=== PATIENT | male | born 1960 | race Caucasian/White ===

== ENCOUNTER 2017-04-02 09:57 | Inpatient (IN) | payer OTHER ==
[2017-04-02 10:47] VITALS: BMI 21.2
[2017-04-02] MEDS ORDERED: MAGNESIUM HYDROX 2400MG/30ML ORAL SUSPENSION 30 ML CUP PO PRN (11:17)
[2017-04-02] MEDS ORDERED: MENTHOL/PHENOL 1 EACH UD MM PRN (11:17)
[2017-04-02] MEDS ORDERED: MAGNESIUM CITRATE 300 ML BOTTLE PO PRN (11:17)
[2017-04-02] MEDS ORDERED: ACETAMINOPHEN 325 MG TABLET (FP) PO PRN (11:17)
[2017-04-02] MEDS ORDERED: METHADONE HCL 10 MG TABLET (FOR DETOX USE ONLY) PO ONE ×2 (11:17→23:00)
[2017-04-02] MEDS ORDERED: guaiFENesin/D-METHORPHAN HB 10 ML UNIT-DOSE CUPS PO PRN (11:17)
[2017-04-02] MEDS ORDERED: P-EPHED 60MG/TRIPROLIDI 2.5MG TABLET PO PRN (11:17)
[2017-04-02] MEDS ORDERED: NICOTINE POLACRILEX 4 MG GUM BUC PRN (11:19)
--- NOTE | 2017-04-02 11:25 | HP ---
COWS - Scale Resting Pulse: 1= [place] 81-100 Sweatin= Chills/Flushing Restless Observation: 1= Difficult to Sit Still Pupil Size: 1= Pupils >than Normal Bone or Joint Aches: 1= Mild Discomfort Runny Nose/ Eye Tearin= Nasal Congestion GI Upset > 30mins: 2= Nausea/Diarrhea Tremor Observation: 2= Slight Tremor Visible Yawning Observation: 1= 1-2x During Session Anxiety or Irritability: 2=Irritable/Anxious Goose Flesh Skin: 3=Piloerection COWS Score: 16 Admission [facility] Chief Complaint: heroin withdrawal sx Allergies/Adverse Reactions: Allergies Allergy/AdvReac Type Severity Reaction Status Date / Time No Known Allergies Allergy Verified 04/02/17 11:09 History of Present Illness: 56 yo m w h/o OUD requesting inpatient detoxification for sparkle haines sx when he does not use. PMHX anxieyt, depressio aned insomnia treated and cleared hepatitis c, thirsty . no suicidal ideation, no seizures, no delirium tremens. last treatment detox 2 years ago smokes 1PPD Exam Limitations: No Limitations - Ebola screening Have you traveled outside of the country in the last 21 days: No Have you had contact with anyone from an Ebola affected area: No Have you been sick,other than usual withdrawal symptoms: No Do you have a fever: No - Review of Systems Constitutional: Chills, Diaphoresis, Night Sweats, Changes in sleep, Weakness, Unintentional Wgt. Loss EENT: reports: Tearing, Nose Congestion Respiratory: reports: No Symptoms reported Cardiac: reports: No Symptoms Reported GI: reports: Diarrhea, Difficulty Swallowing, Nausea, Poor Appetite, Poor Fluid Intake, Vomiting, Indigestion, Abdominal cramping : reports: No Symptoms Reported Musculoskeletal: reports: Back Pain, Joint Pain, Muscle Pain Integumentary: reports: Flushing, Sweating Neuro: reports: Headache, Paresthesia, Tremors, Weakness Endocrine: reports: Flushing, Increased Thirst Hematology: reports: No Symptoms Reported Psychiatric: reports: Judgement Intact, Orientated x3, Anxious, Depressed Other Systems: Reviewed and Negative Patient History - Patient Medical History Hx Anemia: Yes Hx Asthma: No Hx Chronic Obstructive Pulmonary Disease (COPD): No Hx Cancer: No Hx Cardiac Disorders: No Hx Congestive Heart Failure: No Hx Hypertension: No Hx Hypercholesterolemia: No Hx Pacemaker: No HX Cerebrovascular Accident: No Hx Seizures: No Hx Dementia: No Hx Diabetes: No Hx Gastrointestinal Disorders: No Hx Liver Disease: No Hx Genitourinary Disorders: No Hx Sexually Transmitted Disorders: No Hx Renal Disease (ESRD): No Hx Thyroid Disease: No Hx Human Immunodeficiency Virus (HIV): No Hx Hepatitis C: Yes (trated and olceared virus) Hx Depression: Yes Hx Suicide Attempt: No Hx Bipolar Disorder: Yes (SI) Hx Schizophrenia: No - Patient Surgical History Past Surgical History: No Hx Neurologic Surgery: No Hx Cataract Extraction: No Hx Cardiac Surgery: No Hx Lung Surgery: No Hx Breast Surgery: No Hx Breast Biopsy: No Hx Abdominal Surgery: No Hx Appendectomy: No Hx Cholecystectomy: No Hx Genitourinary Surgery: No Hx Section: No Hx Orthopedic Surgery: No Anesthesia Reaction: No - PPD History Previous Implant?: Yes Documented Results: Negative w/o proof Implanted On Prior R Admission?: No PPD to be Administered?: Yes - Reproductive History Patient is a Female of Child Bearing Age (11 -55 yrs old): No Patient : No - Smoking Cessation Smoking history: Current every day smoker Have you smoked in the past 12 months: Yes Aproximately how many cigarettes per day: 20 Hx Chewing Tobacco Use: No Initiated information on smoking cessation: Yes 'Breaking Loose' booklet given: 04/02/17 - Substance & Tx. History Hx Substance Use: Yes Substance Use Type: Heroin, Opiates Hx Substance Use Treatment: Yes (detox 2 years ago can not remember where) - Substances Abused Heroin Route: Injection Frequency: Daily Amount used: 20 bags Age of first use: 28 Date of Last Use: 04/02/17 Family Disease History - Family Disease History Family Disease History: Other: Mother (alcoholism) Admission Physical Exam BHS - Vital Signs Vital Signs: Vital Signs - 24 hr 04/02/17 10:43 Temperature 97.9 F Pulse Rate 84 Respiratory 20 Rate Blood Pressure 111/72 - Physical General Appearance: Yes: Nourished, Appropriately Dressed, Disheveled, Mild Distress, Thin, Tremorous, Irritable, Sweating, Anxious HEENTM: Yes: EOMI, Hearing grossly Normal, Normocephalic, Normal Voice, ALYSSA, Pharynx Normal, Nasal Congestion, Rhinorrhea Respiratory: Yes: Within Normal Limits, Chest Non-Tender, Lungs Clear, Normal Breath Sounds, No Respiratory Distress, No Accessory Muscle Use Neck: Yes: Within Normal Limits, No masses,lesions,Nodules, Supple, Trachea in good position Breast: Yes: Breast Exam Deferred Cardiology: Yes: Within Normal Limits, Regular Rhythm, Regular Rate, S1, S2 Abdominal: Yes: Within Normal Limits, Normal Bowel Sounds, Non Tender, Flat, Soft Genitourinary: Yes: Within Normal Limits Back: Yes: Within Normal Limits, Normal Inspection Musculoskeletal: Yes: full range of Motion, Gait Steady, Pelvis Stable, Back pain, Muscle Pain Extremities: Yes: Normal Capillary Refill, Normal Range of Motion, Non-Tender, Tremors Neurological: Yes: chief quality officer II-XII NML intact, Fully Oriented, Alert, Motor Strength 5/5, Normal Response, Depressed Affect Integumentary: Yes: Normal Color, Warm, Track Zuniga (erythema/cellulitis left forearm from idu/ no abscess noted) Lymphatic: Yes: Within Normal Limits - Addiitonal Findings: withdrawal sx - Diagnostic (1) Opioid dependence with withdrawal Current Visit: Yes Status: Acute (2) Depression Current Visit: Yes Status: Acute (3) Dehydration Current Visit: Yes Status: Acute (4) Hepatitis C Current Visit: Yes Status: Acute (5) Nicotine dependence Current Visit: Yes Status: Acute (6) Cellulitis Current Visit: Yes Status: Acute Cleared for Admission [facility] - Detox or Rehab [facility] Level of Care: Medically Managed Detox Regimen/Protocol: Methadone [facility] Breath Alcohol Content Breath Alcohol Content: 0 Urine Drug Screen - Results Drug Screen Negative: No Urine Drug Screen Results: OPI-Opiates, MTD-Methadone, OXY-Oxycodone
[2017-04-02] MEDS: diazePAM 5 MG TABLET PO PRN ×2 (12:35→17:26)
[2017-04-02] MEDS: cloNIDine HCL 0.1 MG TABLET PO SCH ×2 (12:35→22:44)
[2017-04-02] MEDS: CEPHALEXIN MONOHYDRATE 500 MG CAPSULE (UD) PO SCH ×2 (12:36→22:43)
[2017-04-02] MEDS: PANTOPRAZOLE 40 MG TABLET (FP) PO SCH (12:36)
[2017-04-02] MEDS: NAPROXEN 500 MG TABLET (FP) PO SCH ×2 (12:36→22:43)
[2017-04-02] MEDS: NICOTINE 21 MG/24 HOURS TOPICAL PATCH TD SCH (12:38)
[2017-04-02] MEDS: CYCLOBENZAPRINE HCL 10 MG TABLET (FP) PO SCH ×2 (14:55→22:44)
--- NOTE | 2017-04-02 18:46 | EKG ---
Test Reason : Blood Pressure : / mmHG Vent. Rate : 092 BPM Atrial Rate : 092 BPM P-R Int : 170 ms QRS Dur : 084 ms QT Int : 350 ms P-R-T Axes : 073 040 057 degrees QTc Int : 432 ms NORMAL SINUS RHYTHM NORMAL ECG NO PREVIOUS ECGS AVAILABLE Confirmed by MD ISADORA, JEWELS ([id number]) on 04/02/2017 6:45:43 PM Referred By: Silver Whittaker Confirmed By:JEWELS MUIR MD
[2017-04-02] MEDS: THIAMINE HCL 100 MG TABLET (FP) PO SCH (22:42)
[2017-04-02] MEDS: ZOLPIDEM TARTRATE 5 MG TABLET PO PRN (22:43)
[2017-04-02 23:06] LABS: URINE APPEARANCE CLEAR; URINE BILIRUBIN NEGATIVE (NEGATIVE); URINE BLOOD 2+ (NEGATIVE); URINE COLOR STRAW; URINE GLUCOSE (UA) NEGATIVE (NEGATIVE); URINE KETONE NEGATIVE (NEGATIVE); URINE LEUK ESTERASE NEGATIVE (NEGATIVE); URINE NITRITE NEGATIVE (NEGATIVE); URINE PROTEIN NEGATIVE (NEGATIVE); URINE UROBILINOGEN NEGATIVE mg/dL (0.2-1.0)
[2017-04-03] MEDS: CYCLOBENZAPRINE HCL 10 MG TABLET (FP) PO SCH ×3 (05:55→22:23)
[2017-04-03] MEDS: diazePAM 5 MG TABLET PO PRN ×4 (05:55→20:13)
[2017-04-03] MEDS ORDERED: METHADONE HCL 10 MG TABLET (FOR DETOX USE ONLY) PO ONE (10:00)
[2017-04-03 10:01] LABS: HEMOGLOBIN 11.7 GM/dL (11.7-16.9); MCH 30.1 pg (25.7-33.7); MCHC 32.4 g/dl (32.0-35.9); MEAN CELL VOLUME 92.9 fl (80-96); MEAN PLT VOLUME 7.5 fl (7.5-11.1); PLATELET COUNT 174 K/MM3 (134-434); RBC 3.88 M/mm3 (4.00-5.60); RDW 13.1 % (11.9-15.9); WHITE BLOOD COUNT 4.2 K/mm3 (4.0-10.0)
[2017-04-03 10:15] LABS: ALBUMIN 3.2 g/dl (3.4-5.0); ANION GAP 5 (8-16); BILIRUBIN,TOTAL 0.4 mg/dL (0.2-1.0); BLOOD UREA NITROGEN 16 mg/dL (7-18); CALCIUM 7.8 mg/dL (8.5-10.1); CHLORIDE 107 mmol/L (98-107); CO2 29 mmol/L (21-32); CREATININE 0.8 mg/dL (0.7-1.3); GLUCOSE,RANDOM 88 mg/dL (74-106); POTASSIUM 4.7 mmol/L (3.5-5.1); SGOT/AST 11 U/L (15-37); SGPT/ALT 19 U/L (12-78); SODIUM 141 mmol/L (136-145); TOT PROT 5.7 g/dl (6.4-8.2)
[2017-04-03 10:16] LABS: ALK PHOS 83 U/L (45-117)
[2017-04-03] MEDS: PRENATAL VITAMINS W/ FOLIC ACID TABLET (FP) PO SCH (10:41)
[2017-04-03] MEDS: CEPHALEXIN MONOHYDRATE 500 MG CAPSULE (UD) PO SCH ×2 (10:41→22:23)
[2017-04-03] MEDS: PANTOPRAZOLE 40 MG TABLET (FP) PO SCH (10:41)
[2017-04-03] MEDS: cloNIDine HCL 0.1 MG TABLET PO SCH ×2 (10:41→22:24)
[2017-04-03] MEDS: NAPROXEN 500 MG TABLET (FP) PO SCH ×2 (10:41→22:23)
[2017-04-03] MEDS: NICOTINE 21 MG/24 HOURS TOPICAL PATCH TD SCH (10:42)
--- NOTE | 2017-04-03 11:14 | CONSULT ---
[facility] Psychiatric Consult - Data Date of interview: 04/03/17 Admission source: [facility] Identifying data: First admission to [facility] for this 56 y/o male seeking detox treatment on for heroin dependence.Patient is single,a father of one,domiciled and reportedly employed. Substance Abuse History: Confirmed by patient in this interview. Smoking history : Current every day smoker. Have you smoked in the past 12 months: Yes. Aproximately how many cigarettes per day: 20. Hx Chewing Tobacco Use: No. Initiated information on smoking cessation: Yes. 'Breaking Loose' booklet given : 04/02/17. - Substance & Tx. History. Hx Substance Use: Yes. Substance Use Type: Heroin, Opiates. Hx Substance Use Treatment: Yes (detox 2 years ago can not remember where). - Substances Abused. Heroin. Route: Injection. Frequency: Daily. Amount used: 20 bags. Age of first use: 28. Date of Last Use: 04/02/17 Medical History: Anemia,hepatitis C (treated) and a distant history of injury to right leg + wrist (as per records). Psychiatric History: Patient denies. Physical/Sexual Abuse/Trauma History: Patient denies. Additional Comment: Urine Drug Screen Results: OPI-Opiates, MTD-Methadone, OXY- Oxycodone.Noted. Mental Status Exam - Mental Status Exam Alert and Oriented to: Time, Place, Person Cognitive Function: Good Patient Appearance: Well Groomed Mood: Withdrawn, Irritable Affect: Mood Congruent Patient Behavior: Passive, Fatigued, Cooperative (superficially cooperative historian) Speech Pattern: Clear Voice Loudness: Normal Thought Process: Intact, Goal Oriented Thought Disorder: Not Present Hallucinations: Denies Suicidal Ideation: Denies Homicidal Ideation: Denies Insight/Judgement: Poor Sleep: Poorly, Difficulty falling asleep Appetite: Good (as evidenced by empty foodtray at bedside) Muscle strength/Tone: Normal Gait/Station: Normal Additional Comments: observed walking prior to interview Psychiatric Findings - Problem List ([place] 1, 2,3) (1) Opioid dependence with withdrawal Current Visit: Yes Status: Acute (2) Nicotine dependence Current Visit: Yes Status: Acute (3) Insomnia Current Visit: Yes Status: Acute - Initial Treatment Plan Initial Treatment Plan: Psychoeducation.Sleep hygiene.Patient is encouraged to attend daily therapy sessions,groups,community meetings and recreational activities on schedule.He agrees.Ambien 10 mg po hs prn.Mr José is informed of risk of parasomnias (sleep-walking).Consented (verbally) to this plan of care.Observation.
--- NOTE | 2017-04-03 12:20 | PN ---
BHS COWS - Scale Resting Pulse: 1= [place] 81-100 Sweatin= Chills/Flushing Restless Observation: 3= Extraneous Movement Pupil Size: 0= Normal to Room Light Bone or Joint Aches: 4=Acute Joint/Muscle Pain Runny Nose/ Eye Tearin= None GI Upset > 30mins: 1= Stomach Cramp Tremor Observation of Outstretched Hands: 1= Tremor [place], Not Seen Yawning Observation: 2= >3x During Session Anxiety or Irritability: 2=Irritable/Anxious Goose Flesh Skin: 0=Smooth Skin COWS Score: 15 S Progress Note (SOAP) Subjective: ANXIETY ,SWEATS/CHILLS,MUSCLE ACHES,FATIGUE. Objective: 04/03/17 12:19 Vital Signs Temperature 98.6 F 04/03/17 10:00 Pulse Rate 82 04/03/17 10:00 Respiratory Rate 18 04/03/17 10:00 Blood Pressure 110/69 04/03/17 10:00 O2 Sat by Pulse Oximetry (%) Laboratory Last Values WBC 4.2 K/mm3 (4.0-10.0) 04/03/17 06:30 RBC 3.88 M/mm3 (4.00-5.60) L 04/03/17 06:30 Hgb 11.7 GM/dL (11.7-16.9) 04/03/17 06:30 Hct 36.0 % (35.4-49) 04/03/17 06:30 MCV 92.9 fl (80-96) 04/03/17 06:30 MCH 30.1 pg (25.7-33.7) 04/03/17 06:30 MCHC 32.4 g/dl (32.0-35.9) 04/03/17 06:30 RDW 13.1 % (11.9-15.9) 04/03/17 06:30 Plt Count 174 K/MM3 (134-434) 04/03/17 06:30 MPV 7.5 fl (7.5-11.1) 04/03/17 06:30 Sodium 141 mmol/L (136-145) 04/03/17 06:30 Potassium 4.7 mmol/L (3.5-5.1) 04/03/17 06:30 Chloride 107 mmol/L (98-107) 04/03/17 06:30 Carbon Dioxide 29 mmol/L (21-32) 04/03/17 06:30 Anion Gap 5 (8-16) L 04/03/17 06:30 BUN 16 mg/dL (7-18) 04/03/17 06:30 Creatinine 0.8 mg/dL (0.7-1.3) 04/03/17 06:30 Creat Clearance w eGFR > 60 (>60) 04/03/17 06:30 Random Glucose 88 mg/dL (74-106) 04/03/17 06:30 Calcium 7.8 mg/dL (8.5-10.1) L 04/03/17 06:30 Total Bilirubin 0.4 mg/dL (0.2-1.0) 04/03/17 06:30 AST 11 U/L (15-37) L 04/03/17 06:30 ALT 19 U/L (12-78) 04/03/17 06:30 Alkaline Phosphatase 83 U/L (45-117) 04/03/17 06:30 Total Protein 5.7 g/dl (6.4-8.2) L 04/03/17 06:30 Albumin 3.2 g/dl (3.4-5.0) L 04/03/17 06:30 Urine Color Straw 04/02/17 15:46 Urine Appearance Clear 04/02/17 15:46 Urine pH 6.0 (5.0-8.0) 04/02/17 15:46 Ur Specific [place] 1.008 (1.001-1.035) 04/02/17 15:46 Urine Protein Negative (NEGATIVE) 04/02/17 15:46 Urine Glucose (UA) Negative (NEGATIVE) 04/02/17 15:46 Urine Ketones Negative (NEGATIVE) 04/02/17 15:46 Urine Blood 2+ (NEGATIVE) H 04/02/17 15:46 Urine Nitrite Negative (NEGATIVE) 04/02/17 15:46 Urine Bilirubin Negative (NEGATIVE) 04/02/17 15:46 Urine Urobilinogen Negative mg/dL (0.2-1.0) 04/02/17 15:46 Ur Leukocyte Esterase Negative (NEGATIVE) 04/02/17 15:46 Urine WBC (Auto) <1 /hpf (3-5) 04/02/17 15:46 Urine RBC (Auto) 2 /hpf (0-3) 04/02/17 15:46 Assessment: 04/03/17 12:19 WITHDRAWAL SX Plan: CONTINUE DETOX
[2017-04-03] MEDS: THIAMINE HCL 100 MG TABLET (FP) PO SCH (22:23)
[2017-04-03] MEDS: ZOLPIDEM TARTRATE 5 MG TABLET PO PRN (22:25)
[2017-04-04] MEDS: diazePAM 5 MG TABLET PO PRN ×3 (05:46→18:29)
[2017-04-04] MEDS: CYCLOBENZAPRINE HCL 10 MG TABLET (FP) PO SCH ×3 (05:46→22:23)
[2017-04-04] MEDS ORDERED: METHADONE HCL 5 MG TABLET (FOR DETOX USE ONLY) PO ONE (10:00)
[2017-04-04] MEDS: PRENATAL VITAMINS W/ FOLIC ACID TABLET (FP) PO SCH (10:41)
[2017-04-04] MEDS: PANTOPRAZOLE 40 MG TABLET (FP) PO SCH (10:41)
[2017-04-04] MEDS: NAPROXEN 500 MG TABLET (FP) PO SCH ×2 (10:41→22:39)
[2017-04-04] MEDS: cloNIDine HCL 0.1 MG TABLET PO SCH ×2 (10:41→22:23)
[2017-04-04] MEDS: NICOTINE 21 MG/24 HOURS TOPICAL PATCH TD SCH (10:41)
[2017-04-04] MEDS: CEPHALEXIN MONOHYDRATE 500 MG CAPSULE (UD) PO SCH ×2 (10:41→22:23)
--- NOTE | 2017-04-04 11:56 | PN ---
BHS COWS - Scale Resting Pulse: 0= [place] 80 or Below Sweatin= Chills/Flushing Restless Observation: 3= Extraneous Movement Pupil Size: 2= Moderately Dilated Bone or Joint Aches: 4=Acute Joint/Muscle Pain Runny Nose/ Eye Tearin= Nasal Congestion GI Upset > 30mins: 1= Stomach Cramp Tremor Observation of Outstretched Hands: 2= Slight Tremor Visible Yawning Observation: 2= >3x During Session Anxiety or Irritability: 2=Irritable/Anxious Goose Flesh Skin: 0=Smooth Skin COWS Score: 18 BHS Progress Note (SOAP) Subjective: ANXIETY,SWEATS,FATIGUE. Objective: 04/04/17 11:55 Vital Signs Temperature 96.8 F L 04/04/17 10:07 Pulse Rate 77 04/04/17 10:07 Respiratory Rate 20 04/04/17 10:07 Blood Pressure 124/96 04/04/17 10:07 O2 Sat by Pulse Oximetry (%) Laboratory Last Values WBC 4.2 K/mm3 (4.0-10.0) 04/03/17 06:30 RBC 3.88 M/mm3 (4.00-5.60) L 04/03/17 06:30 Hgb 11.7 GM/dL (11.7-16.9) 04/03/17 06:30 Hct 36.0 % (35.4-49) 04/03/17 06:30 MCV 92.9 fl (80-96) 04/03/17 06:30 MCH 30.1 pg (25.7-33.7) 04/03/17 06:30 MCHC 32.4 g/dl (32.0-35.9) 04/03/17 06:30 RDW 13.1 % (11.9-15.9) 04/03/17 06:30 Plt Count 174 K/MM3 (134-434) 04/03/17 06:30 MPV 7.5 fl (7.5-11.1) 04/03/17 06:30 Sodium 141 mmol/L (136-145) 04/03/17 06:30 Potassium 4.7 mmol/L (3.5-5.1) 04/03/17 06:30 Chloride 107 mmol/L (98-107) 02/26/18 06:30 Carbon Dioxide 29 mmol/L (21-32) 04/03/17 06:30 Anion Gap 5 (8-16) L 04/03/17 06:30 BUN 16 mg/dL (7-18) 04/03/17 06:30 Creatinine 0.8 mg/dL (0.7-1.3) 04/03/17 06:30 Creat Clearance w eGFR > 60 (>60) 04/03/17 06:30 Random Glucose 88 mg/dL (74-106) 04/03/17 06:30 Calcium 7.8 mg/dL (8.5-10.1) L 04/03/17 06:30 Total Bilirubin 0.4 mg/dL (0.2-1.0) 04/03/17 06:30 AST 11 U/L (15-37) L 04/03/17 06:30 ALT 19 U/L (12-78) 04/03/17 06:30 Alkaline Phosphatase 83 U/L (45-117) 04/03/17 06:30 Total Protein 5.7 g/dl (6.4-8.2) L 04/03/17 06:30 Albumin 3.2 g/dl (3.4-5.0) L 04/03/17 06:30 Urine Color Straw 04/02/17 15:46 Urine Appearance Clear 04/02/17 15:46 Urine pH 6.0 (5.0-8.0) 04/02/17 15:46 Ur Specific [place] 1.008 (1.001-1.035) 04/02/17 15:46 Urine Protein Negative (NEGATIVE) 04/02/17 15:46 Urine Glucose (UA) Negative (NEGATIVE) 04/02/17 15:46 Urine Ketones Negative (NEGATIVE) 04/02/17 15:46 Urine Blood 2+ (NEGATIVE) H 04/02/17 15:46 Urine Nitrite Negative (NEGATIVE) 04/02/17 15:46 Urine Bilirubin Negative (NEGATIVE) 04/02/17 15:46 Urine Urobilinogen Negative mg/dL (0.2-1.0) 04/02/17 15:46 Ur Leukocyte Esterase Negative (NEGATIVE) 04/02/17 15:46 Urine WBC (Auto) <1 /hpf (3-5) 04/02/17 15:46 Urine RBC (Auto) 2 /hpf (0-3) 04/02/17 15:46 RPR Titer Nonreactive (NONREACTIVE) 04/03/17 06:30 Assessment: 04/04/17 11:56 WITHDRAWAL SX Plan: CONTINUE DETOX INCREASE PO FLUIDS
[2017-04-04] MEDS: ZOLPIDEM TARTRATE 5 MG TABLET PO PRN (22:23)
[2017-04-04] MEDS: THIAMINE HCL 100 MG TABLET (FP) PO SCH (22:23)
[2017-04-05] MEDS: diazePAM 5 MG TABLET PO PRN ×2 (06:00→10:42)
[2017-04-05] MEDS: CYCLOBENZAPRINE HCL 10 MG TABLET (FP) PO SCH ×3 (06:01→23:01)
[2017-04-05] MEDS ORDERED: METHADONE HCL 5 MG TABLET (FOR DETOX USE ONLY) PO ONE (10:00)
[2017-04-05] MEDS: cloNIDine HCL 0.1 MG TABLET PO SCH ×2 (10:41→23:02)
[2017-04-05] MEDS: PRENATAL VITAMINS W/ FOLIC ACID TABLET (FP) PO SCH (10:41)
[2017-04-05] MEDS: PANTOPRAZOLE 40 MG TABLET (FP) PO SCH (10:41)
[2017-04-05] MEDS: NAPROXEN 500 MG TABLET (FP) PO SCH ×2 (10:41→23:01)
[2017-04-05] MEDS: CEPHALEXIN MONOHYDRATE 500 MG CAPSULE (UD) PO SCH ×2 (10:41→23:01)
[2017-04-05] MEDS: NICOTINE 21 MG/24 HOURS TOPICAL PATCH TD SCH (10:42)
--- NOTE | 2017-04-05 12:37 | PN ---
BHS Progress Note (SOAP) Subjective: ANXIETY,SWEATS,INTERMITTENT SLEEP. Objective: 04/05/17 12:36 Vital Signs Temperature 96.0 F L 04/05/17 09:22 Pulse Rate 96 H 04/05/17 09:22 Respiratory Rate 20 04/05/17 09:22 Blood Pressure 103/72 04/05/17 09:22 O2 Sat by Pulse Oximetry (%) Laboratory Last Values WBC 4.2 K/mm3 (4.0-10.0) 04/03/17 06:30 RBC 3.88 M/mm3 (4.00-5.60) L 04/03/17 06:30 Hgb 11.7 GM/dL (11.7-16.9) 04/03/17 06:30 Hct 36.0 % (35.4-49) 04/03/17 06:30 MCV 92.9 fl (80-96) 04/03/17 06:30 MCH 30.1 pg (25.7-33.7) 04/03/17 06:30 MCHC 32.4 g/dl (32.0-35.9) 04/03/17 06:30 RDW 13.1 % (11.9-15.9) 04/03/17 06:30 Plt Count 174 K/MM3 (134-434) 04/03/17 06:30 MPV 7.5 fl (7.5-11.1) 04/03/17 06:30 Sodium 141 mmol/L (136-145) 04/03/17 06:30 Potassium 4.7 mmol/L (3.5-5.1) 04/03/17 06:30 Chloride 107 mmol/L (98-107) 04/03/17 06:30 Carbon Dioxide 29 mmol/L (21-32) 04/03/17 06:30 Anion Gap 5 (8-16) L 04/03/17 06:30 BUN 16 mg/dL (7-18) 04/03/17 06:30 Creatinine 0.8 mg/dL (0.7-1.3) 04/03/17 06:30 Creat Clearance w eGFR > 60 (>60) 04/03/17 06:30 Random Glucose 88 mg/dL (74-106) 04/03/17 06:30 Calcium 7.8 mg/dL (8.5-10.1) L 04/03/17 06:30 Total Bilirubin 0.4 mg/dL (0.2-1.0) 04/03/17 06:30 AST 11 U/L (15-37) L 04/03/17 06:30 ALT 19 U/L (12-78) 04/03/17 06:30 Alkaline Phosphatase 83 U/L (45-117) 04/03/17 06:30 Total Protein 5.7 g/dl (6.4-8.2) L 04/03/17 06:30 Albumin 3.2 g/dl (3.4-5.0) L 04/03/17 06:30 Urine Color Straw 04/02/17 15:46 Urine Appearance Clear 04/02/17 15:46 Urine pH 6.0 (5.0-8.0) 04/02/17 15:46 Ur Specific [place] 1.008 (1.001-1.035) 04/02/17 15:46 Urine Protein Negative (NEGATIVE) 04/02/17 15:46 Urine Glucose (UA) Negative (NEGATIVE) 04/02/17 15:46 Urine Ketones Negative (NEGATIVE) 04/02/17 15:46 Urine Blood 2+ (NEGATIVE) H 04/02/17 15:46 Urine Nitrite Negative (NEGATIVE) 04/02/17 15:46 Urine Bilirubin Negative (NEGATIVE) 04/02/17 15:46 Urine Urobilinogen Negative mg/dL (0.2-1.0) 04/02/17 15:46 Ur Leukocyte Esterase Negative (NEGATIVE) 04/02/17 15:46 Urine WBC (Auto) <1 /hpf (3-5) 04/02/17 15:46 Urine RBC (Auto) 2 /hpf (0-3) 04/02/17 15:46 RPR Titer Nonreactive (NONREACTIVE) 04/03/17 06:30 Assessment: 04/05/17 12:36 WITHDRAWAL SX Plan: CONTINUE DETOX
[2017-04-05] MEDS: THIAMINE HCL 100 MG TABLET (FP) PO SCH (23:01)
[2017-04-06] MEDS: MAG HYDROX/AL HYDROX/SIMETH 30 ML UNIT-DOSE CUP PO PRN (00:21)
[2017-04-06] MEDS: LOPERAMIDE HCL 2 MG CAPSULE PO PRN ×2 (03:49→10:50)
[2017-04-06] MEDS: CYCLOBENZAPRINE HCL 10 MG TABLET (FP) PO SCH ×3 (06:55→22:24)
[2017-04-06] MEDS ORDERED: METHADONE HCL 10 MG TABLET (FOR DETOX USE ONLY) PO ONE (10:00)
[2017-04-06] MEDS: cloNIDine HCL 0.1 MG TABLET PO SCH ×2 (10:48→22:25)
[2017-04-06] MEDS: NAPROXEN 500 MG TABLET (FP) PO SCH ×2 (10:48→22:24)
[2017-04-06] MEDS: PRENATAL VITAMINS W/ FOLIC ACID TABLET (FP) PO SCH (10:48)
[2017-04-06] MEDS: CEPHALEXIN MONOHYDRATE 500 MG CAPSULE (UD) PO SCH ×2 (10:48→22:24)
[2017-04-06] MEDS: PANTOPRAZOLE 40 MG TABLET (FP) PO SCH (10:48)
[2017-04-06] MEDS: NICOTINE 21 MG/24 HOURS TOPICAL PATCH TD SCH (10:52)
--- NOTE | 2017-04-06 12:04 | PN ---
S Progress Note (SOAP) Subjective: C/O DIARRHEA,FATIGUE. Objective: 04/06/17 12:03 Vital Signs Temperature 97.0 F L 04/06/17 11:07 Pulse Rate 99 H 04/06/17 11:07 Respiratory Rate 19 04/06/17 11:07 Blood Pressure 101/69 04/06/17 11:07 O2 Sat by Pulse Oximetry (%) Laboratory Last Values WBC 4.2 K/mm3 (4.0-10.0) 04/03/17 06:30 RBC 3.88 M/mm3 (4.00-5.60) L 04/03/17 06:30 Hgb 11.7 GM/dL (11.7-16.9) 04/03/17 06:30 Hct 36.0 % (35.4-49) 04/03/17 06:30 MCV 92.9 fl (80-96) 04/03/17 06:30 MCH 30.1 pg (25.7-33.7) 04/03/17 06:30 MCHC 32.4 g/dl (32.0-35.9) 04/03/17 06:30 RDW 13.1 % (11.9-15.9) 04/03/17 06:30 Plt Count 174 K/MM3 (134-434) 04/03/17 06:30 MPV 7.5 fl (7.5-11.1) 04/03/17 06:30 Sodium 141 mmol/L (136-145) 04/03/17 06:30 Potassium 4.7 mmol/L (3.5-5.1) 04/03/17 06:30 Chloride 107 mmol/L (98-107) 04/03/17 06:30 Carbon Dioxide 29 mmol/L (21-32) 04/03/17 06:30 Anion Gap 5 (8-16) L 04/03/17 06:30 BUN 16 mg/dL (7-18) 04/03/17 06:30 Creatinine 0.8 mg/dL (0.7-1.3) 04/03/17 06:30 Creat Clearance w eGFR > 60 (>60) 04/03/17 06:30 Random Glucose 88 mg/dL (74-106) 04/03/17 06:30 Calcium 7.8 mg/dL (8.5-10.1) L 04/03/17 06:30 Total Bilirubin 0.4 mg/dL (0.2-1.0) 04/03/17 06:30 AST 11 U/L (15-37) L 04/03/17 06:30 ALT 19 U/L (12-78) 04/03/17 06:30 Alkaline Phosphatase 83 U/L (45-117) 04/03/17 06:30 Total Protein 5.7 g/dl (6.4-8.2) L 04/03/17 06:30 Albumin 3.2 g/dl (3.4-5.0) L 04/03/17 06:30 Urine Color Straw 04/02/17 15:46 Urine Appearance Clear 04/02/17 15:46 Urine pH 6.0 (5.0-8.0) 04/02/17 15:46 Ur Specific [place] 1.008 (1.001-1.035) 04/02/17 15:46 Urine Protein Negative (NEGATIVE) 04/02/17 15:46 Urine Glucose (UA) Negative (NEGATIVE) 04/02/17 15:46 Urine Ketones Negative (NEGATIVE) 04/02/17 15:46 Urine Blood 2+ (NEGATIVE) H 04/02/17 15:46 Urine Nitrite Negative (NEGATIVE) 04/02/17 15:46 Urine Bilirubin Negative (NEGATIVE) 04/02/17 15:46 Urine Urobilinogen Negative mg/dL (0.2-1.0) 04/02/17 15:46 Ur Leukocyte Esterase Negative (NEGATIVE) 04/02/17 15:46 Urine WBC (Auto) <1 /hpf (3-5) 04/02/17 15:46 Urine RBC (Auto) 2 /hpf (0-3) 04/02/17 15:46 RPR Titer Nonreactive (NONREACTIVE) 04/03/17 06:30 Assessment: 04/06/17 12:03 WITHDRAWAL SX Plan: CONTINUE DETOX
[2017-04-06] MEDS: THIAMINE HCL 100 MG TABLET (FP) PO SCH (22:24)
[2017-04-06] MEDS: ZOLPIDEM TARTRATE 5 MG TABLET PO PRN (22:27)
[2017-04-07] MEDS: MAG HYDROX/AL HYDROX/SIMETH 30 ML UNIT-DOSE CUP PO PRN (01:51)
[2017-04-07] MEDS ORDERED: TRIMETHOBENZAMIDE HCL 200MG/2ML INJ IM PRN (04:11)
[2017-04-07] MEDS ORDERED: METHADONE HCL 5 MG TABLET (FOR DETOX USE ONLY) PO ONE (06:00)
[2017-04-07] MEDS: CYCLOBENZAPRINE HCL 10 MG TABLET (FP) PO SCH ×3 (07:43→22:15)
--- NOTE | 2017-04-07 09:59 | PN ---
BHS Progress Note (SOAP) Subjective: PT C/O NAUSEA,VOMITING, UNCONTROLLABLE DIARRHEA LAST NIGH(WITH ACCIDENTAL EPISODE IN CLOTHING). TIREDNESS. Objective: 04/07/17 09:57 Vital Signs 04/07/17 04/07/17 06:16 09:42 Temperature 97.2 F L Pulse Rate 105 H 104 H Respiratory 18 20 Rate Blood Pressure 106/74 103/68 Laboratory Last Values WBC 4.2 K/mm3 (4.0-10.0) 04/03/17 06:30 RBC 3.88 M/mm3 (4.00-5.60) L 04/03/17 06:30 Hgb 11.7 GM/dL (11.7-16.9) 04/03/17 06:30 Hct 36.0 % (35.4-49) 04/03/17 06:30 MCV 92.9 fl (80-96) 04/03/17 06:30 MCH 30.1 pg (25.7-33.7) 04/03/17 06:30 MCHC 32.4 g/dl (32.0-35.9) 04/03/17 06:30 RDW 13.1 % (11.9-15.9) 04/03/17 06:30 Plt Count 174 K/MM3 (134-434) 04/03/17 06:30 MPV 7.5 fl (7.5-11.1) 04/03/17 06:30 Sodium 141 mmol/L (136-145) 04/03/17 06:30 Potassium 4.7 mmol/L (3.5-5.1) 04/03/17 06:30 Chloride 107 mmol/L (98-107) 04/03/17 06:30 Carbon Dioxide 29 mmol/L (21-32) 04/03/17 06:30 Anion Gap 5 (8-16) L 04/03/17 06:30 BUN 16 mg/dL (7-18) 04/03/17 06:30 Creatinine 0.8 mg/dL (0.7-1.3) 04/03/17 06:30 Creat Clearance w eGFR > 60 (>60) 04/03/17 06:30 Random Glucose 88 mg/dL (74-106) 04/03/17 06:30 Calcium 7.8 mg/dL (8.5-10.1) L 04/03/17 06:30 Total Bilirubin 0.4 mg/dL (0.2-1.0) 04/03/17 06:30 AST 11 U/L (15-37) L 04/03/17 06:30 ALT 19 U/L (12-78) 04/03/17 06:30 Alkaline Phosphatase 83 U/L (45-117) 04/03/17 06:30 Total Protein 5.7 g/dl (6.4-8.2) L 04/03/17 06:30 Albumin 3.2 g/dl (3.4-5.0) L 04/03/17 06:30 Urine Color Straw 04/02/17 15:46 Urine Appearance Clear 04/02/17 15:46 Urine pH 6.0 (5.0-8.0) 04/02/17 15:46 Ur Specific [place] 1.008 (1.001-1.035) 04/02/17 15:46 Urine Protein Negative (NEGATIVE) 04/02/17 15:46 Urine Glucose (UA) Negative (NEGATIVE) 04/02/17 15:46 Urine Ketones Negative (NEGATIVE) 04/02/17 15:46 Urine Blood 2+ (NEGATIVE) H 04/02/17 15:46 Urine Nitrite Negative (NEGATIVE) 04/02/17 15:46 Urine Bilirubin Negative (NEGATIVE) 04/02/17 15:46 Urine Urobilinogen Negative mg/dL (0.2-1.0) 04/02/17 15:46 Ur Leukocyte Esterase Negative (NEGATIVE) 04/02/17 15:46 Urine WBC (Auto) <1 /hpf (3-5) 04/02/17 15:46 Urine RBC (Auto) 2 /hpf (0-3) 04/02/17 15:46 RPR Titer Nonreactive (NONREACTIVE) 04/03/17 06:30 Assessment: 04/07/17 09:58 WITHDRAWAL SX Plan: CONTINUE DETOX TIGAN DIRECTED D/C IMODIUM LOMOTIL DIRECTED. MONITO PT X 24 HRS JUNE D/C IN AM.
[2017-04-07] MEDS ORDERED: DIPHENOXYLATE 2.5/ATROPINE.025 1 COMBO TABLET PO PRN (10:01)
[2017-04-07] MEDS: PRENATAL VITAMINS W/ FOLIC ACID TABLET (FP) PO SCH (10:30)
[2017-04-07] MEDS: CEPHALEXIN MONOHYDRATE 500 MG CAPSULE (UD) PO SCH ×2 (10:30→22:15)
[2017-04-07] MEDS: PANTOPRAZOLE 40 MG TABLET (FP) PO SCH (10:30)
[2017-04-07] MEDS: NAPROXEN 500 MG TABLET (FP) PO SCH ×2 (10:30→22:15)
[2017-04-07] MEDS: NICOTINE 21 MG/24 HOURS TOPICAL PATCH TD SCH (10:30)
[2017-04-07] MEDS: cloNIDine HCL 0.1 MG TABLET PO SCH ×2 (10:30→22:17)
[2017-04-07] MEDS: ZOLPIDEM TARTRATE 5 MG TABLET PO PRN (22:15)
[2017-04-07] MEDS: THIAMINE HCL 100 MG TABLET (FP) PO SCH (22:15)
[2017-04-08] MEDS: CYCLOBENZAPRINE HCL 10 MG TABLET (FP) PO SCH (05:51)
[2017-04-08 06:28] VITALS: BP 90/56; PULSE 77; TEMP 97.1
--- NOTE | 2017-04-08 16:41 | DS ---
[facility] Detox Discharge Summary Admission Date: 04/02/17 Discharge Date: 04/08/17 - History Present History: Opioid Dependence Additional Comments: NO BEDS ARE AVAILABLE AT [facility] ([facility]), PATIENT WILL GO HOME OFR THE TIME BEING AND WILL CONTACT [facility] ON 04/10/2017 TO INQUIRE ABOUT POSSIBLE REHAB ADMISSION AT [facility] AT THAT TIME. PATIENT ADVISED TO FOLLOW-UP WITH [facility] DR. VASQUEZ [place] [place] AFTER DISCHARGE FROM DETOX / REHAB FOR FURTHER MEDICAL EVALUATION. PATIENT WAS DISCHARGED FROM DETOX UNIT IN STABLE MEDICAL CONDITION. Pertinent Past History: Depression, Bipolar Disorder, Dehydration, Nicotine Dependence, Cellulitis, History of Hep C (Treated). - Physical Exam Results Vital Signs: Vital Signs Temperature 97.1 F L 04/08/17 06:28 Pulse Rate 77 04/08/17 06:28 Respiratory Rate 16 04/08/17 06:28 Blood Pressure 90/56 04/08/17 06:28 O2 Sat by Pulse Oximetry (%) Pertinent Admission Physical Exam Findings: WITHDRAWAL SYMPTOMS. Laboratory Tests 04/02/17 04/03/17 04/03/17 15:46 06:30 06:30 WBC 4.2 RBC 3.88 L Hgb 11.7 Hct 36.0 MCV 92.9 MCH 30.1 MCHC 32.4 RDW 13.1 Plt Count 174 MPV 7.5 Sodium 141 Potassium 4.7 Chloride 107 Carbon Dioxide 29 Anion Gap 5 L BUN 16 Creatinine 0.8 Creat Clearance w eGFR > 60 Random Glucose 88 Calcium 7.8 L Total Bilirubin 0.4 AST 11 L ALT 19 Alkaline Phosphatase 83 Total Protein 5.7 L Albumin 3.2 L Urine Color Straw Urine Appearance Clear Urine pH 6.0 Ur Specific [place] 1.008 Urine Protein Negative Urine Glucose (UA) Negative Urine Ketones Negative Urine Blood 2+ H Urine Nitrite Negative Urine Bilirubin Negative Urine Urobilinogen Negative Ur Leukocyte Esterase Negative Urine WBC (Auto) <1 Urine RBC (Auto) 2 RPR Titer 04/03/17 06:30 WBC RBC Hgb Hct MCV MCH MCHC RDW Plt Count MPV Sodium Potassium Chloride Carbon Dioxide Anion Gap BUN Creatinine Creat Clearance w eGFR Random Glucose Calcium Total Bilirubin AST ALT Alkaline Phosphatase Total Protein Albumin Urine Color Urine Appearance Urine pH Ur Specific [place] Urine Protein Urine Glucose (UA) Urine Ketones Urine Blood Urine Nitrite Urine Bilirubin Urine Urobilinogen Ur Leukocyte Esterase Urine WBC (Auto) Urine RBC (Auto) RPR Titer Nonreactive LABS NOTED. - Treatment Hospital Course: Detox Protocol Followed, Detoxed Safely, Responded well, Discharged Condition Good, Rehab Referral Accepted Patient has Accepted a Rehab Referral to: [facility] ([place] . - Medication Discharge Medications: Ambulatory Orders NK [No Known Home Medication] 04/02/17 - Diagnosis (1) Cellulitis Status: Acute Qualifiers: Site of cellulitis: unspecified site Qualified Code(s): L03.90 - Cellulitis , unspecified (2) Dehydration Status: Acute (3) Depression Status: Acute Qualifiers: Depression Type: unspecified Qualified Code(s): F32.9 - Major depressive disorder, single episode, unspecified (4) Insomnia Status: Acute Qualifiers: Insomnia type: unspecified Qualified Code(s): G47.00 - Insomnia, unspecified (5) Nicotine dependence Status: Acute Qualifiers: Nicotine product type: cigarettes Substance use status: in withdrawal Qualified Code(s): F17.213 - Nicotine dependence, cigarettes, with withdrawal (6) Opioid dependence with withdrawal Status: Acute - AMA Did Patient Leave Against Medical Advice: No
== END 2017-04-08 10:06 | disposition home or self-care (01) | DRG 773 ==
LOC: YASAS 09:57 → Y3N 11:46
PROVIDERS: ADMIT Internal Medicine; ATTEND Internal Medicine
PROC: HZ2ZZZZ Detoxification Services for Substance Abuse Treatment (ICD-10-PCS; principal; 2017-04-02)
DX: F11.23 Opioid dependence with withdrawal (principal); F17.213 Nicotine dependence, cigarettes, with withdrawal; F32.9 Major depressive disorder, single episode, unspecified; E86.0 Dehydration; G47.00 Insomnia, unspecified; L03.114 Cellulitis of left upper limb; R19.7 Diarrhea, unspecified; R11.2 Nausea with vomiting, unspecified; D64.9 Anemia, unspecified; B18.2 Chronic viral hepatitis C
CPT/HCPCS: 36415; 80053; 81003; 81015; 85027; 86593; 93005; 93010; J0735

== ENCOUNTER 2017-05-12 10:25 | Inpatient (IN) | payer OTHER ==
[2017-05-12 11:40] VITALS: BMI 20.8
--- NOTE | 2017-05-12 11:53 | HP ---
COWS - Scale Resting Pulse: 2= [place] 101-120 Sweatin=Flushed/Facial Moisture Restless Observation: 1= Difficult to Sit Still Pupil Size: 0= Normal to Room Light Bone or Joint Aches: 2= Severe Diffuse Aches Runny Nose/ Eye Tearin= Runny Nose/Eyes GI Upset > 30mins: 2= Nausea/Diarrhea Tremor Observation: 2= Slight Tremor Visible Yawning Observation: 1= 1-2x During Session Anxiety or Irritability: 2=Irritable/Anxious Goose Flesh Skin: 0=Smooth Skin COWS Score: 16 CIWA Score - CIWA Score Nausea/Vomitin Muscle Tremors: 2 Anxiety: 3 Agitation: 2 Paroxysmal Sweats: 3 Orientation: 0-Oriented Tacttile Disturbances: 0-None Auditory Disturbances: 0-None Visual Disturbances: 0-None Headache: 2-Mild CIWA-Ar Total Score: 15 Admission ROS S - HPI Chief Complaint: ETOH/Heroin withdrawal symptoms Allergies/Adverse Reactions: Allergies Allergy/AdvReac Type Severity Reaction Status Date / Time No Known Allergies Allergy Verified 05/12/17 11:22 History of Present Illness: Patient presents with ETOH/Heroin withdrawal symptoms. Started using heroin at age 28 and ETOH at age 15. Drinks 1/2 pint of [place] daily, uses up to 20 bags of heroin. Last dose of ETOH and heroin yesterday. Pt used non- prescription Xanax and Methadone 2 days ago. Denies any history of seizures or overdose. Has history of cleared Hepatitis C, anemia and anxiety with depressed mood. Denies suicidal ideation/attempts. Exam Limitations: No Limitations - Ebola screening Have you traveled outside of the country in the last 21 days: No Have you had contact with anyone from an Ebola affected area: No Have you been sick,other than usual withdrawal symptoms: No Do you have a fever: No - Review of Systems Constitutional: Malaise, Night Sweats, Changes in sleep, Unintentional Wgt. Loss EENT: reports: Tearing, Nose Congestion Respiratory: reports: No Symptoms reported Cardiac: reports: Irregular Heart Rate (+tachycardia) GI: reports: Diarrhea, Nausea, Poor Fluid Intake, Abdominal cramping : reports: No Symptoms Reported Musculoskeletal: reports: Back Pain, Muscle Pain Integumentary: reports: Other (+track dickens on arms) Neuro: reports: Headache, Tremors Endocrine: reports: Unexplained Weight Loss Hematology: reports: No Symptoms Reported Psychiatric: reports: Orientated x3, Anxious, Depressed Patient History - Patient Medical History Hx Anemia: Yes Hx Asthma: No Hx Chronic Obstructive Pulmonary Disease (COPD): No Hx Cancer: No Hx Cardiac Disorders: No Hx Congestive Heart Failure: No Hx Hypertension: No Hx Hypercholesterolemia: No Hx Pacemaker: No HX Cerebrovascular Accident: No Hx Seizures: No Hx Dementia: No Hx Diabetes: No Hx Gastrointestinal Disorders: Yes (stomach ulcer) Hx Liver Disease: No Hx Genitourinary Disorders: No Hx Sexually Transmitted Disorders: No Hx Renal Disease (ESRD): No Hx Thyroid Disease: No Hx Human Immunodeficiency Virus (HIV): No Hx Hepatitis C: Yes (trated and olceared virus) Hx Depression: No Hx Suicide Attempt: No (denies SI and attempts) Hx Bipolar Disorder: Yes Hx Schizophrenia: No - Patient Surgical History Past Surgical History: No Hx Neurologic Surgery: No Hx Cataract Extraction: No Hx Cardiac Surgery: No Hx Lung Surgery: No Hx Breast Surgery: No Hx Breast Biopsy: No Hx Abdominal Surgery: No Hx Appendectomy: No Hx Cholecystectomy: No Hx Genitourinary Surgery: No Hx Section: No Hx Orthopedic Surgery: No Other Surgical History: right ankle surgery 1995 Anesthesia Reaction: No - PPD History Previous Implant?: Yes Documented Results: Negative w/proof Implanted On Prior R Admission?: Yes Date: 04/04/17 Results: 0 mm - Smoking Cessation Smoking history: Current every day smoker Have you smoked in the past 12 months: Yes Aproximately how many cigarettes per day: 20 Hx Chewing Tobacco Use: No Initiated information on smoking cessation: Yes 'Breaking Loose' booklet given: 05/12/17 - Substance & Tx. History Hx Alcohol Use: Yes Hx Substance Use: Yes Substance Use Type: Alcohol, Cocaine, Heroin Hx Substance Use Treatment: Yes - Substances Abused Heroin Route: Injection Frequency: Daily Amount used: 20 bags Age of first use: 28 Date of Last Use: 05/11/17 Alcohol-cognac/beer Route: Oral Frequency: 3-6 times per week Amount used: 1/2 pt./1-6 pk. Age of first use: 15 Date of Last Use: 05/11/17 Xanax Route: Oral Frequency: Daily Amount used: 4 mg. Age of first use: 40 Date of Last Use: 05/11/17 street methadone Route: Oral Frequency: 1-3 times last 30 days Amount used: 40 mg. Age of first use: 52 Date of Last Use: 05/10/17 Family Disease History - Family Disease History Family Disease History: Other: Mother (alcoholism, ) Admission Physical Exam [facility] - Vital Signs Vital Signs: Vital Signs - 24 hr 05/12/17 11:25 Temperature 97.6 F Pulse Rate 108 H Respiratory 20 Rate Blood Pressure 101/76 - Physical General Appearance: Yes: Thin HEENTM: Yes: EOMI, Hearing grossly Normal, ALYSSA, Pharynx Normal, Nasal Congestion Respiratory: Yes: Within Normal Limits, Chest Non-Tender, Lungs Clear, Normal Breath Sounds Neck: Yes: Within Normal Limits, No masses,lesions,Nodules, Supple Breast: Yes: Breast Exam Deferred Cardiology: Yes: Regular Rhythm, S1, S2, Tachycardia Abdominal: Yes: Normal Bowel Sounds, Non Tender, Flat, Soft Genitourinary: Yes: Within Normal Limits Back: Yes: Muscle Spasm Musculoskeletal: Yes: Gait Steady, Back pain, Muscle Pain Extremities: Yes: Tremors Neurological: Yes: paste mixer II-XII NML intact, Fully Oriented, Depressed Affect Integumentary: Yes: Normal Color, Warm, Moist Lymphatic: Yes: Within Normal Limits - Diagnostic (1) Opioid dependence with withdrawal Current Visit: Yes Status: Acute (2) Alcohol dependence with uncomplicated withdrawal Current Visit: Yes Status: Acute (3) Weight loss Current Visit: Yes Status: Acute (4) Nicotine dependence Current Visit: No Status: Acute Qualifiers: Nicotine product type: cigarettes Substance use status: unspecified nicotine-induced disorder Qualified Code(s): F17.219 - Nicotine dependence, cigarettes, with unspecified nicotine-induced disorders (5) Hepatitis C Current Visit: No Status: Chronic Qualifiers: Viral hepatitis chronicity: chronic Hepatic coma status: without hepatic coma Qualified Code(s): B18.2 - Chronic viral hepatitis C Cleared for Admission [facility] - Detox or Rehab [facility] Level of Care: Medically Managed Detox Regimen/Protocol: Methadone/Valium [facility] Breath Alcohol Content Breath Alcohol Content: 0 Urine Drug Screen - Results Drug Screen Negative: No Urine Drug Screen Results: JEFFERY-Cocaine, OPI-Opiates, BZO-Benzodiazepines, MTD- Methadone Inpatient Rehab Admission - Initial Determination Are CD services needed?: Yes Free of communicable disease: Yes Not in need of hospitalization: Yes - Rehab Admission Criteria Previous failed treatment: Yes Poor recovery environment: Yes Comorbidities: Yes Lacks judgement: Yes
[2017-05-12] MEDS ORDERED: MAGNESIUM CITRATE 300 ML BOTTLE PO PRN (12:14)
[2017-05-12] MEDS ORDERED: LOPERAMIDE HCL 2 MG CAPSULE PO PRN (12:14)
[2017-05-12] MEDS ORDERED: NICOTINE POLACRILEX 2 MG GUM BC PRN (12:14)
[2017-05-12] MEDS ORDERED: MENTHOL/PHENOL 1 EACH UD MM PRN (12:14)
[2017-05-12] MEDS ORDERED: P-EPHED 60MG/TRIPROLIDI 2.5MG TABLET PO PRN (12:14)
[2017-05-12] MEDS ORDERED: MAGNESIUM HYDROX 2400MG/30ML ORAL SUSPENSION 30 ML CUP PO PRN (12:14)
[2017-05-12] MEDS ORDERED: guaiFENesin/D-METHORPHAN HB 10 ML UNIT-DOSE CUPS PO PRN (12:14)
[2017-05-12] MEDS ORDERED: MAG HYDROX/AL HYDROX/SIMETH 30 ML UNIT-DOSE CUP PO PRN (12:14)
[2017-05-12] MEDS ORDERED: hydrOXYzine PAMOATE 50 MG CAPSULE (FP) PO PRN (12:14)
[2017-05-12] MEDS ORDERED: diazePAM 5 MG TABLET PO ONE (13:05)
[2017-05-12] MEDS ORDERED: METHADONE HCL 10 MG TABLET (FOR DETOX USE ONLY) PO ONE ×2 (13:05→23:00)
[2017-05-12] MEDS: diazePAM 5 MG TABLET PO SCH ×2 (15:08→22:34)
--- NOTE | 2017-05-12 16:23 | CONSULT ---
[facility] Psychiatric Consult - Data Date of interview: 05/12/17 Admission source: [facility] Identifying data: Pt. 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 This is one of multiple admissions for patient. Pt. admitted to for alcohol, benzodiazepine, and opiate dependence. Substance Abuse History: Following information confirmed with Mr. José: - Smoking Cessation. Smoking history: Current every day smoker. Have you smoked in the past 12 months: Yes. Aproximately how many cigarettes per day: 20. Hx Chewing Tobacco Use: No. Initiated information on smoking cessation: Yes. ' Breaking Loose' booklet given: 05/12/17. - Substance & Tx. History. Hx Alcohol Use: Yes. Hx Substance Use: Yes. Substance Use Type: Alcohol, Cocaine , Heroin. Hx Substance Use Treatment: Yes. - Substances Abused. Heroin. Route: Injection. Frequency: Daily. Amount used: 20 bags. Age of first use: 28. Date of Last Use: 05/11/17. Alcohol-cognac/beer. Route: Oral. Frequency: 3-6 times per week. Amount used: 1/2 pt./1-6 pk. Age of first use: 15. Date of Last Use: 05/11/17. Xanax. Route: Oral. Frequency: Daily. Amount used: 4 mg. Age of first use: 40. Date of Last Use: 05/11/17. street methadone. Route: Oral. Frequency: 1-3 times last 30 days. Amount used : 40 mg. Age of first use: 52. Date of Last Use: 05/10/17 Medical History: Anemia, Stomach Ulcer, Hep C, right ankle surgery in 1995. Psychiatric History: Pt. denies h/o psychiatric hospitalizations, suicide attempt, and outpatient care. Physical/Sexual Abuse/Trauma History: Denies. Mental Status Exam - Mental Status Exam Alert and Oriented to: Time, Place, Person Cognitive Function: Good Patient Appearance: Well Groomed Mood: Hopeful Affect: Appropriate, Mood Congruent Patient Behavior: Appropriate, Cooperative Speech Pattern: Clear, Appropriate Voice Loudness: Normal Thought Process: Intact, Goal Oriented Thought Disorder: Not Present Hallucinations: Denies Suicidal Ideation: Denies Homicidal Ideation: Denies Insight/Judgement: Poor Sleep: Fair Appetite: Weight loss Muscle strength/Tone: Normal Gait/Station: Normal Psychiatric Findings - Problem List ([place] 1, 2,3) (1) Benzodiazepine dependence Current Visit: Yes Status: Acute (2) Cocaine dependence Current Visit: Yes Status: Acute (3) Opioid dependence with withdrawal Current Visit: Yes Status: Acute (4) Insomnia Current Visit: No Status: Acute Qualifiers: Insomnia type: unspecified Qualified Code(s): G47.00 - Insomnia, unspecified (5) Opioid dependence with withdrawal Current Visit: No Status: Acute (6) Alcohol dependence with uncomplicated withdrawal Current Visit: Yes Status: Acute - Initial Treatment Plan Initial Treatment Plan: Psychoeducation provided. Detoxification provided. Ambien 5mg qhs prn ordered. Benefits and side effects discussed. Pt made aware of the risk of parasomnia (sleep-walking). Verbal consent given. Will continue to monitor patient.
[2017-05-12] MEDS: diazePAM 5 MG TABLET PO PRN (19:11)
[2017-05-12] MEDS ORDERED: MELATONIN 5 MG TABLETS PO PRN (22:00)
[2017-05-12] MEDS: ZOLPIDEM TARTRATE 5 MG TABLET PO PRN (22:34)
[2017-05-12] MEDS: THIAMINE HCL 100 MG TABLET (FP) PO SCH (22:34)
[2017-05-13] MEDS: diazePAM 5 MG TABLET PO SCH ×3 (05:25→22:34)
[2017-05-13] MEDS ORDERED: METHADONE HCL 10 MG TABLET (FOR DETOX USE ONLY) PO SCH (10:00)
[2017-05-13] MEDS: PRENATAL VITAMINS W/ FOLIC ACID TABLET (FP) PO SCH (10:38)
--- NOTE | 2017-05-13 10:39 | EKG ---
Test Reason : Blood Pressure : / mmHG Vent. Rate : 100 BPM Atrial Rate : 100 BPM P-R Int : 154 ms QRS Dur : 084 ms QT Int : 344 ms P-R-T Axes : 078 059 061 degrees QTc Int : 443 ms NORMAL SINUS RHYTHM NORMAL ECG WHEN COMPARED WITH ECG OF 02-APR-2017 12:45, NO SIGNIFICANT CHANGE WAS FOUND Confirmed by ALLY ROSENTHAL MD ([id number]) on 05/13/2017 10:38:57 AM Referred By: Confirmed By:ALLY ROSENTHAL MD
[2017-05-13] MEDS: NICOTINE 21 MG/24 HOURS TOPICAL PATCH TD SCH (10:40)
[2017-05-13] MEDS: diazePAM 5 MG TABLET PO PRN ×2 (10:42→19:34)
[2017-05-13 11:23] LABS: HEMATOCRIT 40.1 % (35.4-49); HEMOGLOBIN 13.8 GM/dL (11.7-16.9); MCHC 34.4 g/dl (32.0-35.9); MEAN PLT VOLUME 7.4 fl (7.5-11.1); PLATELET COUNT 358 K/MM3 (134-434); RBC 4.31 M/mm3 (4.00-5.60); RDW 13.7 % (11.9-15.9); WHITE BLOOD COUNT 6.2 K/mm3 (4.0-10.0)
--- NOTE | 2017-05-13 11:29 | PN ---
S CIWA - CIWA Score Nausea/Vomitin Muscle Tremors: 2 Anxiety: 2 Agitation: 2 Paroxysmal Sweats: 3 Orientation: 0-Oriented Tacttile Disturbances: 1-Very Mild Itch/Numbness Auditory Disturbances: 1-Very Mild Visual Disturbances: 1-Very Mild Sensitivity Headache: 3-Moderate CIWA-Ar Total Score: 17 BHS COWS - Scale Resting Pulse: 0= [place] 80 or Below Sweatin= Chills/Flushing Restless Observation: 1= Difficult to Sit Still Pupil Size: 0= Normal to Room Light Bone or Joint Aches: 2= Severe Diffuse Aches Runny Nose/ Eye Tearin= Nasal Congestion GI Upset > 30mins: 2= Nausea/Diarrhea Tremor Observation of Outstretched Hands: 2= Slight Tremor Visible Yawning Observation: 1= 1-2x During Session Anxiety or Irritability: 2=Irritable/Anxious Goose Flesh Skin: 3=Piloerection COWS Score: 15 BHS Progress Note (SOAP) Subjective: Sweats, shakes, sleep interruption, low back pain and anxiety Objective: 05/13/17 11:26 Vital Signs 05/13/17 05/13/17 05/13/17 03:30 06:00 10:00 Temperature 97.5 F L 97.3 F L Pulse Rate 76 87 Respiratory 18 18 20 Rate Blood Pressure 121/75 110/71 Labs pend Assessment: 05/13/17 11:28 Withdrawal sx Plan: Continue detox
[2017-05-13 11:32] LABS: CHLORIDE 99 mmol/L (98-107); POTASSIUM 4.4 mmol/L (3.5-5.1); SODIUM 136 mmol/L (136-145)
[2017-05-13 11:54] LABS: ALBUMIN 4.2 g/dl (3.4-5.0); ANION GAP 8 (8-16); BILIRUBIN,TOTAL 0.6 mg/dL (0.2-1.0); BLOOD UREA NITROGEN 23 mg/dL (7-18); CALCIUM 9.1 mg/dL (8.5-10.1); CO2 29 mmol/L (21-32); GLUCOSE,RANDOM 108 mg/dL (74-106); SGOT/AST 15 U/L (15-37); SGPT/ALT 24 U/L (12-78); TOT PROT 7.9 g/dl (6.4-8.2)
[2017-05-13 12:12] LABS: ALK PHOS 88 U/L (45-117)
[2017-05-13 13:45] LABS: URINE APPEARANCE CLEAR; URINE BILIRUBIN NEGATIVE (<2.0 mg/dL); URINE BLOOD NEGATIVE (NEGATIVE); URINE COLOR LTYELLOW; URINE GLUCOSE (UA) NEGATIVE (NEGATIVE); URINE KETONE NEGATIVE (NEGATIVE); URINE LEUK ESTERASE NEGATIVE (NEGATIVE); URINE NITRITE NEGATIVE (NEGATIVE); URINE PROTEIN NEGATIVE (NEGATIVE); URINE UROBILINOGEN NEGATIVE mg/dL (0.2-1.0)
[2017-05-13] MEDS: THIAMINE HCL 100 MG TABLET (FP) PO SCH (22:33)
[2017-05-13] MEDS: ZOLPIDEM TARTRATE 5 MG TABLET PO PRN (22:33)
[2017-05-14] MEDS: diazePAM 5 MG TABLET PO PRN ×3 (05:55→18:54)
[2017-05-14] MEDS: NICOTINE 21 MG/24 HOURS TOPICAL PATCH TD SCH (10:34)
[2017-05-14] MEDS: PRENATAL VITAMINS W/ FOLIC ACID TABLET (FP) PO SCH (10:34)
[2017-05-14] MEDS: diazePAM 5 MG TABLET PO SCH ×2 (10:34→22:53)
[2017-05-14] MEDS: METHADONE HCL 5 MG TABLET (FOR DETOX USE ONLY) PO SCH (10:34)
--- NOTE | 2017-05-14 13:25 | PN ---
S CIWA - CIWA Score Nausea/Vomitin-Mild Nausea/No Vomiting Muscle Tremors: 3 Anxiety: 3 Agitation: 3 Paroxysmal Sweats: 1-Minimal Palms Moist Orientation: 0-Oriented Tacttile Disturbances: 1-Very Mild Itch/Numbness Auditory Disturbances: 0-None Visual Disturbances: 1-Very Mild Sensitivity Headache: 0-None Present CIWA-Ar Total Score: 13 BHS COWS - Scale Resting Pulse: 0= [place] 80 or Below Sweatin= Chills/Flushing Restless Observation: 1= Difficult to Sit Still Pupil Size: 0= Normal to Room Light Bone or Joint Aches: 2= Severe Diffuse Aches Runny Nose/ Eye Tearin= Nasal Congestion GI Upset > 30mins: 2= Nausea/Diarrhea Tremor Observation of Outstretched Hands: 2= Slight Tremor Visible Yawning Observation: 2= >3x During Session Anxiety or Irritability: 2=Irritable/Anxious Goose Flesh Skin: 0=Smooth Skin COWS Score: 13 S Progress Note (SOAP) Subjective: sweat joint ache tremor restlessness anxiety irritable Objective: 05/14/17 13:25 Vital Signs Temperature 97.5 F L 05/14/17 10:00 Pulse Rate 87 05/14/17 10:00 Respiratory Rate 18 05/14/17 10:00 Blood Pressure 100/74 05/14/17 10:00 O2 Sat by Pulse Oximetry (%) Laboratory Last Values WBC 6.2 K/mm3 (4.0-10.0) D 05/13/17 06:00 RBC 4.31 M/mm3 (4.00-5.60) 05/13/17 06:00 Hgb 13.8 GM/dL (11.7-16.9) D 05/13/17 06:00 Hct 40.1 % (35.4-49) 05/13/17 06:00 MCV 93.0 fl (80-96) 05/13/17 06:00 MCH 32.0 pg (25.7-33.7) 05/13/17 06:00 MCHC 34.4 g/dl (32.0-35.9) 05/13/17 06:00 RDW 13.7 % (11.9-15.9) 05/13/17 06:00 Plt Count 358 K/MM3 (134-434) D 05/13/17 06:00 MPV 7.4 fl (7.5-11.1) L 05/13/17 06:00 Sodium 136 mmol/L (136-145) 05/13/17 06:00 Potassium 4.4 mmol/L (3.5-5.1) 05/13/17 06:00 Chloride 99 mmol/L (98-107) 05/13/17 06:00 Carbon Dioxide 29 mmol/L (21-32) 05/13/17 06:00 Anion Gap 8 (8-16) 05/13/17 06:00 BUN 23 mg/dL (7-18) H D 05/13/17 06:00 Creatinine 1.0 mg/dL (0.7-1.3) D 05/13/17 06:00 Creat Clearance w eGFR > 60 (>60) 05/13/17 06:00 Random Glucose 108 mg/dL (74-106) H D 05/13/17 06:00 Calcium 9.1 mg/dL (8.5-10.1) 05/13/17 06:00 Total Bilirubin 0.6 mg/dL (0.2-1.0) D 05/13/17 06:00 AST 15 U/L (15-37) D 05/13/17 06:00 ALT 24 U/L (12-78) D 05/13/17 06:00 Alkaline Phosphatase 88 U/L (45-117) 05/13/17 06:00 Total Protein 7.9 g/dl (6.4-8.2) D 05/13/17 06:00 Albumin 4.2 g/dl (3.4-5.0) D 05/13/17 06:00 Urine Color Ltyellow 05/13/17 13:27 Urine Appearance Clear 05/13/17 13:27 Urine pH 7.0 (5.0-8.0) 05/13/17 13:27 Ur Specific [place] 1.013 (1.001-1.035) 05/13/17 13:27 Urine Protein Negative (NEGATIVE) 05/13/17 13:27 Urine Glucose (UA) Negative (NEGATIVE) 05/13/17 13:27 Urine Ketones Negative (NEGATIVE) 05/13/17 13:27 Urine Blood Negative (NEGATIVE) 05/13/17 13:27 Urine Nitrite Negative (NEGATIVE) 05/13/17 13:27 Urine Bilirubin Negative (<2.0 mg/dL) 05/13/17 13:27 Urine Urobilinogen Negative mg/dL (0.2-1.0) 05/13/17 13:27 Ur Leukocyte Esterase Negative (NEGATIVE) 05/13/17 13:27 RPR Titer Nonreactive (NONREACTIVE) 05/13/17 06:00 lab noted Assessment: 05/14/17 13:25 withdrawal sx Plan: continue detox
--- NOTE | 2017-05-14 15:43 | PN ---
Psychiatric Progress Note Vital Signs: Vital Signs Period Temp Pulse Resp BP Sys/Segura Pulse Ox Last 24 Hr 97.0 F-97.9 F 70-87 16-20 100-127/61-75 Date of Session: 05/14/17 Chief Complaint:: Insomnia HPI: Patient with history of alcohol, opioid, cocaine and benzodiazepine use admitted on 05/12/17 for inpatient detoxification ROS: Anemia, PUD, Hep C Current Medications: Active Medications Generic Name Dose Route Start Last Admin Trade Name Freq PRN Reason Stop Dose Admin Acetaminophen 650 mg 05/12/17 12:14 Tylenol - PO Q4H PRN FEVER Al Hydroxide/Mg Hydroxide 30 ml 05/12/17 12:14 Mylanta Oral Suspension - PO Q6H PRN DYSPEPSIA Diazepam 5 mg 05/14/17 10:00 05/14/17 10:34 Valium - PO 05/15/17 22:01 5 mg BID JYOTHI Administration Diazepam 5 mg 05/16/17 10:00 Valium - PO 05/16/17 10:01 DAILY JYOTHI Diazepam 10 mg 05/12/17 12:17 05/14/17 14:15 Valium - PO 05/15/17 12:17 10 mg Q4H PRN Administration WITHDRAWAL(CONT SUBST) Eucalyptus/Menthol/Phenol/Sorbitol 1 each 05/12/17 12:14 Cepastat Lozenge - MM Q4H PRN SORE THROAT Guaifenesin 10 ml 05/12/17 12:14 Robitussin Dm - PO Q6H PRN COUGH Hydroxyzine Pamoate 50 mg 05/12/17 12:14 Vistaril - PO Q4H PRN AGITATION Ibuprofen 400 mg 05/12/17 12:14 Motrin - PO Q6H PRN PAIN LEVEL 4-6 Loperamide HCl 4 mg 05/12/17 12:14 Imodium - PO Q6H PRN DIARRHEA Magnesium Citrate 300 ml 05/12/17 12:14 Citroma - PO Q48H PRN CONSTIPATION Magnesium Hydroxide 30 ml 05/12/17 12:14 Milk Of Magnesia - PO DAILY PRN CONSTIPATION Melatonin 5 mg 05/12/17 22:00 Melatonin PO HS PRN INSOMNIA Methadone HCl 10 mg 05/16/17 10:00 Dolophine - PO 05/16/17 10:01 DAILY JYOTHI Methadone HCl 15 mg 05/14/17 10:00 05/14/17 10:34 Dolophine - PO 05/15/17 10:01 15 mg DAILY JYOTHI Administration Methadone HCl 5 mg 05/17/17 06:00 Dolophine - PO 05/17/17 06:01 DAILY@0600 JYOTHI Nicotine 21 mg 05/13/17 10:00 05/14/17 10:34 Nicoderm Patch - TD 21 mg DAILY JYOTHI Administration Nicotine Polacrilex 2 mg 05/12/17 12:14 Nicorette Gum - BC Q2H PRN NICOTINE REPLACEMENT RX Multivit/Folic Acid/Iron 1 tab 05/13/17 10:00 05/14/17 10:34 Vitamins (Sjr) - PO 1 tab DAILY JYOTHI Administration Pseudoephedrine/Triprolidine 1 combo 05/12/17 12:14 Actifed - PO TID PRN NASAL CONGESTION Thiamine HCl 100 mg 05/12/17 22:00 05/13/17 22:33 Vitamin B1 - PO 100 mg HS JYOTHI Administration Zolpidem Tartrate 10 mg 05/14/17 15:38 Ambien - PO HS PRN INSOMNIA Medication(s) Change(s): Increase Zolpidem dosage to 10 mg po HS prn for insomnia Current Side Effect: No Lab tests ordered: Yes Lab tests reviewed: Yes Provider note:: Patient reports experiencing difficulty to sleep.Told staff writer that he has been sleeping poorly despite taking Ambien 5 mg at bedtime. Requests that dosage of medication be increased Total face to face time:: 15 Mental Status Exam - Mental Status Exam Alert and Oriented to: Time, Place, Person Cognitive Function: Fair Patient Appearance: Well Groomed Mood: Hopeful, Euthymic Affect: Appropriate Patient Behavior: Cooperative Speech Pattern: Clear Voice Loudness: Normal Thought Process: Intact, Goal Oriented Thought Disorder: Not Present Hallucinations: Denies Suicidal Ideation: Denies Homicidal Ideation: Denies Insight/Judgement: Poor Sleep: Poorly Appetite: Good Muscle strength/Tone: Normal Gait/Station: Normal Psychiatric Treatment Plan - Problem List (1) Substance-induced sleep disorder Current Visit: Yes (2) Alcohol dependence with uncomplicated withdrawal Current Visit: Yes (3) Opioid dependence with withdrawal Current Visit: Yes (4) Sedative hypnotic or anxiolytic dependence Current Visit: Yes (5) Nicotine dependence Current Visit: Yes Qualifiers: Nicotine product type: cigarettes Substance use status: unspecified nicotine-induced disorder Qualified Code(s): F17.219 - Nicotine dependence, cigarettes, with unspecified nicotine-induced disorders (6) Hepatitis C Current Visit: No Qualifiers: Viral hepatitis chronicity: chronic Hepatic coma status: without hepatic coma Qualified Code(s): B18.2 - Chronic viral hepatitis C Initial treatment plan: 1) Discontinue Zolpidem 5 mg po HS prn. 2) Start Zolpidem 10 mg po HS prn for insomnia. 3) Continue inpatient detoxification
[2017-05-14] MEDS: ZOLPIDEM TARTRATE 5 MG TABLET PO PRN (22:53)
[2017-05-14] MEDS: THIAMINE HCL 100 MG TABLET (FP) PO SCH (22:53)
[2017-05-15] MEDS: diazePAM 5 MG TABLET PO PRN (01:54)
--- NOTE | 2017-05-15 08:23 | PN ---
Psychiatric Progress Note Vital Signs: Vital Signs Period Temp Pulse Resp BP Sys/Segura Pulse Ox Last 24 Hr 97.2 F-97.7 F 85-90 16-18 100-118/62-75 Date of Session: 05/15/17 Chief Complaint:: Insomnia HPI: Patient asking medicatyions aid for his insomnia, reports good response to Seroquel 100mg qhs in the past Current Medications: Active Medications Generic Name Dose Route Start Last Admin Trade Name Freq PRN Reason Stop Dose Admin Acetaminophen 650 mg 05/12/17 12:14 Tylenol - PO Q4H PRN FEVER Al Hydroxide/Mg Hydroxide 30 ml 05/12/17 12:14 Mylanta Oral Suspension - PO Q6H PRN DYSPEPSIA Diazepam 5 mg 05/14/17 10:00 05/14/17 22:53 Valium - PO 05/15/17 22:01 5 mg BID JYOTHI Administration Diazepam 5 mg 05/16/17 10:00 Valium - PO 05/16/17 10:01 DAILY JYOTHI Diazepam 10 mg 05/12/17 12:17 05/15/17 01:54 Valium - PO 05/15/17 12:17 10 mg Q4H PRN Administration WITHDRAWAL(CONT SUBST) Eucalyptus/Menthol/Phenol/Sorbitol 1 each 05/12/17 12:14 Cepastat Lozenge - MM Q4H PRN SORE THROAT Guaifenesin 10 ml 05/12/17 12:14 Robitussin Dm - PO Q6H PRN COUGH Hydroxyzine Pamoate 50 mg 05/12/17 12:14 Vistaril - PO Q4H PRN AGITATION Ibuprofen 400 mg 05/12/17 12:14 Motrin - PO Q6H PRN PAIN LEVEL 4-6 Loperamide HCl 4 mg 05/12/17 12:14 Imodium - PO Q6H PRN DIARRHEA Magnesium Citrate 300 ml 05/12/17 12:14 Citroma - PO Q48H PRN CONSTIPATION Magnesium Hydroxide 30 ml 05/12/17 12:14 Milk Of Magnesia - PO DAILY PRN CONSTIPATION Melatonin 5 mg 05/12/17 22:00 Melatonin PO HS PRN INSOMNIA Methadone HCl 10 mg 05/16/17 10:00 Dolophine - PO 05/16/17 10:01 DAILY JYOTHI Methadone HCl 15 mg 05/14/17 10:00 05/14/17 10:34 Dolophine - PO 05/15/17 10:01 15 mg DAILY JYOTHI Administration Methadone HCl 5 mg 05/17/17 06:00 Dolophine - PO 05/17/17 06:01 DAILY@0600 JYOTHI Nicotine 21 mg 05/13/17 10:00 05/14/17 10:34 Nicoderm Patch - TD 21 mg DAILY JYOTHI Administration Nicotine Polacrilex 2 mg 05/12/17 12:14 Nicorette Gum - BC Q2H PRN NICOTINE REPLACEMENT RX Multivit/Folic Acid/Iron 1 tab 05/13/17 10:00 05/14/17 10:34 Vitamins (Sjr) - PO 1 tab DAILY JYOTHI Administration Pseudoephedrine/Triprolidine 1 combo 05/12/17 12:14 Actifed - PO TID PRN NASAL CONGESTION Quetiapine Fumarate 100 mg 05/15/17 22:00 Seroquel - PO HS JYOTHI Thiamine HCl 100 mg 05/12/17 22:00 05/14/17 22:53 Vitamin B1 - PO 100 mg HS JYOTHI Administration Zolpidem Tartrate 10 mg 05/14/17 22:00 05/14/17 22:53 Ambien - PO 10 mg HS PRN Administration INSOMNIA Medication(s) Change(s): Seroquel 100mg qhs Provider note:: Patient reports taking Ambien 10mg po qhs , vaughn reports insomnia and asking for Seroquel order_Seroquel 100mg qhs Mental Status Exam - Mental Status Exam Alert and Oriented to: Person Cognitive Function: Fair Patient Appearance: Unkempt Mood: Sad Affect: Mood Congruent Patient Behavior: Cooperative Speech Pattern: Appropriate Voice Loudness: Mildly Soft/Quiet Thought Process: Circumstantial Thought Disorder: Being Controlled Hallucinations: Denies Suicidal Ideation: Denies Homicidal Ideation: Denies Insight/Judgement: Fair Sleep: Difficulty falling asleep Appetite: Weight loss Muscle strength/Tone: Mild Hypotonicity Gait/Station: Shuffling Additional Comments: Seroquel 100mg qhs Psychiatric Treatment Plan - Problem List (1) Alcohol dependence with uncomplicated withdrawal Current Visit: Yes (2) Benzodiazepine dependence Current Visit: Yes (3) Cocaine dependence Current Visit: Yes (4) Nicotine dependence Current Visit: Yes Qualifiers: Nicotine product type: cigarettes Substance use status: unspecified nicotine-induced disorder Qualified Code(s): F17.219 - Nicotine dependence, cigarettes, with unspecified nicotine-induced disorders (5) Opioid dependence with withdrawal Current Visit: Yes (6) Opioid dependence with withdrawal Current Visit: Yes (7) Sedative hypnotic or anxiolytic dependence Current Visit: Yes (8) Substance-induced sleep disorder Current Visit: Yes Initial treatment plan: Seroquel 100mg qhs
[2017-05-15] MEDS: PRENATAL VITAMINS W/ FOLIC ACID TABLET (FP) PO SCH (10:22)
[2017-05-15] MEDS: METHADONE HCL 5 MG TABLET (FOR DETOX USE ONLY) PO SCH (10:22)
[2017-05-15] MEDS: diazePAM 5 MG TABLET PO SCH ×2 (10:22→22:13)
[2017-05-15] MEDS: NICOTINE 21 MG/24 HOURS TOPICAL PATCH TD SCH (10:23)
--- NOTE | 2017-05-15 10:59 | PN ---
S Progress Note (SOAP) Subjective: ALERT,IRRITABLE,ANXIOUS,INTERRUPTED SLEEP,TREMOR,PAIN IN THE BODY AND BACK Objective: 05/15/17 10:57 Vital Signs Temperature 97.7 F 05/15/17 09:57 Pulse Rate 63 05/15/17 09:57 Respiratory Rate 20 05/15/17 09:57 Blood Pressure 112/64 05/15/17 09:57 O2 Sat by Pulse Oximetry (%) 05/15/17 10:58 Laboratory Last Values WBC 6.2 K/mm3 (4.0-10.0) D 05/13/17 06:00 RBC 4.31 M/mm3 (4.00-5.60) 05/13/17 06:00 Hgb 13.8 GM/dL (11.7-16.9) D 05/13/17 06:00 Hct 40.1 % (35.4-49) 05/13/17 06:00 MCV 93.0 fl (80-96) 05/13/17 06:00 MCH 32.0 pg (25.7-33.7) 05/13/17 06:00 MCHC 34.4 g/dl (32.0-35.9) 05/13/17 06:00 RDW 13.7 % (11.9-15.9) 05/13/17 06:00 Plt Count 358 K/MM3 (134-434) D 05/13/17 06:00 MPV 7.4 fl (7.5-11.1) L 05/13/17 06:00 Sodium 136 mmol/L (136-145) 05/13/17 06:00 Potassium 4.4 mmol/L (3.5-5.1) 05/13/17 06:00 Chloride 99 mmol/L (98-107) 05/13/17 06:00 Carbon Dioxide 29 mmol/L (21-32) 05/13/17 06:00 Anion Gap 8 (8-16) 05/13/17 06:00 BUN 23 mg/dL (7-18) H D 05/13/17 06:00 Creatinine 1.0 mg/dL (0.7-1.3) D 05/13/17 06:00 Creat Clearance w eGFR > 60 (>60) 05/13/17 06:00 Random Glucose 108 mg/dL (74-106) H D 05/13/17 06:00 Calcium 9.1 mg/dL (8.5-10.1) 05/13/17 06:00 Total Bilirubin 0.6 mg/dL (0.2-1.0) D 05/13/17 06:00 AST 15 U/L (15-37) D 05/13/17 06:00 ALT 24 U/L (12-78) D 05/13/17 06:00 Alkaline Phosphatase 88 U/L (45-117) 05/13/17 06:00 Total Protein 7.9 g/dl (6.4-8.2) D 05/13/17 06:00 Albumin 4.2 g/dl (3.4-5.0) D 05/13/17 06:00 Urine Color Ltyellow 05/13/17 13:27 Urine Appearance Clear 05/13/17 13:27 Urine pH 7.0 (5.0-8.0) 05/13/17 13:27 Ur Specific [place] 1.013 (1.001-1.035) 05/13/17 13:27 Urine Protein Negative (NEGATIVE) 05/13/17 13:27 Urine Glucose (UA) Negative (NEGATIVE) 05/13/17 13:27 Urine Ketones Negative (NEGATIVE) 05/13/17 13:27 Urine Blood Negative (NEGATIVE) 05/13/17 13:27 Urine Nitrite Negative (NEGATIVE) 05/13/17 13:27 Urine Bilirubin Negative (<2.0 mg/dL) 05/13/17 13:27 Urine Urobilinogen Negative mg/dL (0.2-1.0) 05/13/17 13:27 Ur Leukocyte Esterase Negative (NEGATIVE) 05/13/17 13:27 RPR Titer Nonreactive (NONREACTIVE) 05/13/17 06:00 Assessment: 05/15/17 10:58 WITHDRAWAL SYMPTOM Plan: CONTINUE DETOX,ENCOURAGE ORAL FLUID,CMP IN AM
[2017-05-15] MEDS ORDERED: QUEtiapine FUMARATE 100 MG TABLET (FP) PO SCH (22:00)
[2017-05-15] MEDS: QUEtiapine FUMARATE 100 MG TABLET (FP) PO SCH (22:13)
[2017-05-15] MEDS: THIAMINE HCL 100 MG TABLET (FP) PO SCH (22:13)
[2017-05-16] MEDS ORDERED: TRIMETHOBENZAMIDE HCL 200MG/2ML INJ IM ONE (06:47)
--- NOTE | 2017-05-16 06:50 | PN ---
S Progress Note Note: Patient vomitted x 2. Reports that he is unable to hold any food down. Tigan 200mg intramuscular ordered.
[2017-05-16] MEDS ORDERED: METHADONE HCL 10 MG TABLET (FOR DETOX USE ONLY) PO SCH (10:00)
[2017-05-16] MEDS ORDERED: diazePAM 5 MG TABLET PO SCH (10:00)
[2017-05-16] MEDS: PRENATAL VITAMINS W/ FOLIC ACID TABLET (FP) PO SCH (10:34)
[2017-05-16] MEDS: NICOTINE 21 MG/24 HOURS TOPICAL PATCH TD SCH (10:35)
[2017-05-16] MEDS: IBUPROFEN 400 MG TABLET (FP) PO PRN (10:36)
[2017-05-16 10:55] LABS: CHLORIDE 105 mmol/L (98-107); POTASSIUM 4.4 mmol/L (3.5-5.1); SODIUM 143 mmol/L (136-145)
[2017-05-16 11:07] LABS: ALBUMIN 3.8 g/dl (3.4-5.0); ALK PHOS 85 U/L (45-117); ANION GAP 9 (8-16); BILIRUBIN,TOTAL 0.2 mg/dL (0.2-1.0); BLOOD UREA NITROGEN 21 mg/dL (7-18); CALCIUM 9.6 mg/dL (8.5-10.1); CO2 29 mmol/L (21-32); CREATININE 1.1 mg/dL (0.7-1.3); GLUCOSE,RANDOM 87 mg/dL (74-106); SGOT/AST 10 U/L (15-37); SGPT/ALT 17 U/L (12-78); TOT PROT 7.2 g/dl (6.4-8.2)
--- NOTE | 2017-05-16 11:25 | PN ---
S Progress Note (SOAP) Subjective: ALERT,IRRITABLE,INTERRUPTED SLEEP,NAUSEA,VOMITING EARLIER Objective: 05/16/17 11:25 Vital Signs Temperature 97.0 F L 05/16/17 10:39 Pulse Rate 100 H 05/16/17 10:39 Respiratory Rate 20 05/16/17 10:39 Blood Pressure 103/66 05/16/17 10:39 O2 Sat by Pulse Oximetry (%) Assessment: 05/16/17 11:25 WITHDRAWAL SYMPTOM Plan: CONTINUE DETOX
[2017-05-16] MEDS: ACETAMINOPHEN 325 MG TABLET (FP) PO PRN (12:28)
[2017-05-16] MEDS: THIAMINE HCL 100 MG TABLET (FP) PO SCH (22:07)
[2017-05-16] MEDS: QUEtiapine FUMARATE 100 MG TABLET (FP) PO SCH (22:07)
[2017-05-16] MEDS: ZOLPIDEM TARTRATE 5 MG TABLET PO PRN (22:07)
[2017-05-17] MEDS ORDERED: METHADONE HCL 5 MG TABLET (FOR DETOX USE ONLY) PO SCH (06:00)
--- NOTE | 2017-05-17 08:43 | PN ---
[facility] Progress Note (SOAP) Subjective: ALERT,NO COMPLAINT Objective: 05/17/17 08:41 Vital Signs Temperature 98.1 F 05/17/17 07:55 Pulse Rate 88 05/17/17 07:55 Respiratory Rate 18 05/17/17 07:55 Blood Pressure 119/80 05/17/17 07:55 O2 Sat by Pulse Oximetry (%) DETOX COMPLETED,NO WITHDRAWAL SYMPTOM Assessment: 05/17/17 08:42 DETOX COMPLETED Plan: DISCHARGE TODAY,FOLLOW UP WITH AFTER CARE PROGRAM ARR[facility]EMENT [facility]
--- NOTE | 2017-05-17 08:48 | DS ---
[facility] Detox Discharge Summary Admission Date: 05/12/17 Discharge Date: 05/17/17 - History Present History: Alcohol Dependence, Opioid Dependence, Sedative Dependence Additional Comments: FOLLOW UP WITH AFTER [facility] PROGRAM ARR[facility]EMENT,[facility] Pertinent Past History: INSOMNIA - Physical Exam Results Vital Signs: Vital Signs Temperature 98.1 F 05/17/17 07:55 Pulse Rate 88 05/17/17 07:55 Respiratory Rate 18 05/17/17 07:55 Blood Pressure 119/80 05/17/17 07:55 O2 Sat by Pulse Oximetry (%) Pertinent Admission Physical Exam Findings: WITHDRAWAL SIGNS AND SYMPTOM Vital Signs Temperature 98.1 F 05/17/17 07:55 Pulse Rate 88 05/17/17 07:55 Respiratory Rate 18 05/17/17 07:55 Blood Pressure 119/80 05/17/17 07:55 O2 Sat by Pulse Oximetry (%) Laboratory Last Values WBC 6.2 K/mm3 (4.0-10.0) D 05/13/17 06:00 RBC 4.31 M/mm3 (4.00-5.60) 05/13/17 06:00 Hgb 13.8 GM/dL (11.7-16.9) D 05/13/17 06:00 Hct 40.1 % (35.4-49) 05/13/17 06:00 MCV 93.0 fl (80-96) 05/13/17 06:00 MCH 32.0 pg (25.7-33.7) 05/13/17 06:00 MCHC 34.4 g/dl (32.0-35.9) 05/13/17 06:00 RDW 13.7 % (11.9-15.9) 05/13/17 06:00 Plt Count 358 K/MM3 (134-434) D 05/13/17 06:00 MPV 7.4 fl (7.5-11.1) L 05/13/17 06:00 Sodium 143 mmol/L (136-145) 05/16/17 07:00 Potassium 4.4 mmol/L (3.5-5.1) 05/16/17 07:00 Chloride 105 mmol/L (98-107) 05/16/17 07:00 Carbon Dioxide 29 mmol/L (21-32) 05/16/17 07:00 Anion Gap 9 (8-16) 05/16/17 07:00 BUN 21 mg/dL (7-18) H 05/16/17 07:00 Creatinine 1.1 mg/dL (0.7-1.3) 05/16/17 07:00 Creat Clearance w eGFR > 60 (>60) 05/16/17 07:00 Random Glucose 87 mg/dL (74-106) 05/16/17 07:00 Calcium 9.6 mg/dL (8.5-10.1) 05/16/17 07:00 Total Bilirubin 0.2 mg/dL (0.2-1.0) D 05/16/17 07:00 AST 10 U/L (15-37) L D 05/16/17 07:00 ALT 17 U/L (12-78) D 05/16/17 07:00 Alkaline Phosphatase 85 U/L (45-117) 05/16/17 07:00 Total Protein 7.2 g/dl (6.4-8.2) 05/16/17 07:00 Albumin 3.8 g/dl (3.4-5.0) 05/16/17 07:00 Urine Color Ltyellow 05/13/17 13:27 Urine Appearance Clear 05/13/17 13:27 Urine pH 7.0 (5.0-8.0) 05/13/17 13:27 Ur Specific [place] 1.013 (1.001-1.035) 05/13/17 13:27 Urine Protein Negative (NEGATIVE) 05/13/17 13:27 Urine Glucose (UA) Negative (NEGATIVE) 05/13/17 13:27 Urine Ketones Negative (NEGATIVE) 05/13/17 13:27 Urine Blood Negative (NEGATIVE) 05/13/17 13:27 Urine Nitrite Negative (NEGATIVE) 05/13/17 13:27 Urine Bilirubin Negative (<2.0 mg/dL) 05/13/17 13:27 Urine Urobilinogen Negative mg/dL (0.2-1.0) 05/13/17 13:27 Ur Leukocyte Esterase Negative (NEGATIVE) 05/13/17 13:27 RPR Titer Nonreactive (NONREACTIVE) 05/13/17 06:00 - Treatment Hospital Course: Detox Protocol Followed, Detoxed Safely, Responded well, Discharged Condition Good, Rehab Referral Accepted Patient has Accepted a Rehab Referral to: [facility] - Medication Discharge Medications: Ambulatory Orders Quetiapine Fumarate [Seroquel] 100 mg PO HS #30 tablet 05/15/17 - Diagnosis (1) Opioid dependence with withdrawal Current Visit: Yes Status: Acute (2) Alcohol dependence with uncomplicated withdrawal Current Visit: Yes Status: Acute (3) Sedative hypnotic or anxiolytic dependence Current Visit: Yes Status: Acute (4) Substance-induced sleep disorder Current Visit: Yes Status: Acute - AMA Did Patient Leave Against Medical Advice: No
[2017-05-17] MEDS ORDERED: ONDANSETRON *ODT* 4 MG TABLET SL PRN (10:30)
--- NOTE | 2017-05-17 10:47 | PN ---
[facility] Progress Note Note: PATIENT HAS NAUSEA AND VOMITING,WILL GIVE ZOFRAN 4MGS SL,PATIENT WILL GO TO [facility] FOR CONTINUING OF CARE
[2017-05-17] MEDS: PRENATAL VITAMINS W/ FOLIC ACID TABLET (FP) PO SCH (11:27)
[2017-05-17] MEDS: NICOTINE 21 MG/24 HOURS TOPICAL PATCH TD SCH (11:28)
[2017-05-17] MEDS ORDERED: TRIMETHOBENZAMIDE HCL 200MG/2ML INJ IM ONE (12:39)
[2017-05-17 14:34] VITALS: BP 118/65; PULSE 76; TEMP 97.5
[2017-05-17] MEDS: IBUPROFEN 400 MG TABLET (FP) PO PRN (16:51)
[2017-05-17] MEDS: ACETAMINOPHEN 325 MG TABLET (FP) PO PRN (18:00)
== END 2017-05-17 18:24 | disposition other institution (70) | DRG 772 ==
LOC: YASAS 10:25 → Y6N 12:33
PROVIDERS: ADMIT Internal Medicine; ATTEND Internal Medicine
PROC: HZ42ZZZ Group Counseling for Substance Abuse Treatment, Cognitive-Behavioral (ICD-10-PCS; principal; 2017-05-12)
DX: F11.23 Opioid dependence with withdrawal (principal); F10.230 Alcohol dependence with withdrawal, uncomplicated; F13.230 Sedative, hypnotic or anxiolytic dependence with withdrawal, uncomplicated; F14.20 Cocaine dependence, uncomplicated; F17.219 Nicotine dependence, cigarettes, with unspecified nicotine-induced disorders; F19.282 Other psychoactive substance dependence with psychoactive substance-induced sleep disorder; F32.9 Major depressive disorder, single episode, unspecified; B18.2 Chronic viral hepatitis C; G47.00 Insomnia, unspecified; R00.0 Tachycardia, unspecified; Z87.11 Personal history of peptic ulcer disease; Z87.898 Personal history of other specified conditions
CPT/HCPCS: 36415; 80053; 81003; 85027; 86593; 93005; 93010; Q0162

== ENCOUNTER 2017-05-17 18:44 | Inpatient (IN) | payer OTHER ==
[2017-05-17] MEDS ORDERED: MENTHOL/PHENOL 1 EACH UD MM PRN (20:15)
[2017-05-17] MEDS ORDERED: guaiFENesin/D-METHORPHAN HB 10 ML UNIT-DOSE CUPS PO PRN (20:15)
[2017-05-17] MEDS ORDERED: LOPERAMIDE HCL 2 MG CAPSULE PO PRN (20:15)
[2017-05-17] MEDS ORDERED: MAGNESIUM HYDROX 2400MG/30ML ORAL SUSPENSION 30 ML CUP PO PRN (20:15)
[2017-05-17] MEDS ORDERED: MAGNESIUM CITRATE 300 ML BOTTLE PO PRN (20:15)
[2017-05-17] MEDS ORDERED: P-EPHED 60MG/TRIPROLIDI 2.5MG TABLET PO PRN (20:15)
[2017-05-17] MEDS ORDERED: MAG HYDROX/AL HYDROX/SIMETH 30 ML UNIT-DOSE CUP PO PRN (20:15)
[2017-05-17] MEDS ORDERED: NICOTINE POLACRILEX 2 MG GUM BUC PRN (20:17)
--- NOTE | 2017-05-17 20:18 | HP ---
[facility] Rehab Assess/Revision - Admission History Admitted to Rehab from: [facility] [place] Date of Admission to Rehab: 05/17/17 - Vital signs Vital Signs: Vital Signs Period Temp Pulse Resp BP Sys/Segura Pulse Ox Last 24 Hr 99.0 F 103 16 121/73 - Findings Detox History & Physical reviewed: Yes Concur with findings: Yes Inpatient Rehab Admission - Initial Determination Are CD services needed?: Yes Free of communicable disease: Yes Not in need of hospitalization: Yes - Rehab Admission Criteria Previous failed treatment: Yes Poor recovery environment: Yes Comorbidities: Yes Lacks judgement: Yes Patient is meeting Inpatient Rehab admission criteria:: Yes
[2017-05-17] MEDS: hydrOXYzine PAMOATE 50 MG CAPSULE (FP) PO PRN (21:17)
[2017-05-17] MEDS: MELATONIN 5 MG TABLETS PO PRN (21:17)
[2017-05-17] MEDS: THIAMINE HCL 100 MG TABLET (FP) PO SCH (21:18)
[2017-05-18] MEDS: PRENATAL VITAMINS W/ FOLIC ACID TABLET (FP) PO SCH (09:45)
[2017-05-18] MEDS: NICOTINE 21 MG/24 HOURS TOPICAL PATCH TD SCH (09:45)
--- NOTE | 2017-05-18 10:39 | HP ---
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 Psychiatric History: Patient denies history of psychiatric treatment, while at was seen by a psychiatrist and was put on Seroquel for insomnia, he rodriguez not want to continue while at . Physical/Sexual Abuse/Trauma History: Patient denies history of abuse. Additional Comment: Patient reported that he is unsure if he will sty in this treatment. Vital Signs: Vital Signs - 24 hr 05/17/17 05/17/17 05/18/17 19:14 22:00 00:45 Temperature 99.0 F 99.0 F Pulse Rate 103 H 103 H Respiratory 16 16 18 Rate Blood Pressure 121/73 121/73 05/18/17 05/18/17 03:30 07:00 Temperature 97.8 F Pulse Rate 82 Respiratory 18 18 Rate Blood Pressure 99/74 Allergies/Adverse Reactions: Allergies Allergy/AdvReac Type Severity Reaction Status Date / Time No Known Allergies Allergy Verified 05/12/17 11:22 Date of last physical exam: 05/12/17 Concur with the findings of this exam: Yes - Substance Abuse/Tx History Hx Alcohol Use: Yes Hx Substance Use: Yes Substance Use Type: Alcohol (daily cognac/beer ), Heroin, Tranquilizers (xanax 1 -3 times a month) Hx Substance Use Treatment: Yes (several detox, first rehab. at ) Mental Status Exam - Mental Status Exam Alert and Oriented to: Time, Place, Person Cognitive Function: Good Patient Appearance: Well Groomed Mood: Hopeful Affect: Appropriate, Mood Congruent Patient Behavior: Appropriate, Cooperative Speech Pattern: Clear, Appropriate Voice Loudness: Normal Thought Process: Intact, Goal Oriented Thought Disorder: Not Present Hallucinations: Denies Suicidal Ideation: Denies Homicidal Ideation: Denies Insight/Judgement: Fair Sleep: Fair Appetite: Fair Muscle strength/Tone: Normal Gait/Station: Normal Psychiatric Findings - Problem List ([place] 1, 2,3) (1) Opioid dependence Current Visit: Yes Status: Acute (2) Alcohol dependence Current Visit: Yes Status: Acute (3) Benzodiazepine dependence Current Visit: No Status: Acute (4) Insomnia Current Visit: No Status: Acute Qualifiers: Insomnia type: unspecified Qualified Code(s): G47.00 - Insomnia, unspecified - Initial Treatment Plan Initial Treatment Plan: Patient reported he does not need to restart Seroquel and will continue Melatonin as PRN for insomnia, monitor progress.
[2017-05-18] MEDS: IBUPROFEN 400 MG TABLET (FP) PO PRN (13:39)
[2017-05-18] MEDS ORDERED: ONDANSETRON *ODT* 4 MG TABLET SL ONE (14:47)
[2017-05-18] MEDS ORDERED: ONDANSETRON *ODT* 4 MG TABLET SL PRN (14:47)
--- NOTE | 2017-05-18 14:52 | PN ---
[facility] Progress Note (SOAP) Subjective: c/o opioid withdrwawl s, body aches, nausea and vomiting Objective: 05/18/17 14:52 Vital Signs - 24 hr 05/17/17 05/17/17 05/18/17 19:14 22:00 00:45 Temperature 99.0 F 99.0 F Pulse Rate 103 H 103 H Respiratory 16 16 18 Rate Blood Pressure 121/73 121/73 05/18/17 05/18/17 03:30 07:00 Temperature 97.8 F Pulse Rate 82 Respiratory 18 18 Rate Blood Pressure 99/74 labs reviewd Assessment: 05/18/17 14:53 protracted withdrawal sx - zofran odt and suboxone 2mg daily, flexril for pain will reviewe in kevin consdier mat for oud, severe. using 200 bagsdailoy
[2017-05-18] MEDS: CYCLOBENZAPRINE HCL 5 MG TABLET PO SCH ×2 (16:02→21:27)
[2017-05-18] MEDS: BUPRENORPHINE/NALOXONE 2 MG/0.5 MG FILM PACKET SL SCH (16:02)
[2017-05-18] MEDS: THIAMINE HCL 100 MG TABLET (FP) PO SCH (21:27)
[2017-05-18] MEDS: MELATONIN 5 MG TABLETS PO PRN (22:30)
[2017-05-19] MEDS: CYCLOBENZAPRINE HCL 5 MG TABLET PO SCH ×3 (06:33→21:11)
[2017-05-19] MEDS: NICOTINE 21 MG/24 HOURS TOPICAL PATCH TD SCH (09:56)
[2017-05-19] MEDS: PRENATAL VITAMINS W/ FOLIC ACID TABLET (FP) PO SCH (09:56)
[2017-05-19] MEDS: BUPRENORPHINE/NALOXONE 2 MG/0.5 MG FILM PACKET SL SCH (09:56)
[2017-05-19] MEDS: IBUPROFEN 400 MG TABLET (FP) PO PRN (16:41)
[2017-05-19] MEDS: MELATONIN 5 MG TABLETS PO PRN (21:11)
[2017-05-19] MEDS: THIAMINE HCL 100 MG TABLET (FP) PO SCH (21:11)
[2017-05-19] MEDS: hydrOXYzine PAMOATE 50 MG CAPSULE (FP) PO PRN (21:12)
[2017-05-20] MEDS: CYCLOBENZAPRINE HCL 5 MG TABLET PO SCH ×3 (06:44→21:07)
[2017-05-20] MEDS: PRENATAL VITAMINS W/ FOLIC ACID TABLET (FP) PO SCH (09:29)
[2017-05-20] MEDS: PANTOPRAZOLE 40 MG TABLET (FP) PO SCH (09:30)
[2017-05-20] MEDS: NICOTINE 21 MG/24 HOURS TOPICAL PATCH TD SCH (09:30)
[2017-05-20] MEDS: BUPRENORPHINE/NALOXONE 2 MG/0.5 MG FILM PACKET SL SCH (10:31)
[2017-05-20] MEDS: IBUPROFEN 400 MG TABLET (FP) PO PRN (20:22)
[2017-05-20] MEDS: hydrOXYzine PAMOATE 50 MG CAPSULE (FP) PO PRN (21:07)
[2017-05-20] MEDS: MELATONIN 5 MG TABLETS PO PRN (21:07)
[2017-05-20] MEDS: THIAMINE HCL 100 MG TABLET (FP) PO SCH (21:07)
[2017-05-21] MEDS: CYCLOBENZAPRINE HCL 5 MG TABLET PO SCH ×3 (06:55→21:10)
[2017-05-21] MEDS: NICOTINE 21 MG/24 HOURS TOPICAL PATCH TD SCH (09:38)
[2017-05-21] MEDS: PRENATAL VITAMINS W/ FOLIC ACID TABLET (FP) PO SCH (09:38)
[2017-05-21] MEDS: BUPRENORPHINE/NALOXONE 2 MG/0.5 MG FILM PACKET SL SCH (09:38)
[2017-05-21] MEDS: PANTOPRAZOLE 40 MG TABLET (FP) PO SCH (09:39)
[2017-05-21] MEDS: hydrOXYzine PAMOATE 50 MG CAPSULE (FP) PO PRN ×2 (09:39→21:10)
[2017-05-21] MEDS: IBUPROFEN 400 MG TABLET (FP) PO PRN (15:40)
[2017-05-21] MEDS: MELATONIN 5 MG TABLETS PO PRN (21:09)
[2017-05-21] MEDS: THIAMINE HCL 100 MG TABLET (FP) PO SCH (21:10)
[2017-05-22] MEDS: CYCLOBENZAPRINE HCL 5 MG TABLET PO SCH ×3 (06:47→21:15)
[2017-05-22] MEDS: NICOTINE 21 MG/24 HOURS TOPICAL PATCH TD SCH (10:16)
[2017-05-22] MEDS: PRENATAL VITAMINS W/ FOLIC ACID TABLET (FP) PO SCH (10:16)
[2017-05-22] MEDS: BUPRENORPHINE/NALOXONE 2 MG/0.5 MG FILM PACKET SL SCH (10:16)
[2017-05-22] MEDS: PANTOPRAZOLE 40 MG TABLET (FP) PO SCH (10:16)
[2017-05-22] MEDS: IBUPROFEN 400 MG TABLET (FP) PO PRN (11:04)
[2017-05-22] MEDS: hydrOXYzine PAMOATE 50 MG CAPSULE (FP) PO PRN (21:16)
[2017-05-22] MEDS: MELATONIN 5 MG TABLETS PO PRN (21:16)
[2017-05-22] MEDS: THIAMINE HCL 100 MG TABLET (FP) PO SCH (21:17)
[2017-05-23] MEDS: CYCLOBENZAPRINE HCL 5 MG TABLET PO SCH ×3 (06:31→21:13)
[2017-05-23] MEDS: IBUPROFEN 400 MG TABLET (FP) PO PRN (08:07)
[2017-05-23] MEDS: PRENATAL VITAMINS W/ FOLIC ACID TABLET (FP) PO SCH (09:38)
[2017-05-23] MEDS: PANTOPRAZOLE 40 MG TABLET (FP) PO SCH (09:38)
[2017-05-23] MEDS: BUPRENORPHINE/NALOXONE 2 MG/0.5 MG FILM PACKET SL SCH (09:38)
[2017-05-23] MEDS: NICOTINE 21 MG/24 HOURS TOPICAL PATCH TD SCH (10:02)
[2017-05-23] MEDS: MELATONIN 5 MG TABLETS PO PRN (21:13)
[2017-05-23] MEDS: THIAMINE HCL 100 MG TABLET (FP) PO SCH (21:13)
[2017-05-23] MEDS: hydrOXYzine PAMOATE 50 MG CAPSULE (FP) PO PRN (21:13)
[2017-05-23] MEDS: ACETAMINOPHEN 325 MG TABLET (FP) PO PRN (21:14)
[2017-05-24] MEDS: CYCLOBENZAPRINE HCL 5 MG TABLET PO SCH ×3 (06:24→21:09)
[2017-05-24] MEDS: BUPRENORPHINE/NALOXONE 2 MG/0.5 MG FILM PACKET SL SCH (09:43)
[2017-05-24] MEDS: PANTOPRAZOLE 40 MG TABLET (FP) PO SCH (09:43)
[2017-05-24] MEDS: PRENATAL VITAMINS W/ FOLIC ACID TABLET (FP) PO SCH (09:43)
[2017-05-24] MEDS: NICOTINE 21 MG/24 HOURS TOPICAL PATCH TD SCH (09:44)
[2017-05-24] MEDS: ACETAMINOPHEN 325 MG TABLET (FP) PO PRN (09:45)
[2017-05-24] MEDS: IBUPROFEN 400 MG TABLET (FP) PO PRN (17:10)
[2017-05-24] MEDS: THIAMINE HCL 100 MG TABLET (FP) PO SCH (21:09)
[2017-05-24] MEDS: hydrOXYzine PAMOATE 50 MG CAPSULE (FP) PO PRN (21:09)
[2017-05-24] MEDS: MELATONIN 5 MG TABLETS PO PRN (21:10)
[2017-05-25] MEDS: CYCLOBENZAPRINE HCL 5 MG TABLET PO SCH ×3 (06:39→21:40)
[2017-05-25] MEDS: PRENATAL VITAMINS W/ FOLIC ACID TABLET (FP) PO SCH (09:58)
[2017-05-25] MEDS: IBUPROFEN 400 MG TABLET (FP) PO PRN (09:59)
[2017-05-25] MEDS: PANTOPRAZOLE 40 MG TABLET (FP) PO SCH (09:59)
[2017-05-25] MEDS: hydrOXYzine PAMOATE 50 MG CAPSULE (FP) PO PRN ×2 (10:00→21:40)
[2017-05-25] MEDS: BUPRENORPHINE/NALOXONE 2 MG/0.5 MG FILM PACKET SL SCH (10:01)
[2017-05-25] MEDS: NICOTINE 21 MG/24 HOURS TOPICAL PATCH TD SCH (10:01)
[2017-05-25] MEDS: ACETAMINOPHEN 325 MG TABLET (FP) PO PRN (14:00)
[2017-05-25] MEDS: MELATONIN 5 MG TABLETS PO PRN (21:40)
[2017-05-25] MEDS: THIAMINE HCL 100 MG TABLET (FP) PO SCH (21:40)
[2017-05-26] MEDS: CYCLOBENZAPRINE HCL 5 MG TABLET PO SCH ×3 (06:09→21:18)
[2017-05-26] MEDS: PANTOPRAZOLE 40 MG TABLET (FP) PO SCH (09:34)
[2017-05-26] MEDS: PRENATAL VITAMINS W/ FOLIC ACID TABLET (FP) PO SCH (09:34)
[2017-05-26] MEDS: NICOTINE 21 MG/24 HOURS TOPICAL PATCH TD SCH (09:35)
[2017-05-26] MEDS: hydrOXYzine PAMOATE 50 MG CAPSULE (FP) PO PRN ×2 (13:09→21:18)
[2017-05-26] MEDS: MELATONIN 5 MG TABLETS PO PRN (21:18)
[2017-05-26] MEDS: THIAMINE HCL 100 MG TABLET (FP) PO SCH (21:18)
[2017-05-26] MEDS: IBUPROFEN 400 MG TABLET (FP) PO PRN (21:19)
[2017-05-27] MEDS: CYCLOBENZAPRINE HCL 5 MG TABLET PO SCH ×3 (06:18→21:04)
[2017-05-27] MEDS: PRENATAL VITAMINS W/ FOLIC ACID TABLET (FP) PO SCH (09:44)
[2017-05-27] MEDS: PANTOPRAZOLE 40 MG TABLET (FP) PO SCH (09:44)
[2017-05-27] MEDS: NICOTINE 21 MG/24 HOURS TOPICAL PATCH TD SCH (09:44)
[2017-05-27] MEDS: hydrOXYzine PAMOATE 50 MG CAPSULE (FP) PO PRN ×2 (09:45→21:04)
[2017-05-27] MEDS: IBUPROFEN 400 MG TABLET (FP) PO PRN (09:45)
[2017-05-27] MEDS: THIAMINE HCL 100 MG TABLET (FP) PO SCH (21:04)
[2017-05-27] MEDS: MELATONIN 5 MG TABLETS PO PRN (21:04)
[2017-05-28] MEDS: CYCLOBENZAPRINE HCL 5 MG TABLET PO SCH (05:55)
[2017-05-28 07:00] VITALS: BP 115/77; PULSE 89; TEMP 97.8
[2017-05-28] MEDS: PANTOPRAZOLE 40 MG TABLET (FP) PO SCH (09:34)
[2017-05-28] MEDS: PRENATAL VITAMINS W/ FOLIC ACID TABLET (FP) PO SCH (09:34)
[2017-05-28] MEDS: NICOTINE 21 MG/24 HOURS TOPICAL PATCH TD SCH (09:35)
--- NOTE | 2017-05-28 11:45 | PN ---
[facility] Progress Note Note: prescription Omeprazole electronically sent to pt's [facility] pharmacy on file
--- NOTE | 2017-05-29 10:26 | PN ---
[facility] Progress Note Note: patient was discharged in stable condition on 05/28/17, please see medical staff notes.
== END 2017-05-28 11:45 | disposition home or self-care (01) | DRG 772 ==
LOC: YASAS 18:44 → Y5N 18:45
PROVIDERS: ADMIT Psychiatry & Neurology Psychiatry; ATTEND Psychiatry & Neurology Psychiatry
PROC: HZ42ZZZ Group Counseling for Substance Abuse Treatment, Cognitive-Behavioral (ICD-10-PCS; principal; 2017-05-17)
DX: F11.20 Opioid dependence, uncomplicated (principal); F13.20 Sedative, hypnotic or anxiolytic dependence, uncomplicated; F10.20 Alcohol dependence, uncomplicated; F17.210 Nicotine dependence, cigarettes, uncomplicated; G47.00 Insomnia, unspecified; B18.2 Chronic viral hepatitis C; R11.2 Nausea with vomiting, unspecified; R63.4 Abnormal weight loss; Z68.21 Body mass index [BMI] 21.0-21.9, adult
CPT/HCPCS: Q0162

== ENCOUNTER 2017-07-13 10:49 | Inpatient (IN) | payer OTHER ==
[2017-07-13 12:07] VITALS: BMI 23.8
--- NOTE | 2017-07-13 12:55 | HP ---
COWS - Scale Resting Pulse: 1= CT 81-100 Sweatin= Chills/Flushing Restless Observation: 3= Extraneous Movement Pupil Size: 0= Normal to Room Light Bone or Joint Aches: 2= Severe Diffuse Aches Runny Nose/ Eye Tearin= Runny Nose/Eyes GI Upset > 30mins: 2= Nausea/Diarrhea Tremor Observation: 2= Slight Tremor Visible Yawning Observation: 2= >3x During Session Anxiety or Irritability: 2=Irritable/Anxious Goose Flesh Skin: 0=Smooth Skin COWS Score: 17 CIWA Score - CIWA Score Nausea/Vomitin-Mild Nausea/No Vomiting Muscle Tremors: 4-Moderate,w/Arms Extend Anxiety: 4-Mod. Anxious/Guarded Agitation: 4-Moderately Restless Paroxysmal Sweats: 1-Minimal Palms Moist Orientation: 0-Oriented Tacttile Disturbances: 1-Very Mild Itch/Numbness Auditory Disturbances: 0-None Visual Disturbances: 0-None Headache: 2-Mild CIWA-Ar Total Score: 17 Admission ROS S - HPI Chief Complaint: alcohol and opiate withdrawal sx Allergies/Adverse Reactions: Allergies Allergy/AdvReac Type Severity Reaction Status Date / Time No Known Allergies Allergy Verified 07/13/17 12:51 History of Present Illness: 57 years old male with long history of alcohol opiate nicotine dependence has hepatitis c depression gerd is admitted to detox Exam Limitations: No Limitations - Ebola screening Have you traveled outside of the country in the last 21 days: No (N) Have you had contact with anyone from an Ebola affected area: No Have you been sick,other than usual withdrawal symptoms: No Do you have a fever: No - Review of Systems Constitutional: Loss of Appetite, Changes in sleep, Unintentional Wgt. Loss, Unexplained wgt Loss EENT: reports: Blurred Vision (reading eye glasses), Nose Congestion Respiratory: reports: No Symptoms reported Cardiac: reports: No Symptoms Reported GI: reports: Nausea, Poor Appetite, Poor Fluid Intake, Indigestion, Abdominal cramping : reports: No Symptoms Reported Musculoskeletal: reports: Joint Pain, Muscle Pain, Neck Pain Integumentary: reports: Change in Color (right and left inner elbows) Neuro: reports: Tremors Endocrine: reports: No Symptoms Reported Hematology: reports: No Symptoms Reported Psychiatric: reports: Judgement Intact, Orientated x3, Anxious, Depressed Other Systems: Reviewed and Negative Patient History - Patient Medical History Hx Anemia: Yes Hx Asthma: No Hx Chronic Obstructive Pulmonary Disease (COPD): No Hx Cancer: No Hx Cardiac Disorders: No Hx Congestive Heart Failure: No Hx Hypertension: No Hx Hypercholesterolemia: No Hx Pacemaker: No HX Cerebrovascular Accident: No Hx Seizures: No Hx Dementia: No Hx Diabetes: No Hx Gastrointestinal Disorders: Yes Hx Liver Disease: No Hx Genitourinary Disorders: No Hx Sexually Transmitted Disorders: No Hx Renal Disease (ESRD): No Hx Thyroid Disease: No Hx Human Immunodeficiency Virus (HIV): No Hx Hepatitis C: Yes (trated and olceared virus) Hx Depression: Yes Hx Suicide Attempt: No Hx Bipolar Disorder: No Hx Schizophrenia: No - Patient Surgical History Past Surgical History: Yes Hx Neurologic Surgery: No Hx Cataract Extraction: No Hx Cardiac Surgery: No Hx Lung Surgery: No Hx Breast Surgery: No Hx Breast Biopsy: No Hx Abdominal Surgery: No Hx Appendectomy: No Hx Cholecystectomy: No Hx Genitourinary Surgery: No Hx Orthopedic Surgery: No Other Surgical History: right ankle surgery 1995 Anesthesia Reaction: No - PPD History Previous Implant?: Yes Documented Results: Negative w/proof Implanted On Prior R Admission?: Yes Date: 04/04/17 Results: 0 mm PPD to be Administered?: No - Smoking Cessation Smoking history: Current every day smoker Have you smoked in the past 12 months: Yes Aproximately how many cigarettes per day: 10 Cigars Per Day: 0 Hx Chewing Tobacco Use: No Initiated information on smoking cessation: Yes 'Breaking Loose' booklet given: 07/13/17 - Substance & Tx. History Hx Alcohol Use: Yes Hx Substance Use: Yes Substance Use Type: Alcohol, Opiates Hx Substance Use Treatment: Yes (05/2017 [facility] - Substances Abused Alcohol-cognac/beer Route: Oral Frequency: Daily Amount used: 1/2-1 pt./1-2 6 pks. Age of first use: 15 Date of Last Use: 07/12/17 Family Disease History - Family Disease History Family Disease History: Other: Father (/hemophilia), Mother (alcoholism , ) Admission Physical Exam [facility] - Vital Signs Vital Signs: Vital Signs - 24 hr 07/13/17 12:04 Temperature 96.9 F L Pulse Rate 88 Respiratory 18 Rate Blood Pressure 142/95 - Physical General Appearance: Yes: Appropriately Dressed, Mild Distress, Thin, Tremorous, Irritable, Sweating, Anxious HEENTM: Yes: Hearing grossly Normal, Normocephalic, Normal Voice, Other ( reading eye glasses) Respiratory: Yes: Chest Non-Tender, Lungs Clear, Normal Breath Sounds, No Respiratory Distress, No Accessory Muscle Use Neck: Yes: Supple, Trachea in good position Breast: Yes: Breasts Symetrical, No Discharge Cardiology: Yes: S1, S2, Tachycardia Abdominal: Yes: Normal Bowel Sounds, Non Tender, Flat Genitourinary: Yes: Within Normal Limits Back: Yes: Normal Inspection Musculoskeletal: Yes: full range of Motion, Gait Steady, Back pain, Muscle Pain Extremities: Yes: Normal Inspection (iv heroin chitra both inner elbows), Normal Range of Motion, Non-Tender, Tremors Neurological: Yes: Fully Oriented, Alert, Motor Strength 5/5, Normal Response, Depressed Affect Integumentary: Yes: Warm, Track Zuniga (old healed) Lymphatic: Yes: Within Normal Limits - Diagnostic (1) Alcohol dependence with uncomplicated withdrawal Current Visit: Yes Status: Acute (2) Depression Current Visit: Yes Status: Suspected Qualifiers: Depression Type: dysthymia Qualified Code(s): F34.1 - Dysthymic disorder (3) Nicotine dependence Current Visit: Yes Status: Acute Qualifiers: Nicotine product type: cigarettes Substance use status: in withdrawal Qualified Code(s): F17.213 - Nicotine dependence, cigarettes, with withdrawal (4) Opioid dependence with withdrawal Current Visit: Yes Status: Acute (5) Weight loss Current Visit: Yes Status: Acute (6) Hepatitis C Current Visit: No Status: Resolved Qualifiers: Viral hepatitis chronicity: chronic Hepatic coma status: without hepatic coma Qualified Code(s): B18.2 - Chronic viral hepatitis C Cleared for Admission [facility] - Detox or Rehab [facility] Level of Care: Medically Managed Detox Regimen/Protocol: Methadone/Librium S Breath Alcohol Content Breath Alcohol Content: 0 Urine Drug Screen - Control Is Test Valid: Yes - Results Drug Screen Negative: No Urine Drug Screen Results: OPI-Opiates
[2017-07-13] MEDS ORDERED: guaiFENesin/D-METHORPHAN HB 10 ML UNIT-DOSE CUPS PO PRN (13:00)
[2017-07-13] MEDS ORDERED: MENTHOL/PHENOL 1 EACH UD MM PRN (13:00)
[2017-07-13] MEDS ORDERED: ACETAMINOPHEN 325 MG TABLET (FP) PO PRN (13:00)
[2017-07-13] MEDS ORDERED: LOPERAMIDE HCL 2 MG CAPSULE PO PRN (13:00)
[2017-07-13] MEDS ORDERED: P-EPHED 60MG/TRIPROLIDI 2.5MG TABLET PO PRN (13:00)
[2017-07-13] MEDS ORDERED: MAGNESIUM HYDROX 2400MG/30ML ORAL SUSPENSION 30 ML CUP PO PRN (13:00)
[2017-07-13] MEDS ORDERED: MAGNESIUM CITRATE 300 ML BOTTLE PO PRN (13:00)
[2017-07-13] MEDS ORDERED: NICOTINE POLACRILEX 2 MG GUM BC PRN (13:00)
[2017-07-13] MEDS ORDERED: MAG HYDROX/AL HYDROX/SIMETH 30 ML UNIT-DOSE CUP PO PRN (13:00)
[2017-07-13] MEDS ORDERED: METHADONE HCL 10 MG TABLET (FOR DETOX USE ONLY) PO ONE ×2 (13:45→23:00)
[2017-07-13] MEDS: RANITIDINE HCL 150 MG TABLET (FP) PO SCH ×2 (14:53→22:04)
[2017-07-13] MEDS: chlordiazePOXIDE HCL 25 MG CAPSULE PO PRN (14:53)
[2017-07-13] MEDS: NICOTINE 14 MG/24 HOURS TOPICAL PATCH TD SCH (14:57)
--- NOTE | 2017-07-13 15:08 | CONSULT ---
[facility] Psychiatric Consult - Data Date of interview: 07/13/17 Admission source: [facility] Identifying data: Patient is a 57 year old single male, father of one, unemployed, and currently living with [facility]. This is one of multiple admissions for patient. Pt. admitted to for alcohol dependence. Substance Abuse History: Smoking Cessation. Smoking history: Current every day smoker. Have you smoked in the past 12 months: Yes. Aproximately how many cigarettes per day: 10. Cigars Per Day: 0. Hx Chewing Tobacco Use: No. Initiated information on smoking cessation: Yes. 'Breaking Loose' booklet given : 07/13/17. - Substance & Tx. History. Hx Alcohol Use: Yes. Hx Substance Use : Yes. Substance Use Type: Alcohol, Opiates. Hx Substance Use Treatment: Yes ( 05/2017 [facility]). - Substances Abused. Alcohol-cognac/beer. Route: Oral. Frequency: Daily. Amount used: 1/2-1 pt./1-2 6 pks. Age of first use: 15. Date of Last Use: 07/12/17 Medical History: right ankle surgery 1995, Anemia Psychiatric History: Patient denies h/o psychiatric hospitalizations, outpatient care, and suicide attempt. Pt. reports poor sleep. Physical/Sexual Abuse/Trauma History: Denies. Mental Status Exam - Mental Status Exam Alert and Oriented to: Time, Place, Person Cognitive Function: Good Patient Appearance: Well Groomed Mood: Hopeful Affect: Mood Congruent Patient Behavior: Appropriate, Cooperative Speech Pattern: Clear, Appropriate Voice Loudness: Normal Thought Process: Intact, Goal Oriented Thought Disorder: Not Present Hallucinations: Denies Suicidal Ideation: Denies Homicidal Ideation: Denies Insight/Judgement: Poor Sleep: Poorly Appetite: Fair Muscle strength/Tone: Normal Gait/Station: Normal Psychiatric Findings - Problem List ([place] 1, 2,3) (1) Alcohol dependence with uncomplicated withdrawal Status: Acute (2) Nicotine dependence Status: Acute Qualifiers: Nicotine product type: cigarettes Substance use status: in withdrawal Qualified Code(s): F17.213 - Nicotine dependence, cigarettes, with withdrawal (3) Opioid dependence with withdrawal Status: Acute (4) Substance-induced sleep disorder Status: Acute - Initial Treatment Plan Initial Treatment Plan: Psychoeducation provided. Detoxification in progress. Ambien 5mg qhs ordered. Benefits and side effects discussed. Verbal consent given. Patient made aware of the risk of parasomnia. Will continue to monitor.
[2017-07-13] MEDS: chlordiazePOXIDE HCL 25 MG CAPSULE PO SCH ×2 (16:37→22:04)
[2017-07-13 17:59] LABS: URINE APPEARANCE TURBID; URINE BLOOD 1+ (NEGATIVE); URINE COLOR YELLOW; URINE GLUCOSE (UA) NEGATIVE (NEGATIVE); URINE KETONE TRACE (NEGATIVE); URINE LEUK ESTERASE NEGATIVE (NEGATIVE); URINE NITRITE NEGATIVE (NEGATIVE); URINE UROBILINOGEN 4.0 E.U/dl mg/dL (0.2-1.0)
[2017-07-13 18:01] LABS: URINE PROTEIN 2+ (NEGATIVE)
[2017-07-13 18:05] LABS: URINE MUCUS MANY
[2017-07-13] MEDS ORDERED: MELATONIN 5 MG TABLETS PO PRN (22:00)
[2017-07-13] MEDS: THIAMINE HCL 100 MG TABLET (FP) PO SCH (22:04)
[2017-07-14] MEDS: chlordiazePOXIDE HCL 25 MG CAPSULE PO PRN ×2 (00:20→13:36)
[2017-07-14] MEDS: chlordiazePOXIDE HCL 25 MG CAPSULE PO SCH ×2 (05:48→10:17)
[2017-07-14] MEDS ORDERED: METHADONE HCL 10 MG TABLET (FOR DETOX USE ONLY) PO SCH (10:00)
[2017-07-14] MEDS: RANITIDINE HCL 150 MG TABLET (FP) PO SCH ×2 (10:17→22:17)
[2017-07-14] MEDS: NICOTINE 14 MG/24 HOURS TOPICAL PATCH TD SCH (10:17)
[2017-07-14] MEDS: PRENATAL VITAMINS W/ FOLIC ACID TABLET (FP) PO SCH (10:17)
[2017-07-14 10:23] LABS: HEMATOCRIT 33.9 % (35.4-49); HEMOGLOBIN 11.7 GM/dL (11.7-16.9); MCH 32.2 pg (25.7-33.7); MCHC 34.6 g/dl (32.0-35.9); MEAN CELL VOLUME 93.1 fl (80-96); MEAN PLT VOLUME 7.5 fl (7.5-11.1); PLATELET COUNT 224 K/MM3 (134-434); RBC 3.64 M/mm3 (4.00-5.60); RDW 13.1 % (11.9-15.9); WHITE BLOOD COUNT 6.3 K/mm3 (4.0-10.0)
[2017-07-14 10:47] LABS: CHLORIDE 101 mmol/L (98-107); POTASSIUM 3.3 mmol/L (3.5-5.1); SODIUM 136 mmol/L (136-145)
--- NOTE | 2017-07-14 10:50 | EKG ---
Test Reason : Blood Pressure : / mmHG Vent. Rate : 084 BPM Atrial Rate : 084 BPM P-R Int : 172 ms QRS Dur : 100 ms QT Int : 356 ms P-R-T Axes : 064 022 052 degrees QTc Int : 420 ms NORMAL SINUS RHYTHM NON-SPECIFIC INTRA-VENTRICULAR CONDUCTION DELAY WHEN COMPARED WITH ECG OF 12-MAY-2017 16:00, NO SIGNIFICANT CHANGE WAS FOUND Confirmed by ANDREW DUKES MD ([id number]) on 07/14/2017 10:49:38 AM Referred By: Confirmed By:ANDREW DUKES MD
[2017-07-14 11:13] LABS: ALBUMIN 3.7 g/dl (3.4-5.0); ALK PHOS 67 U/L (45-117); ANION GAP 8 (8-16); BILIRUBIN,TOTAL 0.5 mg/dL (0.2-1.0); BLOOD UREA NITROGEN 14 mg/dL (7-18); CALCIUM 8.5 mg/dL (8.5-10.1); CO2 27 mmol/L (21-32); GLUCOSE,RANDOM 136 mg/dL (74-106); SGOT/AST 21 U/L (15-37); SGPT/ALT 29 U/L (12-78); TOT PROT 6.6 g/dl (6.4-8.2)
--- NOTE | 2017-07-14 13:51 | PN ---
[facility] CIWA - CIWA Score Nausea/Vomitin-No Nausea/No Vomiting Muscle Tremors: 4-Moderate,w/Arms Extend Anxiety: 4-Mod. Anxious/Guarded Agitation: 2 Paroxysmal Sweats: 3 Orientation: 2-Disoriented Date<2 days Tacttile Disturbances: 0-None Auditory Disturbances: 2-Mild Harshness/Frighten Visual Disturbances: 2-Mild Sensitivity Headache: 0-None Present CIWA-Ar Total Score: 19 S COWS - Scale Resting Pulse: 0= [place] 80 or Below Sweatin= Chills/Flushing Restless Observation: 1= Difficult to Sit Still Pupil Size: 0= Normal to Room Light Bone or Joint Aches: 0= None Runny Nose/ Eye Tearin= Runny Nose/Eyes GI Upset > 30mins: 0= None Tremor Observation of Outstretched Hands: 2= Slight Tremor Visible Yawning Observation: 1= 1-2x During Session Anxiety or Irritability: 2=Irritable/Anxious Goose Flesh Skin: 3=Piloerection COWS Score: 12 S Progress Note (SOAP) Subjective: Interrupted Sleep, Sweating, H/A, Tremors. Objective: PATIENT A & O X 2 (UNCERTAIN ABOUT CURRENT DAY / DATE). PATIENT OBSERVED AMBULATING ON UNIT. NO ACUTE DISTRESS. 07/14/17 13:48 Vital Signs Temperature 99.1 F 07/14/17 09:11 Pulse Rate 71 07/14/17 09:11 Respiratory Rate 16 07/14/17 09:11 Blood Pressure 95/59 07/14/17 09:11 O2 Sat by Pulse Oximetry (%) Laboratory Tests 07/13/17 07/14/17 07/14/17 17:26 06:00 06:00 WBC 6.3 RBC 3.64 L Hgb 11.7 D Hct 33.9 L D MCV 93.1 MCH 32.2 MCHC 34.6 RDW 13.1 Plt Count 224 D MPV 7.5 Sodium 136 Potassium 3.3 L D Chloride 101 Carbon Dioxide 27 Anion Gap 8 BUN 14 D Creatinine 1.0 Creat Clearance w eGFR > 60 Random Glucose 136 H D Calcium 8.5 Total Bilirubin 0.5 D AST 21 D ALT 29 D Alkaline Phosphatase 67 D Total Protein 6.6 Albumin 3.7 Urine Color Yellow Urine Appearance Turbid Urine pH 5.0 D Ur Specific [place] 1.033 Urine Protein 2+ H Urine Glucose (UA) Negative Urine Ketones Trace H Urine Blood 1+ H Urine Nitrite Negative Urine Bilirubin 2.0 Urine Urobilinogen 4.0 e.u/dl Ur Leukocyte Esterase Negative Urine WBC (Auto) 77 Urine RBC (Auto) 21 Urine Mucus Many RPR Titer 07/14/17 06:00 WBC RBC Hgb Hct MCV MCH MCHC RDW Plt Count MPV Sodium Potassium Chloride Carbon Dioxide Anion Gap BUN Creatinine Creat Clearance w eGFR Random Glucose Calcium Total Bilirubin AST ALT Alkaline Phosphatase Total Protein Albumin Urine Color Urine Appearance Urine pH Ur Specific [place] Urine Protein Urine Glucose (UA) Urine Ketones Urine Blood Urine Nitrite Urine Bilirubin Urine Urobilinogen Ur Leukocyte Esterase Urine WBC (Auto) Urine RBC (Auto) Urine Mucus RPR Titer Nonreactive LABS NOTED. Assessment: 07/14/17 13:48 WITHDRAWAL SYMPTOMS. HYPOKALEMIA. 07/14/17 13:51 Plan: CONTINUE DETOX. BGM ACBK FOR ELEVATED ADMISSION RANDOM GLUCOSE LEVEL. K-DUR, 20 MEQ PO BID. REPEAT UA FOR ADMISSION ABNORMALITIES. INCREASE DAILY PO FLUID INTAKE.
[2017-07-14] MEDS ORDERED: POTASSIUM CHLORIDE TABS 20 MEQ TABLET.ER (FP) PO ONE (14:00)
--- NOTE | 2017-07-14 16:25 | PN ---
[facility] Progress Note Note: Patient reports that he has had Valium detox regimen on previous admission for Alcohol withdrawal and that he feels that current Librium Detox regimen for Alcohol withdrawal is not as effective as was the Valium detox regimen. At patient's request, Librium detox regimen changed to Valium detox regimen. Methadone detox regimen maintained. Mariya Harris NP
[2017-07-14] MEDS ORDERED: chlordiazePOXIDE HCL 25 MG CAPSULE PO SCH (17:00)
[2017-07-14] MEDS ORDERED: diazePAM 5 MG TABLET PO ONE (17:00)
[2017-07-14] MEDS: POTASSIUM CHLORIDE TABS 20 MEQ TABLET.ER (FP) PO SCH (17:32)
[2017-07-14] MEDS: THIAMINE HCL 100 MG TABLET (FP) PO SCH (22:16)
[2017-07-14] MEDS: diazePAM 5 MG TABLET PO SCH (22:17)
[2017-07-14] MEDS: ZOLPIDEM TARTRATE 5 MG TABLET PO PRN (22:17)
[2017-07-15] MEDS: diazePAM 5 MG TABLET PO SCH ×3 (06:12→22:04)
[2017-07-15] MEDS: METHADONE HCL 5 MG TABLET (FOR DETOX USE ONLY) PO SCH (10:25)
[2017-07-15] MEDS: POTASSIUM CHLORIDE TABS 20 MEQ TABLET.ER (FP) PO SCH ×2 (10:25→17:31)
[2017-07-15] MEDS: RANITIDINE HCL 150 MG TABLET (FP) PO SCH ×2 (10:25→22:04)
[2017-07-15] MEDS: PRENATAL VITAMINS W/ FOLIC ACID TABLET (FP) PO SCH (10:25)
[2017-07-15] MEDS: NICOTINE 14 MG/24 HOURS TOPICAL PATCH TD SCH (10:25)
[2017-07-15] MEDS: diazePAM 5 MG TABLET PO PRN ×2 (16:45→21:19)
--- NOTE | 2017-07-15 16:47 | PN ---
S CIWA - CIWA Score Nausea/Vomitin-No Nausea/No Vomiting Muscle Tremors: 2 Anxiety: 4-Mod. Anxious/Guarded Agitation: 4-Moderately Restless Paroxysmal Sweats: 2 Orientation: 0-Oriented Tacttile Disturbances: 2-Mild Itch/Numbness/Burn Auditory Disturbances: 1-Very Mild Visual Disturbances: 1-Very Mild Sensitivity Headache: 0-None Present CIWA-Ar Total Score: 16 BHS COWS - Scale Resting Pulse: 2= [place] 101-120 Sweatin= Chills/Flushing Restless Observation: 1= Difficult to Sit Still Pupil Size: 0= Normal to Room Light Bone or Joint Aches: 2= Severe Diffuse Aches Runny Nose/ Eye Tearin= None GI Upset > 30mins: 0= None Tremor Observation of Outstretched Hands: 2= Slight Tremor Visible Yawning Observation: 2= >3x During Session Anxiety or Irritability: 2=Irritable/Anxious Goose Flesh Skin: 0=Smooth Skin COWS Score: 12 S Progress Note (SOAP) Subjective: Tremors, Sweating, Anxious, Body Aches. Objective: PATIENT A & O X 3, OBSERVED AMBULATING ON UNIT. NO ACUTE DISTRESS. 07/15/17 16:44 Vital Signs Temperature 98.4 F 07/15/17 13:54 Pulse Rate 96 H 07/15/17 13:54 Respiratory Rate 20 07/15/17 13:54 Blood Pressure 130/76 07/15/17 13:54 O2 Sat by Pulse Oximetry (%) Laboratory Tests 07/13/17 07/14/17 07/14/17 17:26 06:00 06:00 WBC 6.3 RBC 3.64 L Hgb 11.7 D Hct 33.9 L D MCV 93.1 MCH 32.2 MCHC 34.6 RDW 13.1 Plt Count 224 D MPV 7.5 Sodium 136 Potassium 3.3 L D Chloride 101 Carbon Dioxide 27 Anion Gap 8 BUN 14 D Creatinine 1.0 Creat Clearance w eGFR > 60 Random Glucose 136 H D Calcium 8.5 Total Bilirubin 0.5 D AST 21 D ALT 29 D Alkaline Phosphatase 67 D Total Protein 6.6 Albumin 3.7 Urine Color Yellow Urine Appearance Turbid Urine pH 5.0 D Ur Specific [place] 1.033 Urine Protein 2+ H Urine Glucose (UA) Negative Urine Ketones Trace H Urine Blood 1+ H Urine Nitrite Negative Urine Bilirubin 2.0 Urine Urobilinogen 4.0 e.u/dl Ur Leukocyte Esterase Negative Urine WBC (Auto) 77 Urine RBC (Auto) 21 Urine Mucus Many RPR Titer 07/14/17 06:00 WBC RBC Hgb Hct MCV MCH MCHC RDW Plt Count MPV Sodium Potassium Chloride Carbon Dioxide Anion Gap BUN Creatinine Creat Clearance w eGFR Random Glucose Calcium Total Bilirubin AST ALT Alkaline Phosphatase Total Protein Albumin Urine Color Urine Appearance Urine pH Ur Specific [place] Urine Protein Urine Glucose (UA) Urine Ketones Urine Blood Urine Nitrite Urine Bilirubin Urine Urobilinogen Ur Leukocyte Esterase Urine WBC (Auto) Urine RBC (Auto) Urine Mucus RPR Titer Nonreactive LABS NOTED. RESULTS OF REPEAT UA PENDING. 07/15/17 16:45 Assessment: 07/15/17 16:44 WITHDRAWAL SYMPTOMS. HYPOKALEMIA. 07/15/17 16:46 Plan: CONTINUE DETOX. CONTINUE K-DUR. INCREASE DAILY PO FLUID INTAKE.
[2017-07-15] MEDS ORDERED: chlordiazePOXIDE 5 MG CAPSULE PO SCH (17:00)
[2017-07-15] MEDS: ZOLPIDEM TARTRATE 5 MG TABLET PO PRN (22:04)
[2017-07-15] MEDS: THIAMINE HCL 100 MG TABLET (FP) PO SCH (22:04)
[2017-07-16] MEDS: diazePAM 5 MG TABLET PO PRN ×3 (06:56→16:40)
[2017-07-16] MEDS: diazePAM 5 MG TABLET PO SCH ×2 (10:18→22:49)
[2017-07-16] MEDS: POTASSIUM CHLORIDE TABS 20 MEQ TABLET.ER (FP) PO SCH ×2 (10:18→17:34)
[2017-07-16] MEDS: METHADONE HCL 5 MG TABLET (FOR DETOX USE ONLY) PO SCH (10:18)
[2017-07-16] MEDS: PRENATAL VITAMINS W/ FOLIC ACID TABLET (FP) PO SCH (10:18)
[2017-07-16] MEDS: RANITIDINE HCL 150 MG TABLET (FP) PO SCH ×2 (10:18→22:50)
[2017-07-16] MEDS: NICOTINE 14 MG/24 HOURS TOPICAL PATCH TD SCH (10:18)
--- NOTE | 2017-07-16 13:02 | PN ---
[facility] Progress Note (SOAP) Subjective: ANXIETY,SWEATS,HEADACHE,SWEATS. ALERT O X 3. OOB AMBULATING WITH STEADY GAIT. Objective: 07/16/17 13:01 Vital Signs 07/16/17 07/16/17 06:15 09:52 Temperature 97.2 F L 96.7 F L Pulse Rate 78 69 Respiratory 18 20 Rate Blood Pressure 100/63 116/77 Laboratory Tests 07/13/17 07/14/17 07/14/17 17:26 06:00 06:00 WBC 6.3 RBC 3.64 L Hgb 11.7 D Hct 33.9 L D MCV 93.1 MCH 32.2 MCHC 34.6 RDW 13.1 Plt Count 224 D MPV 7.5 Sodium 136 Potassium 3.3 L D Chloride 101 Carbon Dioxide 27 Anion Gap 8 BUN 14 D Creatinine 1.0 Creat Clearance w eGFR > 60 POC Glucometer Random Glucose 136 H D Calcium 8.5 Total Bilirubin 0.5 D AST 21 D ALT 29 D Alkaline Phosphatase 67 D Total Protein 6.6 Albumin 3.7 Urine Color Yellow Urine Appearance Turbid Urine pH 5.0 D Ur Specific [place] 1.033 Urine Protein 2+ H Urine Glucose (UA) Negative Urine Ketones Trace H Urine Blood 1+ H Urine Nitrite Negative Urine Bilirubin 2.0 Urine Urobilinogen 4.0 e.u/dl Ur Leukocyte Esterase Negative Urine WBC (Auto) 77 Urine RBC (Auto) 21 Urine Mucus Many RPR Titer 07/14/17 07/16/17 06:00 05:46 WBC RBC Hgb Hct MCV MCH MCHC RDW Plt Count MPV Sodium Potassium Chloride Carbon Dioxide Anion Gap BUN Creatinine Creat Clearance w eGFR POC Glucometer 110 Random Glucose Calcium Total Bilirubin AST ALT Alkaline Phosphatase Total Protein Albumin Urine Color Urine Appearance Urine pH Ur Specific [place] Urine Protein Urine Glucose (UA) Urine Ketones Urine Blood Urine Nitrite Urine Bilirubin Urine Urobilinogen Ur Leukocyte Esterase Urine WBC (Auto) Urine RBC (Auto) Urine Mucus RPR Titer Nonreactive Assessment: 07/16/17 13:02 WITHDRAWAL SX Plan: CONTINUE DETOX MOTRIN OR TYLENOL PRN
[2017-07-16] MEDS ORDERED: chlordiazePOXIDE HCL 10 MG CAPSULE PO SCH (17:00)
[2017-07-16] MEDS: ZOLPIDEM TARTRATE 5 MG TABLET PO PRN (21:50)
[2017-07-16] MEDS: THIAMINE HCL 100 MG TABLET (FP) PO SCH (22:49)
[2017-07-17] MEDS: diazePAM 5 MG TABLET PO PRN (03:11)
[2017-07-17] MEDS ORDERED: METHADONE HCL 10 MG TABLET (FOR DETOX USE ONLY) PO SCH (10:00)
[2017-07-17] MEDS: RANITIDINE HCL 150 MG TABLET (FP) PO SCH ×2 (10:13→22:15)
[2017-07-17] MEDS: NICOTINE 14 MG/24 HOURS TOPICAL PATCH TD SCH (10:13)
[2017-07-17] MEDS: diazePAM 5 MG TABLET PO SCH ×2 (10:13→22:14)
[2017-07-17] MEDS: PRENATAL VITAMINS W/ FOLIC ACID TABLET (FP) PO SCH (10:13)
[2017-07-17] MEDS: POTASSIUM CHLORIDE TABS 20 MEQ TABLET.ER (FP) PO SCH ×2 (10:13→17:38)
--- NOTE | 2017-07-17 11:45 | PN ---
[facility] Progress Note (SOAP) Subjective: ANXIETY,SWEATS. DETOX PROCEEDING PER PROTOCOL. Objective: 07/17/17 11:45 Vital Signs 07/17/17 07/17/17 07/17/17 06:30 09:13 10:11 Temperature 98.7 F Pulse Rate 76 85 Respiratory 18 18 18 Rate Blood Pressure 82/53 106/66 Laboratory Tests 07/13/17 07/14/17 07/14/17 17:26 06:00 06:00 WBC 6.3 RBC 3.64 L Hgb 11.7 D Hct 33.9 L D MCV 93.1 MCH 32.2 MCHC 34.6 RDW 13.1 Plt Count 224 D MPV 7.5 Sodium 136 Potassium 3.3 L D Chloride 101 Carbon Dioxide 27 Anion Gap 8 BUN 14 D Creatinine 1.0 Creat Clearance w eGFR > 60 POC Glucometer Random Glucose 136 H D Calcium 8.5 Total Bilirubin 0.5 D AST 21 D ALT 29 D Alkaline Phosphatase 67 D Total Protein 6.6 Albumin 3.7 Urine Color Yellow Urine Appearance Turbid Urine pH 5.0 D Ur Specific [place] 1.033 Urine Protein 2+ H Urine Glucose (UA) Negative Urine Ketones Trace H Urine Blood 1+ H Urine Nitrite Negative Urine Bilirubin 2.0 Urine Urobilinogen 4.0 e.u/dl Ur Leukocyte Esterase Negative Urine WBC (Auto) 77 Urine RBC (Auto) 21 Urine Mucus Many RPR Titer 07/14/17 07/16/17 06:00 05:46 WBC RBC Hgb Hct MCV MCH MCHC RDW Plt Count MPV Sodium Potassium Chloride Carbon Dioxide Anion Gap BUN Creatinine Creat Clearance w eGFR POC Glucometer 110 Random Glucose Calcium Total Bilirubin AST ALT Alkaline Phosphatase Total Protein Albumin Urine Color Urine Appearance Urine pH Ur Specific [place] Urine Protein Urine Glucose (UA) Urine Ketones Urine Blood Urine Nitrite Urine Bilirubin Urine Urobilinogen Ur Leukocyte Esterase Urine WBC (Auto) Urine RBC (Auto) Urine Mucus RPR Titer Nonreactive Assessment: 07/17/17 11:45 WITHDRAWAL SX Plan: CONTINUE DETOX
[2017-07-17] MEDS ORDERED: ZOLPIDEM TARTRATE 5 MG TABLET PO PRN ×2 (18:16→22:00)
--- NOTE | 2017-07-17 18:20 | PN ---
[facility] Progress Note Note: Psychiatry Attending's note : Complaint : insomnia. Order entered for ambien 5 mg po hs prn. As scheduled in the treatment plan. Requested by Mr José.
[2017-07-17] MEDS: THIAMINE HCL 100 MG TABLET (FP) PO SCH (22:14)
[2017-07-18] MEDS ORDERED: METHADONE HCL 5 MG TABLET (FOR DETOX USE ONLY) PO SCH (06:00)
[2017-07-18] MEDS ORDERED: diazePAM 5 MG TABLET PO SCH (10:00)
[2017-07-18] MEDS: PRENATAL VITAMINS W/ FOLIC ACID TABLET (FP) PO SCH (10:32)
[2017-07-18] MEDS: POTASSIUM CHLORIDE TABS 20 MEQ TABLET.ER (FP) PO SCH (10:32)
[2017-07-18] MEDS: RANITIDINE HCL 150 MG TABLET (FP) PO SCH (10:32)
[2017-07-18] MEDS: NICOTINE 14 MG/24 HOURS TOPICAL PATCH TD SCH (10:32)
--- NOTE | 2017-07-18 11:05 | PN ---
[facility] Progress Note (SOAP) Subjective: DETOX COMPLETED. ALERT O X3. NAD. REFERRED TO [facility] FOR AFTERCARE TODAY. Objective: 07/18/17 11:04 Vital Signs 07/18/17 07/18/17 06:17 09:17 Temperature 96.9 F L 98.0 F Pulse Rate 64 71 Respiratory 18 18 Rate Blood Pressure 99/61 96/61 Laboratory Tests 07/13/17 07/14/17 07/14/17 17:26 06:00 06:00 WBC 6.3 RBC 3.64 L Hgb 11.7 D Hct 33.9 L D MCV 93.1 MCH 32.2 MCHC 34.6 RDW 13.1 Plt Count 224 D MPV 7.5 Sodium 136 Potassium 3.3 L D Chloride 101 Carbon Dioxide 27 Anion Gap 8 BUN 14 D Creatinine 1.0 Creat Clearance w eGFR > 60 POC Glucometer Random Glucose 136 H D Calcium 8.5 Total Bilirubin 0.5 D AST 21 D ALT 29 D Alkaline Phosphatase 67 D Total Protein 6.6 Albumin 3.7 Urine Color Yellow Urine Appearance Turbid Urine pH 5.0 D Ur Specific [place] 1.033 Urine Protein 2+ H Urine Glucose (UA) Negative Urine Ketones Trace H Urine Blood 1+ H Urine Nitrite Negative Urine Bilirubin 2.0 Urine Urobilinogen 4.0 e.u/dl Ur Leukocyte Esterase Negative Urine WBC (Auto) 77 Urine RBC (Auto) 21 Urine Mucus Many RPR Titer 07/14/17 07/16/17 06:00 05:46 WBC RBC Hgb Hct MCV MCH MCHC RDW Plt Count MPV Sodium Potassium Chloride Carbon Dioxide Anion Gap BUN Creatinine Creat Clearance w eGFR POC Glucometer 110 Random Glucose Calcium Total Bilirubin AST ALT Alkaline Phosphatase Total Protein Albumin Urine Color Urine Appearance Urine pH Ur Specific [place] Urine Protein Urine Glucose (UA) Urine Ketones Urine Blood Urine Nitrite Urine Bilirubin Urine Urobilinogen Ur Leukocyte Esterase Urine WBC (Auto) Urine RBC (Auto) Urine Mucus RPR Titer Nonreactive Assessment: 07/18/17 11:04 MEDICALLY STABLE Plan: D/C PT TODAY TO REHAB
[2017-07-18 13:44] VITALS: BP 101/62; PULSE 88; TEMP 98.3
== END 2017-07-18 14:37 | disposition other institution (70) | DRG 773 ==
LOC: YASAS 10:49 → Y3N 13:16
PROVIDERS: ADMIT Surgery; ATTEND Surgery
PROC: HZ2ZZZZ Detoxification Services for Substance Abuse Treatment (ICD-10-PCS; principal; 2017-07-13)
DX: F11.23 Opioid dependence with withdrawal (principal); F10.230 Alcohol dependence with withdrawal, uncomplicated; F17.213 Nicotine dependence, cigarettes, with withdrawal; F32.9 Major depressive disorder, single episode, unspecified; F19.282 Other psychoactive substance dependence with psychoactive substance-induced sleep disorder; E87.6 Hypokalemia; B18.2 Chronic viral hepatitis C; K21.9 Gastro-esophageal reflux disease without esophagitis; G47.00 Insomnia, unspecified; D64.9 Anemia, unspecified; R00.0 Tachycardia, unspecified; Z87.898 Personal history of other specified conditions
CPT/HCPCS: 36415; 80053; 81003; 81015; 82962; 85027; 86593; 93005; 93010

== ENCOUNTER 2017-07-18 14:26 | Inpatient (IN) | payer OTHER ==
[2017-07-18] MEDS ORDERED: ACETAMINOPHEN 325 MG TABLET (FP) PO PRN (15:04)
[2017-07-18] MEDS ORDERED: MAGNESIUM CITRATE 300 ML BOTTLE PO PRN (15:04)
[2017-07-18] MEDS ORDERED: IBUPROFEN 400 MG TABLET (FP) PO PRN (15:04)
[2017-07-18] MEDS ORDERED: guaiFENesin/D-METHORPHAN HB 10 ML UNIT-DOSE CUPS PO PRN (15:04)
[2017-07-18] MEDS ORDERED: LOPERAMIDE HCL 2 MG CAPSULE PO PRN (15:04)
[2017-07-18] MEDS ORDERED: P-EPHED 60MG/TRIPROLIDI 2.5MG TABLET PO PRN (15:04)
[2017-07-18] MEDS ORDERED: MAG HYDROX/AL HYDROX/SIMETH 30 ML UNIT-DOSE CUP PO PRN (15:04)
[2017-07-18] MEDS ORDERED: MENTHOL/PHENOL 1 EACH UD MM PRN (15:04)
[2017-07-18] MEDS ORDERED: MAGNESIUM HYDROX 2400MG/30ML ORAL SUSPENSION 30 ML CUP PO PRN (15:04)
[2017-07-18] MEDS ORDERED: NICOTINE POLACRILEX 2 MG GUM BUC PRN (15:04)
--- NOTE | 2017-07-18 15:08 | HP ---
[facility] Re[facility] Assess/Revision - Admission History Admitted to Rehab [facility] (DETOX COMPLETED ON 3 TODAY) Date of Admission to Rehab: 07/18/17 - Vital signs Vital Signs: Vital Signs Period Temp Pulse Resp BP Sys/Segura Pulse Ox Last 24 Hr 98.8 F 96 18 109/72 - Findings Detox History & Physical reviewed: Yes Concur with findings: Yes Comments/Additional Findings: ADMIT TO REHAB FOR AFTERCARE. Inpatient Rehab Admission - Initial Determination Are CD services needed?: Yes Free of communicable disease: Yes Not in need of hospitalization: Yes - Rehab Admission Criteria Patient is meeting Inpatient Rehab admission criteria:: Yes
[2017-07-18] MEDS: NICOTINE 14 MG/24 HOURS TOPICAL PATCH TD SCH (15:33)
[2017-07-18] MEDS: THIAMINE HCL 100 MG TABLET (FP) PO SCH (22:35)
[2017-07-18] MEDS: RANITIDINE HCL 150 MG TABLET (FP) PO SCH (22:35)
[2017-07-18] MEDS: MELATONIN 5 MG TABLETS PO PRN (22:50)
[2017-07-19] MEDS: NICOTINE 14 MG/24 HOURS TOPICAL PATCH TD SCH (10:41)
[2017-07-19] MEDS: PRENATAL VITAMINS W/ FOLIC ACID TABLET (FP) PO SCH (10:41)
[2017-07-19] MEDS: RANITIDINE HCL 150 MG TABLET (FP) PO SCH ×2 (10:41→21:23)
--- NOTE | 2017-07-19 12:28 | HP ---
Psychiatrist Admission - Data Date of interview: 07/19/17 Admission source: [facility] Identifying data: Patient is a 57 year old single male, father of one, unemployed, and currently living with his partner. Medical History: right ankle surgery 1995, Anemia Psychiatric History: Patient denies h/o psychiatric hospitalization, outpatient care and suicide attempt. Patient reports poor sleep. Physical/Sexual Abuse/Trauma History: Denies. Vital Signs: Vital Signs - 24 hr 07/18/17 07/19/17 07/19/17 14:33 01:03 03:30 Temperature 98.8 F Pulse Rate 96 H Respiratory 18 Rate Blood Pressure 109/72 07/19/17 06:40 Temperature Pulse Rate Respiratory 18 Rate Blood Pressure Allergies/Adverse Reactions: Allergies Allergy/AdvReac Type Severity Reaction Status Date / Time No Known Allergies Allergy Verified 07/18/17 14:35 Date of last physical exam: 07/13/17 Concur with the findings of this exam: Yes - Substance Abuse/Tx History Hx Alcohol Use: Yes (1/2- 1 pint daily) Hx Substance Use: Yes Substance Use Type: Heroin Mental Status Exam - Mental Status Exam Alert and Oriented to: Time, Place, Person Cognitive Function: Good Patient Appearance: Unkempt Mood: Hopeful, Euthymic Affect: Mood Congruent Patient Behavior: Fatigued (Patient appears tired. Reports poor sleep. ), Cooperative Speech Pattern: Clear, Appropriate Voice Loudness: Normal Thought Process: Intact, Goal Oriented Thought Disorder: Not Present Hallucinations: Denies Suicidal Ideation: Denies Homicidal Ideation: Denies Insight/Judgement: Poor Sleep: Poorly Appetite: Fair Muscle strength/Tone: Normal Gait/Station: Normal Psychiatric Findings - Problem List ([place] 1, 2,3) (1) Opioid dependence Current Visit: Yes Status: Acute (2) Nicotine dependence Current Visit: Yes Status: Acute (3) Alcohol dependence Current Visit: Yes Status: Acute (4) Substance-induced sleep disorder Current Visit: Yes Status: Acute - Initial Treatment Plan Initial Treatment Plan: Psychoeducation provided. Belsomra 5mg qhs ordered for insomnia. Benefits and side effects discussed. Verbal consent given.
[2017-07-19] MEDS: THIAMINE HCL 100 MG TABLET (FP) PO SCH (21:23)
[2017-07-19] MEDS ORDERED: SUVOREXANT 5 MG TABLET PO PRN (22:00)
--- NOTE | 2017-07-20 09:53 | PN ---
S Progress Note Note: Psychiatric nurse practitioner note: Pt. continues to report poor sleep despite accepting belsomra 5mg qhs. Pt. agreeable to accepting Belsomra 10mg qhs. Verbal consent given. Will order Belsomra 10mg qhs for insomnia.
[2017-07-20] MEDS: RANITIDINE HCL 150 MG TABLET (FP) PO SCH ×2 (10:19→21:19)
[2017-07-20] MEDS: NICOTINE 14 MG/24 HOURS TOPICAL PATCH TD SCH (10:19)
[2017-07-20] MEDS: PRENATAL VITAMINS W/ FOLIC ACID TABLET (FP) PO SCH (10:19)
--- NOTE | 2017-07-20 13:10 | PN ---
[facility] Progress Note Note: Patient c/o of painless small erythematous vesicular lesion gland of the penis. Patient denies any new sexual encouters on hxx of STI. Denies penile discharge. Vital Signs Temperature 98.8 F 07/18/17 14:33 Pulse Rate 96 H 07/18/17 14:33 Respiratory Rate 18 07/20/17 00:30 Blood Pressure 109/72 07/18/17 14:33 O2 Sat by Pulse Oximetry (%) Laboratory Last Values Potassium 4.5 mmol/L (3.5-5.1) D 07/19/17 08:30 A/P AOX3 in no apparent distress no adventitious breath sounds + erythematous vesicular lesion on penile gland no discharge, skin intact full ROM Plan: HSV I & II test Continue to monitor
[2017-07-20] MEDS: THIAMINE HCL 100 MG TABLET (FP) PO SCH (21:19)
[2017-07-20] MEDS: SUVOREXANT 10 MG TABLET PO PRN (21:20)
[2017-07-21] MEDS: NICOTINE 14 MG/24 HOURS TOPICAL PATCH TD SCH (11:10)
[2017-07-21] MEDS: PRENATAL VITAMINS W/ FOLIC ACID TABLET (FP) PO SCH (11:11)
[2017-07-21] MEDS: RANITIDINE HCL 150 MG TABLET (FP) PO SCH ×2 (11:11→21:30)
--- NOTE | 2017-07-21 12:11 | PN ---
[facility] Progress Note Note: Patient decided to sign out AMA today without giving any reasonable explanations for his discontinuation of inpatient rehabilitation treatment.He didnt meet his treatment goals and will continue to address his issues on outpatient basis.Still high risk for relapse.supportive therapy provided focusing on relapse prevention.
[2017-07-21] MEDS: THIAMINE HCL 100 MG TABLET (FP) PO SCH (21:30)
[2017-07-21] MEDS: SUVOREXANT 10 MG TABLET PO PRN (21:30)
[2017-07-22] MEDS: PRENATAL VITAMINS W/ FOLIC ACID TABLET (FP) PO SCH (10:37)
[2017-07-22] MEDS: RANITIDINE HCL 150 MG TABLET (FP) PO SCH ×2 (10:37→21:38)
[2017-07-22] MEDS: NICOTINE 14 MG/24 HOURS TOPICAL PATCH TD SCH (10:37)
[2017-07-22] MEDS: THIAMINE HCL 100 MG TABLET (FP) PO SCH (21:38)
[2017-07-22] MEDS: SUVOREXANT 10 MG TABLET PO PRN (21:39)
[2017-07-23] MEDS: PRENATAL VITAMINS W/ FOLIC ACID TABLET (FP) PO SCH (10:19)
[2017-07-23] MEDS: RANITIDINE HCL 150 MG TABLET (FP) PO SCH ×2 (10:19→21:34)
[2017-07-23] MEDS: NICOTINE 14 MG/24 HOURS TOPICAL PATCH TD SCH (10:19)
[2017-07-23] MEDS: THIAMINE HCL 100 MG TABLET (FP) PO SCH (21:34)
[2017-07-23] MEDS: SUVOREXANT 10 MG TABLET PO PRN (21:35)
[2017-07-24] MEDS: NICOTINE 14 MG/24 HOURS TOPICAL PATCH TD SCH (10:40)
[2017-07-24] MEDS: PRENATAL VITAMINS W/ FOLIC ACID TABLET (FP) PO SCH (10:40)
[2017-07-24] MEDS: RANITIDINE HCL 150 MG TABLET (FP) PO SCH ×2 (10:40→21:35)
[2017-07-24 14:27] LABS: URINE APPEARANCE CLEAR; URINE BILIRUBIN NEGATIVE (<2.0 mg/dL); URINE COLOR YELLOW; URINE GLUCOSE (UA) NEGATIVE (NEGATIVE); URINE KETONE NEGATIVE (NEGATIVE); URINE LEUK ESTERASE NEGATIVE (NEGATIVE); URINE NITRITE NEGATIVE (NEGATIVE); URINE PROTEIN NEGATIVE (NEGATIVE); URINE UROBILINOGEN NEGATIVE mg/dL (0.2-1.0)
[2017-07-24] MEDS: ACETAMINOPHEN 325 MG TABLET (FP) PO PRN (16:54)
[2017-07-24] MEDS: THIAMINE HCL 100 MG TABLET (FP) PO SCH (21:35)
[2017-07-24] MEDS: MELATONIN 5 MG TABLETS PO PRN (21:36)
[2017-07-25] MEDS: hydrOXYzine PAMOATE 50 MG CAPSULE (FP) PO PRN (03:08)
[2017-07-25] MEDS: NICOTINE 14 MG/24 HOURS TOPICAL PATCH TD SCH (10:26)
[2017-07-25] MEDS: PRENATAL VITAMINS W/ FOLIC ACID TABLET (FP) PO SCH (10:26)
[2017-07-25] MEDS: RANITIDINE HCL 150 MG TABLET (FP) PO SCH ×2 (10:26→21:36)
[2017-07-25] MEDS: THIAMINE HCL 100 MG TABLET (FP) PO SCH (21:36)
[2017-07-25] MEDS: SUVOREXANT 10 MG TABLET PO PRN (21:36)
[2017-07-26] MEDS: ACETAMINOPHEN 325 MG TABLET (FP) PO PRN (08:53)
[2017-07-26] MEDS: PRENATAL VITAMINS W/ FOLIC ACID TABLET (FP) PO SCH (10:55)
[2017-07-26] MEDS: RANITIDINE HCL 150 MG TABLET (FP) PO SCH ×2 (10:55→21:31)
[2017-07-26] MEDS: NICOTINE 14 MG/24 HOURS TOPICAL PATCH TD SCH (10:55)
[2017-07-26] MEDS: THIAMINE HCL 100 MG TABLET (FP) PO SCH (21:31)
[2017-07-26] MEDS: SUVOREXANT 10 MG TABLET PO PRN (21:31)
[2017-07-27] MEDS: ACETAMINOPHEN 325 MG TABLET (FP) PO PRN ×3 (05:11→18:13)
[2017-07-27] MEDS: RANITIDINE HCL 150 MG TABLET (FP) PO SCH ×2 (10:34→21:38)
[2017-07-27] MEDS: PRENATAL VITAMINS W/ FOLIC ACID TABLET (FP) PO SCH (10:34)
[2017-07-27] MEDS: NICOTINE 14 MG/24 HOURS TOPICAL PATCH TD SCH (10:35)
[2017-07-27] MEDS: THIAMINE HCL 100 MG TABLET (FP) PO SCH (21:38)
[2017-07-27] MEDS: SUVOREXANT 10 MG TABLET PO PRN (21:39)
[2017-07-27] MEDS: MELATONIN 5 MG TABLETS PO PRN (21:40)
[2017-07-28] MEDS: ACETAMINOPHEN 325 MG TABLET (FP) PO PRN (05:28)
[2017-07-28] MEDS: PRENATAL VITAMINS W/ FOLIC ACID TABLET (FP) PO SCH (10:16)
[2017-07-28] MEDS: NICOTINE 14 MG/24 HOURS TOPICAL PATCH TD SCH (10:17)
[2017-07-28] MEDS: RANITIDINE HCL 150 MG TABLET (FP) PO SCH ×2 (10:17→21:44)
[2017-07-28] MEDS: hydrOXYzine PAMOATE 50 MG CAPSULE (FP) PO PRN (21:44)
[2017-07-28] MEDS: THIAMINE HCL 100 MG TABLET (FP) PO SCH (21:44)
[2017-07-28] MEDS: MELATONIN 5 MG TABLETS PO PRN (21:44)
[2017-07-28] MEDS: SUVOREXANT 10 MG TABLET PO PRN (21:44)
[2017-07-29] MEDS: ACETAMINOPHEN 325 MG TABLET (FP) PO PRN (05:52)
[2017-07-29 06:59] VITALS: PULSE 87
[2017-07-29] MEDS: PRENATAL VITAMINS W/ FOLIC ACID TABLET (FP) PO SCH (10:29)
[2017-07-29] MEDS: RANITIDINE HCL 150 MG TABLET (FP) PO SCH ×2 (10:30→21:19)
[2017-07-29] MEDS: NICOTINE 14 MG/24 HOURS TOPICAL PATCH TD SCH (10:30)
[2017-07-29] MEDS: SUVOREXANT 10 MG TABLET PO PRN (21:19)
[2017-07-29] MEDS: THIAMINE HCL 100 MG TABLET (FP) PO SCH (21:19)
[2017-07-30] MEDS: hydrOXYzine PAMOATE 50 MG CAPSULE (FP) PO PRN (03:04)
[2017-07-30 07:42] VITALS: BP 105/71; TEMP 97.8
[2017-07-30] MEDS: RANITIDINE HCL 150 MG TABLET (FP) PO SCH (09:17)
[2017-07-30] MEDS: ACETAMINOPHEN 325 MG TABLET (FP) PO PRN (09:17)
[2017-07-30] MEDS: PRENATAL VITAMINS W/ FOLIC ACID TABLET (FP) PO SCH (09:17)
[2017-07-30] MEDS: NICOTINE 14 MG/24 HOURS TOPICAL PATCH TD SCH (10:33)
--- NOTE | 2017-07-30 15:32 | PN ---
[facility] Progress Note Note: As per nursing report patient was insisted to be dicchrge home today Cart reviewed, patient started rehabilitaton since 04/17/17, has not taking psychiatric medications Order dischrge home done.
== END 2017-07-30 09:22 | disposition home or self-care (01) | DRG 772 ==
LOC: YASAS 14:26 → Y5N 14:27
PROVIDERS: ADMIT Psychiatry & Neurology Psychiatry; ATTEND Psychiatry & Neurology Psychiatry
PROC: HZ42ZZZ Group Counseling for Substance Abuse Treatment, Cognitive-Behavioral (ICD-10-PCS; principal; 2017-07-18)
DX: F11.20 Opioid dependence, uncomplicated (principal); F10.20 Alcohol dependence, uncomplicated; F17.210 Nicotine dependence, cigarettes, uncomplicated; F19.282 Other psychoactive substance dependence with psychoactive substance-induced sleep disorder; N48.89 Other specified disorders of penis
CPT/HCPCS: 36415; 81003; 84132; 86694

== ENCOUNTER 2018-02-10 10:40 | Inpatient (IN) | payer OTHER ==
[2018-02-10 11:03] VITALS: BMI 21.9
--- NOTE | 2018-02-10 13:34 | HP ---
COWS - Scale Resting Pulse: 2= [place] 101-120 Sweatin= Chills/Flushing Restless Observation: 1= Difficult to Sit Still Pupil Size: 0= Normal to Room Light Bone or Joint Aches: 1= Mild Discomfort Runny Nose/ Eye Tearin= Nasal Congestion GI Upset > 30mins: 1= Stomach Cramp Tremor Observation: 2= Slight Tremor Visible Yawning Observation: 1= 1-2x During Session Anxiety or Irritability: 2=Irritable/Anxious Goose Flesh Skin: 0=Smooth Skin COWS Score: 12 CIWA Score Nausea/Vomitin Muscle Tremors: 4-Moderate,w/Arms Extend Anxiety: 4-Mod. Anxious/Guarded Agitation: 0-Normal Activity Paroxysmal Sweats: 1-Minimal Palms Moist Orientation: 0-Oriented Tacttile Disturbances: 1-Very Mild Itch/Numbness Auditory Disturbances: 1-Very Mild Visual Disturbances: 1-Very Mild Sensitivity Headache: 2-Mild CIWA-Ar Total Score: 16 - Admission Criteria OASAS Guidelines: Admission for Medically Managed Detox: Requires at least one of the followin. CIWA greater than 12 2. Seizures within the past 24 hours 3. Delirium tremens within the past 24 hours 4. Hallucinations within the past 24 hours 5. Acute intervention needed for co occurring medical disorder 6. Acute intervention needed for co occurring psychiatric disorder 7. Severe withdrawal that cannot be handled at a lower level of care (continued vomiting, continued diarrhea, abnormal vital signs) requiring intravenous medication and/or fluids 8. Patient presents the following: CIWA greater than 12 Admission Criteria Met: Admission criteria met Admission ROS S - [facility] Chief Complaint: I'm going to if I don't get help. I don't want to , I'm too smart for this, I'm tired of running after this drug. Allergies/Adverse Reactions: Allergies Allergy/AdvReac Type Severity Reaction Status Date / Time No Known Drug Allergies Allergy Verified 08/24/17 15:41 Fish Containing Products AdvReac Verified 08/24/17 15:40 History of Present Illness: 57 yo gentleman here for detox from opiates and alcohol. Last time in detox here in August 2017. Urine tox + methadone - used street methadone once a few days ago when he couldn't get heroin, urine tox + bzo - he states he did take four 2mg sticks of xanax but does not do this regularly, was trying to take edge off his withdrawal symptoms. History of several overdoses, history of black outs but no seizures. Exam Limitations: Clinical Condition - Ebola screening Have you traveled outside of the country in the last 21 days: No (N) Have you had contact with anyone from an Ebola affected area: No Have you been sick,other than usual withdrawal symptoms: No Do you have a fever: No - Review of Systems Constitutional: Loss of Appetite, Night Sweats, Changes in sleep, Weakness, Unintentional Wgt. Loss EENT: reports: Tearing, Nose Congestion Respiratory: reports: No Symptoms reported Cardiac: reports: No Symptoms Reported GI: reports: Poor Appetite, Indigestion, Abdominal cramping : reports: No Symptoms Reported Musculoskeletal: reports: Back Pain, Joint Pain, Muscle Pain Integumentary: reports: No Symptoms Reported Neuro: reports: Headache, Tremors Endocrine: reports: No Symptoms Reported Hematology: reports: No Symptoms Reported Psychiatric: reports: Judgement Intact, Mood/Affect Appropiate, Anxious Other Systems: Reviewed and Negative Patient History - Patient Medical History Hx Anemia: Yes (no meds ) Hx Asthma: No Hx Chronic Obstructive Pulmonary Disease (COPD): No Hx Cancer: No Hx Cardiac Disorders: No Hx Congestive Heart Failure: No Hx Hypertension: No Hx Hypercholesterolemia: No Hx Pacemaker: No HX Cerebrovascular Accident: No Hx Seizures: No Hx Dementia: No Hx Diabetes: No Hx Gastrointestinal Disorders: Yes (GERD) Hx Liver Disease: No Hx Genitourinary Disorders: No Hx Sexually Transmitted Disorders: No Hx Renal Disease (ESRD): No Hx Thyroid Disease: No Hx Human Immunodeficiency Virus (HIV): No Hx Hepatitis C: Yes (treated (interferon, ribaviron)) Hx Depression: Yes (never treated ) Hx Suicide Attempt: No Hx Bipolar Disorder: No Hx Schizophrenia: No - Patient Surgical History Past Surgical History: Yes Hx Neurologic Surgery: No Hx Cataract Extraction: No Hx Cardiac Surgery: No Hx Lung Surgery: No Hx Breast Surgery: No Hx Breast Biopsy: No Hx Abdominal Surgery: No Hx Appendectomy: No Hx Cholecystectomy: No Hx Genitourinary Surgery: No Hx Section: No Hx Orthopedic Surgery: Yes (right ankle surgery in 1995) Anesthesia Reaction: No - PPD History Previous Implant?: Yes Documented Results: Negative w/proof Implanted On Prior [facility] Admission?: Yes Date: 04/04/17 Results: 0 mm. PPD to be Administered?: No - Reproductive History Patient is a Female of Child Bearing Age (11 -55 yrs old): No (male) - Smoking Cessation Smoking history: Current every day smoker Have you smoked in the past 12 months: Yes Aproximately how many cigarettes per day: 20 Cigars Per Day: 0 Hx Chewing Tobacco Use: No Initiated information on smoking cessation: Yes 'Breaking Loose' booklet given: 02/10/18 (give on floor) - Substance & Tx. History Hx Alcohol Use: Yes Hx Substance Use: No Substance Use Type: Alcohol, Heroin, Opiates Hx Substance Use Treatment: Yes (detox, rehab) - Substances Abused alcohol Route: Oral Frequency: Daily Amount used: 1/5 daily Age of first use: 15 Date of Last Use: 02/09/18 heroin Route: Injection Frequency: Daily Amount used: 2 bundles Age of first use: 30 Date of Last Use: 02/09/18 Non-Rx Methadone Route: Oral Frequency: 1-3 times last 30 days Amount used: 30mg Age of first use: 57 Date of Last Use: 02/07/18 xanax Route: Oral Frequency: 1-3 times last 30 days Amount used: four 2mg sticks Age of first use: 50 Date of Last Use: 02/06/18 Family Disease History - Family Disease History Family Disease History: Respiratory: Mother (alcoholism, ), Other: Father (/hemophilia), Mother, Brother (one bro AIDS; two murdered) , Sister (one - living ), Daughter (one - adult - healthy) Admission Physical Exam S - Vital Signs Vital Signs: Vital Signs - 24 hr 02/10/18 11:01 Temperature 98.5 F Pulse Rate 102 H Respiratory 18 Rate Blood Pressure 122/75 - Physical General Appearance: Yes: Nourished, Appropriately Dressed, Mild Distress, Tremorous, Anxious HEENTM: Yes: EOMI, Hearing grossly Normal, Normocephalic, Normal Voice, Pharynx Normal, Nasal Congestion Respiratory: Yes: Normal Breath Sounds, No Respiratory Distress Neck: Yes: No masses,lesions,Nodules, Supple Breast: Yes: Breast Exam Deferred Cardiology: Yes: Regular Rhythm, Tachycardia Abdominal: Yes: Flat, Soft Genitourinary: Yes: Within Normal Limits Back: Yes: Normal Inspection Musculoskeletal: Yes: full range of Motion, Gait Steady, Back pain, Joint Stiffness, Muscle Pain Extremities: Yes: Normal Inspection, Normal Range of Motion, Non-Tender, Tremors Neurological: Yes: Fully Oriented, Alert, Normal Mood/Affect, Normal Response Integumentary: Yes: Normal Color, Warm, Track Zuniga (both arms (no erythema, no abscess)) Lymphatic: Yes: Within Normal Limits - Diagnostic (1) Alcohol dependence with uncomplicated withdrawal Current Visit: Yes Status: Acute (2) Hepatitis C virus infection cured after antiviral drug therapy Current Visit: Yes Status: Acute (3) Opioid dependence with withdrawal Current Visit: Yes Status: Acute (4) Weight loss Current Visit: Yes Status: Acute (5) Nicotine dependence Current Visit: Yes Status: Chronic Qualifiers: Nicotine product type: cigarettes Substance use status: in withdrawal Qualified Code(s): F17.213 - Nicotine dependence, cigarettes, with withdrawal Cleared for Admission [facility] - Detox or Rehab [facility] Level of Care: Medically Managed Detox Regimen/Protocol: Methadone/Librium [facility] Breath Alcohol Content Breath Alcohol Content: 0 Urine Drug Screen - Results Drug Screen Negative: No Urine Drug Screen Results: OPI-Opiates, BZO-Benzodiazepines, MTD-Methadone
[2018-02-10] MEDS ORDERED: MAGNESIUM CITRATE 300 ML BOTTLE PO PRN (13:44)
[2018-02-10] MEDS ORDERED: MENTHOL/PHENOL 1 EACH UD MM PRN (13:44)
[2018-02-10] MEDS ORDERED: ACETAMINOPHEN 325 MG TABLET (FP) PO PRN (13:44)
[2018-02-10] MEDS ORDERED: MAG HYDROX/AL HYDROX/SIMETH 30 ML UNIT-DOSE CUP PO PRN (13:44)
[2018-02-10] MEDS ORDERED: LOPERAMIDE HCL 2 MG CAPSULE PO PRN (13:44)
[2018-02-10] MEDS ORDERED: MAGNESIUM HYDROX 2400MG/30ML ORAL SUSPENSION 30 ML CUP PO PRN (13:44)
[2018-02-10] MEDS ORDERED: guaiFENesin/D-METHORPHAN HB 10 ML UNIT-DOSE CUPS PO PRN (13:44)
[2018-02-10] MEDS ORDERED: P-EPHED 60MG/TRIPROLIDI 2.5MG TABLET PO PRN (13:44)
[2018-02-10] MEDS ORDERED: METHADONE HCL 10 MG TABLET (FOR DETOX USE ONLY) PO ONE ×2 (16:00→23:00)
[2018-02-10] MEDS: chlordiazePOXIDE HCL 25 MG CAPSULE PO SCH ×2 (17:51→22:19)
[2018-02-10] MEDS: NICOTINE 21 MG/24 HOURS TOPICAL PATCH TD SCH (17:52)
[2018-02-10] MEDS: MELATONIN 5 MG TABLETS PO PRN (22:20)
[2018-02-10] MEDS: THIAMINE HCL 100 MG TABLET (FP) PO SCH (22:22)
[2018-02-11] MEDS: chlordiazePOXIDE HCL 25 MG CAPSULE PO SCH ×4 (04:59→22:00)
[2018-02-11] MEDS ORDERED: ONDANSETRON *ODT* 4 MG TABLET SL ONE (09:49)
--- NOTE | 2018-02-11 09:51 | PN ---
[facility] CIWA - CIWA Score Nausea/Vomitin-Mild Nausea/No Vomiting Muscle Tremors: 3 Anxiety: 3 Agitation: 3 Paroxysmal Sweats: 1-Minimal Palms Moist Orientation: 1-Uncertain about Date Tacttile Disturbances: 0-None Auditory Disturbances: 0-None Visual Disturbances: 0-None Headache: 0-None Present CIWA-Ar Total Score: 12 [facility] COWS - Scale Resting Pulse: 0= [place] 80 or Below Sweatin= Chills/Flushing Restless Observation: 0= Sits Still Pupil Size: 0= Normal to Room Light Bone or Joint Aches: 2= Severe Diffuse Aches Runny Nose/ Eye Tearin= Runny Nose/Eyes GI Upset > 30mins: 2= Nausea/Diarrhea Tremor Observation of Outstretched Hands: 2= Slight Tremor Visible Yawning Observation: 1= 1-2x During Session Anxiety or Irritability: 2=Irritable/Anxious Goose Flesh Skin: 0=Smooth Skin COWS Score: 12 [facility] Progress Note (SOAP) Subjective: body aches stomach cramping joints lucero tremor sweat nausea Objective: 02/11/18 15:29 Vital Signs Temperature 97.3 F L 02/11/18 13:30 Pulse Rate 92 H 02/11/18 13:30 Respiratory Rate 18 02/11/18 13:30 Blood Pressure 120/61 02/11/18 13:30 O2 Sat by Pulse Oximetry (%) Laboratory Last Values WBC 6.0 K/mm3 (4.0-10.0) 02/11/18 07:40 RBC 3.96 M/mm3 (4.00-5.60) L 02/11/18 07:40 Hgb 13.0 GM/dL (11.7-16.9) 02/11/18 07:40 Hct 36.3 % (35.4-49) 02/11/18 07:40 MCV 91.5 fl (80-96) 02/11/18 07:40 MCH 32.7 pg (25.7-33.7) 02/11/18 07:40 MCHC 35.7 g/dl (32.0-35.9) 02/11/18 07:40 RDW 13.1 % (11.9-15.9) 02/11/18 07:40 Plt Count 250 K/MM3 (134-434) 02/11/18 07:40 MPV 7.4 fl (7.5-11.1) L 02/11/18 07:40 Sodium 139 mmol/L (136-145) 02/11/18 07:40 Potassium 3.8 mmol/L (3.5-5.1) 02/11/18 07:40 Chloride 106 mmol/L (98-107) 02/11/18 07:40 Carbon Dioxide 28 mmol/L (21-32) 02/11/18 07:40 Anion Gap 5 MMOL/L (8-16) L 02/11/18 07:40 BUN 12 mg/dL (7-18) 02/11/18 07:40 Creatinine 0.9 mg/dL (0.55-1.3) 02/11/18 07:40 Creat Clearance w eGFR > 60 (>60) 02/11/18 07:40 Random Glucose 110 mg/dL (74-106) H 02/11/18 07:40 Calcium 8.5 mg/dL (8.5-10.1) 02/11/18 07:40 Total Bilirubin 0.5 mg/dL (0.2-1) 02/11/18 07:40 AST 14 U/L (15-37) L 02/11/18 07:40 ALT 21 U/L (13-61) 02/11/18 07:40 Alkaline Phosphatase 95 U/L (45-117) 02/11/18 07:40 Total Protein 6.5 g/dl (6.4-8.2) 02/11/18 07:40 Albumin 3.5 g/dl (3.4-5.0) 02/11/18 07:40 RPR Titer Nonreactive (NONREACTIVE) 02/11/18 07:40 lab noted Assessment: 02/11/18 15:30 withdrawal sx Plan: continue detox
[2018-02-11] MEDS ORDERED: METHADONE HCL 10 MG TABLET (FOR DETOX USE ONLY) PO SCH (10:00)
[2018-02-11] MEDS: PRENATAL VITAMINS W/ FOLIC ACID TABLET (FP) PO SCH (10:04)
[2018-02-11] MEDS: NICOTINE 21 MG/24 HOURS TOPICAL PATCH TD SCH (10:09)
[2018-02-11 13:03] LABS: ALBUMIN 3.5 g/dl (3.4-5.0); ALK PHOS 95 U/L (45-117); ANION GAP 5 MMOL/L (8-16); BILIRUBIN,TOTAL 0.5 mg/dL (0.2-1); BLOOD UREA NITROGEN 12 mg/dL (7-18); CALCIUM 8.5 mg/dL (8.5-10.1); CHLORIDE 106 mmol/L (98-107); CO2 28 mmol/L (21-32); CREATININE 0.9 mg/dL (0.55-1.3); GLUCOSE,RANDOM 110 mg/dL (74-106); POTASSIUM 3.8 mmol/L (3.5-5.1); SGOT/AST 14 U/L (15-37); SGPT/ALT 21 U/L (13-61); SODIUM 139 mmol/L (136-145); TOT PROT 6.5 g/dl (6.4-8.2)
[2018-02-11 13:09] LABS: HEMATOCRIT 36.3 % (35.4-49); MCH 32.7 pg (25.7-33.7); MCHC 35.7 g/dl (32.0-35.9); MEAN CELL VOLUME 91.5 fl (80-96); MEAN PLT VOLUME 7.4 fl (7.5-11.1); PLATELET COUNT 250 K/MM3 (134-434); RBC 3.96 M/mm3 (4.00-5.60); RDW 13.1 % (11.9-15.9)
[2018-02-11] MEDS: chlordiazePOXIDE HCL 25 MG CAPSULE PO PRN (14:01)
[2018-02-11] MEDS: MELATONIN 5 MG TABLETS PO PRN (22:00)
[2018-02-11] MEDS: THIAMINE HCL 100 MG TABLET (FP) PO SCH (22:00)
[2018-02-12] MEDS: chlordiazePOXIDE HCL 25 MG CAPSULE PO PRN ×2 (01:01→14:12)
[2018-02-12] MEDS: chlordiazePOXIDE HCL 25 MG CAPSULE PO SCH ×2 (05:37→10:03)
[2018-02-12] MEDS: IBUPROFEN 400 MG TABLET (FP) PO PRN (09:35)
[2018-02-12] MEDS: PRENATAL VITAMINS W/ FOLIC ACID TABLET (FP) PO SCH (10:03)
[2018-02-12] MEDS: METHADONE HCL 5 MG TABLET (FOR DETOX USE ONLY) PO SCH (10:03)
[2018-02-12] MEDS: NICOTINE 21 MG/24 HOURS TOPICAL PATCH TD SCH (10:05)
[2018-02-12] MEDS ORDERED: diphenhydrAMINE HCL 50 MG CAPSULE PO PRN (12:46)
[2018-02-12] MEDS: LIDOCAINE 5% TOPICAL PATCH TP SCH (14:12)
--- NOTE | 2018-02-12 15:22 | PN ---
S CIWA - CIWA Score Nausea/Vomitin Muscle Tremors: None Anxiety: 4-Mod. Anxious/Guarded Agitation: 2 Paroxysmal Sweats: 3 Orientation: 0-Oriented Tacttile Disturbances: 2-Mild Itch/Numbness/Burn Auditory Disturbances: 0-None Visual Disturbances: 0-None Headache: 3-Moderate CIWA-Ar Total Score: 17 [facility] COWS - Scale Resting Pulse: 1= [place] 81-100 Sweatin= Chills/Flushing Restless Observation: 1= Difficult to Sit Still Pupil Size: 0= Normal to Room Light Bone or Joint Aches: 4=Acute Joint/Muscle Pain Runny Nose/ Eye Tearin= None GI Upset > 30mins: 2= Nausea/Diarrhea Tremor Observation of Outstretched Hands: 0= None Yawning Observation: 1= 1-2x During Session Anxiety or Irritability: 2=Irritable/Anxious Goose Flesh Skin: 0=Smooth Skin COWS Score: 12 [facility] Progress Note (SOAP) Subjective: Body Aches, H/A, Interrupted Sleep, Sweating, Nausea. Objective: PATIENT A & O X 3, OBSERVED AMBULATING ON UNIT. IN NO ACUTE DISTRESS. 02/12/18 15:20 Vital Signs Temperature 97.3 F L 02/12/18 14:36 Pulse Rate 94 H 02/12/18 14:36 Respiratory Rate 18 02/12/18 14:36 Blood Pressure 107/68 02/12/18 14:36 O2 Sat by Pulse Oximetry (%) Laboratory Tests 02/11/18 02/11/18 02/11/18 07:00 07:40 07:40 WBC 6.0 RBC 3.96 L Hgb 13.0 Hct 36.3 MCV 91.5 MCH 32.7 MCHC 35.7 RDW 13.1 Plt Count 250 MPV 7.4 L Sodium 139 Potassium 3.8 Chloride 106 Carbon Dioxide 28 Anion Gap 5 L BUN 12 Creatinine 0.9 Creat Clearance w eGFR > 60 Random Glucose 110 H Calcium 8.5 Total Bilirubin 0.5 AST 14 L ALT 21 Alkaline Phosphatase 95 Total Protein 6.5 Albumin 3.5 RPR Titer HIV 1&2 Antibody Screen Negative HIV P24 Antigen Negative 02/11/18 07:40 WBC RBC Hgb Hct MCV MCH MCHC RDW Plt Count MPV Sodium Potassium Chloride Carbon Dioxide Anion Gap BUN Creatinine Creat Clearance w eGFR Random Glucose Calcium Total Bilirubin AST ALT Alkaline Phosphatase Total Protein Albumin RPR Titer Nonreactive HIV 1&2 Antibody Screen HIV P24 Antigen LABS NOTED. Assessment: 02/12/18 15:20 WITHDRAWAL SYMPTOMS. Plan: CONTINUE DETOX. INCREASE DAILY PO FLUID INTAKE. TOPICAL LIDODERM PATCH FOR LOWER BACK PAIN.
[2018-02-12] MEDS: chlordiazePOXIDE 5 MG CAPSULE PO SCH ×2 (17:33→22:10)
[2018-02-12] MEDS: THIAMINE HCL 100 MG TABLET (FP) PO SCH (22:09)
[2018-02-12] MEDS: LIDOCAINE PATCH REMOVAL MC SCH (22:10)
[2018-02-12] MEDS: MELATONIN 5 MG TABLETS PO PRN (22:11)
[2018-02-13] MEDS: chlordiazePOXIDE 5 MG CAPSULE PO SCH ×2 (05:18→10:55)
[2018-02-13] MEDS: PRENATAL VITAMINS W/ FOLIC ACID TABLET (FP) PO SCH (10:55)
[2018-02-13] MEDS: NICOTINE 21 MG/24 HOURS TOPICAL PATCH TD SCH (10:55)
[2018-02-13] MEDS: LIDOCAINE 5% TOPICAL PATCH TP SCH (10:55)
[2018-02-13] MEDS: METHADONE HCL 5 MG TABLET (FOR DETOX USE ONLY) PO SCH (10:55)
[2018-02-13] MEDS: CYCLOBENZAPRINE HCL 10 MG TABLET (FP) PO PRN ×2 (12:25→22:03)
--- NOTE | 2018-02-13 16:53 | PN ---
[facility] Progress Note (SOAP) Subjective: Body Aches, Sweating, Constipation, Vomiting, Tremors. Objective: PATIENT A & O X 3, OBSERVED AMBULATING ON UNIT. IN NO ACUTE DISTRESS. 02/13/18 16:51 Vital Signs Temperature 98.2 F 02/13/18 15:42 Pulse Rate 90 02/13/18 15:42 Respiratory Rate 18 02/13/18 15:42 Blood Pressure 106/69 02/13/18 15:42 O2 Sat by Pulse Oximetry (%) Laboratory Tests 02/11/18 02/11/18 02/11/18 07:00 07:40 07:40 WBC 6.0 RBC 3.96 L Hgb 13.0 Hct 36.3 MCV 91.5 MCH 32.7 MCHC 35.7 RDW 13.1 Plt Count 250 MPV 7.4 L Sodium 139 Potassium 3.8 Chloride 106 Carbon Dioxide 28 Anion Gap 5 L BUN 12 Creatinine 0.9 Creat Clearance w eGFR > 60 Random Glucose 110 H Calcium 8.5 Total Bilirubin 0.5 AST 14 L ALT 21 Alkaline Phosphatase 95 Total Protein 6.5 Albumin 3.5 RPR Titer HIV 1&2 Antibody Screen Negative HIV P24 Antigen Negative 02/11/18 07:40 WBC RBC Hgb Hct MCV MCH MCHC RDW Plt Count MPV Sodium Potassium Chloride Carbon Dioxide Anion Gap BUN Creatinine Creat Clearance w eGFR Random Glucose Calcium Total Bilirubin AST ALT Alkaline Phosphatase Total Protein Albumin RPR Titer Nonreactive HIV 1&2 Antibody Screen HIV P24 Antigen LABS NOTED. Assessment: 02/13/18 16:52 WITHDRAWAL SYMPTOMS. Plan: CONTINUE DETOX. INCREASE DAILY PO FLUID INTAKE. PRN FLEXERIL FOR BODY ACHES / MUSCLE SPASMS.
[2018-02-13] MEDS: chlordiazePOXIDE HCL 10 MG CAPSULE PO SCH ×2 (17:11→22:03)
[2018-02-13] MEDS: MELATONIN 5 MG TABLETS PO PRN (22:04)
[2018-02-13] MEDS: LIDOCAINE PATCH REMOVAL MC SCH (22:04)
[2018-02-13] MEDS: THIAMINE HCL 100 MG TABLET (FP) PO SCH (22:04)
[2018-02-14] MEDS: chlordiazePOXIDE HCL 10 MG CAPSULE PO SCH ×2 (05:50→10:23)
[2018-02-14] MEDS: CYCLOBENZAPRINE HCL 10 MG TABLET (FP) PO PRN (05:50)
[2018-02-14] MEDS ORDERED: METHADONE HCL 10 MG TABLET (FOR DETOX USE ONLY) PO SCH (10:00)
[2018-02-14] MEDS: NICOTINE 21 MG/24 HOURS TOPICAL PATCH TD SCH (10:23)
[2018-02-14] MEDS: PRENATAL VITAMINS W/ FOLIC ACID TABLET (FP) PO SCH (10:23)
[2018-02-14] MEDS: LIDOCAINE 5% TOPICAL PATCH TP SCH (11:04)
[2018-02-14] MEDS: IBUPROFEN 400 MG TABLET (FP) PO PRN (11:06)
--- NOTE | 2018-02-14 12:50 | DS ---
[facility] Detox Discharge Summary Admission Date: 02/10/18 Discharge Date: 02/14/18 - History Present History: Alcohol Dependence, Opioid Dependence, Sedative Dependence Additional Comments: PATIENT COMPLETED DETOX TODAY AND ACCEPTED REFERRAL TO [facility]. PATIENT STATES HE FEELS BETTER SINCE ADMISSION EXCEPT FOR OCCASIONAL NIGHT SWEATS AND DENIES SI/HI. PATIENT ENCOURAGED TO COMPLETE REHAB TO PREVENT RELAPSE. D/C INSTRUCTIONS GIVEN TO PATIENT BY STAFF. - Physical Exam Results Vital Signs: Vital Signs Temperature 98.0 F 02/14/18 09:37 Pulse Rate 67 02/14/18 09:37 Respiratory Rate 18 02/14/18 09:37 Blood Pressure 101/64 02/14/18 09:37 O2 Sat by Pulse Oximetry (%) - Treatment Hospital Course: Detox Protocol Followed, Detoxed Safely, Responded well, Discharged Condition Good, Rehab Referral Accepted Patient has Accepted a Rehab Referral to: [facility] - Medication Discharge Medications: Ambulatory Orders Ibuprofen [Motrin -] 400 mg PO TID PRN 02/10/18 - AMA Did Patient Leave Against Medical Advice: No
[2018-02-14 14:27] VITALS: BP 117/66; PULSE 95; TEMP 97.5
[2018-02-15] MEDS ORDERED: METHADONE HCL 5 MG TABLET (FOR DETOX USE ONLY) PO SCH (06:00)
--- NOTE | 2018-04-03 11:42 | EKG ---
Test Reason : Blood Pressure : / mmHG Vent. Rate : 090 BPM Atrial Rate : 090 BPM P-R Int : 156 ms QRS Dur : 084 ms QT Int : 368 ms P-R-T Axes : 076 034 055 degrees QTc Int : 450 ms NORMAL SINUS RHYTHM NORMAL ECG WHEN COMPARED WITH ECG OF 24-AUG-2017 18:23, VENT. RATE HAS INCREASED BY 33 BPM QT HAS LENGTHENED Confirmed by Mayank Ray MD ([id number]) on 04/03/2018 11:42:21 AM Referred By: Confirmed By:Mayank Ray MD
== END 2018-02-14 14:57 | disposition other institution (70) | DRG 773 ==
LOC: YASAS 10:40 → Y6N 15:50
PROC: HZ2ZZZZ Detoxification Services for Substance Abuse Treatment (ICD-10-PCS; principal; 2018-02-10)
DX: F11.23 Opioid dependence with withdrawal (principal); F10.230 Alcohol dependence with withdrawal, uncomplicated; F13.20 Sedative, hypnotic or anxiolytic dependence, uncomplicated; F17.213 Nicotine dependence, cigarettes, with withdrawal; K21.9 Gastro-esophageal reflux disease without esophagitis; R00.0 Tachycardia, unspecified; Z86.19 Personal history of other infectious and parasitic diseases; Z91.013 Allergy to seafood
CPT/HCPCS: 36415; 80053; 85027; 86593; 87389; 93005; 93010; Q0162

== ENCOUNTER 2018-02-14 15:01 | Inpatient (IN) | payer OTHER ==
[2018-02-14] MEDS ORDERED: guaiFENesin/D-METHORPHAN HB 10 ML UNIT-DOSE CUPS PO PRN (16:33)
[2018-02-14] MEDS ORDERED: P-EPHED 60MG/TRIPROLIDI 2.5MG TABLET PO PRN (16:33)
[2018-02-14] MEDS ORDERED: MAG HYDROX/AL HYDROX/SIMETH 30 ML UNIT-DOSE CUP PO PRN (16:33)
[2018-02-14] MEDS ORDERED: MAGNESIUM HYDROX 2400MG/30ML ORAL SUSPENSION 30 ML CUP PO PRN (16:33)
[2018-02-14] MEDS ORDERED: MAGNESIUM CITRATE 300 ML BOTTLE PO PRN (16:33)
[2018-02-14] MEDS ORDERED: LOPERAMIDE HCL 2 MG CAPSULE PO PRN (16:33)
[2018-02-14] MEDS ORDERED: MENTHOL/PHENOL 1 EACH UD MM PRN (16:33)
[2018-02-14] MEDS ORDERED: NICOTINE POLACRILEX 2 MG GUM BUC PRN (16:33)
--- NOTE | 2018-02-14 16:33 | HP ---
[facility] Rehab Assess/Revision - Admission History Admitted to Rehab from: [address] - Vital signs Vital Signs: Vital Signs Period Temp Pulse Resp BP Sys/Segura Pulse Ox Last 24 Hr 98.6 F 94 18 105/69 - Findings Detox History & Physical reviewed: Yes Concur with findings: Yes Inpatient Rehab Admission - Initial Determination Are CD services needed?: Yes Free of communicable disease: Yes Not in need of hospitalization: Yes - Rehab Admission Criteria Previous failed treatment: Yes Poor recovery environment: Yes Comorbidities: Yes Lacks judgement: No Patient is meeting Inpatient Rehab admission criteria:: Yes
[2018-02-14] MEDS ORDERED: CYCLOBENZAPRINE HCL 10 MG TABLET (FP) PO PRN (16:34)
[2018-02-14] MEDS: THIAMINE HCL 100 MG TABLET (FP) PO SCH (21:55)
[2018-02-14] MEDS: MELATONIN 5 MG TABLETS PO PRN (21:55)
[2018-02-14] MEDS: diphenhydrAMINE HCL 50 MG CAPSULE PO PRN (21:57)
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
[2018-02-15] MEDS: LIDOCAINE 5% TOPICAL PATCH TP SCH (11:00)
[2018-02-15] MEDS: NICOTINE 21 MG/24 HOURS TOPICAL PATCH TD SCH (11:00)
[2018-02-15] MEDS: PRENATAL VITAMINS W/ FOLIC ACID TABLET (FP) PO SCH (11:00)
[2018-02-15] MEDS: hydrOXYzine PAMOATE 50 MG CAPSULE (FP) PO PRN (11:05)
[2018-02-15] MEDS: CYCLOBENZAPRINE HCL 10 MG TABLET (FP) PO SCH ×2 (14:09→22:15)
[2018-02-15] MEDS: LIDOCAINE PATCH REMOVAL MC SCH (22:15)
[2018-02-15] MEDS: cloNIDine HCL 0.1 MG TABLET PO SCH (22:15)
[2018-02-15] MEDS: THIAMINE HCL 100 MG TABLET (FP) PO SCH (22:15)
[2018-02-15] MEDS: SUVOREXANT 10 MG TABLET PO PRN (22:17)
[2018-02-16] MEDS: CYCLOBENZAPRINE HCL 10 MG TABLET (FP) PO SCH ×3 (07:37→22:04)
[2018-02-16] MEDS: PRENATAL VITAMINS W/ FOLIC ACID TABLET (FP) PO SCH (11:30)
[2018-02-16] MEDS: NICOTINE 21 MG/24 HOURS TOPICAL PATCH TD SCH (11:30)
[2018-02-16] MEDS: LIDOCAINE 5% TOPICAL PATCH TP SCH (11:30)
[2018-02-16] MEDS: hydrOXYzine PAMOATE 50 MG CAPSULE (FP) PO PRN (11:31)
[2018-02-16] MEDS: IBUPROFEN 400 MG TABLET (FP) PO PRN (11:33)
[2018-02-16] MEDS: cloNIDine HCL 0.1 MG TABLET PO SCH ×2 (11:36→22:04)
[2018-02-16] MEDS: THIAMINE HCL 100 MG TABLET (FP) PO SCH (22:04)
[2018-02-16] MEDS: SUVOREXANT 10 MG TABLET PO PRN (22:06)
[2018-02-16] MEDS: LIDOCAINE PATCH REMOVAL MC SCH (22:11)
[2018-02-17] MEDS: CYCLOBENZAPRINE HCL 10 MG TABLET (FP) PO SCH ×3 (07:00→22:12)
[2018-02-17] MEDS: LIDOCAINE 5% TOPICAL PATCH TP SCH (10:47)
[2018-02-17] MEDS: cloNIDine HCL 0.1 MG TABLET PO SCH ×2 (10:47→22:12)
[2018-02-17] MEDS: PRENATAL VITAMINS W/ FOLIC ACID TABLET (FP) PO SCH (10:47)
[2018-02-17] MEDS: NICOTINE 21 MG/24 HOURS TOPICAL PATCH TD SCH (10:48)
[2018-02-17] MEDS: IBUPROFEN 400 MG TABLET (FP) PO PRN (10:49)
[2018-02-17] MEDS: hydrOXYzine PAMOATE 50 MG CAPSULE (FP) PO PRN ×2 (14:23→19:12)
[2018-02-17] MEDS: THIAMINE HCL 100 MG TABLET (FP) PO SCH (22:11)
[2018-02-17] MEDS: LIDOCAINE PATCH REMOVAL MC SCH (22:13)
[2018-02-17] MEDS: SUVOREXANT 10 MG TABLET PO PRN (22:13)
[2018-02-17] MEDS: MELATONIN 5 MG TABLETS PO PRN (22:13)
[2018-02-18] MEDS: CYCLOBENZAPRINE HCL 10 MG TABLET (FP) PO SCH ×3 (06:50→22:21)
[2018-02-18] MEDS: NICOTINE 21 MG/24 HOURS TOPICAL PATCH TD SCH (10:40)
[2018-02-18] MEDS: cloNIDine HCL 0.1 MG TABLET PO SCH ×2 (10:40→22:21)
[2018-02-18] MEDS: PRENATAL VITAMINS W/ FOLIC ACID TABLET (FP) PO SCH (10:40)
[2018-02-18] MEDS: LIDOCAINE 5% TOPICAL PATCH TP SCH (10:40)
[2018-02-18] MEDS: IBUPROFEN 400 MG TABLET (FP) PO PRN (10:41)
[2018-02-18] MEDS: hydrOXYzine PAMOATE 50 MG CAPSULE (FP) PO PRN (14:47)
[2018-02-18] MEDS: THIAMINE HCL 100 MG TABLET (FP) PO SCH (22:21)
[2018-02-18] MEDS: MELATONIN 5 MG TABLETS PO PRN (22:23)
[2018-02-18] MEDS: diphenhydrAMINE HCL 50 MG CAPSULE PO PRN (22:23)
[2018-02-18] MEDS: LIDOCAINE PATCH REMOVAL MC SCH (22:24)
[2018-02-19] MEDS: CYCLOBENZAPRINE HCL 10 MG TABLET (FP) PO SCH ×3 (07:59→21:56)
[2018-02-19] MEDS: cloNIDine HCL 0.1 MG TABLET PO SCH ×2 (11:44→21:56)
[2018-02-19] MEDS: PRENATAL VITAMINS W/ FOLIC ACID TABLET (FP) PO SCH (11:44)
[2018-02-19] MEDS: LIDOCAINE 5% TOPICAL PATCH TP SCH (11:48)
[2018-02-19] MEDS: NICOTINE 21 MG/24 HOURS TOPICAL PATCH TD SCH (11:48)
[2018-02-19] MEDS: IBUPROFEN 400 MG TABLET (FP) PO PRN ×2 (11:49→17:21)
[2018-02-19] MEDS: THIAMINE HCL 100 MG TABLET (FP) PO SCH (21:56)
[2018-02-19] MEDS: SUVOREXANT 10 MG TABLET PO PRN (21:57)
[2018-02-19] MEDS: LIDOCAINE PATCH REMOVAL MC SCH (21:59)
[2018-02-20] MEDS: CYCLOBENZAPRINE HCL 10 MG TABLET (FP) PO SCH ×3 (06:29→22:08)
[2018-02-20] MEDS: hydrOXYzine PAMOATE 50 MG CAPSULE (FP) PO PRN ×2 (06:29→23:15)
[2018-02-20] MEDS: PRENATAL VITAMINS W/ FOLIC ACID TABLET (FP) PO SCH (10:36)
[2018-02-20] MEDS: LIDOCAINE 5% TOPICAL PATCH TP SCH (10:36)
[2018-02-20] MEDS: NICOTINE 21 MG/24 HOURS TOPICAL PATCH TD SCH (10:36)
[2018-02-20] MEDS: IBUPROFEN 400 MG TABLET (FP) PO PRN ×2 (10:37→17:57)
[2018-02-20] MEDS: cloNIDine HCL 0.1 MG TABLET PO SCH ×2 (10:37→22:08)
[2018-02-20] MEDS ORDERED: COLLOIDAL OATMEAL 1 BAR EACH TP PRN (10:52)
--- NOTE | 2018-02-20 10:57 | PN ---
[facility] Progress Note Note: C/O BODY ITCH WITH SOAP IN BATHROOM. REQUESTING SOAP CHANGE. Vital Signs 02/20/18 02/20/18 03:30 07:26 Temperature 97.7 F Pulse Rate 81 Respiratory 18 18 Rate Blood Pressure 102/66 NAD NO RASH NOTED PLAN:AVEENO SOAP DIRECTED HYDROCORTISONE CREAM 1% APPLY TO AFFECTED AREAS DAILY X 5 DAYS
[2018-02-20] MEDS: THIAMINE HCL 100 MG TABLET (FP) PO SCH (22:08)
[2018-02-20] MEDS: SUVOREXANT 10 MG TABLET PO PRN (22:09)
[2018-02-20] MEDS: LIDOCAINE PATCH REMOVAL MC SCH (22:11)
[2018-02-21] MEDS: hydrOXYzine PAMOATE 50 MG CAPSULE (FP) PO PRN ×3 (07:05→20:36)
[2018-02-21] MEDS: CYCLOBENZAPRINE HCL 10 MG TABLET (FP) PO SCH ×3 (07:05→21:46)
[2018-02-21] MEDS: IBUPROFEN 400 MG TABLET (FP) PO PRN (10:36)
[2018-02-21] MEDS: NICOTINE 21 MG/24 HOURS TOPICAL PATCH TD SCH (10:37)
[2018-02-21] MEDS: PRENATAL VITAMINS W/ FOLIC ACID TABLET (FP) PO SCH (10:37)
[2018-02-21] MEDS: LIDOCAINE 5% TOPICAL PATCH TP SCH (10:37)
[2018-02-21] MEDS: cloNIDine HCL 0.1 MG TABLET PO SCH ×2 (10:38→21:46)
[2018-02-21] MEDS: ACETAMINOPHEN 325 MG TABLET (FP) PO PRN (20:36)
[2018-02-21] MEDS: THIAMINE HCL 100 MG TABLET (FP) PO SCH (21:46)
[2018-02-21] MEDS: SUVOREXANT 10 MG TABLET PO PRN (21:47)
[2018-02-21] MEDS: LIDOCAINE PATCH REMOVAL MC SCH (23:25)
[2018-02-22] MEDS: CYCLOBENZAPRINE HCL 10 MG TABLET (FP) PO SCH ×3 (07:09→22:02)
[2018-02-22] MEDS: hydrOXYzine PAMOATE 50 MG CAPSULE (FP) PO PRN ×2 (07:10→14:06)
[2018-02-22] MEDS: cloNIDine HCL 0.1 MG TABLET PO SCH ×2 (10:51→22:02)
[2018-02-22] MEDS: HYDROCORTISONE 1% TOPICAL CREAM 30 GM TUBE TP SCH ×2 (10:51→22:04)
[2018-02-22] MEDS: PRENATAL VITAMINS W/ FOLIC ACID TABLET (FP) PO SCH (10:52)
[2018-02-22] MEDS: NICOTINE 21 MG/24 HOURS TOPICAL PATCH TD SCH (10:52)
[2018-02-22] MEDS: LIDOCAINE 5% TOPICAL PATCH TP SCH (10:52)
[2018-02-22] MEDS: IBUPROFEN 400 MG TABLET (FP) PO PRN (10:53)
--- NOTE | 2018-02-22 16:57 | PN ---
Psychiatric Progress Note Vital Signs: Vital Signs Period Temp Pulse Resp BP Sys/Segura Pulse Ox Last 24 Hr 97.9 F 94-99 18-18 107-127/72-75 Date of Session: 02/22/18 Chief Complaint:: Asked by nursing staff to see patient due to comment about hurting self. HPI: Patient admitted to for opioid dependence. ROS: Significant for acid reflux, anemie history of treatment for hepatitis C and orthosurgery of right ankle surgery in 1995. Current Medications: Active Medications Generic Name Dose Route Start Last Admin Trade Name Freq PRN Reason Stop Dose Admin Acetaminophen 650 mg 02/14/18 16:33 02/21/18 20:36 Tylenol - PO 650 mg Q4H PRN Administration FEVER Al Hydroxide/Mg Hydroxide 30 ml 02/14/18 16:33 Mylanta Oral Suspension - PO Q6H PRN DYSPEPSIA Clonidine 0.1 mg 02/15/18 22:00 02/22/18 10:51 Catapres - PO Not Given BID JYOTHI Cyclobenzaprine HCl 10 mg 02/15/18 14:05 02/22/18 14:05 Flexeril - PO 10 mg TID JYOTHI Administration Diphenhydramine HCl 50 mg 02/14/18 16:35 02/18/18 22:23 Benadryl - PO 50 mg HS PRN Administration INSOMNIA Eucalyptus/Menthol/Phenol/Sorbitol 1 each 02/14/18 16:33 Cepastat Lozenge - MM Q4H PRN SORE THROAT Guaifenesin 10 ml 02/14/18 16:33 Robitussin Dm - PO Q6H PRN COUGH Hydrocortisone 1 applic 02/22/18 10:00 02/22/18 10:51 Hytone 1% Cream - TP 1 applic BID JYOTHI Administration Hydroxyzine Pamoate 50 mg 02/14/18 16:33 02/22/18 14:06 Vistaril - PO 50 mg Q4H PRN Administration AGITATION Ibuprofen 400 mg 02/14/18 16:33 02/22/18 10:53 Motrin - PO 400 mg Q6H PRN Administration Pain Level 4-6 Lidocaine 1 patch 02/15/18 10:00 02/22/18 10:52 Lidoderm Patch - TP 1 patch DAILY JYOTHI Administration Loperamide HCl 4 mg 02/14/18 16:33 Imodium - PO Q6H PRN DIARRHEA Magnesium Citrate 300 ml 02/14/18 16:33 Citroma - PO Q48H PRN CONSTIPATION Magnesium Hydroxide 30 ml 02/14/18 16:33 02/14/18 21:57 Milk Of Magnesia - PO 30 ml DAILY PRN Administration CONSTIPATION Melatonin 5 mg 02/14/18 22:00 02/18/18 22:23 Melatonin PO 5 mg HS PRN Administration INSOMNIA Miscellaneous 1 each 02/15/18 22:00 02/21/18 23:25 Lidoderm Patch Removal MC 1 each DAILY@2200 JYOTHI Administration Nicotine 21 mg 02/15/18 10:00 02/22/18 10:52 Nicoderm Patch - TD 21 mg DAILY JYOTHI Administration Nicotine Polacrilex 2 mg 02/14/18 16:33 Nicorette Gum - BUC Q2H PRN NICOTINE REPLACEMENT RX Multivit/Folic Acid/Iron 1 tab 02/15/18 10:00 02/22/18 10:52 Vitamins (Sjr) - PO 1 tab DAILY JYOTHI Administration Pseudoephedrine/Triprolidine 1 combo 02/14/18 16:33 Actifed - PO TID PRN NASAL CONGESTION Suvorexant 10 mg 02/22/18 22:00 Belsomra PO HS PRN INSOMNIA Thiamine HCl 100 mg 02/14/18 22:00 02/21/18 21:46 Vitamin B1 - PO 100 mg HS JYOTHI Administration Medication(s) Change(s): No. Current Side Effect: No Lab tests ordered: No Lab tests reviewed: Yes Provider note:: As per nursing staff patient mentioned that he had thoughts to kill himself with a gun before admission to rehab. Patient asked about his comments of wanting to hurt himself, and patient stated, " In art group we were asked where are you and where do i want to be. So i opened up and said that before i came here if i would have had a pistol i could have ended my life. I'm here now because i need help. i do not want to hurt myself. " Patient denies h/ o suicide attempt and also denies having access to a gun. Patient states that during his upbringing he was told to "suck it up and move on" and today he opened up about his feelings and wanted to discuss of what he was thinking about before he decided to admit himself to rehab. Patient states he has no intention to hurt himself. He's motivated to continue with the program and is optimistic that everything will improve. Patient given positive reassurance by commercial lines underwriter. Psychoedcuation provided. Patient satisifed and receptive to feedback. Total face to face time:: 35 Mental Status Exam - Mental Status Exam Alert and Oriented to: Time, Place, Person Cognitive Function: Good Patient Appearance: Well Groomed Mood: Euthymic Affect: Mood Congruent Patient Behavior: Appropriate, Cooperative Speech Pattern: Appropriate Voice Loudness: Normal Thought Process: Intact, Goal Oriented Thought Disorder: Not Present Hallucinations: Denies Suicidal Ideation: Denies Homicidal Ideation: Denies Insight/Judgement: Poor Sleep: Fair Appetite: Fair Muscle strength/Tone: Normal Gait/Station: Normal Psychiatric Treatment Plan - Problem List (1) Sedative hypnotic or anxiolytic dependence Current Visit: Yes (2) Alcohol dependence Current Visit: Yes (3) Opioid dependence Current Visit: Yes (4) Substance-induced sleep disorder Current Visit: Yes (5) Nicotine dependence Current Visit: No Qualifiers: Nicotine product type: cigarettes Substance use status: in withdrawal Qualified Code(s): F17.213 - Nicotine dependence, cigarettes, with withdrawal
--- NOTE | 2018-02-22 17:46 | PN ---
S Progress Note Note: Psychiatric nurse practitioner note: Belsomra 10mg renewed for three days. Verbal consent given.
[2018-02-22] MEDS: THIAMINE HCL 100 MG TABLET (FP) PO SCH (22:02)
[2018-02-22] MEDS: SUVOREXANT 10 MG TABLET PO PRN (22:03)
[2018-02-22] MEDS: LIDOCAINE PATCH REMOVAL MC SCH (22:04)
[2018-02-23] MEDS: CYCLOBENZAPRINE HCL 10 MG TABLET (FP) PO SCH ×3 (06:33→22:08)
[2018-02-23] MEDS: IBUPROFEN 400 MG TABLET (FP) PO PRN (08:35)
[2018-02-23] MEDS: HYDROCORTISONE 1% TOPICAL CREAM 30 GM TUBE TP SCH ×2 (10:38→22:08)
[2018-02-23] MEDS: LIDOCAINE 5% TOPICAL PATCH TP SCH (10:38)
[2018-02-23] MEDS: cloNIDine HCL 0.1 MG TABLET PO SCH ×2 (10:38→22:08)
[2018-02-23] MEDS: PRENATAL VITAMINS W/ FOLIC ACID TABLET (FP) PO SCH (10:38)
[2018-02-23] MEDS: NICOTINE 21 MG/24 HOURS TOPICAL PATCH TD SCH (10:38)
[2018-02-23] MEDS: LIDOCAINE PATCH REMOVAL MC SCH (22:07)
[2018-02-23] MEDS: SUVOREXANT 10 MG TABLET PO PRN (22:07)
[2018-02-23] MEDS: THIAMINE HCL 100 MG TABLET (FP) PO SCH (22:07)
[2018-02-23] MEDS: hydrOXYzine PAMOATE 50 MG CAPSULE (FP) PO PRN (23:47)
[2018-02-23] MEDS: MELATONIN 5 MG TABLETS PO PRN (23:50)
[2018-02-24] MEDS: CYCLOBENZAPRINE HCL 10 MG TABLET (FP) PO SCH ×3 (07:39→22:25)
[2018-02-24] MEDS: cloNIDine HCL 0.1 MG TABLET PO SCH ×2 (10:28→22:13)
[2018-02-24] MEDS: LIDOCAINE 5% TOPICAL PATCH TP SCH (10:28)
[2018-02-24] MEDS: PRENATAL VITAMINS W/ FOLIC ACID TABLET (FP) PO SCH (10:29)
[2018-02-24] MEDS: NICOTINE 21 MG/24 HOURS TOPICAL PATCH TD SCH (10:29)
[2018-02-24] MEDS: HYDROCORTISONE 1% TOPICAL CREAM 30 GM TUBE TP SCH ×2 (10:30→22:13)
[2018-02-24] MEDS: IBUPROFEN 400 MG TABLET (FP) PO PRN (10:31)
[2018-02-24] MEDS: hydrOXYzine PAMOATE 50 MG CAPSULE (FP) PO PRN ×2 (12:43→22:12)
[2018-02-24] MEDS: SUVOREXANT 10 MG TABLET PO PRN (22:11)
[2018-02-24] MEDS: ACETAMINOPHEN 325 MG TABLET (FP) PO PRN (22:12)
[2018-02-24] MEDS: THIAMINE HCL 100 MG TABLET (FP) PO SCH (22:13)
[2018-02-24] MEDS: LIDOCAINE PATCH REMOVAL MC SCH (22:13)
[2018-02-25] MEDS: CYCLOBENZAPRINE HCL 10 MG TABLET (FP) PO SCH ×3 (07:50→22:03)
[2018-02-25] MEDS: HYDROCORTISONE 1% TOPICAL CREAM 30 GM TUBE TP SCH ×2 (10:52→22:04)
[2018-02-25] MEDS: cloNIDine HCL 0.1 MG TABLET PO SCH ×2 (10:53→22:03)
[2018-02-25] MEDS: NICOTINE 21 MG/24 HOURS TOPICAL PATCH TD SCH (10:54)
[2018-02-25] MEDS: LIDOCAINE 5% TOPICAL PATCH TP SCH (10:54)
[2018-02-25] MEDS: PRENATAL VITAMINS W/ FOLIC ACID TABLET (FP) PO SCH (10:55)
[2018-02-25] MEDS: IBUPROFEN 400 MG TABLET (FP) PO PRN (11:01)
[2018-02-25] MEDS: ACETAMINOPHEN 325 MG TABLET (FP) PO PRN ×2 (18:10→22:24)
[2018-02-25] MEDS: THIAMINE HCL 100 MG TABLET (FP) PO SCH (22:01)
[2018-02-25] MEDS: hydrOXYzine PAMOATE 50 MG CAPSULE (FP) PO PRN (22:02)
[2018-02-25] MEDS: SUVOREXANT 10 MG TABLET PO PRN (22:03)
[2018-02-25] MEDS: LIDOCAINE PATCH REMOVAL MC SCH ×2 (22:04→22:06)
[2018-02-26 06:58] VITALS: BP 118/71; PULSE 88; TEMP 97.7
[2018-02-26] MEDS: CYCLOBENZAPRINE HCL 10 MG TABLET (FP) PO SCH ×2 (07:05→14:20)
[2018-02-26] MEDS: IBUPROFEN 400 MG TABLET (FP) PO PRN (10:28)
[2018-02-26] MEDS: PRENATAL VITAMINS W/ FOLIC ACID TABLET (FP) PO SCH (10:28)
[2018-02-26] MEDS: NICOTINE 21 MG/24 HOURS TOPICAL PATCH TD SCH (10:29)
[2018-02-26] MEDS: cloNIDine HCL 0.1 MG TABLET PO SCH (10:29)
[2018-02-26] MEDS: LIDOCAINE 5% TOPICAL PATCH TP SCH (10:30)
[2018-02-26] MEDS: HYDROCORTISONE 1% TOPICAL CREAM 30 GM TUBE TP SCH (10:30)
--- NOTE | 2018-02-26 19:46 | PN ---
Psychiatric Progress Note Vital Signs: Vital Signs Period Temp Pulse Resp BP Sys/Segura Pulse Ox Last 24 Hr 97.7 F 88 18-18 118/71 Date of Session: 02/26/18 Chief Complaint:: Discharge visit HPI: Day 12 of rehabilitation treatment for this 57 y/o male addressing alcohol, opioid and benzodiazepine dependence co-morbid with nicotine dependence. Still Operator Whiskey is called to evaluate this patient who decided to leave the program at this time. ROS: No somatic complaints. Patient is alert and fully oriented. Cognitively intact. Ambulatory. Current Medications: Active Medications Generic Name Dose Route Start Last Admin Trade Name Freq PRN Reason Stop Dose Admin Acetaminophen 650 mg 02/14/18 16:33 02/25/18 22:24 Tylenol - PO 650 mg Q4H PRN Administration FEVER Al Hydroxide/Mg Hydroxide 30 ml 02/14/18 16:33 02/22/18 18:54 Mylanta Oral Suspension - PO 30 ml Q6H PRN Administration DYSPEPSIA Clonidine 0.1 mg 02/15/18 22:00 02/26/18 10:29 Catapres - PO Not Given BID JYOTHI Cyclobenzaprine HCl 10 mg 02/15/18 14:05 02/26/18 14:20 Flexeril - PO Not Given TID JYOTHI Diphenhydramine HCl 50 mg 02/14/18 16:35 02/18/18 22:23 Benadryl - PO 50 mg HS PRN Administration INSOMNIA Eucalyptus/Menthol/Phenol/Sorbitol 1 each 02/14/18 16:33 Cepastat Lozenge - MM Q4H PRN SORE THROAT Guaifenesin 10 ml 02/14/18 16:33 Robitussin Dm - PO Q6H PRN COUGH Hydrocortisone 1 applic 02/22/18 10:00 02/26/18 10:30 Hytone 1% Cream - TP 1 applic BID JYOTHI Administration Hydroxyzine Pamoate 50 mg 02/14/18 16:33 02/25/18 22:02 Vistaril - PO 50 mg Q4H PRN Administration AGITATION Ibuprofen 400 mg 02/14/18 16:33 02/26/18 10:28 Motrin - PO 400 mg Q6H PRN Administration Pain Level 4-6 Lidocaine 1 patch 02/15/18 10:00 02/26/18 10:30 Lidoderm Patch - TP Not Given DAILY JYOTHI Loperamide HCl 4 mg 02/14/18 16:33 02/23/18 17:54 Imodium - PO 4 mg Q6H PRN Administration DIARRHEA Magnesium Citrate 300 ml 02/14/18 16:33 Citroma - PO Q48H PRN CONSTIPATION Magnesium Hydroxide 30 ml 02/14/18 16:33 02/14/18 21:57 Milk Of Magnesia - PO 30 ml DAILY PRN Administration CONSTIPATION Melatonin 5 mg 02/14/18 22:00 02/23/18 23:50 Melatonin PO 5 mg HS PRN Administration INSOMNIA Miscellaneous 1 each 02/15/18 22:00 02/25/18 22:06 Lidoderm Patch Removal MC Not Given DAILY@2200 JYOTHI Nicotine 21 mg 02/15/18 10:00 02/26/18 10:29 Nicoderm Patch - TD 21 mg DAILY JYOTHI Administration Nicotine Polacrilex 2 mg 02/14/18 16:33 Nicorette Gum - BUC Q2H PRN NICOTINE REPLACEMENT RX Multivit/Folic Acid/Iron 1 tab 02/15/18 10:00 02/26/18 10:28 Vitamins (Sjr) - PO 1 tab DAILY JYOTHI Administration Pseudoephedrine/Triprolidine 1 combo 02/14/18 16:33 Actifed - PO TID PRN NASAL CONGESTION Suvorexant 10 mg 02/22/18 22:00 02/25/18 22:03 Belsomra PO 10 mg HS PRN Administration INSOMNIA Thiamine HCl 100 mg 02/14/18 22:00 02/25/18 22:01 Vitamin B1 - PO 100 mg HS JYOTHI Administration Medication(s) Change(s): Not on psychotropic medications. Current Side Effect: No Lab tests ordered: No Lab tests reviewed: Yes Provider note:: Records from [facility] are revisited. Patient is already known to this technical writer from previous admissions to [facility]. Chart reviewed. Met with the patient for assessment of mental status and exploration of his reasons for terminating treatment. Mr José is noted as pleasant, conversant, friendly and appropriate. He praised the program but indicates that he has personal issues to address at home. States that he misses his family and " cannot stay idle having nothing to do ". 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 Mr José is adamant about his decision to leave. Insists that he feels fine, that he has no suicidal or homicidal ideation, intent or plan. " I love life, I have been with my for 28 years, I have a beautiful daughter trained as a registered nurse and a niece that is the jewel of my life ". Describes his family as caring and supportive. Mental status is stable. Patient has partially completed his treatment goals. He will continue to address his issues in outpatient setting at the [facility] located at [address] [place] [address] ([phone]). No psychotropic medications. No acute medical issues. Case discussed with the medical ACCOUNTS PAYABLE ACCOUNTANT Tania France. Medically cleared. Mr José is not a danger to self or others. He has rejected our advice / encouragement to remain in treatment at [facility]. Patient is fully capable of making decisions pertinent to his medical/psychiatric welfare. Discharged at his own request. Total face to face time:: 45 Mental Status Exam - Mental Status Exam Alert and Oriented to: Time, Place, Person Cognitive Function: Good Patient Appearance: Well Groomed Mood: Hopeful, Euthymic Affect: Appropriate, Normal Range Patient Behavior: Appropriate, Cooperative Speech Pattern: Clear, Appropriate Voice Loudness: Normal Thought Process: Intact, Goal Oriented Thought Disorder: Not Present Hallucinations: Denies Suicidal Ideation: Denies Homicidal Ideation: Denies Insight/Judgement: Good Sleep: Well Appetite: Good Muscle strength/Tone: Normal (no complaint offered) Gait/Station: Normal Psychiatric Treatment Plan - Problem List (1) Alcohol dependence Current Visit: Yes (2) Opioid dependence Current Visit: Yes (3) Sedative hypnotic or anxiolytic dependence Current Visit: Yes (4) Nicotine dependence Current Visit: Yes Qualifiers: Nicotine product type: cigarettes Substance use status: in withdrawal Qualified Code(s): F17.213 - Nicotine dependence, cigarettes, with withdrawal
--- NOTE | 2018-02-26 19:52 | PN ---
S Progress Note Note: Patient is being discharged. Denies significant PMH except for back pain, rx'd w/ ibuprofen. Patient encouraged to f/u w/ PCP and orthopedics upon discharge for routine evaluation and medication management.
== END 2018-02-26 20:05 | disposition home or self-care (01) | DRG 772 ==
LOC: YASAS 15:01 → Y5N 15:03
PROVIDERS: ADMIT Psychiatry & Neurology Psychiatry; ATTEND Psychiatry & Neurology Psychiatry
PROC: HZ42ZZZ Group Counseling for Substance Abuse Treatment, Cognitive-Behavioral (ICD-10-PCS; principal; 2018-02-14)
DX: F11.20 Opioid dependence, uncomplicated (principal); F10.20 Alcohol dependence, uncomplicated; F13.20 Sedative, hypnotic or anxiolytic dependence, uncomplicated; F17.213 Nicotine dependence, cigarettes, with withdrawal; F19.282 Other psychoactive substance dependence with psychoactive substance-induced sleep disorder; B18.2 Chronic viral hepatitis C; K21.9 Gastro-esophageal reflux disease without esophagitis; D64.9 Anemia, unspecified; Z91.013 Allergy to seafood
CPT/HCPCS: 82962; J0735

== ENCOUNTER 2018-04-04 10:22 | Inpatient (IN) | payer OTHER ==
[2018-04-04 11:10] VITALS: BMI 22.7
--- NOTE | 2018-04-04 13:46 | HP ---
COWS - Scale Resting Pulse: 1= [place] 81-100 Sweatin= Chills/Flushing Restless Observation: 0= Sits Still Pupil Size: 1= Pupils >than Normal Bone or Joint Aches: 2= Severe Diffuse Aches Runny Nose/ Eye Tearin= Runny Nose/Eyes GI Upset > 30mins: 3= Vomiting/Diarrhea Tremor Observation: 1= Tremor [place], Not Seen Yawning Observation: 1= 1-2x During Session Anxiety or Irritability: 2=Irritable/Anxious Goose Flesh Skin: 0=Smooth Skin COWS Score: 14 CIWA Score Nausea/Vomitin-Int. Nausea w/Dry Heave Muscle Tremors: 2 Anxiety: 3 Agitation: 2 Paroxysmal Sweats: 3 Orientation: 0-Oriented Tacttile Disturbances: 0-None Auditory Disturbances: 1-Very Mild Visual Disturbances: 1-Very Mild Sensitivity Headache: 2-Mild CIWA-Ar Total Score: 18 - Admission Criteria OAS Guidelines: Admission for Medically Managed Detox: Requires at least one of the followin. CIWA greater than 12 2. Seizures within the past 24 hours 3. Delirium tremens within the past 24 hours 4. Hallucinations within the past 24 hours 5. Acute intervention needed for co occurring medical disorder 6. Acute intervention needed for co occurring psychiatric disorder 7. Severe withdrawal that cannot be handled at a lower level of care (continued vomiting, continued diarrhea, abnormal vital signs) requiring intravenous medication and/or fluids 8. Patient presents the following: CIWA greater than 12 Admission Criteria Met: Admission criteria met Admission ROS [facility] Chief Complaint: " I relapse in the past 13 days, I need help" Allergies/Adverse Reactions: Allergies Allergy/AdvReac Type Severity Reaction Status Date / Time No Known Drug Allergies Allergy Verified 04/04/18 11:39 Fish Containing Products AdvReac Difficulty Verified 04/04/18 11:39 Breathing History of Present Illness: 57 yo male with hx of alcohol and heroin (nasal) dependence is here seeking detox for heroin and alcohol d/t withdrawal symptoms. Patient c/o of nausea, abdominal cramps and diarrhea, this is one of multiple admissions, reports completed detox at another facility three weeks ago, but relapsed thirteen days ago, did not follow up with his after care. Reports hx of overdose x 6, with last episode two years ago. Reports cease IV drug use. PMHX: Hep (treated ) and Insomnia. Others' Prescriptions Patient Name: Steven José Date: 1960 Address: [place] [address] Sex: Male Rx Written Rx Dispensed Drug Quantity Days Supply Prescriber Name 03/15/2018 03/15/2018 suboxone 8 mg-2 mg sl film 14 14 Lulú Nguyen NP Exam Limitations: No Limitations - Ebola screening Have you traveled outside of the country in the last 21 days: No Have you had contact with anyone from an Ebola affected area: No Have you been sick,other than usual withdrawal symptoms: No - Review of Systems Constitutional: Chills, Loss of Appetite, Changes in sleep, Unintentional Wgt. Loss (12 lbs in the past 30 days), Other (i feel irrritable) EENT: reports: Nose Congestion, Other (runny nose) Respiratory: reports: No Symptoms reported Cardiac: reports: No Symptoms Reported GI: reports: Diarrhea, Nausea, Poor Appetite, Poor Fluid Intake, Vomiting : reports: No Symptoms Reported Musculoskeletal: reports: Back Pain, Joint Pain Integumentary: reports: No Symptoms Reported Neuro: reports: Headache Endocrine: reports: Increased Thirst, Unexplained Weight Loss Hematology: reports: Anemia Psychiatric: reports: Orientated x3, Agitated, Anxious Other Systems: Reviewed and Negative Patient History - Patient Medical History Hx Anemia: Yes (no meds ) Hx Asthma: No Hx Chronic Obstructive Pulmonary Disease (COPD): No Hx Cancer: No Hx Cardiac Disorders: No Hx Congestive Heart Failure: No Hx Hypertension: No Hx Hypercholesterolemia: No Hx Pacemaker: No HX Cerebrovascular Accident: No Hx Seizures: No Hx Dementia: No Hx Diabetes: No Hx Gastrointestinal Disorders: No Hx Liver Disease: No Hx Genitourinary Disorders: No Hx Sexually Transmitted Disorders: No Hx Renal Disease (ESRD): No Hx Thyroid Disease: No Hx Human Immunodeficiency Virus (HIV): No Hx Hepatitis C: Yes (treated (interferon, ribaviron)) Hx Depression: No Hx Suicide Attempt: No Hx Bipolar Disorder: No Hx Schizophrenia: No - Patient Surgical History Past Surgical History: Yes Hx Neurologic Surgery: No Hx Cataract Extraction: No Hx Cardiac Surgery: No Hx Lung Surgery: No Hx Breast Surgery: No Hx Breast Biopsy: No Hx Abdominal Surgery: No Hx Appendectomy: No Hx Cholecystectomy: No Hx Genitourinary Surgery: No Hx Section: No Hx Orthopedic Surgery: Yes (right ankle surgery in 1995) Other Surgical History: right ankle surgery 1995 Anesthesia Reaction: No - PPD History Previous Implant?: Yes Documented Results: Negative w/proof Implanted On Prior R Admission?: Yes Date: 04/04/17 Results: 0 mm PPD to be Administered?: Yes - Smoking Cessation Smoking history: Current every day smoker Have you smoked in the past 12 months: Yes Aproximately how many cigarettes per day: 10 Cigars Per Day: 0 Hx Chewing Tobacco Use: No Initiated information on smoking cessation: Yes 'Breaking Loose' booklet given: 04/04/18 - Substance & Tx. History Hx Alcohol Use: Yes Hx Substance Use: Yes Substance Use Type: Cocaine, Heroin Hx Substance Use Treatment: Yes - Substances Abused Heroin Route: Inhalation Frequency: Daily Amount used: 4 bags Age of first use: 28 Date of Last Use: 04/03/18 Alcohol-beer/cognac Route: Oral Frequency: Daily Amount used: 1-6 pk./1/2-1 pt. Age of first use: 14 Date of Last Use: 04/03/18 Family Disease History - Family Disease History Family Disease History: Respiratory: Mother (alcoholism, ), Other: Father (/hemophilia), Mother, Brother (one bro AIDS; two murdered) , Sister (one - living ), Daughter (one - adult - healthy) Admission Physical Exam S - Vital Signs Vital Signs: Vital Signs - 24 hr 04/04/18 11:07 Temperature 98.3 F Pulse Rate 93 H Respiratory 20 Rate Blood Pressure 124/75 - Physical General Appearance: Yes: Disheveled, Moderate Distress, Thin, Sweating, Anxious HEENTM: Yes: EOMI, Hearing grossly Normal, Normal ENT Inspection, Normocephalic , Normal Voice, ALYSSA, Pharynx Normal, Tm's normal Respiratory: Yes: Chest Non-Tender, Lungs Clear, Normal Breath Sounds, No Respiratory Distress, No Accessory Muscle Use Neck: Yes: Within Normal Limits Breast: Yes: Breast Exam Deferred Cardiology: Yes: Regular Rhythm, Regular Rate Abdominal: Yes: Normal Bowel Sounds, Non Tender, Flat, Soft Genitourinary: Yes: Within Normal Limits Back: Yes: Normal Inspection Musculoskeletal: Yes: full range of Motion, Gait Steady, Pelvis Stable, Back pain Extremities: Yes: Normal Capillary Refill, Normal Inspection, Normal Range of Motion, Non-Tender Neurological: Yes: backup administrator II-XII NML intact, Fully Oriented, Alert, Motor Strength 5/5, Depressed Affect Integumentary: Yes: Normal Color, Warm, Moist Lymphatic: Yes: Within Normal Limits - Diagnostic (1) Hepatitis C virus infection cured after antiviral drug therapy Current Visit: Yes Status: Acute (2) Nausea & vomiting Current Visit: Yes Status: Acute Qualifiers: Vomiting type: unspecified Vomiting Intractability: unspecified Qualified Code(s): R11.2 - Nausea with vomiting, unspecified (3) Opioid dependence with withdrawal Current Visit: Yes Status: Acute (4) Weight loss Current Visit: Yes Status: Acute (5) Anemia Current Visit: Yes Status: Chronic Qualifiers: Anemia type: unspecified type Qualified Code(s): D64.9 - Anemia, unspecified (6) GERD (gastroesophageal reflux disease) Current Visit: Yes Status: Chronic Qualifiers: Esophagitis presence: without esophagitis Qualified Code(s): K21.9 - Gastro -esophageal reflux disease without esophagitis (7) Nicotine dependence Current Visit: Yes Status: Chronic Qualifiers: Nicotine product type: cigarettes Substance use status: in withdrawal Qualified Code(s): F17.213 - Nicotine dependence, cigarettes, with withdrawal Comment: . (8) Alcohol dependence with uncomplicated withdrawal Current Visit: Yes Status: Resolved Cleared for Admission S - Detox or Rehab [facility] Level of Care: Medically Managed Detox Regimen/Protocol: Methadone/Librium S Breath Alcohol Content Breath Alcohol Content: 0 Urine Drug Screen - Results Drug Screen Negative: No Urine Drug Screen Results: OPI-Opiates, BZO-Benzodiazepines Inpatient Rehab Admission - Rehab Decision to Admit Inpatient rehab admission?: No
[2018-04-04] MEDS ORDERED: ONDANSETRON *ODT* 4 MG TABLET SL ONE (13:52)
[2018-04-04] MEDS ORDERED: IBUPROFEN 400 MG TABLET (FP) PO PRN (13:56)
[2018-04-04] MEDS ORDERED: ACETAMINOPHEN 325 MG TABLET (FP) PO PRN (13:56)
[2018-04-04] MEDS ORDERED: NICOTINE POLACRILEX 2 MG GUM BUC PRN (13:56)
[2018-04-04] MEDS ORDERED: MAG HYDROX/AL HYDROX/SIMETH 30 ML UNIT-DOSE CUP PO PRN (13:56)
[2018-04-04] MEDS ORDERED: MAGNESIUM HYDROX 2400MG/30ML ORAL SUSPENSION 30 ML CUP PO PRN (13:56)
[2018-04-04] MEDS ORDERED: LOPERAMIDE HCL 2 MG CAPSULE PO PRN (13:56)
[2018-04-04] MEDS ORDERED: METHADONE HCL 10 MG TABLET (FOR DETOX USE ONLY) PO ONE ×2 (13:56→23:00)
[2018-04-04] MEDS ORDERED: MENTHOL/PHENOL 1 EACH UD MM PRN (13:56)
[2018-04-04] MEDS ORDERED: MAGNESIUM CITRATE 300 ML BOTTLE PO PRN (13:56)
[2018-04-04] MEDS ORDERED: guaiFENesin/D-METHORPHAN HB 10 ML UNIT-DOSE CUPS PO PRN (13:56)
[2018-04-04] MEDS ORDERED: P-EPHED 60MG/TRIPROLIDI 2.5MG TABLET PO PRN (13:56)
[2018-04-04] MEDS: chlordiazePOXIDE HCL 25 MG CAPSULE PO PRN (17:25)
[2018-04-04] MEDS: THIAMINE HCL 100 MG TABLET (FP) PO SCH (22:31)
[2018-04-04] MEDS: chlordiazePOXIDE HCL 25 MG CAPSULE PO SCH (22:32)
[2018-04-04] MEDS: MELATONIN 5 MG TABLETS PO PRN (22:32)
[2018-04-05] MEDS: chlordiazePOXIDE HCL 25 MG CAPSULE PO SCH ×4 (06:18→22:20)
--- NOTE | 2018-04-05 08:10 | CONSULT ---
[facility] Psychiatric Consult - Data Date of interview: 04/05/18 Admission source: [facility] Identifying data: 57 yo male with hx of alcohol and heroin (nasal) dependence is here seeking detox for heroin and alcohol d/t withdrawal symptoms. Patient c/ o of nausea, abdominal cramps and diarrhea, this is one of multiple admissions , reports completed detox at another facility three weeks ago, but relapsed thirteen days ago, did not follow up with his after care. Reports hx of overdose x 6, with last episode two years ago. Reports cease IV drug use. PMHX : Hep (treated) and Insomnia. Substance Abuse History: Smoking history: Current every day smoker. Have you smoked in the past 12 months: Yes. Aproximately how many cigarettes per day: 10. Cigars Per Day: 0. Hx Chewing Tobacco Use: No. Initiated information on smoking cessation: Yes. 'Breaking Loose' booklet given: 04/04/18. - Substance & Tx. History. Hx Alcohol Use: Yes. Hx Substance Use: Yes. Substance Use Type : Cocaine, Heroin. Hx Substance Use Treatment: Yes. - Substances Abused. Heroin. Route: Inhalation. Frequency: Daily. Amount used: 4 bags. Age of first use: 28. Date of Last Use: 04/03/18. Alcohol-beer/cognac. Route: Oral. Frequency: Daily. Amount used: 1-6 pk./1/2-1 pt. Age of first use: 14. Date of Last Use: 04/03/18
[2018-04-05] MEDS ORDERED: METHADONE HCL 10 MG TABLET (FOR DETOX USE ONLY) PO SCH (10:00)
[2018-04-05] MEDS: NICOTINE 14 MG/24 HOURS TOPICAL PATCH TD SCH (10:21)
[2018-04-05] MEDS: PRENATAL VITAMINS W/ FOLIC ACID TABLET (FP) PO SCH (10:21)
[2018-04-05 10:51] LABS: HEMATOCRIT 40.4 % (35.4-49); HEMOGLOBIN 13.7 GM/dL (11.7-16.9); MCH 31.9 pg (25.7-33.7); MCHC 33.9 g/dl (32.0-35.9); MEAN CELL VOLUME 94.4 fl (80-96); MEAN PLT VOLUME 7.7 fl (7.5-11.1); PLATELET COUNT 207 K/MM3 (134-434); RBC 4.28 M/mm3 (4.00-5.60); RDW 14.4 % (11.9-15.9); WHITE BLOOD COUNT 2.7 K/mm3 (4.0-10.0)
[2018-04-05 11:05] LABS: ALBUMIN 4.3 g/dl (3.4-5.0); ALK PHOS 106 U/L (45-117); ANION GAP 7 MMOL/L (8-16); BILIRUBIN,TOTAL 0.3 mg/dL (0.2-1); BLOOD UREA NITROGEN 7 mg/dL (7-18); CALCIUM 8.3 mg/dL (8.5-10.1); CHLORIDE 101 mmol/L (98-107); CO2 27 mmol/L (21-32); CREATININE 0.9 mg/dL (0.55-1.3); GLUCOSE,RANDOM 113 mg/dL (74-106); POTASSIUM 4.4 mmol/L (3.5-5.1); SGOT/AST 30 U/L (15-37); SGPT/ALT 35 U/L (13-61); SODIUM 135 mmol/L (136-145); TOT PROT 8.1 g/dl (6.4-8.2)
--- NOTE | 2018-04-05 15:02 | PN ---
[facility] CIWA - CIWA Score Nausea/Vomitin-Mild Nausea/No Vomiting Muscle Tremors: 4-Moderate,w/Arms Extend Anxiety: 4-Mod. Anxious/Guarded Agitation: 4-Moderately Restless Paroxysmal Sweats: 1-Minimal Palms Moist Orientation: 0-Oriented Tacttile Disturbances: 0-None Auditory Disturbances: 0-None Visual Disturbances: 0-None Headache: 0-None Present CIWA-Ar Total Score: 14 S COWS - Scale Resting Pulse: 0= [place] 80 or Below Sweatin= Chills/Flushing Restless Observation: 0= Sits Still Pupil Size: 0= Normal to Room Light Bone or Joint Aches: 1= Mild Discomfort Runny Nose/ Eye Tearin= Nasal Congestion GI Upset > 30mins: 1= Stomach Cramp Tremor Observation of Outstretched Hands: 2= Slight Tremor Visible Yawning Observation: 2= >3x During Session Anxiety or Irritability: 2=Irritable/Anxious Goose Flesh Skin: 0=Smooth Skin COWS Score: 10 S Progress Note (SOAP) Subjective: body aches tremor sweating muscle cramping Objective: 04/05/18 15:03 Vital Signs Temperature 96.2 F L 04/05/18 13:08 Pulse Rate 114 H 04/05/18 13:08 Respiratory Rate 20 04/05/18 13:08 Blood Pressure 101/66 04/05/18 13:08 O2 Sat by Pulse Oximetry (%) Laboratory Last Values WBC 2.7 K/mm3 (4.0-10.0) L 04/05/18 06:00 RBC 4.28 M/mm3 (4.00-5.60) 04/05/18 06:00 Hgb 13.7 GM/dL (11.7-16.9) 04/05/18 06:00 Hct 40.4 % (35.4-49) 04/05/18 06:00 MCV 94.4 fl (80-96) 04/05/18 06:00 MCH 31.9 pg (25.7-33.7) 04/05/18 06:00 MCHC 33.9 g/dl (32.0-35.9) 04/05/18 06:00 RDW 14.4 % (11.9-15.9) 04/05/18 06:00 Plt Count 207 K/MM3 (134-434) 04/05/18 06:00 MPV 7.7 fl (7.5-11.1) 04/05/18 06:00 Sodium 135 mmol/L (136-145) L 04/05/18 06:00 Potassium 4.4 mmol/L (3.5-5.1) 04/05/18 06:00 Chloride 101 mmol/L (98-107) 04/05/18 06:00 Carbon Dioxide 27 mmol/L (21-32) 04/05/18 06:00 Anion Gap 7 MMOL/L (8-16) L 04/05/18 06:00 BUN 7 mg/dL (7-18) 04/05/18 06:00 Creatinine 0.9 mg/dL (0.55-1.3) 04/05/18 06:00 Creat Clearance w eGFR > 60 (>60) 04/05/18 06:00 Random Glucose 113 mg/dL (74-106) H 04/05/18 06:00 Calcium 8.3 mg/dL (8.5-10.1) L 04/05/18 06:00 Total Bilirubin 0.3 mg/dL (0.2-1) 04/05/18 06:00 AST 30 U/L (15-37) 04/05/18 06:00 ALT 35 U/L (13-61) 04/05/18 06:00 Alkaline Phosphatase 106 U/L (45-117) 04/05/18 06:00 Total Protein 8.1 g/dl (6.4-8.2) 04/05/18 06:00 Albumin 4.3 g/dl (3.4-5.0) 04/05/18 06:00 RPR Titer Nonreactive (NONREACTIVE) 04/05/18 07:00 lab noted low wbc Assessment: 04/05/18 15:04 withdrawal sx Plan: continue detox
[2018-04-05] MEDS: THIAMINE HCL 100 MG TABLET (FP) PO SCH (22:20)
[2018-04-05] MEDS: SUVOREXANT 10 MG TABLET PO PRN (22:21)
[2018-04-06] MEDS: chlordiazePOXIDE HCL 25 MG CAPSULE PO SCH ×3 (05:06→17:17)
[2018-04-06] MEDS: PRENATAL VITAMINS W/ FOLIC ACID TABLET (FP) PO SCH (10:28)
[2018-04-06] MEDS: METHADONE HCL 5 MG TABLET (FOR DETOX USE ONLY) PO SCH (10:28)
[2018-04-06] MEDS: NICOTINE 14 MG/24 HOURS TOPICAL PATCH TD SCH (10:28)
[2018-04-06 10:52] LABS: BASO % 0.5 % (0-2.0); EOS % 6.8 % (0-4.5); HEMATOCRIT 35.7 % (35.4-49); HEMOGLOBIN 12.1 GM/dL (11.7-16.9); LYMPH % 51.3 % (8-40); MCH 31.8 pg (25.7-33.7); MEAN CELL VOLUME 93.8 fl (80-96); MEAN PLT VOLUME 7.4 fl (7.5-11.1); MONO % 10.7 % (3.8-10.2); NEUT % 30.7 % (42.8-82.8); PLATELET COUNT 178 K/MM3 (134-434); RBC 3.81 M/mm3 (4.00-5.60); RDW 13.9 % (11.9-15.9)
[2018-04-06] MEDS: chlordiazePOXIDE HCL 25 MG CAPSULE PO PRN (13:58)
--- NOTE | 2018-04-06 17:49 | PN ---
S CIWA - CIWA Score Nausea/Vomitin-No Nausea/No Vomiting Muscle Tremors: 3 Anxiety: 4-Mod. Anxious/Guarded Agitation: 2 Paroxysmal Sweats: No Perspiration Orientation: 2-Disoriented Date<2 days Tacttile Disturbances: 2-Mild Itch/Numbness/Burn Auditory Disturbances: 2-Mild Harshness/Frighten Visual Disturbances: 0-None Headache: 0-None Present CIWA-Ar Total Score: 15 BHS COWS - Scale Resting Pulse: 0= [place] 80 or Below Sweatin= Chills/Flushing Restless Observation: 1= Difficult to Sit Still Pupil Size: 0= Normal to Room Light Bone or Joint Aches: 2= Severe Diffuse Aches Runny Nose/ Eye Tearin= None GI Upset > 30mins: 0= None Tremor Observation of Outstretched Hands: 2= Slight Tremor Visible Yawning Observation: 1= 1-2x During Session Anxiety or Irritability: 2=Irritable/Anxious Goose Flesh Skin: 0=Smooth Skin COWS Score: 9 BHS Progress Note (SOAP) Subjective: Body Aches, Muscle Cramping, Tremors, Anxious. Objective: PATIENT A & O X 2 (UNCERTAIN ABOUT CURRENT DAY / DATE). PATIENT OBSERVED AMBULATING ON UNIT. IN NO ACUTE DISTRESS. 04/06/18 17:45 Vital Signs Temperature 97.1 F L 04/06/18 13:17 Pulse Rate 77 04/06/18 13:17 Respiratory Rate 18 04/06/18 13:17 Blood Pressure 116/67 04/06/18 13:17 O2 Sat by Pulse Oximetry (%) Laboratory Tests 04/05/18 04/05/18 04/05/18 06:00 06:00 07:00 WBC 2.7 L RBC 4.28 Hgb 13.7 Hct 40.4 MCV 94.4 MCH 31.9 MCHC 33.9 RDW 14.4 Plt Count 207 MPV 7.7 Absolute Neuts (auto) Neutrophils % Lymphocytes % Monocytes % Eosinophils % Basophils % Nucleated RBC % Sodium 135 L Potassium 4.4 Chloride 101 Carbon Dioxide 27 Anion Gap 7 L BUN 7 Creatinine 0.9 Creat Clearance w eGFR > 60 Random Glucose 113 H Calcium 8.3 L Total Bilirubin 0.3 AST 30 ALT 35 Alkaline Phosphatase 106 Total Protein 8.1 Albumin 4.3 Vitamin B12 Serum Folate RPR Titer Nonreactive 04/06/18 04/06/18 07:00 07:00 WBC 3.0 L RBC 3.81 L Hgb 12.1 Hct 35.7 MCV 93.8 MCH 31.8 MCHC 34.0 RDW 13.9 Plt Count 178 MPV 7.4 L Absolute Neuts (auto) 0.9 L Neutrophils % 30.7 L Lymphocytes % 51.3 H Monocytes % 10.7 H Eosinophils % 6.8 H Basophils % 0.5 Nucleated RBC % 0 Sodium Potassium Chloride Carbon Dioxide Anion Gap BUN Creatinine Creat Clearance w eGFR Random Glucose Calcium Total Bilirubin AST ALT Alkaline Phosphatase Total Protein Albumin Vitamin B12 865 Serum Folate 18 H RPR Titer LABS NOTED. RESULTS OF REPEAT CBC NOTED. PATIENT DENIES ANY KNOWN HISTORY OF IMMUNOLOGIC / HEMATOLOGIC DISORDER. 04/06/18 17:48 Assessment: 04/06/18 17:45 WITHDRAWAL SYMPTOMS. LEUKOPENIA. 04/06/18 17:51 Plan: CONTINUE DETOX. RE-CHECK CBC AGAIN ON 04/08/2018 TO SEE IF ANY FURTHER IMPROVEMENT IN WBC LEVEL.
[2018-04-06] MEDS: SUVOREXANT 10 MG TABLET PO PRN (21:55)
[2018-04-06] MEDS: MELATONIN 5 MG TABLETS PO PRN (21:55)
[2018-04-06] MEDS: THIAMINE HCL 100 MG TABLET (FP) PO SCH (21:56)
[2018-04-06] MEDS: chlordiazePOXIDE 5 MG CAPSULE PO SCH (22:11)
[2018-04-07] MEDS: chlordiazePOXIDE 5 MG CAPSULE PO SCH ×3 (06:04→17:23)
[2018-04-07] MEDS: PRENATAL VITAMINS W/ FOLIC ACID TABLET (FP) PO SCH (10:08)
[2018-04-07] MEDS: NICOTINE 14 MG/24 HOURS TOPICAL PATCH TD SCH (10:09)
[2018-04-07] MEDS: METHADONE HCL 5 MG TABLET (FOR DETOX USE ONLY) PO SCH (10:09)
--- NOTE | 2018-04-07 15:08 | PN ---
BHS Progress Note (SOAP) Subjective: Body Aches, Anxious. Objective: PATIENT A & O X 3, OBSERVED AMBULATING ON UNIT. IN NO ACUTE DISTRESS. 04/07/18 15:06 Vital Signs Temperature 97 F L 04/06/18 21:10 Pulse Rate 87 04/07/18 14:05 Respiratory Rate 18 04/07/18 14:05 Blood Pressure 104/66 04/07/18 14:05 O2 Sat by Pulse Oximetry (%) Laboratory Tests 04/05/18 04/05/18 04/05/18 06:00 06:00 07:00 WBC 2.7 L RBC 4.28 Hgb 13.7 Hct 40.4 MCV 94.4 MCH 31.9 MCHC 33.9 RDW 14.4 Plt Count 207 MPV 7.7 Absolute Neuts (auto) Neutrophils % Lymphocytes % Monocytes % Eosinophils % Basophils % Nucleated RBC % Sodium 135 L Potassium 4.4 Chloride 101 Carbon Dioxide 27 Anion Gap 7 L BUN 7 Creatinine 0.9 Creat Clearance w eGFR > 60 Random Glucose 113 H Calcium 8.3 L Total Bilirubin 0.3 AST 30 ALT 35 Alkaline Phosphatase 106 Total Protein 8.1 Albumin 4.3 Vitamin B12 Serum Folate RPR Titer Nonreactive 04/06/18 04/06/18 07:00 07:00 WBC 3.0 L RBC 3.81 L Hgb 12.1 Hct 35.7 MCV 93.8 MCH 31.8 MCHC 34.0 RDW 13.9 Plt Count 178 MPV 7.4 L Absolute Neuts (auto) 0.9 L Neutrophils % 30.7 L Lymphocytes % 51.3 H Monocytes % 10.7 H Eosinophils % 6.8 H Basophils % 0.5 Nucleated RBC % 0 Sodium Potassium Chloride Carbon Dioxide Anion Gap BUN Creatinine Creat Clearance w eGFR Random Glucose Calcium Total Bilirubin AST ALT Alkaline Phosphatase Total Protein Albumin Vitamin B12 865 Serum Folate 18 H RPR Titer LABS NOTED. PATIENT DENIES KNOWN HISTORY OF HEMATOLOGIC / IMMUNOLOGIC DISORDER. 04/07/18 15:07 Assessment: 04/07/18 15:06 WITHDRAWAL SYMPTOMS. LEUKOPENIA. Plan: CONTINUE DETOX. REPEAT CBC TOMORROW AM FOR LOW ADMISSION AND REPEAT WBC LEVELS.
[2018-04-07] MEDS: chlordiazePOXIDE HCL 10 MG CAPSULE PO SCH (22:25)
[2018-04-07] MEDS: THIAMINE HCL 100 MG TABLET (FP) PO SCH (22:25)
[2018-04-07] MEDS: MELATONIN 5 MG TABLETS PO PRN (22:25)
[2018-04-07] MEDS: SUVOREXANT 10 MG TABLET PO PRN (22:27)
[2018-04-08] MEDS: chlordiazePOXIDE HCL 10 MG CAPSULE PO SCH ×3 (06:24→17:38)
--- NOTE | 2018-04-08 09:57 | PN ---
S CIWA - CIWA Score Nausea/Vomitin-Mild Nausea/No Vomiting Muscle Tremors: 2 Anxiety: 1-Mildly Anxious Agitation: 2 Paroxysmal Sweats: 1-Minimal Palms Moist Orientation: 1-Uncertain about Date Tacttile Disturbances: 0-None Auditory Disturbances: 0-None Visual Disturbances: 0-None Headache: 2-Mild CIWA-Ar Total Score: 10 BHS COWS - Scale Resting Pulse: 0= [place] 80 or Below Sweatin= Chills/Flushing Restless Observation: 1= Difficult to Sit Still Pupil Size: 0= Normal to Room Light Bone or Joint Aches: 1= Mild Discomfort Runny Nose/ Eye Tearin= None GI Upset > 30mins: 1= Stomach Cramp Tremor Observation of Outstretched Hands: 1= Tremor [place], Not Seen Yawning Observation: 0= None Anxiety or Irritability: 1=Feels Anxious/Irritable Goose Flesh Skin: 0=Smooth Skin COWS Score: 6 BHS Progress Note (SOAP) Subjective: feeling better less tremor mild sweating little body aches Objective: 04/08/18 10:15 Vital Signs Temperature 97.5 F L 04/08/18 09:31 Pulse Rate 75 04/08/18 09:31 Respiratory Rate 16 04/08/18 09:31 Blood Pressure 96/60 04/08/18 09:31 O2 Sat by Pulse Oximetry (%) Laboratory Last Values WBC 3.0 K/mm3 (4.0-10.0) L 04/06/18 07:00 RBC 3.81 M/mm3 (4.00-5.60) L 04/06/18 07:00 Hgb 12.1 GM/dL (11.7-16.9) 04/06/18 07:00 Hct 35.7 % (35.4-49) 04/06/18 07:00 MCV 93.8 fl (80-96) 04/06/18 07:00 MCH 31.8 pg (25.7-33.7) 04/06/18 07:00 MCHC 34.0 g/dl (32.0-35.9) 04/06/18 07:00 RDW 13.9 % (11.9-15.9) 04/06/18 07:00 Plt Count 178 K/MM3 (134-434) 04/06/18 07:00 MPV 7.4 fl (7.5-11.1) L 04/06/18 07:00 Absolute Neuts (auto) 0.9 K/mm3 (1.5-8.0) L 04/06/18 07:00 Neutrophils % 30.7 % (42.8-82.8) L 04/06/18 07:00 Lymphocytes % 51.3 % (8-40) H 04/06/18 07:00 Monocytes % 10.7 % (3.8-10.2) H 04/06/18 07:00 Eosinophils % 6.8 % (0-4.5) H 04/06/18 07:00 Basophils % 0.5 % (0-2.0) 04/06/18 07:00 Nucleated RBC % 0 % (0-0) 04/06/18 07:00 Sodium 135 mmol/L (136-145) L 04/05/18 06:00 Potassium 4.4 mmol/L (3.5-5.1) 04/05/18 06:00 Chloride 101 mmol/L (98-107) 04/05/18 06:00 Carbon Dioxide 27 mmol/L (21-32) 04/05/18 06:00 Anion Gap 7 MMOL/L (8-16) L 04/05/18 06:00 BUN 7 mg/dL (7-18) 04/05/18 06:00 Creatinine 0.9 mg/dL (0.55-1.3) 04/05/18 06:00 Creat Clearance w eGFR > 60 (>60) 04/05/18 06:00 Random Glucose 113 mg/dL (74-106) H 04/05/18 06:00 Calcium 8.3 mg/dL (8.5-10.1) L 04/05/18 06:00 Total Bilirubin 0.3 mg/dL (0.2-1) 04/05/18 06:00 AST 30 U/L (15-37) 04/05/18 06:00 ALT 35 U/L (13-61) 04/05/18 06:00 Alkaline Phosphatase 106 U/L (45-117) 04/05/18 06:00 Total Protein 8.1 g/dl (6.4-8.2) 04/05/18 06:00 Albumin 4.3 g/dl (3.4-5.0) 04/05/18 06:00 Vitamin B12 865 pg/ml (193-986) 04/06/18 07:00 Serum Folate 18 ng/mL (3.1-17.5) H 04/06/18 07:00 RPR Titer Nonreactive (NONREACTIVE) 04/05/18 07:00 low wbc lab noted 04/08/18 10:16 Assessment: 04/08/18 10:16 mild alcohol and opiate withdrawal sx Plan: continue detox
[2018-04-08] MEDS ORDERED: METHADONE HCL 10 MG TABLET (FOR DETOX USE ONLY) PO SCH (10:00)
[2018-04-08 10:51] LABS: BASO % 0.5 % (0-2.0); EOS % 7.3 % (0-4.5); HEMATOCRIT 39.4 % (35.4-49); HEMOGLOBIN 13.7 GM/dL (11.7-16.9); LYMPH % 35.9 % (8-40); MCH 32.5 pg (25.7-33.7); MCHC 34.8 g/dl (32.0-35.9); MEAN CELL VOLUME 93.2 fl (80-96); MEAN PLT VOLUME 7.9 fl (7.5-11.1); NEUT % 47.3 % (42.8-82.8); PLATELET COUNT 255 K/MM3 (134-434); RBC 4.23 M/mm3 (4.00-5.60); RDW 13.7 % (11.9-15.9); WHITE BLOOD COUNT 4.9 K/mm3 (4.0-10.0)
[2018-04-08] MEDS: PRENATAL VITAMINS W/ FOLIC ACID TABLET (FP) PO SCH (11:11)
[2018-04-08] MEDS: NICOTINE 14 MG/24 HOURS TOPICAL PATCH TD SCH (11:12)
[2018-04-08] MEDS: MELATONIN 5 MG TABLETS PO PRN (22:22)
[2018-04-08] MEDS: THIAMINE HCL 100 MG TABLET (FP) PO SCH (22:22)
[2018-04-09] MEDS ORDERED: METHADONE HCL 5 MG TABLET (FOR DETOX USE ONLY) PO SCH (06:00)
[2018-04-09] MEDS: PRENATAL VITAMINS W/ FOLIC ACID TABLET (FP) PO SCH (10:05)
[2018-04-09] MEDS: NICOTINE 14 MG/24 HOURS TOPICAL PATCH TD SCH (10:05)
--- NOTE | 2018-04-09 12:16 | DS ---
[facility] Detox Discharge Summary Admission Date: 04/04/18 Discharge Date: 04/09/18 - History Present History: Alcohol Dependence, Opioid Dependence Additional Comments: 57 years old male admitted on 04/04/18 for alcohol and opiate withdrawal stabilization completed alcohol and opiate detox [facility] Physical Exam Results Vital Signs: Vital Signs Temperature 97.7 F 04/09/18 09:17 Pulse Rate 71 04/09/18 09:17 Respiratory Rate 16 04/09/18 09:17 Blood Pressure 93/67 04/09/18 09:17 O2 Sat by Pulse Oximetry (%) Pertinent Admission Physical Exam Findings: alcohol and opiate withdrawal sx Laboratory Last Values WBC 4.9 K/mm3 (4.0-10.0) 04/08/18 07:35 RBC 4.23 M/mm3 (4.00-5.60) 04/08/18 07:35 Hgb 13.7 GM/dL (11.7-16.9) 04/08/18 07:35 Hct 39.4 % (35.4-49) 04/08/18 07:35 MCV 93.2 fl (80-96) 04/08/18 07:35 MCH 32.5 pg (25.7-33.7) 04/08/18 07:35 MCHC 34.8 g/dl (32.0-35.9) 04/08/18 07:35 RDW 13.7 % (11.9-15.9) 04/08/18 07:35 Plt Count 255 K/MM3 (134-434) D 04/08/18 07:35 MPV 7.9 fl (7.5-11.1) 04/08/18 07:35 Absolute Neuts (auto) 2.3 K/mm3 (1.5-8.0) 04/08/18 07:35 Neutrophils % 47.3 % (42.8-82.8) D 04/08/18 07:35 Lymphocytes % 35.9 % (8-40) D 04/08/18 07:35 Monocytes % 9.0 % (3.8-10.2) 04/08/18 07:35 Eosinophils % 7.3 % (0-4.5) H 04/08/18 07:35 Basophils % 0.5 % (0-2.0) 04/08/18 07:35 Nucleated RBC % 0 % (0-0) 04/08/18 07:35 Sodium 135 mmol/L (136-145) L 04/05/18 06:00 Potassium 4.4 mmol/L (3.5-5.1) 04/05/18 06:00 Chloride 101 mmol/L (98-107) 04/05/18 06:00 Carbon Dioxide 27 mmol/L (21-32) 04/05/18 06:00 Anion Gap 7 MMOL/L (8-16) L 04/05/18 06:00 BUN 7 mg/dL (7-18) 04/05/18 06:00 Creatinine 0.9 mg/dL (0.55-1.3) 04/05/18 06:00 Creat Clearance w eGFR > 60 (>60) 04/05/18 06:00 Random Glucose 113 mg/dL (74-106) H 04/05/18 06:00 Calcium 8.3 mg/dL (8.5-10.1) L 04/05/18 06:00 Total Bilirubin 0.3 mg/dL (0.2-1) 04/05/18 06:00 AST 30 U/L (15-37) 04/05/18 06:00 ALT 35 U/L (13-61) 04/05/18 06:00 Alkaline Phosphatase 106 U/L (45-117) 04/05/18 06:00 Total Protein 8.1 g/dl (6.4-8.2) 04/05/18 06:00 Albumin 4.3 g/dl (3.4-5.0) 04/05/18 06:00 Vitamin B12 865 pg/ml (193-986) 04/06/18 07:00 Serum Folate 18 ng/mL (3.1-17.5) H 04/06/18 07:00 RPR Titer Nonreactive (NONREACTIVE) 04/05/18 07:00 lab noted - Treatment Hospital Course: Detox Protocol Followed, Detoxed Safely, Responded well, Discharged Condition Good, Rehab Referral Accepted Patient has Accepted [facility] - Medication Discharge Medications: Ambulatory Orders Naloxone HCl [Narcan] 4 mg NS ASDIR PRN 04/05/18 - Diagnosis (1) Hepatitis C virus infection cured after antiviral drug therapy Current Visit: Yes Status: Resolved (2) Opioid dependence with withdrawal Current Visit: Yes Status: Acute (3) Weight loss Current Visit: Yes Status: Acute (4) GERD (gastroesophageal reflux disease) Current Visit: Yes Status: Chronic Qualifiers: Esophagitis presence: without esophagitis Qualified Code(s): K21.9 - Gastro -esophageal reflux disease without esophagitis (5) Nicotine dependence Current Visit: Yes Status: Acute Qualifiers: Nicotine product type: cigarettes Substance use status: in withdrawal Qualified Code(s): F17.213 - Nicotine dependence, cigarettes, with withdrawal (6) Alcohol dependence with uncomplicated withdrawal Current Visit: Yes Status: Acute (7) Nicotine dependence Current Visit: Yes Status: Acute Qualifiers: Nicotine product type: cigarettes Substance use status: in withdrawal Qualified Code(s): F17.213 - Nicotine dependence, cigarettes, with withdrawal (8) Opioid dependence with withdrawal Current Visit: Yes Status: Acute - AMA Did Patient Leave Against Medical Advice: No
[2018-04-09 13:52] VITALS: BP 104/71; PULSE 100; TEMP 97
== END 2018-04-09 12:05 | disposition other institution (70) | DRG 773 ==
LOC: YASAS 10:22 → Y3N 14:09
PROVIDERS: ADMIT Surgery; ATTEND Surgery
PROC: HZ2ZZZZ Detoxification Services for Substance Abuse Treatment (ICD-10-PCS; principal; 2018-04-04)
DX: F11.23 Opioid dependence with withdrawal (principal); F10.230 Alcohol dependence with withdrawal, uncomplicated; F17.213 Nicotine dependence, cigarettes, with withdrawal; B18.2 Chronic viral hepatitis C; K21.9 Gastro-esophageal reflux disease without esophagitis; D72.819 Decreased white blood cell count, unspecified; R63.4 Abnormal weight loss; Z68.22 Body mass index [BMI] 22.0-22.9, adult; R11.2 Nausea with vomiting, unspecified; Z91.013 Allergy to seafood
CPT/HCPCS: 36415; 80053; 82607; 82746; 85025; 85027; 86593; Q0162

== ENCOUNTER 2018-04-09 14:34 | Inpatient (IN) | payer OTHER ==
[2018-04-09] MEDS: NICOTINE 14 MG/24 HOURS TOPICAL PATCH TD SCH (10:10)
[2018-04-09] MEDS ORDERED: MAG HYDROX/AL HYDROX/SIMETH 30 ML UNIT-DOSE CUP PO PRN (14:55)
[2018-04-09] MEDS ORDERED: guaiFENesin/D-METHORPHAN HB 10 ML UNIT-DOSE CUPS PO PRN (14:55)
[2018-04-09] MEDS ORDERED: MAGNESIUM HYDROX 2400MG/30ML ORAL SUSPENSION 30 ML CUP PO PRN (14:55)
[2018-04-09] MEDS ORDERED: NICOTINE POLACRILEX 2 MG GUM BC PRN (14:55)
[2018-04-09] MEDS ORDERED: LOPERAMIDE HCL 2 MG CAPSULE PO PRN (14:55)
[2018-04-09] MEDS ORDERED: MAGNESIUM CITRATE 300 ML BOTTLE PO PRN (14:55)
[2018-04-09] MEDS ORDERED: P-EPHED 60MG/TRIPROLIDI 2.5MG TABLET PO PRN (14:55)
[2018-04-09] MEDS ORDERED: MENTHOL/PHENOL 1 EACH UD MM PRN (14:55)
--- NOTE | 2018-04-09 14:55 | HP ---
[facility] Rehab Assess/Revision - Admission History Admitted to Rehab from: [facility] Date of Admission to Rehab: 04/09/18 - Findings Detox History & Physical reviewed: Yes Concur with findings: Yes Comments/Additional Findings: transferred from detox to rehab admission as per protocol Inpatient Rehab Admission - Rehab Decision to Admit Inpatient rehab admission?: Yes - Initial Determination Are CD services needed?: Yes Free of communicable disease: Yes Not in need of hospitalization: Yes - Rehab Admission Criteria Previous failed treatment: Yes Poor recovery environment: Yes Comorbidities: Yes Lacks judgement: No Patient is meeting Inpatient Rehab admission criteria:: Yes
[2018-04-09] MEDS: hydrOXYzine PAMOATE 50 MG CAPSULE (FP) PO PRN (20:27)
[2018-04-09] MEDS: THIAMINE HCL 100 MG TABLET (FP) PO SCH (21:19)
[2018-04-10] MEDS: PRENATAL VITAMINS W/ FOLIC ACID TABLET (FP) PO SCH (10:47)
[2018-04-10] MEDS: NICOTINE 14 MG/24 HOURS TOPICAL PATCH TD SCH (10:47)
[2018-04-10] MEDS ORDERED: COLLOIDAL OATMEAL 1 BAR EACH TP PRN (15:35)
[2018-04-10] MEDS: hydrOXYzine PAMOATE 50 MG CAPSULE (FP) PO PRN (21:04)
[2018-04-10] MEDS: THIAMINE HCL 100 MG TABLET (FP) PO SCH (21:04)
[2018-04-10] MEDS: MELATONIN 5 MG TABLETS PO PRN (21:05)
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
[2018-04-11] MEDS: NICOTINE 14 MG/24 HOURS TOPICAL PATCH TD SCH (10:07)
[2018-04-11] MEDS: PRENATAL VITAMINS W/ FOLIC ACID TABLET (FP) PO SCH (10:07)
[2018-04-11] MEDS ORDERED: COLLOIDAL OATMEAL 1 BAR EACH TP PRN (11:45)
[2018-04-11] MEDS: hydrOXYzine PAMOATE 50 MG CAPSULE (FP) PO PRN ×2 (12:11→21:00)
--- NOTE | 2018-04-11 12:56 | PN ---
[facility] Progress Note Note: Atm Mechanic was asked to see patient for insomnia. Patient was approaced twice and both times he was found in bed sleeping. The second time, he told auto service writer:" All I want is Belsomra. If I have to get out of my bed to talk to you for that, you might as well forget it." Patient will be started on Belsomra 10 mg po HS prn for sleep
[2018-04-11] MEDS: IBUPROFEN 400 MG TABLET (FP) PO PRN (16:44)
[2018-04-11] MEDS: THIAMINE HCL 100 MG TABLET (FP) PO SCH (21:00)
[2018-04-11] MEDS: MELATONIN 5 MG TABLETS PO PRN (21:00)
[2018-04-11] MEDS ORDERED: SUVOREXANT 10 MG TABLET PO PRN (22:00)
[2018-04-12] MEDS: PRENATAL VITAMINS W/ FOLIC ACID TABLET (FP) PO SCH (10:36)
[2018-04-12] MEDS: NICOTINE 14 MG/24 HOURS TOPICAL PATCH TD SCH (10:36)
[2018-04-12] MEDS: IBUPROFEN 400 MG TABLET (FP) PO PRN (10:50)
[2018-04-12] MEDS: hydrOXYzine PAMOATE 50 MG CAPSULE (FP) PO PRN ×2 (14:14→21:30)
[2018-04-12] MEDS: THIAMINE HCL 100 MG TABLET (FP) PO SCH (21:29)
[2018-04-12] MEDS: MELATONIN 5 MG TABLETS PO PRN (21:29)
[2018-04-13] MEDS: PRENATAL VITAMINS W/ FOLIC ACID TABLET (FP) PO SCH (10:31)
[2018-04-13] MEDS: hydrOXYzine PAMOATE 50 MG CAPSULE (FP) PO PRN (10:32)
[2018-04-13] MEDS: NICOTINE 14 MG/24 HOURS TOPICAL PATCH TD SCH (10:58)
[2018-04-13] MEDS: MELATONIN 5 MG TABLETS PO PRN (23:23)
[2018-04-13] MEDS: THIAMINE HCL 100 MG TABLET (FP) PO SCH (23:23)
[2018-04-14] MEDS: NICOTINE 14 MG/24 HOURS TOPICAL PATCH TD SCH (10:12)
[2018-04-14] MEDS: PRENATAL VITAMINS W/ FOLIC ACID TABLET (FP) PO SCH (10:12)
[2018-04-14] MEDS: hydrOXYzine PAMOATE 50 MG CAPSULE (FP) PO PRN ×2 (14:52→18:44)
[2018-04-14] MEDS: THIAMINE HCL 100 MG TABLET (FP) PO SCH (21:17)
[2018-04-14] MEDS: MELATONIN 5 MG TABLETS PO PRN (21:17)
[2018-04-15] MEDS: hydrOXYzine PAMOATE 50 MG CAPSULE (FP) PO PRN ×2 (07:43→19:52)
[2018-04-15] MEDS: NICOTINE 14 MG/24 HOURS TOPICAL PATCH TD SCH (10:45)
[2018-04-15] MEDS: PRENATAL VITAMINS W/ FOLIC ACID TABLET (FP) PO SCH (10:45)
[2018-04-15] MEDS: MELATONIN 5 MG TABLETS PO PRN (21:02)
[2018-04-15] MEDS: THIAMINE HCL 100 MG TABLET (FP) PO SCH (21:02)
[2018-04-16] MEDS: hydrOXYzine PAMOATE 50 MG CAPSULE (FP) PO PRN ×2 (05:16→21:10)
[2018-04-16] MEDS: NICOTINE 14 MG/24 HOURS TOPICAL PATCH TD SCH (10:43)
[2018-04-16] MEDS: PRENATAL VITAMINS W/ FOLIC ACID TABLET (FP) PO SCH (10:44)
[2018-04-16] MEDS: THIAMINE HCL 100 MG TABLET (FP) PO SCH (21:10)
[2018-04-16] MEDS: MELATONIN 5 MG TABLETS PO PRN (21:10)
[2018-04-17] MEDS: IBUPROFEN 400 MG TABLET (FP) PO PRN ×2 (09:57→20:11)
[2018-04-17] MEDS: hydrOXYzine PAMOATE 50 MG CAPSULE (FP) PO PRN ×2 (09:57→21:26)
[2018-04-17] MEDS: PRENATAL VITAMINS W/ FOLIC ACID TABLET (FP) PO SCH (10:23)
[2018-04-17] MEDS: NICOTINE 14 MG/24 HOURS TOPICAL PATCH TD SCH (10:23)
[2018-04-17] MEDS: ACETAMINOPHEN 325 MG TABLET (FP) PO PRN (17:53)
[2018-04-17] MEDS: THIAMINE HCL 100 MG TABLET (FP) PO SCH (21:26)
[2018-04-17] MEDS: MELATONIN 5 MG TABLETS PO PRN (21:26)
[2018-04-18] MEDS: hydrOXYzine PAMOATE 50 MG CAPSULE (FP) PO PRN ×2 (05:51→21:09)
[2018-04-18] MEDS: PRENATAL VITAMINS W/ FOLIC ACID TABLET (FP) PO SCH (10:16)
[2018-04-18] MEDS: NICOTINE 14 MG/24 HOURS TOPICAL PATCH TD SCH (10:16)
[2018-04-18] MEDS: IBUPROFEN 400 MG TABLET (FP) PO PRN (16:15)
[2018-04-18] MEDS: THIAMINE HCL 100 MG TABLET (FP) PO SCH (21:09)
[2018-04-18] MEDS: MELATONIN 5 MG TABLETS PO PRN (21:09)
[2018-04-19] MEDS: hydrOXYzine PAMOATE 50 MG CAPSULE (FP) PO PRN ×3 (03:14→21:06)
[2018-04-19] MEDS: PRENATAL VITAMINS W/ FOLIC ACID TABLET (FP) PO SCH (10:00)
[2018-04-19] MEDS: NICOTINE 14 MG/24 HOURS TOPICAL PATCH TD SCH (10:00)
[2018-04-19] MEDS: ACETAMINOPHEN 325 MG TABLET (FP) PO PRN (17:36)
[2018-04-19] MEDS: MELATONIN 5 MG TABLETS PO PRN (21:06)
[2018-04-19] MEDS: THIAMINE HCL 100 MG TABLET (FP) PO SCH (21:06)
[2018-04-20] MEDS: PRENATAL VITAMINS W/ FOLIC ACID TABLET (FP) PO SCH (09:56)
[2018-04-20] MEDS: NICOTINE 14 MG/24 HOURS TOPICAL PATCH TD SCH (09:57)
[2018-04-20] MEDS: IBUPROFEN 400 MG TABLET (FP) PO PRN (12:54)
[2018-04-20] MEDS: hydrOXYzine PAMOATE 50 MG CAPSULE (FP) PO PRN ×2 (15:24→21:00)
[2018-04-20] MEDS: THIAMINE HCL 100 MG TABLET (FP) PO SCH (21:00)
[2018-04-20] MEDS: MELATONIN 5 MG TABLETS PO PRN (21:00)
[2018-04-21] MEDS: hydrOXYzine PAMOATE 50 MG CAPSULE (FP) PO PRN ×3 (03:49→21:21)
[2018-04-21] MEDS: PRENATAL VITAMINS W/ FOLIC ACID TABLET (FP) PO SCH (10:16)
[2018-04-21] MEDS: NICOTINE 14 MG/24 HOURS TOPICAL PATCH TD SCH (10:17)
[2018-04-21] MEDS: MELATONIN 5 MG TABLETS PO PRN (21:20)
[2018-04-21] MEDS: THIAMINE HCL 100 MG TABLET (FP) PO SCH (21:21)
[2018-04-22 06:44] VITALS: BP 118/69; PULSE 71; TEMP 97.5
[2018-04-22] MEDS: IBUPROFEN 400 MG TABLET (FP) PO PRN (08:24)
--- NOTE | 2018-04-22 10:31 | PN ---
[facility] Progress Note Note: patient would like to leave today stated he is feeling well and stated he has to go to work,stable for discharge today follow up with after care program as arrangement,
--- NOTE | 2018-04-22 10:36 | DS ---
[facility] Detox Discharge Summary Admission Date: 04/09/18 Discharge Date: 04/22/18 - History Present History: Alcohol Dependence, Opioid Dependence Additional Comments: this discharge summary is for rehab discharge Pertinent Past History: gerd nicotine dependence - Physical Exam Results Vital Signs: Vital Signs Temperature 97.5 F L 04/22/18 06:43 Pulse Rate 71 04/22/18 06:43 Respiratory Rate 18 04/22/18 06:43 Blood Pressure 118/69 04/22/18 06:43 O2 Sat by Pulse Oximetry (%) Pertinent Admission Physical Exam Findings: Vital Signs Temperature 97.5 F L 04/22/18 06:43 Pulse Rate 71 04/22/18 06:43 Respiratory Rate 18 04/22/18 06:43 Blood Pressure 118/69 04/22/18 06:43 O2 Sat by Pulse Oximetry (%) - Medication Discharge Medications: Ambulatory Orders Naloxone HCl [Narcan] 4 mg NS ASDIR PRN 04/05/18 - AMA Did Patient Leave Against Medical Advice: No
[2018-04-22] MEDS ORDERED: PT OWN MED DRAWER 7, Y5N ONE (11:01)
== END 2018-04-22 10:20 | disposition home or self-care (01) | DRG 772 ==
LOC: YASAS 14:34 → Y3W 14:35
PROVIDERS: ADMIT Neuromusculoskeletal Medicine & OMM; ATTEND Neuromusculoskeletal Medicine & OMM
PROC: HZ42ZZZ Group Counseling for Substance Abuse Treatment, Cognitive-Behavioral (ICD-10-PCS; principal; 2018-04-09)
DX: F11.20 Opioid dependence, uncomplicated (principal); F10.20 Alcohol dependence, uncomplicated; F17.210 Nicotine dependence, cigarettes, uncomplicated; K21.9 Gastro-esophageal reflux disease without esophagitis

== ENCOUNTER 2018-07-21 13:08 | Inpatient (IN) | payer OTHER ==
[2018-07-21 15:08] VITALS: BMI 25.2
--- NOTE | 2018-07-21 17:09 | HP ---
COWS - Scale Resting Pulse: 1= [place] 81-100 Sweatin=Flushed/Facial Moisture Restless Observation: 3= Extraneous Movement Pupil Size: 1= Pupils >than Normal Bone or Joint Aches: 2= Severe Diffuse Aches Runny Nose/ Eye Tearin= Nasal Congestion GI Upset > 30mins: 2= Nausea/Diarrhea Tremor Observation: 2= Slight Tremor Visible Yawning Observation: 2= >3x During Session Anxiety or Irritability: 1=Feels Anxious/Irritable Goose Flesh Skin: 3=Piloerection COWS Score: 20 CIWA Score Nausea/Vomitin Muscle Tremors: 2 Anxiety: 2 Agitation: 2 Paroxysmal Sweats: 3 Orientation: 0-Oriented Tacttile Disturbances: 0-None Auditory Disturbances: 0-None Visual Disturbances: 2-Mild Sensitivity Headache: 1-Very Mild (left side of the head) CIWA-Ar Total Score: 15 - Admission Criteria OASAS Guidelines: Admission for Medically Managed Detox: Requires at least one of the followin. CIWA greater than 12 2. Seizures within the past 24 hours 3. Delirium tremens within the past 24 hours 4. Hallucinations within the past 24 hours 5. Acute intervention needed for co occurring medical disorder 6. Acute intervention needed for co occurring psychiatric disorder 7. Severe withdrawal that cannot be handled at a lower level of care (continued vomiting, continued diarrhea, abnormal vital signs) requiring intravenous medication and/or fluids 8. Patient presents the following: CIWA greater than 12 Admission Criteria Met: Admission criteria met Admission ROS [facility] Chief Complaint: "I was in [place] and I relapsed 12 days ago, I was sober for 60 days, I need help" Allergies/Adverse Reactions: Allergies Allergy/AdvReac Type Severity Reaction Status Date / Time No Known Drug Allergies Allergy Verified 04/04/18 11:39 Fish Containing Products AdvReac Difficulty Verified 04/04/18 11:39 Breathing History of Present Illness: Patient is a 58 years old man with hx of alcohol and heroin dependence who recently completed detox at this facility. Patient has had several detox treatments. He reports several episodes of overdose as well as blackouts. He expresses interest in rehabilitation after this treatment. Exam Limitations: No Limitations - Ebola screening Have you traveled outside of the country in the last 21 days: No (N) Have you had contact with anyone from an Ebola affected area: No Have you been sick,other than usual withdrawal symptoms: No Do you have a fever: No - Review of Systems Constitutional: Diaphoresis, Loss of Appetite, Night Sweats, Changes in sleep EENT: reports: No Symptoms Reported, Tearing, Nose Congestion Respiratory: reports: No Symptoms reported Cardiac: reports: No Symptoms Reported GI: reports: Diarrhea, Nausea, Poor Appetite, Abdominal cramping : reports: No Symptoms Reported Musculoskeletal: reports: Back Pain, Joint Pain, Muscle Pain, Muscle Weakness Integumentary: reports: Flushing Neuro: reports: Headache, Numbness, Tremors Endocrine: reports: No Symptoms Reported Hematology: reports: Anemia Psychiatric: reports: Orientated x3, Anxious Other Systems: Reviewed and Negative Patient History - Patient Medical History Hx Anemia: Yes (no meds ) Hx Asthma: No Hx Chronic Obstructive Pulmonary Disease (COPD): No Hx Cancer: No Hx Cardiac Disorders: No Hx Congestive Heart Failure: No Hx Hypertension: No Hx Hypercholesterolemia: No Hx Pacemaker: No HX Cerebrovascular Accident: No Hx Seizures: No Hx Dementia: No Hx Diabetes: No Hx Gastrointestinal Disorders: No Hx Liver Disease: No Hx Genitourinary Disorders: No Hx Sexually Transmitted Disorders: No Hx Renal Disease (ESRD): No Hx Thyroid Disease: No Hx Human Immunodeficiency Virus (HIV): No Hx Hepatitis C: Yes (treated (interferon, ribaviron)) Hx Depression: No Hx Suicide Attempt: No Hx Bipolar Disorder: No Hx Schizophrenia: No - Patient Surgical History Past Surgical History: Yes Hx Neurologic Surgery: No Hx Cataract Extraction: No Hx Cardiac Surgery: No Hx Lung Surgery: No Hx Breast Surgery: No Hx Breast Biopsy: No Hx Abdominal Surgery: No Hx Appendectomy: No Hx Cholecystectomy: No Hx Genitourinary Surgery: No Hx Section: No Hx Orthopedic Surgery: Yes (right ankle surgery in 1995) Anesthesia Reaction: No - PPD History Previous Implant?: Yes Documented Results: Negative w/proof Implanted On Prior R Admission?: Yes Date: 04/06/18 Results: 0MM PPD to be Administered?: No - Smoking Cessation Smoking history: Current every day smoker Have you smoked in the past 12 months: Yes Aproximately how many cigarettes per day: 10 Cigars Per Day: 0 Hx Chewing Tobacco Use: No Initiated information on smoking cessation: Yes 'Breaking Loose' booklet given: 07/21/18 - Substance & Tx. History Hx Alcohol Use: Yes Hx Substance Use: Yes Substance Use Type: Alcohol, Heroin, Tranquilizers Hx Substance Use Treatment: Yes - Substances abused Heroin Substance route: Injection Frequency: Daily Amount used: $140-150 PER DAY Age of first use: 28 Date of last use: 07/20/18 Alcohol Substance route: Oral Frequency: Daily Amount used: 2 (16OZ BEER) 1/2 PINT OF LIQUOR Age of first use: 15 Date of last use: 07/20/18 Family Disease History - Family Disease History Family Disease History: Respiratory: Mother (alcoholism, ), Other: Father (/hemophilia), Mother, Brother (one bro AIDS; two murdered) , Sister (one - living ), Daughter (one - adult - healthy) Admission Physical Exam S - Vital Signs Vital Signs: Vital Signs - 24 hr 07/21/18 07/21/18 14:57 16:37 Temperature 97.4 F L 97.4 F L Pulse Rate 87 87 Respiratory 16 16 Rate Blood Pressure 122/75 122/75 - Physical General Appearance: Yes: No Apparent Distress, Nourished, Appropriately Dressed HEENTM: Yes: EOMI, Hearing grossly Normal, Normal ENT Inspection, Normocephalic , Normal Voice, Pharynx Normal, Nasal Congestion, Other (full upper and lower dentures) Respiratory: Yes: Chest Non-Tender, Lungs Clear, Normal Breath Sounds, No Respiratory Distress, No Accessory Muscle Use Neck: Yes: No masses,lesions,Nodules, Supple Breast: Yes: Breast Exam Deferred Cardiology: Yes: Regular Rhythm, Regular Rate, S1, S2 Abdominal: Yes: Normal Bowel Sounds, Non Tender, Soft Genitourinary: Yes: Within Normal Limits Back: Yes: Normal Inspection Musculoskeletal: Yes: Back pain, Muscle Pain Extremities: Yes: Tremors Neurological: Yes: Fully Oriented, Alert, Normal Mood/Affect, Normal Response Integumentary: Yes: Clammy, Track Zuniga (left arm) Lymphatic: Yes: Within Normal Limits - Diagnostic (1) Alcohol dependence with uncomplicated withdrawal Current Visit: Yes Status: Acute (2) Nicotine dependence Current Visit: Yes Status: Acute Qualifiers: Nicotine product type: cigarettes Substance use status: uncomplicated Qualified Code(s): F17.210 - Nicotine dependence, cigarettes, uncomplicated (3) Sedative hypnotic or anxiolytic dependence Current Visit: Yes Status: Acute Comment: . (4) Substance-induced sleep disorder Current Visit: Yes Status: Acute (5) Anemia Current Visit: No Status: Chronic Qualifiers: Anemia type: iron deficiency (6) GERD (gastroesophageal reflux disease) Current Visit: No Status: Chronic Qualifiers: Esophagitis presence: without esophagitis Qualified Code(s): K21.9 - Gastro -esophageal reflux disease without esophagitis (7) Hepatitis C virus infection cured after antiviral drug therapy Current Visit: Yes Status: Resolved Cleared for Admission S - Detox or Rehab [facility] Level of Care: Medically Managed Detox Regimen/Protocol: Methadone/Librium Claeared for Rehab Admission: No Breathalyzer - Breathalyzer Breathalyzer: 0 Urine Drug Screen - Test Device Lot number: [id number] Expiration date: 04/05/20 - Control Is test valid?: Yes - Results Drug screen NEGATIVE: No Urine drug screen results: MOP-Opiates, BZO-Benzodiazepines Inpatient Rehab Admission - Rehab Decision to Admit Inpatient rehab admission?: No
[2018-07-21] MEDS ORDERED: METHOCARBAMOL 500 MG TABLET PO PRN (17:14)
[2018-07-21] MEDS ORDERED: ACETAMINOPHEN 325 MG TABLET (FP) PO PRN ×2 (17:14)
[2018-07-21] MEDS ORDERED: P-EPHED 60MG/TRIPROLIDI 2.5MG TABLET PO PRN (17:14)
[2018-07-21] MEDS ORDERED: MAG HYDROX/AL HYDROX/SIMETH 30 ML UNIT-DOSE CUP PO PRN (17:14)
[2018-07-21] MEDS ORDERED: MAGNESIUM CITRATE 300 ML BOTTLE PO PRN (17:14)
[2018-07-21] MEDS ORDERED: MENTHOL/PHENOL 1 EACH UD MM PRN (17:14)
[2018-07-21] MEDS ORDERED: hydrOXYzine PAMOATE 50 MG CAPSULE (FP) PO PRN (17:14)
[2018-07-21] MEDS ORDERED: BISMUTH SUBSALICYLATE 524 MG/30 ML UD PO PRN (17:14)
[2018-07-21] MEDS ORDERED: MAGNESIUM HYDROX 2400MG/30ML ORAL SUSPENSION 30 ML CUP PO PRN (17:14)
[2018-07-21] MEDS ORDERED: cloNIDine HCL 0.1 MG TABLET PO PRN (17:14)
[2018-07-21] MEDS ORDERED: chlordiazePOXIDE HCL 25 MG CAPSULE PO ONE (17:14)
[2018-07-21] MEDS ORDERED: ONDANSETRON *ODT* 4 MG TABLET SL PRN (17:14)
[2018-07-21] MEDS ORDERED: NICOTINE POLACRILEX 2 MG GUM BUC PRN (17:14)
[2018-07-21] MEDS ORDERED: clonazePAM 0.5 MG TABLET PO PRN (17:14)
[2018-07-21] MEDS ORDERED: NALOXONE HCL 0.4 MG/ML VIAL IVPUSH PRN (17:14)
[2018-07-21] MEDS ORDERED: METHADONE HCL 10 MG TABLET (FOR DETOX USE ONLY) PO ONE ×2 (17:14→23:00)
[2018-07-21] MEDS ORDERED: chlordiazePOXIDE HCL 10 MG CAPSULE PO PRN (17:14)
[2018-07-21] MEDS: NICOTINE 14 MG/24 HOURS TOPICAL PATCH TD SCH (18:17)
[2018-07-21] MEDS: THIAMINE HCL 100 MG TABLET (FP) PO SCH (22:30)
[2018-07-21] MEDS: GABAPENTIN 100 MG CAPSULE (FP) PO SCH (22:30)
[2018-07-21] MEDS: MELATONIN 5 MG TABLETS PO PRN (22:30)
[2018-07-21] MEDS: chlordiazePOXIDE HCL 25 MG CAPSULE PO SCH (22:30)
[2018-07-22] MEDS: chlordiazePOXIDE HCL 25 MG CAPSULE PO SCH ×2 (06:10→13:14)
[2018-07-22] MEDS ORDERED: METHADONE HCL 5 MG TABLET (FOR DETOX USE ONLY) PO ONE (10:00)
[2018-07-22] MEDS: GABAPENTIN 100 MG CAPSULE (FP) PO SCH ×2 (10:54→22:51)
[2018-07-22] MEDS: NICOTINE 14 MG/24 HOURS TOPICAL PATCH TD SCH (10:55)
[2018-07-22] MEDS: PRENATAL VITAMINS W/ FOLIC ACID TABLET (FP) PO SCH (10:56)
[2018-07-22 11:17] LABS: HEMATOCRIT 38.7 % (35.4-49); HEMOGLOBIN 12.9 GM/dL (11.7-16.9); MCH 31.4 pg (25.7-33.7); MCHC 33.4 g/dl (32.0-35.9); MEAN PLT VOLUME 7.7 fl (7.5-11.1); RBC 4.12 M/mm3 (4.00-5.60); RDW 14.3 % (11.9-15.9); WHITE BLOOD COUNT 4.3 K/mm3 (4.0-10.0)
[2018-07-22 11:18] LABS: ALBUMIN 3.6 g/dl (3.4-5.0); BILIRUBIN,TOTAL 0.5 mg/dL (0.2-1); BLOOD UREA NITROGEN 8.1 mg/dL (7-18); CALCIUM 8.6 mg/dL (8.5-10.1); CREATININE 0.8 mg/dL (0.55-1.3); TOT PROT 6.4 g/dl (6.4-8.2)
[2018-07-22 11:30] LABS: PLATELET COUNT 176 K/MM3 (134-434)
--- NOTE | 2018-07-22 12:25 | PN ---
S CIWA - CIWA Score Nausea/Vomitin-Mild Nausea/No Vomiting Muscle Tremors: 3 Anxiety: 2 Agitation: 1-Slight > Activity Paroxysmal Sweats: 1-Minimal Palms Moist Orientation: 1-Uncertain about Date Tacttile Disturbances: 1-Very Mild Itch/Numbness Auditory Disturbances: 0-None Visual Disturbances: 1-Very Mild Sensitivity Headache: 0-None Present CIWA-Ar Total Score: 11 BHS COWS - Scale Resting Pulse: 0= [place] 80 or Below Sweatin= Chills/Flushing Restless Observation: 1= Difficult to Sit Still Pupil Size: 2= Moderately Dilated Bone or Joint Aches: 2= Severe Diffuse Aches Runny Nose/ Eye Tearin= Nasal Congestion GI Upset > 30mins: 2= Nausea/Diarrhea Tremor Observation of Outstretched Hands: 2= Slight Tremor Visible Yawning Observation: 0= None Anxiety or Irritability: 2=Irritable/Anxious Goose Flesh Skin: 0=Smooth Skin COWS Score: 13 S Progress Note (SOAP) Subjective: ACHINESS, POOR SLEEP, ANXIOUS,SHAKY Objective: 07/22/18 12:24 Vital Signs - 24 hr 07/21/18 07/21/18 07/21/18 14:57 16:37 18:39 Temperature 97.4 F L 97.4 F L 98 F Pulse Rate 87 87 77 Respiratory 16 16 16 Rate Blood Pressure 122/75 122/75 127/84 07/21/18 07/22/18 07/22/18 21:44 00:43 03:38 Temperature 96.9 F L Pulse Rate 78 Respiratory 18 18 18 Rate Blood Pressure 122/77 07/22/18 07/22/18 06:42 09:28 Temperature 99.1 F 97.8 F Pulse Rate 78 72 Respiratory 18 18 Rate Blood Pressure 108/65 102/54 L Laboratory Tests 07/22/18 07/22/18 07/22/18 07:30 07:30 07:30 WBC 4.3 RBC 4.12 Hgb 12.9 Hct 38.7 MCV 94.0 MCH 31.4 MCHC 33.4 RDW 14.3 Plt Count 176 D MPV 7.7 Sodium 138 Potassium 4.0 Chloride 104 Carbon Dioxide 28 Anion Gap 6 L BUN 8.1 Creatinine 0.8 Est GFR (CKD-EPI)AfAm 114.13 Est GFR (CKD-EPI)NonAf 98.47 Random Glucose 107 H Calcium 8.6 Total Bilirubin 0.5 AST 28 ALT 37 Alkaline Phosphatase 83 Total Protein 6.4 Albumin 3.6 RPR Titer Nonreactive ALERT, AMBULATORY AND ORIENTED Assessment: 07/22/18 12:24 OPIATE DEP, ETOH DEP WITHDRAWAL Plan: CONTINUE DETOX PROTOCOL CONT ADJUNCTS FOR INCREASED SYMPTOMATIC [id number]
[2018-07-22] MEDS: chlordiazePOXIDE 5 MG CAPSULE PO SCH (22:51)
[2018-07-22] MEDS: THIAMINE HCL 100 MG TABLET (FP) PO SCH (22:51)
[2018-07-22] MEDS: MELATONIN 5 MG TABLETS PO PRN (22:52)
[2018-07-23] MEDS: chlordiazePOXIDE 5 MG CAPSULE PO SCH ×2 (06:32→12:10)
[2018-07-23] MEDS ORDERED: METHADONE HCL 10 MG TABLET (FOR DETOX USE ONLY) PO ONE (10:00)
[2018-07-23] MEDS: GABAPENTIN 100 MG CAPSULE (FP) PO SCH ×2 (10:36→22:07)
[2018-07-23] MEDS: PRENATAL VITAMINS W/ FOLIC ACID TABLET (FP) PO SCH (10:36)
[2018-07-23] MEDS: NICOTINE 14 MG/24 HOURS TOPICAL PATCH TD SCH (10:37)
[2018-07-23] MEDS: IBUPROFEN 400 MG TABLET (FP) PO PRN (11:17)
--- NOTE | 2018-07-23 16:14 | PN ---
S CIWA - CIWA Score Nausea/Vomitin-No Nausea/No Vomiting Muscle Tremors: None Anxiety: 3 Agitation: 2 Paroxysmal Sweats: No Perspiration Orientation: 0-Oriented Tacttile Disturbances: 1-Very Mild Itch/Numbness Auditory Disturbances: 1-Very Mild Visual Disturbances: 2-Mild Sensitivity Headache: 0-None Present CIWA-Ar Total Score: 9 BHS COWS - Scale Resting Pulse: 0= [place] 80 or Below Sweatin= No chills or Flushing Restless Observation: 1= Difficult to Sit Still Pupil Size: 0= Normal to Room Light Bone or Joint Aches: 2= Severe Diffuse Aches Runny Nose/ Eye Tearin= None GI Upset > 30mins: 0= None Tremor Observation of Outstretched Hands: 0= None Yawning Observation: 1= 1-2x During Session Anxiety or Irritability: 2=Irritable/Anxious Goose Flesh Skin: 0=Smooth Skin COWS Score: 6 BHS Progress Note (SOAP) Subjective: Anxious, Body Aches. Objective: PATIENT A & O X 3, OBSERVED AMBULATING ON UNIT UNASSISTED. IN NO ACUTE DISTRESS. 07/23/18 16:14 Vital Signs Temperature 97.1 F L 07/23/18 13:22 Pulse Rate 79 07/23/18 13:22 Respiratory Rate 18 07/23/18 13:22 Blood Pressure 115/76 07/23/18 13:22 O2 Sat by Pulse Oximetry (%) Laboratory Tests 07/22/18 07/22/18 07/22/18 07:30 07:30 07:30 WBC 4.3 RBC 4.12 Hgb 12.9 Hct 38.7 MCV 94.0 MCH 31.4 MCHC 33.4 RDW 14.3 Plt Count 176 D MPV 7.7 Sodium 138 Potassium 4.0 Chloride 104 Carbon Dioxide 28 Anion Gap 6 L BUN 8.1 Creatinine 0.8 Est GFR (CKD-EPI)AfAm 114.13 Est GFR (CKD-EPI)NonAf 98.47 Random Glucose 107 H Calcium 8.6 Total Bilirubin 0.5 AST 28 ALT 37 Alkaline Phosphatase 83 Total Protein 6.4 Albumin 3.6 RPR Titer Nonreactive LABS NOTED. Assessment: 07/23/18 16:14 WITHDRAWAL SYMPTOMS. Plan: CONTINUE DETOX. PATIENT SCHEDULED FOR D/C TOMORROW AM.
[2018-07-23] MEDS ORDERED: chlordiazePOXIDE HCL 10 MG CAPSULE PO PRN (21:00)
[2018-07-23] MEDS: chlordiazePOXIDE HCL 10 MG CAPSULE PO SCH (22:06)
[2018-07-23] MEDS: MELATONIN 5 MG TABLETS PO PRN (22:07)
[2018-07-23] MEDS: THIAMINE HCL 100 MG TABLET (FP) PO SCH (22:07)
[2018-07-24] MEDS: chlordiazePOXIDE HCL 10 MG CAPSULE PO SCH ×3 (05:53→22:25)
[2018-07-24] MEDS ORDERED: METHADONE HCL 5 MG TABLET (FOR DETOX USE ONLY) PO ONE (06:00)
[2018-07-24] MEDS: GABAPENTIN 100 MG CAPSULE (FP) PO SCH ×2 (09:21→22:25)
[2018-07-24] MEDS: NICOTINE 14 MG/24 HOURS TOPICAL PATCH TD SCH (09:22)
[2018-07-24] MEDS: PRENATAL VITAMINS W/ FOLIC ACID TABLET (FP) PO SCH (09:22)
[2018-07-24] MEDS ORDERED: MIDAZOLAM HCL 2 MG/2 ML SINGLE DOSE VIAL ONE (10:13)
[2018-07-24] MEDS ORDERED: ROCURONIUM BROMIDE 50 MG/5 ML VIAL ONE (10:35)
[2018-07-24] MEDS ORDERED: GLYCOPYRROLATE 0.2 MG/1 ML VIAL ONE (11:18)
[2018-07-24] MEDS ORDERED: NEOSTIGMINE METHYLSULFATE 0.5 MG/1 ML - 10 ML MDV ONE (11:18)
[2018-07-24] MEDS: IBUPROFEN 400 MG TABLET (FP) PO PRN (13:31)
--- NOTE | 2018-07-24 14:02 | PN ---
S CIWA - CIWA Score Nausea/Vomitin Muscle Tremors: None Anxiety: 3 Agitation: 1-Slight > Activity Paroxysmal Sweats: No Perspiration Orientation: 0-Oriented Tacttile Disturbances: 0-None Auditory Disturbances: 0-None Visual Disturbances: 0-None Headache: 0-None Present CIWA-Ar Total Score: 9 BHS COWS - Scale Resting Pulse: 1= [place] 81-100 Sweatin= No chills or Flushing Restless Observation: 1= Difficult to Sit Still Pupil Size: 0= Normal to Room Light Bone or Joint Aches: 2= Severe Diffuse Aches Runny Nose/ Eye Tearin= None GI Upset > 30mins: 3= Vomiting/Diarrhea Tremor Observation of Outstretched Hands: 0= None Yawning Observation: 1= 1-2x During Session Anxiety or Irritability: 2=Irritable/Anxious Goose Flesh Skin: 0=Smooth Skin COWS Score: 10 BHS Progress Note (SOAP) Subjective: Body Aches (Chronic), H/A (Chronic). Patient Reports episodes of both Diarrhea and Vomiting last night. Objective: PATIENT A & O X 3, OBSERVED AMBULATING ON UNIT UNASSISTED. IN NO ACUTE DISTRESS. 07/24/18 14:04 Vital Signs Temperature 97.2 F L 07/24/18 09:39 Pulse Rate 81 07/24/18 09:39 Respiratory Rate 18 07/24/18 09:39 Blood Pressure 98/54 L 07/24/18 09:39 O2 Sat by Pulse Oximetry (%) Laboratory Tests 07/22/18 07/22/18 07/22/18 07:30 07:30 07:30 WBC 4.3 RBC 4.12 Hgb 12.9 Hct 38.7 MCV 94.0 MCH 31.4 MCHC 33.4 RDW 14.3 Plt Count 176 D MPV 7.7 Sodium 138 Potassium 4.0 Chloride 104 Carbon Dioxide 28 Anion Gap 6 L BUN 8.1 Creatinine 0.8 Est GFR (CKD-EPI)AfAm 114.13 Est GFR (CKD-EPI)NonAf 98.47 Random Glucose 107 H Calcium 8.6 Total Bilirubin 0.5 AST 28 ALT 37 Alkaline Phosphatase 83 Total Protein 6.4 Albumin 3.6 RPR Titer Nonreactive LABS NOTED. Assessment: 07/24/18 14:04 WITHDRAWAL SYMPTOMS. Plan: CONTINUE DETOX. INCREASE DAILY PO FLUID / WATER INTAKE. PRN PEPETO-BISMOL PO FOR ANY SUBSEQUENT EPISODES OF DIARRHEA. PRN ZOFRAN SL FOR ANY SUBSEQUENT EPISODES OF NAUSEA. PATIENT SCHEDULED FOR DISCHARGE TOMORROW.
[2018-07-24] MEDS: MELATONIN 5 MG TABLETS PO PRN (22:25)
[2018-07-24] MEDS: THIAMINE HCL 100 MG TABLET (FP) PO SCH (22:26)
[2018-07-25] MEDS: GABAPENTIN 100 MG CAPSULE (FP) PO SCH (09:20)
[2018-07-25] MEDS: PRENATAL VITAMINS W/ FOLIC ACID TABLET (FP) PO SCH (09:20)
[2018-07-25] MEDS: IBUPROFEN 400 MG TABLET (FP) PO PRN (09:20)
[2018-07-25] MEDS: NICOTINE 14 MG/24 HOURS TOPICAL PATCH TD SCH (09:21)
[2018-07-25 09:22] VITALS: BP 94/56; PULSE 67; TEMP 97.2
--- NOTE | 2018-07-25 17:20 | DS ---
[facility] Detox Discharge Summary Admission Date: 07/21/18 Discharge Date: 07/25/18 - History Present History: Alcohol Dependence, Sedative Dependence Additional Comments: PATIENT RETURNING HOME, WILL ATTEND LOCAL 12-STEP / NA / AA OUTPATIENT SUPPORT GROUP MEETINGS. PATIENT WAS DISCHARGED FROM DETOX UNIT IN STABLE MEDICAL CONDITION. Pertinent Past History: History Of Anemia, Hep C (Treated), Nicotine Dependence, G.E.R.D. - Physical Exam Results Vital Signs: Vital Signs Temperature 97.2 F L 07/25/18 09:21 Pulse Rate 67 07/25/18 09:21 Respiratory Rate 18 07/25/18 09:21 Blood Pressure 94/56 L 07/25/18 09:21 O2 Sat by Pulse Oximetry (%) Pertinent Admission Physical Exam Findings: WITHDRAWAL SYMPTOMS. Laboratory Tests 07/22/18 07/22/18 07/22/18 07:30 07:30 07:30 WBC 4.3 RBC 4.12 Hgb 12.9 Hct 38.7 MCV 94.0 MCH 31.4 MCHC 33.4 RDW 14.3 Plt Count 176 D MPV 7.7 Sodium 138 Potassium 4.0 Chloride 104 Carbon Dioxide 28 Anion Gap 6 L BUN 8.1 Creatinine 0.8 Est GFR (CKD-EPI)AfAm 114.13 Est GFR (CKD-EPI)NonAf 98.47 Random Glucose 107 H Calcium 8.6 Total Bilirubin 0.5 AST 28 ALT 37 Alkaline Phosphatase 83 Total Protein 6.4 Albumin 3.6 RPR Titer Nonreactive LABS NOTED. - Treatment Hospital Course: Detox Protocol Followed, Detoxed Safely, Responded well, Discharged Condition Good Patient has Accepted a Rehab Referral to: PT. WILL ATTEND LOCAL 12-STEP/NA/AA OUTPATIENT SUPPORT GROUP MEETINGS. - Medication Discharge Medications: Ambulatory Orders Gabapentin [Neurontin] 100 mg PO BID 07/21/18 - Diagnosis (1) Alcohol dependence with uncomplicated withdrawal Status: Acute (2) Nicotine dependence Status: Acute Qualifiers: Nicotine product type: cigarettes Substance use status: uncomplicated Qualified Code(s): F17.210 - Nicotine dependence, cigarettes, uncomplicated (3) Sedative hypnotic or anxiolytic dependence Status: Acute (4) Substance-induced sleep disorder Status: Acute (5) Anemia Status: Chronic Qualifiers: Anemia type: iron deficiency Iron deficiency anemia type: unspecified iron deficiency Qualified Code(s): D50.9 - Iron deficiency anemia, unspecified (6) GERD (gastroesophageal reflux disease) Status: Chronic Qualifiers: Esophagitis presence: without esophagitis Qualified Code(s): K21.9 - Gastro -esophageal reflux disease without esophagitis (7) Hepatitis C Status: Resolved Qualifiers: Viral hepatitis chronicity: chronic Hepatic coma status: without hepatic coma Qualified Code(s): B18.2 - Chronic viral hepatitis C - AMA Did Patient Leave Against Medical Advice: No
--- NOTE | 2018-10-02 09:39 | EKG ---
Test Reason : Blood Pressure : / mmHG Vent. Rate : 072 BPM Atrial Rate : 072 BPM P-R Int : 180 ms QRS Dur : 102 ms QT Int : 400 ms P-R-T Axes : 041 -30 008 degrees QTc Int : 438 ms NORMAL SINUS RHYTHM LEFT AXIS DEVIATION INFERIOR INFARCT , AGE UNDETERMINED ABNORMAL ECG Confirmed by Mayank Ray MD ([id number]) on 10/02/2018 9:39:28 AM Referred By: Confirmed By:Mayank Ray MD
== END 2018-07-25 09:00 | disposition home or self-care (01) | DRG 773 ==
LOC: YASAS 13:08 → Y3N 17:34
PROVIDERS: ADMIT Surgery; ATTEND Surgery
PROC: HZ2ZZZZ Detoxification Services for Substance Abuse Treatment (ICD-10-PCS; principal; 2018-07-21)
DX: F11.23 Opioid dependence with withdrawal (principal); F10.230 Alcohol dependence with withdrawal, uncomplicated; F13.230 Sedative, hypnotic or anxiolytic dependence with withdrawal, uncomplicated; F17.210 Nicotine dependence, cigarettes, uncomplicated; F19.282 Other psychoactive substance dependence with psychoactive substance-induced sleep disorder; D50.9 Iron deficiency anemia, unspecified; K21.9 Gastro-esophageal reflux disease without esophagitis; B18.2 Chronic viral hepatitis C; Z91.013 Allergy to seafood
CPT/HCPCS: 36415; 80053; 85027; 86593; 93005; 93010; Q0162

== ENCOUNTER 2018-08-28 10:57 | Inpatient (IN) | payer OTHER | END 2018-09-02 13:07 | disposition home or self-care (01) | LOC: Y6N 09-01 19:35 → YASAS 10:57 → Y6N 12:53 ==

== ENCOUNTER 2018-10-11 08:31 | Inpatient (IN) | payer OTHER ==
[2018-10-11 09:21] VITALS: BMI 23.6
--- NOTE | 2018-10-11 10:22 | HP ---
COWS - Scale Resting Pulse: 1= [place] 81-100 Sweatin= Chills/Flushing Restless Observation: 1= Difficult to Sit Still Pupil Size: 1= Pupils >than Normal Bone or Joint Aches: 4=Acute Joint/Muscle Pain Runny Nose/ Eye Tearin= Nasal Congestion GI Upset > 30mins: 3= Vomiting/Diarrhea Tremor Observation: 0= None Yawning Observation: 1= 1-2x During Session Anxiety or Irritability: 2=Irritable/Anxious Goose Flesh Skin: 0=Smooth Skin COWS Score: 15 CIWA Score Nausea/Vomitin Muscle Tremors: 3 Anxiety: 4-Mod. Anxious/Guarded Agitation: 4-Moderately Restless Paroxysmal Sweats: 3 Orientation: 0-Oriented Tacttile Disturbances: 0-None Auditory Disturbances: 2-Mild Harshness/Frighten Visual Disturbances: 2-Mild Sensitivity Headache: 4-Moderately Severe CIWA-Ar Total Score: 25 - Admission Criteria OASAS Guidelines: Admission for Medically Managed Detox: Requires at least one of the followin. CIWA greater than 12 2. Seizures within the past 24 hours 3. Delirium tremens within the past 24 hours 4. Hallucinations within the past 24 hours 5. Acute intervention needed for co occurring medical disorder 6. Acute intervention needed for co occurring psychiatric disorder 7. Severe withdrawal that cannot be handled at a lower level of care (continued vomiting, continued diarrhea, abnormal vital signs) requiring intravenous medication and/or fluids 8. Admission [facility] Allergies/Adverse Reactions: Allergies Allergy/AdvReac Type Severity Reaction Status Date / Time Fish Containing Products AdvReac Difficulty Verified 10/11/18 09:13 Breathing History of Present Illness: 58 yr old male pt here requesting detox from opiate use , current daily use 8- 10 bags/daY bundle heroin via inhalation , latest use yesterday morning , current symptoms as above , STOPPED ivdu 2018 , etoh 1/2 pint -1 PINT VODKA /day , latest use yesterday , denies seizures , blackouts , + tremors if not drinking , reports drinking in the mornings to stop tremors , longest sobriety " a long time ago , 1 day short of a year " , denies prior MMTP . QTc 450 ms 02/10/2018 xanax - 1-2 mg every other day cocaine 20 years ago tobacco : 1 ppd PMHX : denies - Ebola screening Have you traveled outside of the country in the last 21 days: No (N) Have you had contact with anyone from an Ebola affected area: No Do you have a fever: No - Review of Systems Constitutional: See HPI EENT: reports: See HPI Respiratory: reports: No Symptoms reported Cardiac: reports: No Symptoms Reported GI: reports: See HPI : reports: No Symptoms Reported Musculoskeletal: reports: See HPI Integumentary: reports: No Symptoms Reported Neuro: reports: See HPI, Headache Endocrine: reports: No Symptoms Reported Psychiatric: reports: Orientated x3, Agitated, Anxious Patient History - Patient Medical History Hx Anemia: Yes (no meds ) Hx Asthma: No Hx Chronic Obstructive Pulmonary Disease (COPD): No Hx Cancer: No Hx Cardiac Disorders: No Hx Congestive Heart Failure: No Hx Hypertension: No Hx Hypercholesterolemia: No Hx Pacemaker: No HX Cerebrovascular Accident: No Hx Seizures: No Hx Dementia: No Hx Diabetes: No Hx Gastrointestinal Disorders: Yes (gerd) Hx Liver Disease: No Hx Genitourinary Disorders: No Hx Sexually Transmitted Disorders: No Hx Renal Disease (ESRD): No Hx Thyroid Disease: No Hx Human Immunodeficiency Virus (HIV): No Hx Hepatitis C: Yes (treated (interferon, ribaviron)) Hx Depression: No Hx Suicide Attempt: No Hx Bipolar Disorder: No Hx Schizophrenia: No - Patient Surgical History Past Surgical History: Yes Hx Neurologic Surgery: No Hx Cataract Extraction: No Hx Cardiac Surgery: No Hx Lung Surgery: No Hx Breast Surgery: No Hx Breast Biopsy: No Hx Abdominal Surgery: No Hx Appendectomy: No Hx Cholecystectomy: No Hx Genitourinary Surgery: No Hx Section: No Hx Orthopedic Surgery: Yes (right ankle surgery in 1995) Other Surgical History: right ankle surgery 1995 Anesthesia Reaction: No - PPD History Date: 04/06/18 Results: 0MM - Smoking Cessation Smoking history: Current every day smoker Have you smoked in the past 12 months: Yes Aproximately how many cigarettes per day: 20 Cigars Per Day: 0 Hx Chewing Tobacco Use: No Initiated information on smoking cessation: No - Substances abused Heroin Substance route: Inhalation Frequency: Daily Amount used: 8-10 bags/bundle/$60 Age of first use: 29 Date of last use: 10/11/18 Alcohol Substance route: Oral Frequency: Daily Amount used: 1/2 pint, 2-3 16 ounces/beer Age of first use: 15 Date of last use: 10/10/18 Alprazolam (Xanax) Substance route: Oral Frequency: 3-6 times per week Amount used: 1/2MG STICKS Age of first use: 40 Date of last use: 10/09/18 Family Disease History - Family Disease History Family Disease History: Respiratory: Mother (alcoholism, ), Other: Father (/hemophilia), Mother, Brother (one bro AIDS; two murdered) , Sister (one - living ), Daughter (one - adult - healthy) Admission Physical Exam S - Vital Signs Vital Signs: Vital Signs - 24 hr 10/11/18 10/11/18 09:15 09:43 Temperature 98.1 F 98.1 F Pulse Rate 86 86 Respiratory 17 17 Rate Blood Pressure 120/79 120/79 - Physical General Appearance: Yes: Disheveled, Moderate Distress, Irritable, Anxious HEENTM: Yes: Hearing grossly Normal, Normocephalic, Normal Voice, Other (upper and lower dentures) Respiratory: Yes: Chest Non-Tender, Lungs Clear, No Respiratory Distress, No Accessory Muscle Use Neck: Yes: No masses,lesions,Nodules, Trachea in good position Cardiology: Yes: Regular Rhythm, Regular Rate, S1, S2, Tachycardia Abdominal: Yes: Non Tender, Soft Musculoskeletal: Yes: Gait Steady Extremities: Yes: Normal Range of Motion, Non-Tender Neurological: Yes: Fully Oriented, Alert Integumentary: Yes: Warm, Track Zuniga - Diagnostic (1) Alcohol dependence with uncomplicated withdrawal Current Visit: Yes Status: Acute (2) Nicotine use disorder Current Visit: No Status: Acute (3) Benzodiazepine dependence Current Visit: Yes Status: Chronic (4) Opioid dependence with withdrawal Current Visit: Yes Status: Acute Breathalyzer - Breathalyzer Breathalyzer: 0 Urine Drug Screen - Test Device Lot number: [id number] Expiration date: 07/06/20 - Control Is test valid?: Yes - Results Drug screen NEGATIVE: No Urine drug screen results: FEN-Fentanyl, MOP-Opiates, OXY-Oxycodone, MTD- Methadone, BZO-Benzodiazepines Inpatient Rehab Admission - Rehab Decision to Admit Inpatient rehab admission?: No
[2018-10-11] MEDS ORDERED: MAG HYDROX/AL HYDROX/SIMETH 30 ML UNIT-DOSE CUP PO PRN (10:25)
[2018-10-11] MEDS ORDERED: BISMUTH SUBSALICYLATE 262 MG/15 ML BTL PO PRN (10:25)
[2018-10-11] MEDS ORDERED: MAGNESIUM CITRATE 300 ML BOTTLE PO PRN (10:25)
[2018-10-11] MEDS ORDERED: MENTHOL/PHENOL 1 EACH UD MM PRN (10:25)
[2018-10-11] MEDS ORDERED: NICOTINE POLACRILEX 2 MG GUM BUC PRN (10:25)
[2018-10-11] MEDS ORDERED: ACETAMINOPHEN 325 MG TABLET (FP) PO PRN ×2 (10:25)
[2018-10-11] MEDS ORDERED: MAGNESIUM HYDROX 2400MG/30ML ORAL SUSPENSION 30 ML CUP PO PRN (10:25)
[2018-10-11] MEDS ORDERED: chlordiazePOXIDE HCL 10 MG CAPSULE PO PRN (10:26)
[2018-10-11] MEDS ORDERED: METHADONE HCL 10 MG TABLET (FOR DETOX USE ONLY) PO ONE (11:20)
[2018-10-11] MEDS: chlordiazePOXIDE HCL 25 MG CAPSULE PO SCH ×2 (13:50→21:40)
[2018-10-11] MEDS: MELATONIN 5 MG TABLETS PO PRN (21:40)
[2018-10-11] MEDS: THIAMINE HCL 100 MG TABLET (FP) PO SCH (21:40)
[2018-10-11] MEDS: IBUPROFEN 400 MG TABLET (FP) PO PRN (21:43)
[2018-10-12] MEDS: chlordiazePOXIDE HCL 25 MG CAPSULE PO SCH ×3 (06:42→22:01)
[2018-10-12] MEDS ORDERED: METHADONE HCL 10 MG TABLET (FOR DETOX USE ONLY) ONE (08:59)
[2018-10-12] MEDS ORDERED: METHADONE HCL 5 MG TABLET (FOR DETOX USE ONLY) ONE (08:59)
[2018-10-12] MEDS ORDERED: METHADONE (DETOX) 20 MG, METHADONE (DETOX) 5 MG PO ONE (10:00)
[2018-10-12] MEDS: PRENATAL VITAMINS W/ FOLIC ACID TABLET (FP) PO SCH (10:34)
[2018-10-12 11:57] LABS: HEMATOCRIT 35.6 % (35.4-49); HEMOGLOBIN 11.8 GM/dL (11.7-16.9); MCH 30.5 pg (25.7-33.7); MCHC 33.1 g/dl (32.0-35.9); MEAN PLT VOLUME 7.7 fl (7.5-11.1); PLATELET COUNT 214 K/MM3 (134-434); RBC 3.87 M/mm3 (4.00-5.60); RDW 13.8 % (11.9-15.9); WHITE BLOOD COUNT 4.3 K/mm3 (4.0-10.0)
[2018-10-12 12:18] LABS: ALBUMIN 3.2 g/dl (3.4-5.0); BILIRUBIN,TOTAL 0.2 mg/dL (0.2-1); BLOOD UREA NITROGEN 12.2 mg/dL (7-18); CALCIUM 8.5 mg/dL (8.5-10.1); CREATININE 0.8 mg/dL (0.55-1.3); POTASSIUM 4.5 mmol/L (3.5-5.1); TOT PROT 5.8 g/dl (6.4-8.2)
--- NOTE | 2018-10-12 12:37 | PN ---
[facility] CIWA - CIWA Score Nausea/Vomitin-No Nausea/No Vomiting Muscle Tremors: 3 Anxiety: 3 Agitation: 4-Moderately Restless Paroxysmal Sweats: 3 Orientation: 0-Oriented Tacttile Disturbances: 0-None Auditory Disturbances: 0-None Visual Disturbances: 0-None Headache: 0-None Present CIWA-Ar Total Score: 13 BHS COWS - Scale Resting Pulse: 0= [place] 80 or Below Sweatin= Chills/Flushing Restless Observation: 1= Difficult to Sit Still Pupil Size: 0= Normal to Room Light Bone or Joint Aches: 2= Severe Diffuse Aches Runny Nose/ Eye Tearin= Nasal Congestion GI Upset > 30mins: 0= None Tremor Observation of Outstretched Hands: 1= Tremor [place], Not Seen Yawning Observation: 1= 1-2x During Session Anxiety or Irritability: 2=Irritable/Anxious Goose Flesh Skin: 0=Smooth Skin COWS Score: 9 S Progress Note (SOAP) Subjective: sweats shakes interrupted sleep body aches agitation restless Objective: 10/12/18 12:36 Vital Signs Temperature 96.4 F L 10/12/18 09:34 Pulse Rate 71 10/12/18 09:34 Respiratory Rate 18 10/12/18 09:34 Blood Pressure 116/70 10/12/18 09:34 O2 Sat by Pulse Oximetry (%) Laboratory Tests 10/12/18 10/12/18 08:30 08:30 WBC 4.3 RBC 3.87 L Hgb 11.8 Hct 35.6 MCV 92.0 MCH 30.5 MCHC 33.1 RDW 13.8 Plt Count 214 MPV 7.7 Sodium 142 Potassium 4.5 Chloride 104 Carbon Dioxide 29 Anion Gap 9 BUN 12.2 Creatinine 0.8 Est GFR (CKD-EPI)AfAm 114.13 Est GFR (CKD-EPI)NonAf 98.47 Random Glucose 78 Calcium 8.5 Total Bilirubin 0.2 AST 15 ALT 24 Alkaline Phosphatase 84 Total Protein 5.8 L Albumin 3.2 L labs noted aaox3 ambulating no acute distress Assessment: 10/12/18 12:36 withdrawal sx Plan: continue detox increase fluids
[2018-10-12] MEDS: THIAMINE HCL 100 MG TABLET (FP) PO SCH (22:01)
[2018-10-12] MEDS: hydrOXYzine PAMOATE 25 MG CAPSULE (FP) PO PRN (22:03)
[2018-10-12] MEDS: MELATONIN 5 MG TABLETS PO PRN (22:03)
[2018-10-13] MEDS: chlordiazePOXIDE 5 MG CAPSULE PO SCH ×3 (06:28→23:02)
[2018-10-13] MEDS ORDERED: METHADONE HCL 10 MG TABLET (FOR DETOX USE ONLY) PO ONE (10:00)
[2018-10-13] MEDS: PRENATAL VITAMINS W/ FOLIC ACID TABLET (FP) PO SCH (10:31)
--- NOTE | 2018-10-13 12:06 | PN ---
[facility] CIWA - CIWA Score Nausea/Vomitin-No Nausea/No Vomiting Muscle Tremors: 2 Anxiety: 3 Agitation: 2 Paroxysmal Sweats: 2 Orientation: 0-Oriented Tacttile Disturbances: 0-None Auditory Disturbances: 0-None Visual Disturbances: 0-None Headache: 2-Mild CIWA-Ar Total Score: 11 S COWS - Scale Resting Pulse: 0= [place] 80 or Below Sweatin= Beads of Sweat on Face Restless Observation: 1= Difficult to Sit Still Pupil Size: 0= Normal to Room Light Bone or Joint Aches: 1= Mild Discomfort Runny Nose/ Eye Tearin= None GI Upset > 30mins: 0= None Tremor Observation of Outstretched Hands: 2= Slight Tremor Visible Yawning Observation: 1= 1-2x During Session Anxiety or Irritability: 2=Irritable/Anxious Goose Flesh Skin: 0=Smooth Skin COWS Score: 10 [facility] Progress Note (SOAP) Subjective: c/o irritability, anxiety, sweats, shakes, and headache. Objective: 10/13/18 12:05 Vital Signs 10/13/18 10/13/18 06:00 09:17 Temperature 97.2 F L 97.7 F Pulse Rate 63 70 Respiratory 18 18 Rate Blood Pressure 111/63 114/75 Lab Results WBC 4.3 K/mm3 (4.0-10.0) 10/12/18 08:30 RBC 3.87 M/mm3 (4.00-5.60) L 10/12/18 08:30 Hgb 11.8 GM/dL (11.7-16.9) 10/12/18 08:30 Hct 35.6 % (35.4-49) 10/12/18 08:30 MCV 92.0 fl (80-96) 10/12/18 08:30 MCHC 33.1 g/dl (32.0-35.9) 10/12/18 08:30 RDW 13.8 % (11.9-15.9) 10/12/18 08:30 Plt Count 214 K/MM3 (134-434) 10/12/18 08:30 Sodium 142 mmol/L (136-145) 10/12/18 08:30 Potassium 4.5 mmol/L (3.5-5.1) 10/12/18 08:30 Chloride 104 mmol/L (98-107) 10/12/18 08:30 Carbon Dioxide 29 mmol/L (21-32) 10/12/18 08:30 Anion Gap 9 MMOL/L (8-16) 10/12/18 08:30 BUN 12.2 mg/dL (7-18) 10/12/18 08:30 Creatinine 0.8 mg/dL (0.55-1.3) 10/12/18 08:30 Random Glucose 78 mg/dL (74-106) 10/12/18 08:30 Calcium 8.5 mg/dL (8.5-10.1) 10/12/18 08:30 Labs noted. Assessment: 10/13/18 12:05 AOX3, in no acute respiratory distress. Full ROM, ambulating in the unit. Withdrawal symptoms. Plan: continue detox.
[2018-10-13] MEDS: IBUPROFEN 400 MG TABLET (FP) PO PRN ×2 (12:31→23:05)
[2018-10-13] MEDS: THIAMINE HCL 100 MG TABLET (FP) PO SCH (23:02)
[2018-10-13] MEDS: MELATONIN 5 MG TABLETS PO PRN (23:05)
[2018-10-13] MEDS: hydrOXYzine PAMOATE 25 MG CAPSULE (FP) PO PRN (23:05)
[2018-10-14] MEDS ORDERED: chlordiazePOXIDE HCL 10 MG CAPSULE PO PRN
[2018-10-14] MEDS: chlordiazePOXIDE HCL 10 MG CAPSULE PO SCH ×3 (06:17→22:50)
[2018-10-14] MEDS ORDERED: METHADONE HCL 10 MG TABLET (FOR DETOX USE ONLY) ONE (09:20)
[2018-10-14] MEDS ORDERED: METHADONE HCL 5 MG TABLET (FOR DETOX USE ONLY) ONE (09:21)
[2018-10-14] MEDS ORDERED: METHADONE (DETOX) 10 MG, METHADONE (DETOX) 5 MG PO ONE (10:00)
[2018-10-14] MEDS: PRENATAL VITAMINS W/ FOLIC ACID TABLET (FP) PO SCH (10:45)
--- NOTE | 2018-10-14 16:59 | PN ---
[facility] CIWA - CIWA Score Nausea/Vomitin-Mild Nausea/No Vomiting Muscle Tremors: 2 Anxiety: 3 Agitation: 2 Paroxysmal Sweats: 3 Orientation: 0-Oriented Tacttile Disturbances: 0-None Auditory Disturbances: 0-None Visual Disturbances: 0-None Headache: 0-None Present CIWA-Ar Total Score: 11 S COWS - Scale Resting Pulse: 0= [place] 80 or Below Sweatin= Chills/Flushing Restless Observation: 3= Extraneous Movement Pupil Size: 0= Normal to Room Light Bone or Joint Aches: 1= Mild Discomfort Runny Nose/ Eye Tearin= None GI Upset > 30mins: 1= Stomach Cramp Tremor Observation of Outstretched Hands: 2= Slight Tremor Visible Yawning Observation: 0= None Anxiety or Irritability: 1=Feels Anxious/Irritable Goose Flesh Skin: 0=Smooth Skin COWS Score: 9 S Progress Note (SOAP) Subjective: Interrupted sleep Objective: 10/14/18 16:58 Last Vital Signs Temp Pulse Resp BP Pulse Ox 97.9 F 74 18 100/63 10/14/18 16:57 10/14/18 16:57 10/14/18 16:57 10/14/18 16:57 Laboratory Tests 10/12/18 10/12/18 10/12/18 08:30 08:30 08:30 WBC 4.3 RBC 3.87 L Hgb 11.8 Hct 35.6 MCV 92.0 MCH 30.5 MCHC 33.1 RDW 13.8 Plt Count 214 MPV 7.7 Sodium 142 Potassium 4.5 Chloride 104 Carbon Dioxide 29 Anion Gap 9 BUN 12.2 Creatinine 0.8 Est GFR (CKD-EPI)AfAm 114.13 Est GFR (CKD-EPI)NonAf 98.47 Random Glucose 78 Calcium 8.5 Total Bilirubin 0.2 AST 15 ALT 24 Alkaline Phosphatase 84 Total Protein 5.8 L Albumin 3.2 L RPR Titer Nonreactive Labs reviewed Assessment: 10/14/18 16:58 Withdrawal sxs Plan: Continue detox Encouraged PO water intake
[2018-10-14] MEDS: hydrOXYzine PAMOATE 25 MG CAPSULE (FP) PO PRN (22:50)
[2018-10-14] MEDS: THIAMINE HCL 100 MG TABLET (FP) PO SCH (22:50)
[2018-10-14] MEDS: MELATONIN 5 MG TABLETS PO PRN (22:50)
[2018-10-15] MEDS ORDERED: chlordiazePOXIDE HCL 10 MG CAPSULE PO ONE (05:00)
[2018-10-15] MEDS ORDERED: METHADONE HCL 10 MG TABLET (FOR DETOX USE ONLY) PO ONE (10:00)
[2018-10-15] MEDS: PRENATAL VITAMINS W/ FOLIC ACID TABLET (FP) PO SCH (10:06)
[2018-10-15] MEDS: IBUPROFEN 400 MG TABLET (FP) PO PRN ×2 (10:08→17:04)
--- NOTE | 2018-10-15 12:23 | PN ---
[facility] CIWA - CIWA Score Nausea/Vomitin-No Nausea/No Vomiting Muscle Tremors: 2 Anxiety: 1-Mildly Anxious Agitation: 2 Paroxysmal Sweats: No Perspiration Orientation: 0-Oriented Tacttile Disturbances: 0-None Auditory Disturbances: 0-None Visual Disturbances: 0-None Headache: 0-None Present CIWA-Ar Total Score: 5 BHS COWS - Scale Resting Pulse: 0= [place] 80 or Below Sweatin= No chills or Flushing Restless Observation: 0= Sits Still Pupil Size: 0= Normal to Room Light Bone or Joint Aches: 1= Mild Discomfort Runny Nose/ Eye Tearin= Nasal Congestion GI Upset > 30mins: 0= None Tremor Observation of Outstretched Hands: 1= Tremor [place], Not Seen Yawning Observation: 1= 1-2x During Session Anxiety or Irritability: 1=Feels Anxious/Irritable Goose Flesh Skin: 0=Smooth Skin COWS Score: 5 [facility] Progress Note (SOAP) Subjective: anxiety interrupted sleep Objective: 10/15/18 12:22 Vital Signs Temperature 98.2 F 10/15/18 09:43 Pulse Rate 67 10/15/18 09:43 Respiratory Rate 18 10/15/18 09:43 Blood Pressure 100/53 L 10/15/18 09:43 O2 Sat by Pulse Oximetry (%) aaox3 ambulating no acute distress Assessment: 10/15/18 12:23 mild withdrawal sx Plan: continue detox d/c in am
[2018-10-15] MEDS: THIAMINE HCL 100 MG TABLET (FP) PO SCH (22:07)
[2018-10-15] MEDS: hydrOXYzine PAMOATE 25 MG CAPSULE (FP) PO PRN (22:07)
[2018-10-15] MEDS: MELATONIN 5 MG TABLETS PO PRN (22:07)
[2018-10-16] MEDS ORDERED: METHADONE HCL 5 MG TABLET (FOR DETOX USE ONLY) PO ONE (06:00)
--- NOTE | 2018-10-16 09:12 | DS ---
[facility] Detox Discharge Summary Admission Date: 10/11/18 Discharge Date: 10/16/18 - History Present History: Alcohol Dependence, Cocaine Dependence, Opioid Dependence, Sedative Dependence - Physical Exam Results Vital Signs: Vital Signs Temperature 97.5 F L 10/16/18 07:01 Pulse Rate 97 H 10/16/18 07:01 Respiratory Rate 18 10/16/18 07:01 Blood Pressure 98/60 10/16/18 07:01 O2 Sat by Pulse Oximetry (%) Pertinent Admission Physical Exam Findings: pt arrived in withdrawals Laboratory Tests 10/12/18 10/12/18 10/12/18 08:30 08:30 08:30 WBC 4.3 RBC 3.87 L Hgb 11.8 Hct 35.6 MCV 92.0 MCH 30.5 MCHC 33.1 RDW 13.8 Plt Count 214 MPV 7.7 Sodium 142 Potassium 4.5 Chloride 104 Carbon Dioxide 29 Anion Gap 9 BUN 12.2 Creatinine 0.8 Est GFR (CKD-EPI)AfAm 114.13 Est GFR (CKD-EPI)NonAf 98.47 Random Glucose 78 Calcium 8.5 Total Bilirubin 0.2 AST 15 ALT 24 Alkaline Phosphatase 84 Total Protein 5.8 L Albumin 3.2 L RPR Titer Nonreactive today pt is aaox3 ambulating no acute distress no s/s of withdrawals - Treatment Hospital Course: Detox Protocol Followed, Detoxed Safely, Responded well, Discharged Condition Good, Rehab Referral Accepted Patient has Accepted a Rehab Referral to: pt declined rehab; referral provided - Medication Discharge Medications: Ambulatory Orders Ibuprofen [Motrin -] 800 mg PO BID 10/11/18 - Diagnosis (1) Alcohol dependence with uncomplicated withdrawal Current Visit: Yes Status: Chronic (2) Opioid dependence with withdrawal Current Visit: Yes Status: Chronic (3) Cocaine dependence Current Visit: Yes Status: Chronic Qualifiers: Substance use status: uncomplicated Qualified Code(s): F14.20 - Cocaine dependence, uncomplicated (4) Nicotine dependence Current Visit: Yes Status: Chronic Qualifiers: Nicotine product type: cigarettes Substance use status: uncomplicated Qualified Code(s): F17.210 - Nicotine dependence, cigarettes, uncomplicated (5) Sedative hypnotic or anxiolytic dependence Current Visit: Yes Status: Chronic (6) Substance-induced sleep disorder Current Visit: No Status: Acute (7) GERD (gastroesophageal reflux disease) Current Visit: Yes Status: Chronic Qualifiers: Esophagitis presence: without esophagitis Qualified Code(s): K21.9 - Gastro -esophageal reflux disease without esophagitis (8) Nicotine dependence Current Visit: Yes Status: Chronic Qualifiers: Nicotine product type: cigarettes Substance use status: uncomplicated Qualified Code(s): F17.210 - Nicotine dependence, cigarettes, uncomplicated (9) Depression Current Visit: No Status: Suspected Qualifiers: Depression Type: dysthymia Qualified Code(s): F34.1 - Dysthymic disorder (10) Hepatitis C Current Visit: Yes Status: Chronic Qualifiers: Viral hepatitis chronicity: chronic Hepatic coma status: without hepatic coma Qualified Code(s): B18.2 - Chronic viral hepatitis C - AMA Did Patient Leave Against Medical Advice: No
[2018-10-16 09:50] VITALS: BP 125/66; PULSE 81; TEMP 98.2
[2018-10-16] MEDS: PRENATAL VITAMINS W/ FOLIC ACID TABLET (FP) PO SCH (10:13)
== END 2018-10-16 11:30 | disposition home or self-care (01) | DRG 773 ==
LOC: YASAS 08:31 → Y6N 10:55
PROVIDERS: ADMIT Surgery; ATTEND Surgery
PROC: HZ2ZZZZ Detoxification Services for Substance Abuse Treatment (ICD-10-PCS; principal; 2018-10-11)
DX: F11.23 Opioid dependence with withdrawal (principal); F10.230 Alcohol dependence with withdrawal, uncomplicated; F13.20 Sedative, hypnotic or anxiolytic dependence, uncomplicated; F14.20 Cocaine dependence, uncomplicated; F17.210 Nicotine dependence, cigarettes, uncomplicated; F19.282 Other psychoactive substance dependence with psychoactive substance-induced sleep disorder; F34.1 Dysthymic disorder; B18.2 Chronic viral hepatitis C; K21.9 Gastro-esophageal reflux disease without esophagitis
CPT/HCPCS: 36415; 80053; 85027; 86593

== ENCOUNTER 2018-11-19 08:56 | Inpatient (IN) | payer OTHER ==
[2018-11-19 09:12] VITALS: BMI 23.3
--- NOTE | 2018-11-19 09:32 | HP ---
COWS - Scale Resting Pulse: 1= [place] 81-100 Sweatin= Chills/Flushing Restless Observation: 1= Difficult to Sit Still Pupil Size: 1= Pupils >than Normal Bone or Joint Aches: 4=Acute Joint/Muscle Pain Runny Nose/ Eye Tearin= Runny Nose/Eyes GI Upset > 30mins: 5=Frequent Vomit/Diarrhea Tremor Observation: 1= Tremor [place], Not Seen Yawning Observation: 1= 1-2x During Session Anxiety or Irritability: 2=Irritable/Anxious Goose Flesh Skin: 3=Piloerection (appropriate for detox) COWS Score: 22 CIWA Score Nausea/Vomitin Muscle Tremors: 3 Anxiety: 4-Mod. Anxious/Guarded Agitation: 2 Paroxysmal Sweats: 3 Orientation: 0-Oriented Tacttile Disturbances: 0-None Auditory Disturbances: 0-None Visual Disturbances: 0-None Headache: 4-Moderately Severe (appropriate for detox) CIWA-Ar Total Score: 22 - Admission Criteria OASAS Guidelines: Admission for Medically Managed Detox: Requires at least one of the followin. CIWA greater than 12 2. Seizures within the past 24 hours 3. Delirium tremens within the past 24 hours 4. Hallucinations within the past 24 hours 5. Acute intervention needed for co occurring medical disorder 6. Acute intervention needed for co occurring psychiatric disorder 7. Severe withdrawal that cannot be handled at a lower level of care (continued vomiting, continued diarrhea, abnormal vital signs) requiring intravenous medication and/or fluids 8. Admitting History and Physical - Admission Chief Complaint: " I can't do it anymore. It's getting old. I've got to stop. " History of Present Illness: 58 year old male with alcohol dependence with withdrawals. He is drinking 1/2 pint of Henn[place] daily or bourbon. He last drank yesterday morning. He did not have any recent blackouts, but has had blackouts in the past. He denies withdrawal seizures. He Xanax 2 2mg tabs once or twice a day, last used yesterday in the morning. He smokes 10 cigg per day, since 19 years old. He is using heroin 10 bags per day for the past 3 weeks, last used yesterday. PMH: None Psurg: Right Ankle surgery to remove foreign body 1990's Psych: None Patient is domiciled and lives with . Patient is appropriate for detox as CIWA is high and wants to continue to rehab this time. 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 It's getting old. I've got to stop." Allergies/Adverse Reactions: Allergies Allergy/AdvReac Type Severity Reaction Status Date / Time Fish Containing Products AdvReac Difficulty Verified 11/19/18 09:07 Breathing History of Present Illness: 58 year old male with alcohol dependence with withdrawals. He is drinking 1/2 pint of Henn[place] daily or bourbon. He last drank yesterday morning. He did not have any recent blackouts, but has had blackouts in the past. He denies withdrawal seizures. He Xanax 2 2mg tabs once or twice a day, last used yesterday in the morning. He smokes 10 cigg per day, since 19 years old. He is using heroin 10 bags per day for the past 3 weeks, last used yesterday. PMH: None Psurg: Right Ankle surgery to remove foreign body Psych: None Patient is domiciled and lives with . Patient is appropriate for detox as CIWA is high and wants to continue to rehab this time. Exam Limitations: No Limitations - Ebola screening Have you traveled outside of the country in the last 21 days: No Have you had contact with anyone from an Ebola affected area: No Have you been sick,other than usual withdrawal symptoms: No Do you have a fever: No - Review of Systems Constitutional: Diaphoresis EENT: reports: No Symptoms Reported Respiratory: reports: No Symptoms reported Cardiac: reports: No Symptoms Reported GI: reports: Nausea, Vomiting, Abdominal cramping : reports: No Symptoms Reported Musculoskeletal: reports: Back Pain, Muscle Pain Integumentary: reports: No Symptoms Reported Neuro: reports: No Symptoms reported Endocrine: reports: No Symptoms Reported Hematology: reports: No Symptoms Reported Psychiatric: reports: Agitated, Anxious Other Systems: Reviewed and Negative Patient History - Patient Medical History Hx Anemia: Yes (no meds ) Hx Asthma: No Hx Chronic Obstructive Pulmonary Disease (COPD): No Hx Cancer: No Hx Cardiac Disorders: No Hx Congestive Heart Failure: No Hx Hypertension: No Hx Hypercholesterolemia: No Hx Pacemaker: No HX Cerebrovascular Accident: No Hx Seizures: No Hx Dementia: No Hx Diabetes: No Hx Gastrointestinal Disorders: Yes (gerd) Hx Liver Disease: No Hx Genitourinary Disorders: No Hx Sexually Transmitted Disorders: No Hx Renal Disease (ESRD): No Hx Thyroid Disease: No Hx Human Immunodeficiency Virus (HIV): No Hx Hepatitis C: Yes (treated (interferon, ribaviron)) Hx Depression: No Hx Suicide Attempt: No Hx Bipolar Disorder: No Hx Schizophrenia: No - Patient Surgical History Past Surgical History: Yes Hx Neurologic Surgery: No Hx Cataract Extraction: No Hx Cardiac Surgery: No Hx Lung Surgery: No Hx Breast Surgery: No Hx Breast Biopsy: No Hx Abdominal Surgery: No Hx Appendectomy: No Hx Cholecystectomy: No Hx Genitourinary Surgery: No Hx Section: No Hx Orthopedic Surgery: Yes (right ankle surgery in 1995) Other Surgical History: right ankle surgery 1995 Anesthesia Reaction: No - PPD History Previous Implant?: Yes Documented Results: Negative w/proof Date: 04/06/18 Results: 0MM PPD to be Administered?: No - Smoking Cessation Smoking history: Current every day smoker Have you smoked in the past 12 months: Yes Aproximately how many cigarettes per day: 20 Cigars Per Day: 0 Hx Chewing Tobacco Use: No Initiated information on smoking cessation: Yes 'Breaking Loose' booklet given: 11/19/18 - Substance & Tx. History Hx Alcohol Use: Yes (see ROS) Hx Substance Use: Yes Substance Use Type: Alcohol, Cocaine, Heroin Hx Substance Use Treatment: Yes (multiple other detoxes in the past.) - Substances abused Heroin Substance route: Inhalation Frequency: Daily Amount used: 10 bags/bundle/$60 Age of first use: 29 Date of last use: 11/18/18 Alcohol Substance route: Oral Frequency: Daily Amount used: 1/2 pint, 2-3 16 ounces/beer Age of first use: 15 Date of last use: 11/18/18 Alprazolam (Xanax) Substance route: Oral Frequency: 3-6 times per week Amount used: 1/2MG STICKS Age of first use: 40 Date of last use: 11/18/18 Admission Physical Exam [facility] - Vital Signs Vital Signs: Vital Signs - 24 hr 11/19/18 09:09 Temperature 97.5 F L Pulse Rate 100 H Respiratory 14 Rate Blood Pressure 127/83 - Physical General Appearance: Yes: Moderate Distress HEENTM: Yes: EOMI, Hearing grossly Normal, Normocephalic, Normal Voice, ALYSSA, Pharynx Normal Respiratory: Yes: Chest Non-Tender, Lungs Clear, Normal Breath Sounds, No Respiratory Distress, No Accessory Muscle Use Neck: Yes: No masses,lesions,Nodules, Supple, Trachea in good position Breast: Yes: Within Normal Limits Cardiology: Yes: S1, S2, Tachycardia Abdominal: Yes: Non Tender, Soft, Increased Bowel Sounds Genitourinary: Yes: Within Normal Limits Back: Yes: Within Normal Limits Musculoskeletal: Yes: full range of Motion, Gait Steady, Pelvis Stable Extremities: Yes: Normal Capillary Refill, Normal Inspection, Normal Range of Motion, Non-Tender Neurological: Yes: air chipper II-XII NML intact, Fully Oriented, Alert, Motor Strength 5/5 Integumentary: Yes: Normal Color, Diaphoresis Lymphatic: Yes: Within Normal Limits - Diagnostic (1) Alcohol dependence with uncomplicated withdrawal Current Visit: Yes Status: Chronic (2) GERD (gastroesophageal reflux disease) Current Visit: Yes Status: Chronic Qualifiers: Esophagitis presence: without esophagitis Qualified Code(s): K21.9 - Gastro -esophageal reflux disease without esophagitis (3) Hepatitis C Current Visit: Yes Status: Chronic Qualifiers: Viral hepatitis chronicity: chronic Hepatic coma status: without hepatic coma Qualified Code(s): B18.2 - Chronic viral hepatitis C (4) Nicotine dependence Current Visit: Yes Status: Chronic Qualifiers: Nicotine product type: cigarettes Substance use status: uncomplicated Qualified Code(s): F17.210 - Nicotine dependence, cigarettes, uncomplicated Comment: . (5) Opioid dependence with withdrawal Current Visit: Yes Status: Chronic Cleared for Admission [facility] - Detox or Rehab [facility] Level of Care: Medically Managed Detox Regimen/Protocol: Methadone/Librium Claeared for Rehab Admission: No Screened but not Admitted - Documentation of Visit Screened but not Admitted: No Breathalyzer - Breathalyzer Breathalyzer: 0 (last drank yesterday) Vital Signs - Vital Signs Vital signs refused: No Temperature: 97.5 F Temperature source: Oral Pulse Rate: 100 Respiratory Rate: 14 Blood Pressure: 127/83 BP Location: Left Arm Blood Pressure position: Sitting - Height Height: 5 ft 7 in - Weight Weight: 149 lb Weight measurement method: Standing scale - BMI Body Mass Index (BMI): 23.3 - Bowel Function Bowel Movement: Yes Urine Drug Screen - Test Device Lot number: [id number] Expiration date: 07/06/20 - Control Is test valid?: Yes - Results Drug screen NEGATIVE: No Urine drug screen results: FEN-Fentanyl, MOP-Opiates, OXY-Oxycodone, MTD- Methadone, BZO-Benzodiazepines Inpatient Rehab Admission - Rehab Decision to Admit Inpatient rehab admission?: No
[2018-11-19] MEDS ORDERED: MAGNESIUM CITRATE 300 ML BOTTLE PO PRN (09:45)
[2018-11-19] MEDS ORDERED: cloNIDine HCL 0.1 MG TABLET PO PRN (09:45)
[2018-11-19] MEDS ORDERED: BISMUTH SUBSALICYLATE 262 MG/15 ML BTL PO PRN (09:45)
[2018-11-19] MEDS ORDERED: IBUPROFEN 400 MG TABLET (FP) PO PRN (09:45)
[2018-11-19] MEDS ORDERED: ACETAMINOPHEN 325 MG TABLET (FP) PO PRN ×2 (09:45)
[2018-11-19] MEDS ORDERED: METHADONE HCL 10 MG TABLET (FOR DETOX USE ONLY) PO ONE (09:45)
[2018-11-19] MEDS ORDERED: MAGNESIUM HYDROX 2400MG/30ML ORAL SUSPENSION 30 ML CUP PO PRN (09:45)
[2018-11-19] MEDS ORDERED: hydrOXYzine PAMOATE 25 MG CAPSULE (FP) PO PRN (09:45)
[2018-11-19] MEDS ORDERED: MENTHOL/PHENOL 1 EACH UD MM PRN (09:45)
[2018-11-19] MEDS ORDERED: MELATONIN 5 MG TABLETS PO PRN (09:45)
[2018-11-19] MEDS ORDERED: MAG HYDROX/AL HYDROX/SIMETH 30 ML UNIT-DOSE CUP PO PRN (09:45)
[2018-11-19] MEDS: chlordiazePOXIDE HCL 25 MG CAPSULE PO SCH ×3 (10:56→22:16)
[2018-11-19] MEDS: PRENATAL VITAMINS W/ FOLIC ACID TABLET (FP) PO SCH (10:57)
[2018-11-19] MEDS: NICOTINE 14 MG/24 HOURS TOPICAL PATCH TD SCH (10:57)
[2018-11-19 13:01] LABS: MCH 30.6 pg (25.7-33.7); MCHC 34.1 g/dl (32.0-35.9); MEAN CELL VOLUME 89.8 fl (80-96); MEAN PLT VOLUME 7.1 fl (7.5-11.1); PLATELET COUNT 364 K/MM3 (134-434); RBC 4.56 M/mm3 (4.00-5.60); RDW 13.9 % (11.9-15.9); WHITE BLOOD COUNT 5.4 K/mm3 (4.0-10.0)
[2018-11-19 13:10] LABS: ALBUMIN 4.1 g/dl (3.4-5.0); BILIRUBIN,TOTAL 0.5 mg/dL (0.2-1); BLOOD UREA NITROGEN 22.2 mg/dL (7-18); CALCIUM 9.3 mg/dL (8.5-10.1); POTASSIUM 4.6 mmol/L (3.5-5.1); TOT PROT 7.8 g/dl (6.4-8.2)
[2018-11-19] MEDS: chlordiazePOXIDE HCL 25 MG CAPSULE PO PRN (14:10)
[2018-11-19] MEDS: THIAMINE HCL 100 MG TABLET (FP) PO SCH (21:29)
[2018-11-20] MEDS: chlordiazePOXIDE HCL 25 MG CAPSULE PO PRN (01:35)
[2018-11-20] MEDS: chlordiazePOXIDE HCL 25 MG CAPSULE PO SCH ×2 (06:09→10:35)
[2018-11-20] MEDS ORDERED: METHADONE HCL 10 MG TABLET (FOR DETOX USE ONLY) ONE (08:52)
[2018-11-20] MEDS ORDERED: METHADONE HCL 5 MG TABLET (FOR DETOX USE ONLY) ONE (08:52)
[2018-11-20] MEDS ORDERED: METHADONE (DETOX) 20 MG, METHADONE (DETOX) 5 MG PO ONE (10:00)
[2018-11-20] MEDS: PRENATAL VITAMINS W/ FOLIC ACID TABLET (FP) PO SCH (10:35)
[2018-11-20] MEDS: NICOTINE 14 MG/24 HOURS TOPICAL PATCH TD SCH (10:37)
[2018-11-20] MEDS ORDERED: WITCH HAZEL 50% (TUCKS) 40 PAD/JAR PAD TP PRN (13:43)
--- NOTE | 2018-11-20 13:45 | PN ---
[facility] CIWA - CIWA Score Nausea/Vomitin-No Nausea/No Vomiting Muscle Tremors: 3 Anxiety: 4-Mod. Anxious/Guarded Agitation: 4-Moderately Restless Paroxysmal Sweats: 3 Orientation: 0-Oriented Tacttile Disturbances: 2-Mild Itch/Numbness/Burn Auditory Disturbances: 0-None Visual Disturbances: 0-None Headache: 0-None Present CIWA-Ar Total Score: 16 BHS COWS - Scale Resting Pulse: 1= [place] 81-100 Sweatin= Chills/Flushing Restless Observation: 1= Difficult to Sit Still Pupil Size: 0= Normal to Room Light Bone or Joint Aches: 2= Severe Diffuse Aches Runny Nose/ Eye Tearin= None GI Upset > 30mins: 2= Nausea/Diarrhea Tremor Observation of Outstretched Hands: 2= Slight Tremor Visible Yawning Observation: 1= 1-2x During Session Anxiety or Irritability: 2=Irritable/Anxious Goose Flesh Skin: 3=Piloerection COWS Score: 15 BHS Progress Note (SOAP) Subjective: Anxious, Sweating, Tremors, Diarrhea, Body Aches. Objective: PATIENT A & O X 3, OBSERVED AMBULATING ON DETOX UNIT UNASSISTED. IN NO ACUTE DISTRESS. 11/20/18 13:46 Vital Signs Temperature 96.8 F L 11/20/18 13:12 Pulse Rate 82 11/20/18 13:12 Respiratory Rate 18 11/20/18 13:12 Blood Pressure 117/70 11/20/18 13:12 O2 Sat by Pulse Oximetry (%) Laboratory Tests 11/19/18 11/19/18 11/19/18 10:10 10:10 10:10 WBC 5.4 RBC 4.56 Hgb 14.0 Hct 41.0 D MCV 89.8 MCH 30.6 MCHC 34.1 RDW 13.9 Plt Count 364 D MPV 7.1 L Sodium 137 Potassium 4.6 Chloride 105 Carbon Dioxide 24 Anion Gap 8 BUN 22.2 H Creatinine 1.0 Est GFR (CKD-EPI)AfAm 95.73 Est GFR (CKD-EPI)NonAf 82.60 Random Glucose 99 Calcium 9.3 Total Bilirubin 0.5 AST 65 H ALT 120 H Alkaline Phosphatase 135 H Total Protein 7.8 Albumin 4.1 RPR Titer Nonreactive HIV 1&2 Antibody Screen HIV P24 Antigen 11/19/18 10:10 WBC RBC Hgb Hct MCV MCH MCHC RDW Plt Count MPV Sodium Potassium Chloride Carbon Dioxide Anion Gap BUN Creatinine Est GFR (CKD-EPI)AfAm Est GFR (CKD-EPI)NonAf Random Glucose Calcium Total Bilirubin AST ALT Alkaline Phosphatase Total Protein Albumin RPR Titer HIV 1&2 Antibody Screen Negative HIV P24 Antigen Negative LABS NOTED. PATIENT HAS HAD ELEVATED AST LEVELS ON PREVIOUS ADMISSIONS. 11/20/18 13:48 Assessment: 11/20/18 13:46 WITHDRAWAL SYMPTOMS. ELEVATED AST LEVEL. ELEVATED ALT LEVEL. ELEVATED ALK. PHOS. LEVEL. AZOTEMIA. 11/20/18 13:47 Plan: CONTINUE DETOX., PRN PEPTO-BISMOL POI FOR DIARRHEA. PRN MELATONIN FOR INSOMNIA. PATIENT REPORTS THAT HE IS HAVING CONSIDERABLE DIFFICULTY INGESTION LIBRIUM AND THAT IS CAUSING HIM STOMACH DISCOMFORT. AT PATIENT'S REQUEST, LIBRIUM DETOX REGIMEN CHANGED TO ATIVAN DETOX REGIMEN (PATIENT ALSO PRESENTING WITH ELEVATED LIVER ENZYME LEVELS NOTED ON DETOX ADMISSION LABORATORY ASSESSMENT).
[2018-11-20] MEDS ORDERED: COLLOIDAL OATMEAL 1 BAR EACH TP PRN (14:12)
[2018-11-20] MEDS: LORazepam 2 MG TABLET PO SCH ×2 (16:52→22:00)
[2018-11-20] MEDS: THIAMINE HCL 100 MG TABLET (FP) PO SCH (21:59)
[2018-11-20] MEDS: MELATONIN 5 MG TABLETS PO PRN (22:00)
[2018-11-21] MEDS ORDERED: TRIMETHOBENZAMIDE HCL 200MG/2ML INJ IM PRN (01:47)
[2018-11-21] MEDS ORDERED: chlordiazePOXIDE HCL 25 MG CAPSULE PO SCH (05:00)
[2018-11-21] MEDS: LORazepam 2 MG TABLET PO SCH ×4 (05:49→22:20)
[2018-11-21] MEDS: PRENATAL VITAMINS W/ FOLIC ACID TABLET (FP) PO SCH (09:33)
[2018-11-21] MEDS: NICOTINE 14 MG/24 HOURS TOPICAL PATCH TD SCH (09:35)
[2018-11-21] MEDS ORDERED: METHADONE HCL 10 MG TABLET (FOR DETOX USE ONLY) PO ONE (10:00)
[2018-11-21] MEDS: METHYL SALICYLATE/MENTHOL OINT 30 GM TUBE TP SCH ×2 (12:56→22:22)
[2018-11-21] MEDS: LORazepam 1 MG TABLET PO PRN (15:45)
[2018-11-21] MEDS: METHOCARBAMOL 500 MG TABLET PO PRN (15:45)
--- NOTE | 2018-11-21 15:52 | PN ---
S CIWA - CIWA Score Nausea/Vomitin Muscle Tremors: 2 Anxiety: 4-Mod. Anxious/Guarded Agitation: 2 Paroxysmal Sweats: No Perspiration Orientation: 0-Oriented Tacttile Disturbances: 2-Mild Itch/Numbness/Burn Auditory Disturbances: 0-None Visual Disturbances: 0-None Headache: 0-None Present CIWA-Ar Total Score: 13 BHS COWS - Scale Resting Pulse: 1= [place] 81-100 Sweatin= No chills or Flushing Restless Observation: 1= Difficult to Sit Still Pupil Size: 0= Normal to Room Light Bone or Joint Aches: 2= Severe Diffuse Aches Runny Nose/ Eye Tearin= None GI Upset > 30mins: 2= Nausea/Diarrhea Tremor Observation of Outstretched Hands: 1= Tremor [place], Not Seen Yawning Observation: 1= 1-2x During Session Anxiety or Irritability: 2=Irritable/Anxious Goose Flesh Skin: 0=Smooth Skin COWS Score: 10 BHS Progress Note (SOAP) Subjective: Sweating, Body Aches, Anxious, Restless, Nausea (Patient reports that Vomited last night, but that vomiting has subsided today). Objective: PATIENT A & O X 3, OBSERVED AMBULATING ON DETOX UNIT UNASSISTED. IN NO ACUTE DISTRESS. 11/21/18 15:54 Vital Signs Temperature 95.9 F L 11/21/18 13:15 Pulse Rate 92 H 11/21/18 13:15 Respiratory Rate 18 11/21/18 13:15 Blood Pressure 102/65 11/21/18 13:15 O2 Sat by Pulse Oximetry (%) Laboratory Tests 11/19/18 11/19/18 11/19/18 10:10 10:10 10:10 WBC 5.4 RBC 4.56 Hgb 14.0 Hct 41.0 D MCV 89.8 MCH 30.6 MCHC 34.1 RDW 13.9 Plt Count 364 D MPV 7.1 L Sodium 137 Potassium 4.6 Chloride 105 Carbon Dioxide 24 Anion Gap 8 BUN 22.2 H Creatinine 1.0 Est GFR (CKD-EPI)AfAm 95.73 Est GFR (CKD-EPI)NonAf 82.60 Random Glucose 99 Calcium 9.3 Total Bilirubin 0.5 AST 65 H ALT 120 H Alkaline Phosphatase 135 H Total Protein 7.8 Albumin 4.1 RPR Titer Nonreactive HIV 1&2 Antibody Screen HIV P24 Antigen 11/19/18 10:10 WBC RBC Hgb Hct MCV MCH MCHC RDW Plt Count MPV Sodium Potassium Chloride Carbon Dioxide Anion Gap BUN Creatinine Est GFR (CKD-EPI)AfAm Est GFR (CKD-EPI)NonAf Random Glucose Calcium Total Bilirubin AST ALT Alkaline Phosphatase Total Protein Albumin RPR Titer HIV 1&2 Antibody Screen Negative HIV P24 Antigen Negative LABS NOTED. Assessment: 11/21/18 15:50 WITHDRAWAL SYMPTOMS. ELEVATED AST LEVEL. ELEVATED ALT LEVEL. ELEVATED ALK. PHOS. LEVEL. AZOTEMIA. Plan: CONTINUE DETOX. TOPICAL KADIE-FIELDS FOR BODY ACHES.
[2018-11-21] MEDS: THIAMINE HCL 100 MG TABLET (FP) PO SCH (22:20)
[2018-11-21] MEDS: MELATONIN 5 MG TABLETS PO PRN (22:20)
[2018-11-22] MEDS ORDERED: chlordiazePOXIDE HCL 10 MG CAPSULE PO PRN
[2018-11-22] MEDS ORDERED: chlordiazePOXIDE HCL 10 MG CAPSULE PO SCH (05:00)
[2018-11-22] MEDS: LORazepam 1 MG TABLET PO SCH ×4 (06:13→22:19)
[2018-11-22] MEDS ORDERED: METHADONE HCL 10 MG TABLET (FOR DETOX USE ONLY) ONE (09:51)
[2018-11-22] MEDS ORDERED: METHADONE HCL 5 MG TABLET (FOR DETOX USE ONLY) ONE (09:52)
[2018-11-22] MEDS ORDERED: METHADONE (DETOX) 10 MG, METHADONE (DETOX) 5 MG PO ONE (10:00)
[2018-11-22] MEDS: PRENATAL VITAMINS W/ FOLIC ACID TABLET (FP) PO SCH (10:28)
[2018-11-22] MEDS: METHYL SALICYLATE/MENTHOL OINT 30 GM TUBE TP SCH ×2 (10:29→22:20)
[2018-11-22] MEDS: NICOTINE 14 MG/24 HOURS TOPICAL PATCH TD SCH (10:29)
--- NOTE | 2018-11-22 13:40 | PN ---
[facility] CIWA - CIWA Score Nausea/Vomitin-No Nausea/No Vomiting Muscle Tremors: None Anxiety: 3 Agitation: 1-Slight > Activity Paroxysmal Sweats: 1-Minimal Palms Moist Orientation: 0-Oriented Tacttile Disturbances: 2-Mild Itch/Numbness/Burn Auditory Disturbances: 0-None Visual Disturbances: 1-Very Mild Sensitivity Headache: 1-Very Mild CIWA-Ar Total Score: 9 S COWS - Scale Resting Pulse: 0= [place] 80 or Below Sweatin= Chills/Flushing Restless Observation: 1= Difficult to Sit Still Pupil Size: 0= Normal to Room Light Bone or Joint Aches: 1= Mild Discomfort Runny Nose/ Eye Tearin= Nasal Congestion GI Upset > 30mins: 0= None Tremor Observation of Outstretched Hands: 1= Tremor [place], Not Seen Yawning Observation: 1= 1-2x During Session Anxiety or Irritability: 2=Irritable/Anxious Goose Flesh Skin: 0=Smooth Skin COWS Score: 8 S Progress Note (SOAP) Subjective: c/o of body aches, chills, interrupted sleep Objective: 11/22/18 13:39 Vital Signs Temperature 97.1 F L 11/22/18 13:25 Pulse Rate 79 11/22/18 13:25 Respiratory Rate 16 11/22/18 13:25 Blood Pressure 106/63 11/22/18 13:25 O2 Sat by Pulse Oximetry (%) Laboratory Last Values WBC 5.4 K/mm3 (4.0-10.0) 11/19/18 10:10 RBC 4.56 M/mm3 (4.00-5.60) 11/19/18 10:10 Hgb 14.0 GM/dL (11.7-16.9) 11/19/18 10:10 Hct 41.0 % (35.4-49) D 11/19/18 10:10 MCV 89.8 fl (80-96) 11/19/18 10:10 MCH 30.6 pg (25.7-33.7) 11/19/18 10:10 MCHC 34.1 g/dl (32.0-35.9) 11/19/18 10:10 RDW 13.9 % (11.9-15.9) 11/19/18 10:10 Plt Count 364 K/MM3 (134-434) D 11/19/18 10:10 MPV 7.1 fl (7.5-11.1) L 11/19/18 10:10 Sodium 137 mmol/L (136-145) 11/19/18 10:10 Potassium 4.6 mmol/L (3.5-5.1) 11/19/18 10:10 Chloride 105 mmol/L (98-107) 11/19/18 10:10 Carbon Dioxide 24 mmol/L (21-32) 11/19/18 10:10 Anion Gap 8 MMOL/L (8-16) 11/19/18 10:10 BUN 22.2 mg/dL (7-18) H 11/19/18 10:10 Creatinine 1.0 mg/dL (0.55-1.3) 11/19/18 10:10 Est GFR (CKD-EPI)AfAm 95.73 11/19/18 10:10 Est GFR (CKD-EPI)NonAf 82.60 11/19/18 10:10 Random Glucose 99 mg/dL (74-106) 11/19/18 10:10 Calcium 9.3 mg/dL (8.5-10.1) 11/19/18 10:10 Total Bilirubin 0.5 mg/dL (0.2-1) 11/19/18 10:10 AST 65 U/L (15-37) H 11/19/18 10:10 ALT 120 U/L (13-61) H 11/19/18 10:10 Alkaline Phosphatase 135 U/L (45-117) H 11/19/18 10:10 Total Protein 7.8 g/dl (6.4-8.2) 11/19/18 10:10 Albumin 4.1 g/dl (3.4-5.0) 11/19/18 10:10 RPR Titer Nonreactive (NONREACTIVE) 11/19/18 10:10 HIV 1&2 Antibody Screen Negative 11/19/18 10:10 HIV P24 Antigen Negative 11/19/18 10:10 Assessment: 11/23/18 12:18 Aox3 no acute distress full ROM ambulating in the unit withdrawal sx Plan: increase PO fluids continue detox d/c in AM follow up with rehab continue to monitor
[2018-11-22] MEDS: LORazepam 1 MG TABLET PO PRN (15:12)
[2018-11-22] MEDS: THIAMINE HCL 100 MG TABLET (FP) PO SCH (22:19)
[2018-11-22] MEDS: MELATONIN 5 MG TABLETS PO PRN (22:19)
[2018-11-23] MEDS ORDERED: LORazepam 0.5 MG TABLET PO PRN
[2018-11-23] MEDS ORDERED: chlordiazePOXIDE HCL 10 MG CAPSULE PO SCH (05:00)
[2018-11-23] MEDS: LORazepam 0.5 MG TABLET PO SCH ×4 (05:29→22:05)
[2018-11-23] MEDS ORDERED: METHADONE HCL 10 MG TABLET (FOR DETOX USE ONLY) PO ONE (10:00)
[2018-11-23] MEDS: METHYL SALICYLATE/MENTHOL OINT 30 GM TUBE TP SCH ×2 (10:04→22:06)
[2018-11-23] MEDS: METHOCARBAMOL 500 MG TABLET PO PRN (10:05)
[2018-11-23] MEDS: PRENATAL VITAMINS W/ FOLIC ACID TABLET (FP) PO SCH (10:05)
[2018-11-23] MEDS: NICOTINE 14 MG/24 HOURS TOPICAL PATCH TD SCH (10:06)
[2018-11-23] MEDS: MELATONIN 5 MG TABLETS PO PRN (22:05)
[2018-11-23] MEDS: THIAMINE HCL 100 MG TABLET (FP) PO SCH (22:05)
[2018-11-24] MEDS ORDERED: chlordiazePOXIDE HCL 10 MG CAPSULE PO ONE (05:00)
[2018-11-24] MEDS ORDERED: LORazepam 0.5 MG TABLET PO ONE (05:00)
[2018-11-24] MEDS ORDERED: METHADONE HCL 5 MG TABLET (FOR DETOX USE ONLY) PO ONE (06:00)
[2018-11-24] MEDS: NICOTINE 14 MG/24 HOURS TOPICAL PATCH TD SCH (09:13)
[2018-11-24] MEDS: METHYL SALICYLATE/MENTHOL OINT 30 GM TUBE TP SCH (09:13)
[2018-11-24] MEDS: PRENATAL VITAMINS W/ FOLIC ACID TABLET (FP) PO SCH (09:23)
[2018-11-24 09:43] VITALS: BP 98/63; PULSE 74; TEMP 96.9
--- NOTE | 2018-11-24 12:59 | DS ---
[facility] Detox Discharge Summary Admission Date: 11/19/18 Discharge Date: 11/24/18 - History Present History: Alcohol Dependence Pertinent Past History: Pt admitted for alcohol detox- completed detox. Going to rehab here today. Says he would like to stop using and thinks rehab will be helpful, pt does not need any meds- delphine merida for pain - Physical Exam Results Vital Signs: Vital Signs Temperature 96.9 F L 11/24/18 09:42 Pulse Rate 74 11/24/18 09:42 Respiratory Rate 18 11/24/18 09:42 Blood Pressure 98/63 11/24/18 09:42 O2 Sat by Pulse Oximetry (%) - Treatment Hospital Course: Detox Protocol Followed, Detoxed Safely, Responded well, Discharged Condition Good, Rehab Referral Accepted - Medication Discharge Medications: Ambulatory Orders Ibuprofen [Motrin -] 800 mg PO BID 10/11/18 - AMA Did Patient Leave Against Medical Advice: No
== END 2018-11-24 12:30 | disposition home or self-care (01) | DRG 773 ==
LOC: YASAS 08:56 → Y3N 10:04
PROVIDERS: ADMIT Allergy & Immunology; ATTEND Allergy & Immunology
PROC: HZ2ZZZZ Detoxification Services for Substance Abuse Treatment (ICD-10-PCS; principal; 2018-11-19)
DX: F10.230 Alcohol dependence with withdrawal, uncomplicated (principal); F11.23 Opioid dependence with withdrawal; F13.10 Sedative, hypnotic or anxiolytic abuse, uncomplicated; F17.210 Nicotine dependence, cigarettes, uncomplicated; D64.9 Anemia, unspecified; K21.9 Gastro-esophageal reflux disease without esophagitis; R94.5 Abnormal results of liver function studies; R79.89 Other specified abnormal findings of blood chemistry; Z86.19 Personal history of other infectious and parasitic diseases; Z91.013 Allergy to seafood
CPT/HCPCS: 36415; 80053; 85027; 86593; 87389

== ENCOUNTER 2018-11-24 12:39 | Inpatient (IN) | payer OTHER ==
[2018-11-24] MEDS ORDERED: LOPERAMIDE HCL 2 MG CAPSULE PO PRN (13:47)
[2018-11-24] MEDS ORDERED: MAGNESIUM CITRATE 300 ML BOTTLE PO PRN (13:47)
[2018-11-24] MEDS ORDERED: guaiFENesin 200 MG/10 ML 10 ML UNIT-DOSE CUPS PO PRN (13:47)
[2018-11-24] MEDS ORDERED: MENTHOL/PHENOL 1 EACH UD MM PRN (13:47)
[2018-11-24] MEDS ORDERED: NICOTINE POLACRILEX 2 MG GUM BUC PRN (13:47)
[2018-11-24] MEDS ORDERED: MAGNESIUM HYDROX 2400MG/30ML ORAL SUSPENSION 30 ML CUP PO PRN (13:47)
[2018-11-24] MEDS ORDERED: P-EPHED 60MG/TRIPROLIDI 2.5MG TABLET PO PRN (13:47)
--- NOTE | 2018-11-24 13:50 | HP ---
[facility] Rehab Assess/Revision - Admission History Admitted to Rehab from: [facility] [place] - Vital signs Vital Signs: Vital Signs Period Temp Pulse Resp BP Sys/Segura Pulse Ox Last 24 Hr 98.7 F 95 20 107/64 - Findings Detox History & Physical reviewed: Yes Concur with findings: Yes (Pt competed alcohol detox) Inpatient Rehab Admission - Rehab Decision to Admit Inpatient rehab admission?: Yes - Initial Determination Are CD services needed?: Yes Free of communicable disease: Yes Not in need of hospitalization: Yes - Rehab Admission Criteria Previous failed treatment: Yes Poor recovery environment: Yes Comorbidities: Yes Lacks judgement: Yes Patient is meeting Inpatient Rehab admission criteria:: Yes (pt completed alcohol detox)
[2018-11-24] MEDS: MELATONIN 5 MG TABLETS PO PRN (21:29)
[2018-11-24] MEDS: THIAMINE HCL 100 MG TABLET (FP) PO SCH (21:29)
[2018-11-25] MEDS: NICOTINE 14 MG/24 HOURS TOPICAL PATCH TD SCH (09:59)
[2018-11-25] MEDS: IBUPROFEN 400 MG TABLET (FP) PO PRN (09:59)
[2018-11-25] MEDS: PRENATAL VITAMINS W/ FOLIC ACID TABLET (FP) PO SCH (09:59)
[2018-11-25] MEDS: MAG HYDROX/AL HYDROX/SIMETH 30 ML UNIT-DOSE CUP PO PRN (11:53)
[2018-11-25] MEDS: hydrOXYzine PAMOATE 50 MG CAPSULE (FP) PO PRN ×2 (14:02→21:24)
[2018-11-25] MEDS: MELATONIN 5 MG TABLETS PO PRN (21:24)
[2018-11-25] MEDS: THIAMINE HCL 100 MG TABLET (FP) PO SCH (21:25)
[2018-11-26] MEDS: hydrOXYzine PAMOATE 50 MG CAPSULE (FP) PO PRN ×4 (07:43→21:46)
[2018-11-26] MEDS: PRENATAL VITAMINS W/ FOLIC ACID TABLET (FP) PO SCH (10:31)
[2018-11-26] MEDS: NICOTINE 14 MG/24 HOURS TOPICAL PATCH TD SCH (10:31)
[2018-11-26] MEDS: IBUPROFEN 400 MG TABLET (FP) PO PRN ×2 (10:32→17:44)
[2018-11-26] MEDS: ACETAMINOPHEN 325 MG TABLET (FP) PO PRN (13:51)
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
[2018-11-26] MEDS: THIAMINE HCL 100 MG TABLET (FP) PO SCH (21:45)
[2018-11-26] MEDS: MELATONIN 5 MG TABLETS PO PRN (21:45)
[2018-11-27] MEDS: hydrOXYzine PAMOATE 50 MG CAPSULE (FP) PO PRN ×3 (06:20→21:46)
[2018-11-27] MEDS: NICOTINE 14 MG/24 HOURS TOPICAL PATCH TD SCH (10:24)
[2018-11-27] MEDS: IBUPROFEN 400 MG TABLET (FP) PO PRN (10:24)
[2018-11-27] MEDS: PRENATAL VITAMINS W/ FOLIC ACID TABLET (FP) PO SCH (10:24)
[2018-11-27] MEDS: IBUPROFEN 600 MG TABLET (FP) PO PRN (14:13)
[2018-11-27] MEDS: METHYL SALICYLATE/MENTHOL OINT 30 GM TUBE TP SCH ×2 (14:14→21:46)
[2018-11-27] MEDS: METHOCARBAMOL 500 MG TABLET PO PRN ×2 (18:32→21:45)
[2018-11-27] MEDS: MELATONIN 5 MG TABLETS PO PRN (21:46)
[2018-11-27] MEDS: THIAMINE HCL 100 MG TABLET (FP) PO SCH (21:46)
[2018-11-28] MEDS: hydrOXYzine PAMOATE 50 MG CAPSULE (FP) PO PRN ×4 (05:45→21:46)
[2018-11-28] MEDS: PRENATAL VITAMINS W/ FOLIC ACID TABLET (FP) PO SCH (10:37)
[2018-11-28] MEDS: IBUPROFEN 600 MG TABLET (FP) PO PRN ×2 (10:37→17:30)
[2018-11-28] MEDS: METHYL SALICYLATE/MENTHOL OINT 30 GM TUBE TP SCH ×2 (10:38→21:52)
[2018-11-28] MEDS: NICOTINE 14 MG/24 HOURS TOPICAL PATCH TD SCH (10:38)
[2018-11-28] MEDS: METHOCARBAMOL 500 MG TABLET PO PRN (21:46)
[2018-11-28] MEDS: THIAMINE HCL 100 MG TABLET (FP) PO SCH (21:46)
[2018-11-29] MEDS: hydrOXYzine PAMOATE 50 MG CAPSULE (FP) PO PRN ×4 (05:58→21:43)
[2018-11-29] MEDS: PRENATAL VITAMINS W/ FOLIC ACID TABLET (FP) PO SCH (10:37)
[2018-11-29] MEDS: NICOTINE 14 MG/24 HOURS TOPICAL PATCH TD SCH (10:37)
[2018-11-29] MEDS: METHYL SALICYLATE/MENTHOL OINT 30 GM TUBE TP SCH ×2 (10:37→21:42)
[2018-11-29] MEDS: IBUPROFEN 600 MG TABLET (FP) PO PRN ×2 (10:38→17:20)
[2018-11-29] MEDS: THIAMINE HCL 100 MG TABLET (FP) PO SCH (21:42)
[2018-11-29] MEDS: MELATONIN 5 MG TABLETS PO PRN (21:43)
[2018-11-30] MEDS: IBUPROFEN 600 MG TABLET (FP) PO PRN ×2 (06:34→17:25)
[2018-11-30] MEDS: hydrOXYzine PAMOATE 50 MG CAPSULE (FP) PO PRN ×3 (06:34→22:00)
[2018-11-30] MEDS: PRENATAL VITAMINS W/ FOLIC ACID TABLET (FP) PO SCH (10:46)
[2018-11-30] MEDS: METHYL SALICYLATE/MENTHOL OINT 30 GM TUBE TP SCH ×2 (10:46→21:59)
[2018-11-30] MEDS: NICOTINE 14 MG/24 HOURS TOPICAL PATCH TD SCH (10:46)
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
[2018-11-30] MEDS: ACETAMINOPHEN 325 MG TABLET (FP) PO PRN (16:05)
[2018-11-30] MEDS: MELATONIN 5 MG TABLETS PO PRN (21:59)
[2018-11-30] MEDS: THIAMINE HCL 100 MG TABLET (FP) PO SCH (21:59)
[2018-11-30] MEDS: SUVOREXANT 10 MG TABLET PO PRN (22:00)
[2018-12-01] MEDS: hydrOXYzine PAMOATE 50 MG CAPSULE (FP) PO PRN ×3 (08:03→21:40)
[2018-12-01] MEDS: ACETAMINOPHEN 325 MG TABLET (FP) PO PRN (08:03)
[2018-12-01] MEDS: NICOTINE 14 MG/24 HOURS TOPICAL PATCH TD SCH (10:02)
[2018-12-01] MEDS: METHYL SALICYLATE/MENTHOL OINT 30 GM TUBE TP SCH ×2 (10:02→21:40)
[2018-12-01] MEDS: PRENATAL VITAMINS W/ FOLIC ACID TABLET (FP) PO SCH (10:02)
[2018-12-01] MEDS: THIAMINE HCL 100 MG TABLET (FP) PO SCH (21:40)
[2018-12-01] MEDS: SUVOREXANT 10 MG TABLET PO PRN (21:40)
[2018-12-02] MEDS: hydrOXYzine PAMOATE 50 MG CAPSULE (FP) PO PRN ×3 (07:18→21:38)
[2018-12-02] MEDS: IBUPROFEN 600 MG TABLET (FP) PO PRN ×2 (08:20→15:59)
[2018-12-02] MEDS: METHYL SALICYLATE/MENTHOL OINT 30 GM TUBE TP SCH ×2 (10:26→21:37)
[2018-12-02] MEDS: PRENATAL VITAMINS W/ FOLIC ACID TABLET (FP) PO SCH (10:26)
[2018-12-02] MEDS: NICOTINE 14 MG/24 HOURS TOPICAL PATCH TD SCH (10:26)
[2018-12-02] MEDS: METHOCARBAMOL 500 MG TABLET PO PRN (11:43)
[2018-12-02] MEDS: MELATONIN 5 MG TABLETS PO PRN (21:37)
[2018-12-02] MEDS: THIAMINE HCL 100 MG TABLET (FP) PO SCH (21:37)
[2018-12-02] MEDS: SUVOREXANT 10 MG TABLET PO PRN (21:38)
[2018-12-03] MEDS: hydrOXYzine PAMOATE 50 MG CAPSULE (FP) PO PRN ×3 (06:21→21:40)
[2018-12-03] MEDS: IBUPROFEN 600 MG TABLET (FP) PO PRN (10:41)
[2018-12-03] MEDS: PRENATAL VITAMINS W/ FOLIC ACID TABLET (FP) PO SCH (10:41)
[2018-12-03] MEDS: NICOTINE 14 MG/24 HOURS TOPICAL PATCH TD SCH (10:42)
[2018-12-03] MEDS: METHYL SALICYLATE/MENTHOL OINT 30 GM TUBE TP SCH ×2 (10:42→21:41)
[2018-12-03] MEDS: SUVOREXANT 10 MG TABLET PO PRN (21:40)
[2018-12-03] MEDS: MELATONIN 5 MG TABLETS PO PRN (21:40)
[2018-12-03] MEDS: THIAMINE HCL 100 MG TABLET (FP) PO SCH (21:41)
[2018-12-04] MEDS: hydrOXYzine PAMOATE 50 MG CAPSULE (FP) PO PRN ×3 (06:06→21:26)
[2018-12-04] MEDS: IBUPROFEN 600 MG TABLET (FP) PO PRN (10:34)
[2018-12-04] MEDS: PRENATAL VITAMINS W/ FOLIC ACID TABLET (FP) PO SCH (10:34)
[2018-12-04] MEDS: METHYL SALICYLATE/MENTHOL OINT 30 GM TUBE TP SCH ×2 (10:35→21:28)
[2018-12-04] MEDS: NICOTINE 14 MG/24 HOURS TOPICAL PATCH TD SCH (10:35)
[2018-12-04] MEDS: METHOCARBAMOL 500 MG TABLET PO PRN (14:14)
[2018-12-04] MEDS: MELATONIN 5 MG TABLETS PO PRN (21:26)
[2018-12-04] MEDS: THIAMINE HCL 100 MG TABLET (FP) PO SCH (21:27)
[2018-12-04] MEDS: SUVOREXANT 10 MG TABLET PO PRN (21:28)
[2018-12-05] MEDS: MAG HYDROX/AL HYDROX/SIMETH 30 ML UNIT-DOSE CUP PO PRN (08:52)
[2018-12-05] MEDS: METHYL SALICYLATE/MENTHOL OINT 30 GM TUBE TP SCH ×2 (10:44→21:28)
[2018-12-05] MEDS: NICOTINE 14 MG/24 HOURS TOPICAL PATCH TD SCH (10:44)
[2018-12-05] MEDS: PRENATAL VITAMINS W/ FOLIC ACID TABLET (FP) PO SCH (10:44)
[2018-12-05] MEDS: hydrOXYzine PAMOATE 50 MG CAPSULE (FP) PO PRN ×3 (10:45→21:27)
[2018-12-05] MEDS: ACETAMINOPHEN 325 MG TABLET (FP) PO PRN (17:34)
[2018-12-05] MEDS: SUVOREXANT 10 MG TABLET PO PRN (21:26)
[2018-12-05] MEDS: MELATONIN 5 MG TABLETS PO PRN (21:27)
[2018-12-05] MEDS: THIAMINE HCL 100 MG TABLET (FP) PO SCH (21:28)
[2018-12-06] MEDS: hydrOXYzine PAMOATE 50 MG CAPSULE (FP) PO PRN ×3 (07:39→21:34)
[2018-12-06] MEDS: NICOTINE 14 MG/24 HOURS TOPICAL PATCH TD SCH (10:57)
[2018-12-06] MEDS: METHYL SALICYLATE/MENTHOL OINT 30 GM TUBE TP SCH ×2 (10:57→21:53)
[2018-12-06] MEDS: PRENATAL VITAMINS W/ FOLIC ACID TABLET (FP) PO SCH (10:57)
--- NOTE | 2018-12-06 13:31 | DS ---
[facility] Rehab Discharge Summary - [facility] Rehab Discharge Summary Admission Date: 11/24/18 Discharge Date: 12/07/18 - History Present History: Alcohol dependence, Opioid dependence, Sedative dependence Additional Comments: Pt is a 58 y/o male with a AMAYA admitted to rehab after completing detox on . Pt is scheduled to discharge on 12/07/18. Pt met with his counselor, Ms Courtney Ontiveros and has been referred [place] [facility] [place] [id number] [place] [address]. . Pt reports he has a primary care provider, Dr. [facility] [place]. Pertinent Past History: GERD(no meds) Hep C Insomnia - Discharge Physical Exam Vital Signs: Vital Signs Temperature 97.2 F L 12/06/18 08:03 Pulse Rate 89 12/06/18 08:03 Respiratory Rate 18 12/06/18 08:03 Blood Pressure 112/68 12/06/18 08:03 O2 Sat by Pulse Oximetry (%) Alert o x 3 nad oob ambulating with steady gait cardiac:s1 s2 lungs:cta,ray. abdomen:soft,+bs,nt,nd extremities/skin:no edema,full ROM,skin intact. Pertinent Admission Physical Exam Findings: Status unchanged from admission - Treatment Discharge Condition: Discharge condition good Hospital Course: Rehabilitate safely and responded well CD aftercare referral accepted. - Medication Discharge Medications: Ambulatory Orders Naloxone HCl [Narcan] 4 mg NS ONCE #1 spray 12/06/18 - Medication-Assisted Treatment (MAT) Medication-Assisted Treatment (MAT): No - Discharge Instructions Diet, activity, other medical instructions: Diet:Regular Activity: oob ad livia Other medical instructions:follow up with CD aftercare as recommended Follow up with primary care provider within 1-2 weeks after discharge from rehab. 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
[2018-12-06] MEDS: MELATONIN 5 MG TABLETS PO PRN (21:34)
[2018-12-06] MEDS: SUVOREXANT 10 MG TABLET PO PRN (21:34)
[2018-12-06] MEDS: THIAMINE HCL 100 MG TABLET (FP) PO SCH (21:35)
[2018-12-07] MEDS: hydrOXYzine PAMOATE 50 MG CAPSULE (FP) PO PRN (06:37)
[2018-12-07 07:26] VITALS: BP 108/70; PULSE 90; TEMP 98.2
--- NOTE | 2018-12-07 10:36 | PN ---
S Progress Note Note: Pt discharged today as scheduled and exited earlier this morning. Pt was not able to be seen by this provider before exit. Vital Signs - 24 hr 12/07/18 12/07/18 12/07/18 00:30 03:30 07:26 Temperature 98.2 F Pulse Rate 90 Respiratory 18 18 18 Rate Blood Pressure 108/70 Please see D/C Summary for details.
== END 2018-12-07 08:30 | disposition home or self-care (01) | DRG 772 ==
LOC: YASAS 12:39 → Y5N 12:41
PROVIDERS: ADMIT Neuromusculoskeletal Medicine & OMM; ATTEND Neuromusculoskeletal Medicine & OMM
PROC: HZ42ZZZ Group Counseling for Substance Abuse Treatment, Cognitive-Behavioral (ICD-10-PCS; principal; 2018-11-23)
DX: F10.20 Alcohol dependence, uncomplicated (principal); F11.20 Opioid dependence, uncomplicated; F13.20 Sedative, hypnotic or anxiolytic dependence, uncomplicated; F17.210 Nicotine dependence, cigarettes, uncomplicated; F19.282 Other psychoactive substance dependence with psychoactive substance-induced sleep disorder; G47.00 Insomnia, unspecified; K21.9 Gastro-esophageal reflux disease without esophagitis; B18.2 Chronic viral hepatitis C; D64.9 Anemia, unspecified; S69.82XA Other specified injuries of left wrist, hand and finger(s), initial encounter; W29.8XXA Contact with other powered hand tools and household machinery, initial encounter; Y93.89 Activity, other specified; Y92.89 Other specified places as the place of occurrence of the external cause; Y99.8 Other external cause status; Z91.013 Allergy to seafood
CPT/HCPCS: 73110-TC-LT-FY

== ENCOUNTER 2020-01-08 12:14 | Inpatient (IN) | payer OTHER ==
[2020-01-08 13:27] VITALS: BMI 23.4
[2020-01-08] MEDS ORDERED: MENTHOL/PHENOL 1 EACH UD MM PRN (14:05)
[2020-01-08] MEDS ORDERED: ACETAMINOPHEN 325 MG TABLET (FP) PO PRN (14:05)
[2020-01-08] MEDS ORDERED: METHADONE HCL 10 MG TABLET (FOR DETOX USE ONLY) PO ONE (14:05)
[2020-01-08] MEDS ORDERED: MAGNESIUM HYDROX 2400MG/30ML ORAL SUSPENSION 30 ML CUP PO PRN (14:05)
[2020-01-08] MEDS ORDERED: MAGNESIUM CITRATE 300 ML BOTTLE PO PRN (14:05)
[2020-01-08] MEDS ORDERED: cloNIDine HCL 0.1 MG TABLET PO PRN (14:05)
[2020-01-08] MEDS ORDERED: BISMUTH SUBSALICYLATE 262 MG/15 ML BTL PO PRN (14:05)
[2020-01-08] MEDS ORDERED: NICOTINE POLACRILEX 2 MG GUM BUC PRN (14:05)
[2020-01-08] MEDS ORDERED: ONDANSETRON *ODT* 4 MG TABLET ONE (14:42)
[2020-01-08] MEDS: ONDANSETRON *ODT* 4 MG TABLET SL PRN (14:43)
[2020-01-08] MEDS: NICOTINE 21 MG/24 HOURS TOPICAL PATCH TD SCH (15:11)
[2020-01-08] MEDS: PRENATAL VITAMINS W/ FOLIC ACID TABLET (FP) PO SCH (15:12)
[2020-01-08 17:09] LABS: HEMATOCRIT 40.6 % (35.4-49); HEMOGLOBIN 13.4 GM/dL (11.7-16.9); MCH 30.8 pg (25.7-33.7); MCHC 32.9 g/dl (32.0-35.9); MEAN CELL VOLUME 93.5 fl (80-96); MEAN PLT VOLUME 7.4 fl (7.5-11.1); PLATELET COUNT 266 K/MM3 (134-434); RBC 4.35 M/mm3 (4.00-5.60); RDW 12.9 % (11.9-15.9)
[2020-01-08 17:20] LABS: CALCIUM 8.8 mg/dL (8.5-10.1)
[2020-01-08 17:21] LABS: ALBUMIN 4.2 g/dl (3.4-5.0); BLOOD UREA NITROGEN 17.7 mg/dL (7-18)
[2020-01-08 17:24] LABS: CREATININE 0.9 mg/dL (0.55-1.3)
[2020-01-08 17:25] LABS: TOT PROT 7.5 g/dl (6.4-8.2)
[2020-01-08] MEDS: hydrOXYzine PAMOATE 25 MG CAPSULE (FP) PO SCH ×2 (17:42→22:23)
[2020-01-08] MEDS: LORazepam 2 MG TABLET PO SCH ×2 (17:43→22:23)
[2020-01-08] MEDS: THIAMINE HCL 100 MG TABLET (FP) PO SCH (22:23)
[2020-01-08] MEDS: MELATONIN 5 MG TABLETS PO SCH (22:23)
[2020-01-09] MEDS: hydrOXYzine PAMOATE 25 MG CAPSULE (FP) PO SCH ×2 (06:02→10:13)
[2020-01-09] MEDS: LORazepam 2 MG TABLET PO SCH ×4 (06:02→22:04)
[2020-01-09] MEDS ORDERED: METHADONE HCL 5 MG TABLET (FOR DETOX USE ONLY) ONE (08:44)
[2020-01-09] MEDS ORDERED: METHADONE HCL 10 MG TABLET (FOR DETOX USE ONLY) ONE (08:44)
[2020-01-09] MEDS ORDERED: METHADONE (DETOX) 20 MG, METHADONE (DETOX) 5 MG PO ONE (10:00)
[2020-01-09] MEDS: NICOTINE 21 MG/24 HOURS TOPICAL PATCH TD SCH (10:10)
[2020-01-09] MEDS: PRENATAL VITAMINS W/ FOLIC ACID TABLET (FP) PO SCH (10:10)
[2020-01-09] MEDS: LORazepam 1 MG TABLET PO PRN (11:56)
[2020-01-09] MEDS: THIAMINE HCL 100 MG TABLET (FP) PO SCH (22:04)
[2020-01-09] MEDS: MELATONIN 5 MG TABLETS PO SCH (22:04)
[2020-01-10] MEDS: ACETAMINOPHEN 325 MG TABLET (FP) PO PRN (01:15)
[2020-01-10] MEDS: LORazepam 1 MG TABLET PO PRN (01:23)
[2020-01-10] MEDS: LORazepam 1 MG TABLET PO SCH ×4 (06:01→22:33)
[2020-01-10] MEDS: MAG HYDROX/AL HYDROX/SIMETH 30 ML UNIT-DOSE CUP PO PRN (06:35)
[2020-01-10] MEDS ORDERED: MASKS NR ONE (08:26)
[2020-01-10] MEDS ORDERED: METHADONE HCL 10 MG TABLET (FOR DETOX USE ONLY) PO ONE (10:00)
[2020-01-10] MEDS: PRENATAL VITAMINS W/ FOLIC ACID TABLET (FP) PO SCH (10:20)
[2020-01-10] MEDS: METHOCARBAMOL 500 MG TABLET PO PRN (10:24)
[2020-01-10] MEDS: NICOTINE 21 MG/24 HOURS TOPICAL PATCH TD SCH (11:46)
[2020-01-10] MEDS: MELATONIN 5 MG TABLETS PO SCH (22:33)
[2020-01-10] MEDS: THIAMINE HCL 100 MG TABLET (FP) PO SCH (22:33)
[2020-01-11] MEDS ORDERED: LORazepam 0.5 MG TABLET PO PRN
[2020-01-11] MEDS: LORazepam 0.5 MG TABLET PO SCH ×4 (06:08→22:03)
[2020-01-11] MEDS ORDERED: METHADONE HCL 10 MG TABLET (FOR DETOX USE ONLY) ONE (09:25)
[2020-01-11] MEDS ORDERED: METHADONE HCL 5 MG TABLET (FOR DETOX USE ONLY) ONE (09:25)
[2020-01-11] MEDS: ONDANSETRON *ODT* 4 MG TABLET SL PRN (09:54)
[2020-01-11] MEDS: NICOTINE 21 MG/24 HOURS TOPICAL PATCH TD SCH (09:57)
[2020-01-11] MEDS: METHOCARBAMOL 500 MG TABLET PO PRN (09:58)
[2020-01-11] MEDS: IBUPROFEN 400 MG TABLET (FP) PO PRN (09:59)
[2020-01-11] MEDS ORDERED: METHADONE (DETOX) 10 MG, METHADONE (DETOX) 5 MG PO ONE (10:00)
[2020-01-11] MEDS: PRENATAL VITAMINS W/ FOLIC ACID TABLET (FP) PO SCH (10:00)
[2020-01-11] MEDS: hydrOXYzine PAMOATE 25 MG CAPSULE (FP) PO PRN (13:29)
[2020-01-11] MEDS: ACETAMINOPHEN 325 MG TABLET (FP) PO PRN (13:29)
[2020-01-11] MEDS: THIAMINE HCL 100 MG TABLET (FP) PO SCH (22:03)
[2020-01-11] MEDS: MELATONIN 5 MG TABLETS PO SCH (22:03)
[2020-01-12] MEDS ORDERED: LORazepam 0.5 MG TABLET PO ONE (05:00)
[2020-01-12] MEDS ORDERED: METHADONE HCL 10 MG TABLET (FOR DETOX USE ONLY) PO ONE (10:00)
[2020-01-12] MEDS: PRENATAL VITAMINS W/ FOLIC ACID TABLET (FP) PO SCH (10:15)
[2020-01-12] MEDS: NICOTINE 21 MG/24 HOURS TOPICAL PATCH TD SCH (10:15)
[2020-01-12] MEDS: METHOCARBAMOL 500 MG TABLET PO PRN (10:16)
[2020-01-12] MEDS: IBUPROFEN 400 MG TABLET (FP) PO PRN (10:16)
[2020-01-12] MEDS: MAG HYDROX/AL HYDROX/SIMETH 30 ML UNIT-DOSE CUP PO PRN (14:14)
[2020-01-12] MEDS: hydrOXYzine PAMOATE 25 MG CAPSULE (FP) PO PRN ×3 (15:07→23:02)
[2020-01-12] MEDS: THIAMINE HCL 100 MG TABLET (FP) PO SCH (22:12)
[2020-01-12] MEDS: MELATONIN 5 MG TABLETS PO SCH (22:12)
[2020-01-13] MEDS: ACETAMINOPHEN 325 MG TABLET (FP) PO PRN (05:47)
[2020-01-13] MEDS ORDERED: METHADONE HCL 5 MG TABLET (FOR DETOX USE ONLY) PO ONE (06:00)
[2020-01-13 06:22] VITALS: BP 110/70; PULSE 65; TEMP 96.8
== END 2020-01-13 09:27 | disposition home or self-care (01) | DRG 773 ==
LOC: YASAS 12:14 → Y6N 13:49
PROVIDERS: ADMIT Allergy & Immunology; ATTEND Allergy & Immunology
PROC: HZ2ZZZZ Detoxification Services for Substance Abuse Treatment (ICD-10-PCS; principal; 2020-01-08)
DX: F11.23 Opioid dependence with withdrawal (principal); F10.230 Alcohol dependence with withdrawal, uncomplicated; F17.210 Nicotine dependence, cigarettes, uncomplicated; Z86.19 Personal history of other infectious and parasitic diseases; Z91.013 Allergy to seafood
CPT/HCPCS: 36415; 80053; 85027; 86780; C9803; Q0162; U0003

== ENCOUNTER 2020-02-20 11:58 | Inpatient (IN) | payer OTHER ==
[2020-02-20] MEDS ORDERED: guaiFENesin 200 MG/10 ML 10 ML UNIT-DOSE CUPS PO PRN (13:20)
[2020-02-20] MEDS ORDERED: LOPERAMIDE HCL 2 MG CAPSULE PO PRN (13:20)
[2020-02-20] MEDS ORDERED: MENTHOL/PHENOL 1 EACH UD MM PRN (13:20)
[2020-02-20] MEDS ORDERED: MAGNESIUM HYDROX 2400MG/30ML ORAL SUSPENSION 30 ML CUP PO PRN (13:20)
[2020-02-20] MEDS ORDERED: MAG HYDROX/AL HYDROX/SIMETH 30 ML UNIT-DOSE CUP PO PRN (13:20)
[2020-02-20] MEDS ORDERED: hydrOXYzine PAMOATE 25 MG CAPSULE (FP) PO PRN (13:20)
[2020-02-20] MEDS ORDERED: NICOTINE POLACRILEX 2 MG GUM BUC PRN (13:20)
[2020-02-20] MEDS ORDERED: MAGNESIUM CITRATE 300 ML BOTTLE PO PRN (13:20)
[2020-02-20] MEDS ORDERED: P-EPHED 60MG/TRIPROLIDI 2.5MG TABLET PO PRN (13:20)
[2020-02-20] MEDS: THIAMINE HCL 100 MG TABLET (FP) PO SCH (21:46)
[2020-02-20] MEDS: hydrOXYzine PAMOATE 25 MG CAPSULE (FP) PO PRN (21:46)
[2020-02-20] MEDS: SUVOREXANT 10 MG TABLET PO PRN (21:46)
[2020-02-20] MEDS ORDERED: MELATONIN 5 MG TABLETS PO SCH (22:00)
[2020-02-21] MEDS: IBUPROFEN 400 MG TABLET (FP) PO PRN (09:13)
[2020-02-21] MEDS: PRENATAL VITAMINS W/ FOLIC ACID TABLET (FP) PO SCH (10:29)
[2020-02-21] MEDS: NICOTINE 21 MG/24 HOURS TOPICAL PATCH TD SCH (10:29)
[2020-02-21] MEDS: hydrOXYzine PAMOATE 25 MG CAPSULE (FP) PO PRN ×2 (10:30→21:24)
[2020-02-21] MEDS: ACETAMINOPHEN 325 MG TABLET (FP) PO PRN (10:31)
[2020-02-21] MEDS: SUVOREXANT 10 MG TABLET PO PRN (21:24)
[2020-02-21] MEDS: THIAMINE HCL 100 MG TABLET (FP) PO SCH (21:25)
[2020-02-22] MEDS: IBUPROFEN 400 MG TABLET (FP) PO PRN (08:59)
[2020-02-22] MEDS: PRENATAL VITAMINS W/ FOLIC ACID TABLET (FP) PO SCH (09:00)
[2020-02-22] MEDS: NICOTINE 21 MG/24 HOURS TOPICAL PATCH TD SCH (09:00)
[2020-02-22] MEDS: ACETAMINOPHEN 325 MG TABLET (FP) PO PRN (16:49)
[2020-02-22] MEDS: hydrOXYzine PAMOATE 25 MG CAPSULE (FP) PO PRN ×2 (16:49→22:00)
[2020-02-22] MEDS: THIAMINE HCL 100 MG TABLET (FP) PO SCH (21:58)
[2020-02-22] MEDS: SUVOREXANT 10 MG TABLET PO PRN (21:59)
[2020-02-23] MEDS: IBUPROFEN 400 MG TABLET (FP) PO PRN ×2 (06:42→15:44)
[2020-02-23] MEDS: hydrOXYzine PAMOATE 25 MG CAPSULE (FP) PO PRN ×2 (06:42→21:57)
[2020-02-23] MEDS: NICOTINE 21 MG/24 HOURS TOPICAL PATCH TD SCH (10:02)
[2020-02-23] MEDS: PRENATAL VITAMINS W/ FOLIC ACID TABLET (FP) PO SCH (10:02)
[2020-02-23] MEDS: THIAMINE HCL 100 MG TABLET (FP) PO SCH (21:58)
[2020-02-23] MEDS ORDERED: SUVOREXANT 10 MG TABLET PO PRN (22:00)
[2020-02-24] MEDS: hydrOXYzine PAMOATE 25 MG CAPSULE (FP) PO PRN ×2 (06:16→18:26)
[2020-02-24] MEDS: IBUPROFEN 400 MG TABLET (FP) PO PRN (06:16)
[2020-02-24] MEDS: PRENATAL VITAMINS W/ FOLIC ACID TABLET (FP) PO SCH (10:08)
[2020-02-24] MEDS: ACETAMINOPHEN 325 MG TABLET (FP) PO PRN (10:08)
[2020-02-24] MEDS: NICOTINE 21 MG/24 HOURS TOPICAL PATCH TD SCH (10:08)
[2020-02-24] MEDS: SUVOREXANT 15 MG TABLET PO PRN (21:12)
[2020-02-24] MEDS: THIAMINE HCL 100 MG TABLET (FP) PO SCH (21:13)
[2020-02-25] MEDS: ACETAMINOPHEN 325 MG TABLET (FP) PO PRN ×2 (07:14→15:37)
[2020-02-25] MEDS: hydrOXYzine PAMOATE 25 MG CAPSULE (FP) PO PRN ×3 (07:14→21:42)
[2020-02-25] MEDS: PRENATAL VITAMINS W/ FOLIC ACID TABLET (FP) PO SCH (10:20)
[2020-02-25] MEDS: IBUPROFEN 400 MG TABLET (FP) PO PRN ×2 (10:20→18:50)
[2020-02-25] MEDS: NICOTINE 21 MG/24 HOURS TOPICAL PATCH TD SCH (10:20)
[2020-02-25] MEDS: SUVOREXANT 15 MG TABLET PO PRN (21:42)
[2020-02-25] MEDS: THIAMINE HCL 100 MG TABLET (FP) PO SCH (21:43)
[2020-02-26] MEDS: IBUPROFEN 400 MG TABLET (FP) PO PRN (06:21)
[2020-02-26] MEDS: hydrOXYzine PAMOATE 25 MG CAPSULE (FP) PO PRN ×2 (06:21→13:11)
[2020-02-26] MEDS: PRENATAL VITAMINS W/ FOLIC ACID TABLET (FP) PO SCH (10:40)
[2020-02-26] MEDS: NICOTINE 21 MG/24 HOURS TOPICAL PATCH TD SCH (10:40)
[2020-02-26] MEDS: ACETAMINOPHEN 325 MG TABLET (FP) PO PRN (10:42)
[2020-02-26] MEDS ORDERED: hydrOXYzine PAMOATE 25 MG CAPSULE (FP) PO PRN (16:30)
[2020-02-26] MEDS: THIAMINE HCL 100 MG TABLET (FP) PO SCH (21:09)
[2020-02-26] MEDS: SUVOREXANT 15 MG TABLET PO PRN (21:10)
[2020-02-26] MEDS: busPIRone HCL 10 MG TABLET (FP) PO SCH (21:11)
[2020-02-27] MEDS: busPIRone HCL 10 MG TABLET (FP) PO SCH ×3 (05:59→21:10)
[2020-02-27] MEDS: IBUPROFEN 400 MG TABLET (FP) PO PRN ×2 (06:00→21:11)
[2020-02-27] MEDS: PRENATAL VITAMINS W/ FOLIC ACID TABLET (FP) PO SCH (10:23)
[2020-02-27] MEDS: NICOTINE 21 MG/24 HOURS TOPICAL PATCH TD SCH (10:24)
[2020-02-27] MEDS: ACETAMINOPHEN 325 MG TABLET (FP) PO PRN (16:10)
[2020-02-27] MEDS: hydrOXYzine PAMOATE 50 MG CAPSULE (FP) PO PRN ×2 (18:20→21:10)
[2020-02-27] MEDS: THIAMINE HCL 100 MG TABLET (FP) PO SCH (21:10)
[2020-02-27] MEDS: SUVOREXANT 15 MG TABLET PO PRN (21:12)
[2020-02-28] MEDS: hydrOXYzine PAMOATE 50 MG CAPSULE (FP) PO PRN ×3 (04:45→18:29)
[2020-02-28] MEDS: busPIRone HCL 10 MG TABLET (FP) PO SCH ×3 (06:00→21:12)
[2020-02-28] MEDS: NICOTINE 21 MG/24 HOURS TOPICAL PATCH TD SCH (10:18)
[2020-02-28] MEDS: PRENATAL VITAMINS W/ FOLIC ACID TABLET (FP) PO SCH (10:19)
[2020-02-28] MEDS: ACETAMINOPHEN 325 MG TABLET (FP) PO PRN (14:38)
[2020-02-28] MEDS: IBUPROFEN 400 MG TABLET (FP) PO PRN (18:28)
[2020-02-28] MEDS: THIAMINE HCL 100 MG TABLET (FP) PO SCH (21:11)
[2020-02-28] MEDS: SUVOREXANT 15 MG TABLET PO PRN (21:13)
[2020-02-29] MEDS: hydrOXYzine PAMOATE 50 MG CAPSULE (FP) PO PRN ×3 (03:45→21:49)
[2020-02-29] MEDS: ACETAMINOPHEN 325 MG TABLET (FP) PO PRN ×2 (03:45→13:34)
[2020-02-29] MEDS: IBUPROFEN 400 MG TABLET (FP) PO PRN ×2 (05:55→15:55)
[2020-02-29] MEDS: busPIRone HCL 10 MG TABLET (FP) PO SCH ×3 (05:55→21:50)
[2020-02-29] MEDS: PRENATAL VITAMINS W/ FOLIC ACID TABLET (FP) PO SCH (10:25)
[2020-02-29] MEDS: NICOTINE 21 MG/24 HOURS TOPICAL PATCH TD SCH (10:25)
[2020-02-29] MEDS: SUVOREXANT 15 MG TABLET PO PRN (21:50)
[2020-02-29] MEDS: THIAMINE HCL 100 MG TABLET (FP) PO SCH (21:50)
[2020-03-01] MEDS: IBUPROFEN 400 MG TABLET (FP) PO PRN ×2 (05:57→16:57)
[2020-03-01] MEDS: busPIRone HCL 10 MG TABLET (FP) PO SCH ×3 (05:57→21:11)
[2020-03-01] MEDS: NICOTINE 21 MG/24 HOURS TOPICAL PATCH TD SCH (09:58)
[2020-03-01] MEDS: hydrOXYzine PAMOATE 50 MG CAPSULE (FP) PO PRN ×3 (09:58→21:11)
[2020-03-01] MEDS: PRENATAL VITAMINS W/ FOLIC ACID TABLET (FP) PO SCH (09:58)
[2020-03-01] MEDS: ACETAMINOPHEN 325 MG TABLET (FP) PO PRN (20:05)
[2020-03-01] MEDS: SUVOREXANT 15 MG TABLET PO PRN (21:11)
[2020-03-01] MEDS: THIAMINE HCL 100 MG TABLET (FP) PO SCH (21:21)
[2020-03-01] MEDS ORDERED: SUVOREXANT 10 MG TABLET PO PRN (22:00)
[2020-03-02] MEDS: IBUPROFEN 400 MG TABLET (FP) PO PRN ×2 (05:54→14:22)
[2020-03-02] MEDS: hydrOXYzine PAMOATE 50 MG CAPSULE (FP) PO PRN ×4 (05:54→21:50)
[2020-03-02] MEDS: busPIRone HCL 10 MG TABLET (FP) PO SCH ×3 (05:54→21:50)
[2020-03-02] MEDS: NICOTINE 21 MG/24 HOURS TOPICAL PATCH TD SCH (10:07)
[2020-03-02] MEDS: PRENATAL VITAMINS W/ FOLIC ACID TABLET (FP) PO SCH (10:07)
[2020-03-02] MEDS: ACETAMINOPHEN 325 MG TABLET (FP) PO PRN ×2 (10:08→19:01)
[2020-03-02] MEDS: SUVOREXANT 15 MG TABLET PO PRN (21:50)
[2020-03-02] MEDS: THIAMINE HCL 100 MG TABLET (FP) PO SCH (21:55)
[2020-03-03] MEDS: IBUPROFEN 400 MG TABLET (FP) PO PRN ×3 (05:59→21:55)
[2020-03-03] MEDS: busPIRone HCL 10 MG TABLET (FP) PO SCH ×3 (05:59→21:54)
[2020-03-03] MEDS: hydrOXYzine PAMOATE 50 MG CAPSULE (FP) PO PRN ×3 (05:59→20:20)
[2020-03-03] MEDS: NICOTINE 21 MG/24 HOURS TOPICAL PATCH TD SCH (10:03)
[2020-03-03] MEDS: PRENATAL VITAMINS W/ FOLIC ACID TABLET (FP) PO SCH (10:03)
[2020-03-03] MEDS: ACETAMINOPHEN 325 MG TABLET (FP) PO PRN (17:55)
[2020-03-03] MEDS: SUVOREXANT 15 MG TABLET PO PRN (21:55)
[2020-03-03] MEDS: THIAMINE HCL 100 MG TABLET (FP) PO SCH (21:56)
[2020-03-04] MEDS: hydrOXYzine PAMOATE 50 MG CAPSULE (FP) PO PRN ×2 (06:00→12:29)
[2020-03-04] MEDS: IBUPROFEN 400 MG TABLET (FP) PO PRN ×3 (06:00→21:56)
[2020-03-04] MEDS: busPIRone HCL 10 MG TABLET (FP) PO SCH ×3 (06:00→21:56)
[2020-03-04] MEDS: NICOTINE 21 MG/24 HOURS TOPICAL PATCH TD SCH (10:10)
[2020-03-04] MEDS: PRENATAL VITAMINS W/ FOLIC ACID TABLET (FP) PO SCH (10:11)
[2020-03-04] MEDS: ACETAMINOPHEN 325 MG TABLET (FP) PO PRN (16:58)
[2020-03-04] MEDS: SUVOREXANT 15 MG TABLET PO PRN (21:55)
[2020-03-04] MEDS: THIAMINE HCL 100 MG TABLET (FP) PO SCH (21:56)
[2020-03-05] MEDS: busPIRone HCL 10 MG TABLET (FP) PO SCH (05:03)
[2020-03-05] MEDS: hydrOXYzine PAMOATE 50 MG CAPSULE (FP) PO PRN (05:03)
[2020-03-05 07:17] VITALS: BP 123/75; PULSE 82; TEMP 98.4
[2020-03-05] MEDS: IBUPROFEN 400 MG TABLET (FP) PO PRN (08:09)
== END 2020-03-05 08:55 | disposition home or self-care (01) | DRG 773 ==
LOC: YASAS 11:58 → Y5N 11:59
PROVIDERS: ADMIT Allergy & Immunology; ATTEND Allergy & Immunology
PROC: HZ2ZZZZ Detoxification Services for Substance Abuse Treatment (ICD-10-PCS; principal; 2020-02-20)
DX: F11.20 Opioid dependence, uncomplicated (principal); F13.20 Sedative, hypnotic or anxiolytic dependence, uncomplicated; F10.20 Alcohol dependence, uncomplicated; F12.20 Cannabis dependence, uncomplicated; F17.210 Nicotine dependence, cigarettes, uncomplicated; F19.282 Other psychoactive substance dependence with psychoactive substance-induced sleep disorder; F43.21 Adjustment disorder with depressed mood; K21.9 Gastro-esophageal reflux disease without esophagitis; Z62.810 Personal history of physical and sexual abuse in childhood; Z86.2 Personal history of diseases of the blood and blood-forming organs and certain disorders involving the immune mechanism; Z86.19 Personal history of other infectious and parasitic diseases; Z91.013 Allergy to seafood
CPT/HCPCS: C9803; U0003

== ENCOUNTER 2020-06-17 07:58 | Inpatient (IN) | payer OTHER ==
[2020-06-17 08:11] VITALS: BMI 24.2
[2020-06-17] MEDS ORDERED: MENTHOL/PHENOL 1 EACH UD MM PRN (08:43)
[2020-06-17] MEDS ORDERED: ONDANSETRON *ODT* 4 MG TABLET SL PRN (08:43)
[2020-06-17] MEDS ORDERED: MAGNESIUM HYDROX 2400MG/30ML ORAL SUSPENSION 30 ML CUP PO PRN (08:43)
[2020-06-17] MEDS ORDERED: cloNIDine HCL 0.1 MG TABLET PO PRN (08:43)
[2020-06-17] MEDS ORDERED: IBUPROFEN 400 MG TABLET (FP) PO PRN (08:43)
[2020-06-17] MEDS ORDERED: ACETAMINOPHEN 325 MG TABLET (FP) PO PRN (08:43)
[2020-06-17] MEDS ORDERED: NICOTINE POLACRILEX 2 MG GUM BUC PRN (08:43)
[2020-06-17] MEDS ORDERED: BISMUTH SUBSALICYLATE 524 MG/30 ML UD PO PRN (08:43)
[2020-06-17] MEDS ORDERED: MAGNESIUM CITRATE 300 ML BOTTLE PO PRN (08:43)
[2020-06-17] MEDS ORDERED: MAG HYDROX/AL HYDROX/SIMETH 30 ML UNIT-DOSE CUP PO PRN (08:43)
[2020-06-17] MEDS ORDERED: METHADONE HCL 10 MG TABLET (FOR DETOX USE ONLY) PO ONE (09:15)
[2020-06-17] MEDS: NICOTINE 21 MG/24 HOURS TOPICAL PATCH TD SCH (11:32)
[2020-06-17] MEDS: hydrOXYzine PAMOATE 25 MG CAPSULE (FP) PO SCH ×3 (11:34→19:07)
[2020-06-17] MEDS: PRENATAL VITAMINS W/ FOLIC ACID TABLET (FP) PO SCH (11:34)
[2020-06-17 12:56] LABS: HEMATOCRIT 37.5 % (35.4-49); HEMOGLOBIN 13.1 GM/dL (11.7-16.9); MCH 32.1 pg (25.7-33.7); MCHC 35.1 g/dl (32.0-35.9); MEAN CELL VOLUME 91.4 fl (80-96); MEAN PLT VOLUME 7.5 fl (7.5-11.1); PLATELET COUNT 237 K/MM3 (134-434); RDW 12.8 % (11.9-15.9); WHITE BLOOD COUNT 8.4 K/mm3 (4.0-10.0)
[2020-06-17 13:06] LABS: BLOOD UREA NITROGEN 25.8 mg/dL (7-18); CALCIUM 8.8 mg/dL (8.5-10.1)
[2020-06-17 13:10] LABS: CREATININE 0.9 mg/dL (0.55-1.3)
[2020-06-17 13:11] LABS: BILIRUBIN,TOTAL 0.4 mg/dL (0.2-1); TOT PROT 7.4 g/dl (6.4-8.2)
[2020-06-17 15:28] LABS: HIV INTERPRETATION NEGATIVE (NEGATIVE)
[2020-06-18] MEDS: MELATONIN 5 MG TABLETS PO SCH ×2 (00:27→22:26)
[2020-06-18] MEDS: hydrOXYzine PAMOATE 25 MG CAPSULE (FP) PO SCH ×4 (00:28→13:55)
[2020-06-18] MEDS: THIAMINE HCL 100 MG TABLET (FP) PO SCH ×2 (00:28→22:26)
[2020-06-18] MEDS ORDERED: ONDANSETRON *ODT* 4 MG TABLET SL PRN (08:47)
[2020-06-18] MEDS ORDERED: METHADONE (DETOX) 20 MG, METHADONE (DETOX) 5 MG PO ONE (10:00)
[2020-06-18] MEDS ORDERED: METHADONE HCL 10 MG TABLET (FOR DETOX USE ONLY) ONE (10:26)
[2020-06-18] MEDS ORDERED: METHADONE HCL 5 MG TABLET (FOR DETOX USE ONLY) ONE (10:26)
[2020-06-18] MEDS: PRENATAL VITAMINS W/ FOLIC ACID TABLET (FP) PO SCH (10:27)
[2020-06-18] MEDS: diazePAM 5 MG TABLET PO PRN ×3 (10:28→22:32)
[2020-06-18] MEDS: ACETAMINOPHEN 325 MG TABLET (FP) PO PRN (10:30)
[2020-06-18] MEDS: NICOTINE 21 MG/24 HOURS TOPICAL PATCH TD SCH (10:31)
[2020-06-19] MEDS: diazePAM 5 MG TABLET PO PRN ×5 (02:55→22:15)
[2020-06-19] MEDS ORDERED: METHADONE HCL 10 MG TABLET (FOR DETOX USE ONLY) PO ONE (10:00)
[2020-06-19] MEDS: NICOTINE 21 MG/24 HOURS TOPICAL PATCH TD SCH (11:01)
[2020-06-19] MEDS: PRENATAL VITAMINS W/ FOLIC ACID TABLET (FP) PO SCH (11:01)
[2020-06-19] MEDS: THIAMINE HCL 100 MG TABLET (FP) PO SCH (22:15)
[2020-06-19] MEDS: MELATONIN 5 MG TABLETS PO SCH (22:15)
[2020-06-20] MEDS ORDERED: METHADONE HCL 10 MG TABLET (FOR DETOX USE ONLY) ONE (08:44)
[2020-06-20] MEDS ORDERED: METHADONE HCL 5 MG TABLET (FOR DETOX USE ONLY) ONE (08:44)
[2020-06-20] MEDS ORDERED: METHADONE (DETOX) 10 MG, METHADONE (DETOX) 5 MG PO ONE (10:00)
[2020-06-20] MEDS: NICOTINE 21 MG/24 HOURS TOPICAL PATCH TD SCH (10:12)
[2020-06-20] MEDS: diazePAM 5 MG TABLET PO PRN ×4 (10:14→23:07)
[2020-06-20] MEDS: PRENATAL VITAMINS W/ FOLIC ACID TABLET (FP) PO SCH (10:16)
[2020-06-20 14:09] LABS: SARS-CoV-2 NAA Not Detected (Not Detected)
[2020-06-20] MEDS: THIAMINE HCL 100 MG TABLET (FP) PO SCH (22:35)
[2020-06-20] MEDS: MELATONIN 5 MG TABLETS PO SCH (23:07)
[2020-06-21] MEDS ORDERED: METHADONE HCL 10 MG TABLET (FOR DETOX USE ONLY) PO ONE (10:00)
[2020-06-21] MEDS: PRENATAL VITAMINS W/ FOLIC ACID TABLET (FP) PO SCH (10:25)
[2020-06-21] MEDS: NICOTINE 21 MG/24 HOURS TOPICAL PATCH TD SCH (10:27)
[2020-06-21] MEDS: METHOCARBAMOL 500 MG TABLET PO PRN (14:53)
[2020-06-21] MEDS: ACETAMINOPHEN 325 MG TABLET (FP) PO PRN (14:54)
[2020-06-21] MEDS: MELATONIN 5 MG TABLETS PO SCH (22:38)
[2020-06-21] MEDS: THIAMINE HCL 100 MG TABLET (FP) PO SCH (22:39)
[2020-06-22] MEDS ORDERED: METHADONE HCL 5 MG TABLET (FOR DETOX USE ONLY) PO ONE (06:00)
[2020-06-22] MEDS: METHOCARBAMOL 500 MG TABLET PO PRN (08:44)
[2020-06-22] MEDS: ACETAMINOPHEN 325 MG TABLET (FP) PO PRN (08:44)
[2020-06-22 09:11] VITALS: BP 109/79; PULSE 109; TEMP 96.8
[2020-06-22] MEDS: NICOTINE 21 MG/24 HOURS TOPICAL PATCH TD SCH (10:28)
[2020-06-22] MEDS: PRENATAL VITAMINS W/ FOLIC ACID TABLET (FP) PO SCH (10:28)
== END 2020-06-22 11:25 | disposition other institution (70) | DRG 773 ==
LOC: YASAS 07:58 → Y3N 10:16
PROVIDERS: ADMIT Allergy & Immunology; ATTEND Allergy & Immunology
PROC: HZ2ZZZZ Detoxification Services for Substance Abuse Treatment (ICD-10-PCS; principal; 2020-06-17)
DX: F11.23 Opioid dependence with withdrawal (principal); F10.230 Alcohol dependence with withdrawal, uncomplicated; F13.20 Sedative, hypnotic or anxiolytic dependence, uncomplicated; F17.210 Nicotine dependence, cigarettes, uncomplicated; F19.282 Other psychoactive substance dependence with psychoactive substance-induced sleep disorder; F43.21 Adjustment disorder with depressed mood; K21.9 Gastro-esophageal reflux disease without esophagitis; Z86.19 Personal history of other infectious and parasitic diseases; Z91.013 Allergy to seafood
CPT/HCPCS: 36415; 80053; 85027; 86780; 87389; 93005; 93010; C9803; Q0162; U0003; U0005

== ENCOUNTER 2020-06-22 11:32 | Inpatient (IN) | payer OTHER ==
[2020-06-22] MEDS ORDERED: MENTHOL/PHENOL 1 EACH UD MM PRN (12:16)
[2020-06-22] MEDS ORDERED: MAG HYDROX/AL HYDROX/SIMETH 30 ML UNIT-DOSE CUP PO PRN (12:16)
[2020-06-22] MEDS ORDERED: LOPERAMIDE HCL 2 MG CAPSULE PO PRN (12:16)
[2020-06-22] MEDS ORDERED: NICOTINE POLACRILEX 2 MG GUM BUC PRN (12:16)
[2020-06-22] MEDS ORDERED: P-EPHED 60MG/TRIPROLIDI 2.5MG TABLET PO PRN (12:16)
[2020-06-22] MEDS ORDERED: MAGNESIUM CITRATE 300 ML BOTTLE PO PRN (12:16)
[2020-06-22] MEDS ORDERED: MAGNESIUM HYDROX 2400MG/30ML ORAL SUSPENSION 30 ML CUP PO PRN (12:16)
[2020-06-22] MEDS ORDERED: guaiFENesin 200 MG/10 ML 10 ML UNIT-DOSE CUPS PO PRN (12:16)
[2020-06-22] MEDS ORDERED: hydrOXYzine PAMOATE 25 MG CAPSULE (FP) PO PRN (12:16)
[2020-06-22] MEDS: METHOCARBAMOL 500 MG TABLET PO SCH ×3 (15:10→22:13)
[2020-06-22] MEDS ORDERED: MELATONIN 5 MG TABLETS PO SCH (22:00)
[2020-06-22] MEDS: THIAMINE HCL 100 MG TABLET (FP) PO SCH (22:11)
[2020-06-23] MEDS ORDERED: SUVOREXANT 15 MG TABLET PO PRN (10:02)
[2020-06-23] MEDS: PRENATAL VITAMINS W/ FOLIC ACID TABLET (FP) PO SCH (10:14)
[2020-06-23] MEDS: NICOTINE 21 MG/24 HOURS TOPICAL PATCH TD SCH (10:15)
[2020-06-23] MEDS: METHOCARBAMOL 500 MG TABLET PO SCH ×4 (10:15→21:28)
[2020-06-23] MEDS ORDERED: COLLOIDAL OATMEAL 1 BAR EACH TP PRN (11:26)
[2020-06-23] MEDS: busPIRone HCL 10 MG TABLET (FP) PO SCH ×2 (14:45→21:24)
[2020-06-23 17:00] LABS: URINE APPEARANCE CLEAR; URINE BILIRUBIN NEGATIVE (NEGATIVE); URINE COLOR YELLOW; URINE GLUCOSE (UA) NEGATIVE (NEGATIVE); URINE KETONE NEGATIVE (NEGATIVE); URINE LEUK ESTERASE NEGATIVE (NEGATIVE); URINE NITRITE NEGATIVE (NEGATIVE); URINE PROTEIN NEGATIVE (NEGATIVE); URINE UROBILINOGEN 0.2 mg/dL (0.2-1.0)
[2020-06-23] MEDS: THIAMINE HCL 100 MG TABLET (FP) PO SCH (21:24)
[2020-06-23] MEDS: SUVOREXANT 15 MG TABLET PO PRN (21:26)
[2020-06-24] MEDS: busPIRone HCL 10 MG TABLET (FP) PO SCH ×3 (06:38→21:33)
[2020-06-24] MEDS: NICOTINE 21 MG/24 HOURS TOPICAL PATCH TD SCH (10:27)
[2020-06-24] MEDS: METHOCARBAMOL 500 MG TABLET PO SCH ×4 (10:27→21:33)
[2020-06-24] MEDS: PRENATAL VITAMINS W/ FOLIC ACID TABLET (FP) PO SCH (10:27)
[2020-06-24] MEDS: THIAMINE HCL 100 MG TABLET (FP) PO SCH (21:33)
[2020-06-24] MEDS: SUVOREXANT 15 MG TABLET PO PRN (21:34)
[2020-06-25] MEDS: busPIRone HCL 10 MG TABLET (FP) PO SCH ×3 (06:20→21:20)
[2020-06-25] MEDS: METHOCARBAMOL 500 MG TABLET PO SCH ×4 (09:57→21:20)
[2020-06-25] MEDS: PRENATAL VITAMINS W/ FOLIC ACID TABLET (FP) PO SCH (09:57)
[2020-06-25] MEDS: NICOTINE 21 MG/24 HOURS TOPICAL PATCH TD SCH (09:57)
[2020-06-25] MEDS ORDERED: ONDANSETRON *ODT* 4 MG TABLET SL PRN (15:42)
[2020-06-25] MEDS: IBUPROFEN 400 MG TABLET (FP) PO PRN (16:41)
[2020-06-25] MEDS: SUVOREXANT 15 MG TABLET PO PRN (21:22)
[2020-06-25] MEDS: THIAMINE HCL 100 MG TABLET (FP) PO SCH (21:23)
[2020-06-26] MEDS: busPIRone HCL 10 MG TABLET (FP) PO SCH ×3 (06:22→21:39)
[2020-06-26] MEDS: NICOTINE 21 MG/24 HOURS TOPICAL PATCH TD SCH (09:34)
[2020-06-26] MEDS: PRENATAL VITAMINS W/ FOLIC ACID TABLET (FP) PO SCH (09:34)
[2020-06-26] MEDS: METHOCARBAMOL 500 MG TABLET PO SCH ×4 (09:34→21:40)
[2020-06-26] MEDS: IBUPROFEN 400 MG TABLET (FP) PO PRN (18:10)
[2020-06-26] MEDS: THIAMINE HCL 100 MG TABLET (FP) PO SCH (21:39)
[2020-06-26] MEDS: SUVOREXANT 15 MG TABLET PO PRN (21:40)
[2020-06-27] MEDS: IBUPROFEN 400 MG TABLET (FP) PO PRN ×2 (04:22→15:31)
[2020-06-27] MEDS: busPIRone HCL 10 MG TABLET (FP) PO SCH ×3 (06:54→21:29)
[2020-06-27] MEDS: NICOTINE 21 MG/24 HOURS TOPICAL PATCH TD SCH (10:04)
[2020-06-27] MEDS: PRENATAL VITAMINS W/ FOLIC ACID TABLET (FP) PO SCH (10:04)
[2020-06-27] MEDS: METHOCARBAMOL 500 MG TABLET PO SCH ×5 (10:04→21:29)
[2020-06-27] MEDS: THIAMINE HCL 100 MG TABLET (FP) PO SCH (21:28)
[2020-06-27] MEDS: SUVOREXANT 15 MG TABLET PO PRN (21:29)
[2020-06-28] MEDS: busPIRone HCL 10 MG TABLET (FP) PO SCH ×3 (07:02→21:40)
[2020-06-28] MEDS: PRENATAL VITAMINS W/ FOLIC ACID TABLET (FP) PO SCH (10:13)
[2020-06-28] MEDS: METHOCARBAMOL 500 MG TABLET PO SCH ×4 (10:13→21:40)
[2020-06-28] MEDS: IBUPROFEN 400 MG TABLET (FP) PO PRN ×2 (10:14→15:47)
[2020-06-28] MEDS: NICOTINE 21 MG/24 HOURS TOPICAL PATCH TD SCH (10:15)
[2020-06-28] MEDS ORDERED: MASKS NR ONE (12:02)
[2020-06-28] MEDS: ACETAMINOPHEN 325 MG TABLET (FP) PO PRN (13:27)
[2020-06-28] MEDS: THIAMINE HCL 100 MG TABLET (FP) PO SCH (21:40)
[2020-06-28] MEDS: SUVOREXANT 15 MG TABLET PO PRN (21:40)
[2020-06-29] MEDS: busPIRone HCL 10 MG TABLET (FP) PO SCH ×3 (06:46→21:17)
[2020-06-29 07:08] LABS: SARS-CoV-2 NAA NOT DETECTED
[2020-06-29] MEDS: PRENATAL VITAMINS W/ FOLIC ACID TABLET (FP) PO SCH (10:22)
[2020-06-29] MEDS: NICOTINE 21 MG/24 HOURS TOPICAL PATCH TD SCH (10:22)
[2020-06-29] MEDS: METHOCARBAMOL 500 MG TABLET PO SCH ×4 (10:22→21:17)
[2020-06-29] MEDS: IBUPROFEN 400 MG TABLET (FP) PO PRN (10:22)
[2020-06-29] MEDS: THIAMINE HCL 100 MG TABLET (FP) PO SCH (21:16)
[2020-06-29] MEDS: SUVOREXANT 15 MG TABLET PO PRN (21:17)
[2020-06-30] MEDS: busPIRone HCL 10 MG TABLET (FP) PO SCH ×3 (06:57→21:21)
[2020-06-30] MEDS: IBUPROFEN 400 MG TABLET (FP) PO PRN (10:11)
[2020-06-30] MEDS: NICOTINE 21 MG/24 HOURS TOPICAL PATCH TD SCH (10:11)
[2020-06-30] MEDS: PRENATAL VITAMINS W/ FOLIC ACID TABLET (FP) PO SCH (10:11)
[2020-06-30] MEDS: METHOCARBAMOL 500 MG TABLET PO SCH ×4 (10:13→21:21)
[2020-06-30] MEDS: ACETAMINOPHEN 325 MG TABLET (FP) PO PRN ×2 (11:51→21:22)
[2020-06-30] MEDS: THIAMINE HCL 100 MG TABLET (FP) PO SCH (21:21)
[2020-06-30] MEDS: SUVOREXANT 20 MG TABLET PO PRN (21:21)
[2020-07-01] MEDS: busPIRone HCL 10 MG TABLET (FP) PO SCH ×3 (06:44→21:22)
[2020-07-01] MEDS: IBUPROFEN 400 MG TABLET (FP) PO PRN (09:55)
[2020-07-01] MEDS: METHOCARBAMOL 500 MG TABLET PO SCH ×4 (09:55→21:22)
[2020-07-01] MEDS: NICOTINE 21 MG/24 HOURS TOPICAL PATCH TD SCH (09:55)
[2020-07-01] MEDS: PRENATAL VITAMINS W/ FOLIC ACID TABLET (FP) PO SCH (10:41)
[2020-07-01] MEDS ORDERED: MELATONIN 5 MG TABLETS PO PRN (14:43)
[2020-07-01] MEDS: ACETAMINOPHEN 325 MG TABLET (FP) PO PRN (15:48)
[2020-07-01] MEDS: SUVOREXANT 20 MG TABLET PO PRN (21:23)
[2020-07-01] MEDS: THIAMINE HCL 100 MG TABLET (FP) PO SCH (21:24)
[2020-07-02] MEDS: busPIRone HCL 10 MG TABLET (FP) PO SCH ×3 (05:49→21:52)
[2020-07-02] MEDS: IBUPROFEN 400 MG TABLET (FP) PO PRN (05:50)
[2020-07-02] MEDS: NICOTINE 21 MG/24 HOURS TOPICAL PATCH TD SCH (10:26)
[2020-07-02] MEDS: PRENATAL VITAMINS W/ FOLIC ACID TABLET (FP) PO SCH (10:26)
[2020-07-02] MEDS: METHOCARBAMOL 500 MG TABLET PO SCH ×4 (10:27→21:52)
[2020-07-02] MEDS: hydrOXYzine PAMOATE 25 MG CAPSULE (FP) PO PRN (18:24)
[2020-07-02] MEDS: SUVOREXANT 20 MG TABLET PO PRN (21:53)
[2020-07-02] MEDS: THIAMINE HCL 100 MG TABLET (FP) PO SCH (21:54)
[2020-07-03] MEDS: busPIRone HCL 10 MG TABLET (FP) PO SCH ×3 (05:55→21:19)
[2020-07-03] MEDS: hydrOXYzine PAMOATE 25 MG CAPSULE (FP) PO PRN ×5 (07:16→21:22)
[2020-07-03] MEDS: NICOTINE 21 MG/24 HOURS TOPICAL PATCH TD SCH (10:23)
[2020-07-03] MEDS: METHOCARBAMOL 500 MG TABLET PO SCH ×4 (10:24→21:22)
[2020-07-03] MEDS: PRENATAL VITAMINS W/ FOLIC ACID TABLET (FP) PO SCH (10:24)
[2020-07-03] MEDS: IBUPROFEN 400 MG TABLET (FP) PO PRN (10:35)
[2020-07-03] MEDS: THIAMINE HCL 100 MG TABLET (FP) PO SCH (21:20)
[2020-07-03] MEDS: SUVOREXANT 20 MG TABLET PO PRN (21:21)
[2020-07-04] MEDS: busPIRone HCL 10 MG TABLET (FP) PO SCH ×3 (06:26→21:35)
[2020-07-04] MEDS: PRENATAL VITAMINS W/ FOLIC ACID TABLET (FP) PO SCH (10:07)
[2020-07-04] MEDS: NICOTINE 21 MG/24 HOURS TOPICAL PATCH TD SCH (10:07)
[2020-07-04] MEDS: METHOCARBAMOL 500 MG TABLET PO SCH ×4 (10:07→21:35)
[2020-07-04] MEDS: hydrOXYzine PAMOATE 25 MG CAPSULE (FP) PO PRN ×2 (10:08→21:36)
[2020-07-04] MEDS: SUVOREXANT 20 MG TABLET PO PRN (21:35)
[2020-07-04] MEDS: THIAMINE HCL 100 MG TABLET (FP) PO SCH (21:36)
[2020-07-05] MEDS: busPIRone HCL 10 MG TABLET (FP) PO SCH ×2 (06:29→13:42)
[2020-07-05 07:05] VITALS: BP 127/79; PULSE 90; TEMP 97.8
[2020-07-05] MEDS: ACETAMINOPHEN 325 MG TABLET (FP) PO PRN (09:07)
[2020-07-05] MEDS: METHOCARBAMOL 500 MG TABLET PO SCH ×2 (09:08→13:42)
[2020-07-05] MEDS: NICOTINE 21 MG/24 HOURS TOPICAL PATCH TD SCH (09:08)
[2020-07-05] MEDS: PRENATAL VITAMINS W/ FOLIC ACID TABLET (FP) PO SCH (09:08)
[2020-07-05] MEDS: hydrOXYzine PAMOATE 25 MG CAPSULE (FP) PO PRN ×2 (09:09→13:42)
[2020-07-05] MEDS ORDERED: SUVOREXANT 10 MG TABLET PO PRN (22:00)
== END 2020-07-05 17:08 | disposition home or self-care (01) | DRG 772 ==
LOC: YASAS 11:32 → Y3W 11:33
PROVIDERS: ADMIT Allergy & Immunology; ATTEND Allergy & Immunology
PROC: HZ42ZZZ Group Counseling for Substance Abuse Treatment, Cognitive-Behavioral (ICD-10-PCS; principal; 2020-06-22)
DX: F11.20 Opioid dependence, uncomplicated (principal); F10.20 Alcohol dependence, uncomplicated; F13.20 Sedative, hypnotic or anxiolytic dependence, uncomplicated; F17.210 Nicotine dependence, cigarettes, uncomplicated; F19.282 Other psychoactive substance dependence with psychoactive substance-induced sleep disorder; D64.9 Anemia, unspecified; K21.9 Gastro-esophageal reflux disease without esophagitis; G47.00 Insomnia, unspecified; Z62.810 Personal history of physical and sexual abuse in childhood; Z86.19 Personal history of other infectious and parasitic diseases
CPT/HCPCS: 81003; C9803; Q0162; U0003; U0005

== ENCOUNTER 2020-08-13 08:00 | Inpatient (IN) | payer OTHER ==
[2020-08-13 08:40] VITALS: BMI 23.9
[2020-08-13] MEDS ORDERED: IBUPROFEN 400 MG TABLET (FP) PO PRN (09:29)
[2020-08-13] MEDS ORDERED: NICOTINE POLACRILEX 2 MG GUM BUC PRN (09:29)
[2020-08-13] MEDS ORDERED: BISMUTH SUBSALICYLATE 262 MG/15 ML BTL PO PRN (09:29)
[2020-08-13] MEDS ORDERED: MAG HYDROX/AL HYDROX/SIMETH 30 ML UNIT-DOSE CUP PO PRN (09:29)
[2020-08-13] MEDS ORDERED: MAGNESIUM HYDROX 2400MG/30ML ORAL SUSPENSION 30 ML CUP PO PRN (09:29)
[2020-08-13] MEDS ORDERED: ACETAMINOPHEN 325 MG TABLET (FP) PO PRN ×2 (09:29)
[2020-08-13] MEDS ORDERED: ONDANSETRON *ODT* 4 MG TABLET SL PRN (09:29)
[2020-08-13] MEDS ORDERED: methaDONE HCL 10 MG TABLET (FOR DETOX USE ONLY) PO ONE (09:29)
[2020-08-13] MEDS ORDERED: MENTHOL/PHENOL 1 EACH UD MM PRN (09:29)
[2020-08-13] MEDS ORDERED: cloNIDine HCL 0.1 MG TABLET PO PRN (09:29)
[2020-08-13] MEDS ORDERED: MAGNESIUM CITRATE 300 ML BOTTLE PO PRN (09:29)
[2020-08-13] MEDS ORDERED: hydrOXYzine PAMOATE 25 MG CAPSULE (FP) PO SCH (10:00)
[2020-08-13] MEDS: diazePAM 5 MG TABLET PO SCH ×3 (11:44→22:21)
[2020-08-13] MEDS: NICOTINE 21 MG/24 HOURS TOPICAL PATCH TD SCH (11:46)
[2020-08-13] MEDS: PRENATAL VITAMINS W/ FOLIC ACID TABLET (FP) PO SCH (11:46)
[2020-08-13 13:18] LABS: HEMOGLOBIN 13.9 GM/dL (11.7-16.9); MCH 30.5 pg (25.7-33.7); MCHC 33.1 g/dl (32.0-35.9); MEAN CELL VOLUME 92.3 fl (80-96); MEAN PLT VOLUME 7.3 fl (7.5-11.1); PLATELET COUNT 260 10^3/uL (134-434); RBC 4.56 M/mm3 (4.00-5.60); RDW 13.2 % (11.9-15.9); WHITE BLOOD COUNT 8.8 K/mm3 (4.0-10.0)
[2020-08-13 13:25] LABS: CALCIUM 8.7 mg/dL (8.5-10.1)
[2020-08-13 13:26] LABS: ALBUMIN 4.3 g/dl (3.4-5.0); BLOOD UREA NITROGEN 20.1 mg/dL (7-18)
[2020-08-13 13:29] LABS: CREATININE 0.8 mg/dL (0.55-1.3)
[2020-08-13 13:30] LABS: BILIRUBIN,TOTAL 0.5 mg/dL (0.2-1)
[2020-08-13 13:31] LABS: TOT PROT 7.6 g/dl (6.4-8.2)
[2020-08-13] MEDS ORDERED: MELATONIN 5 MG TABLETS PO SCH (22:00)
[2020-08-13] MEDS: busPIRone HCL 10 MG TABLET (FP) PO SCH (22:20)
[2020-08-13] MEDS: THIAMINE HCL 100 MG TABLET (FP) PO SCH (22:20)
[2020-08-14] MEDS: diazePAM 5 MG TABLET PO PRN ×2 (02:50→12:43)
[2020-08-14] MEDS: diazePAM 5 MG TABLET PO SCH ×4 (06:33→22:34)
[2020-08-14] MEDS ORDERED: methaDONE HCL 10 MG TABLET (FOR DETOX USE ONLY) ONE (09:22)
[2020-08-14] MEDS: PRENATAL VITAMINS W/ FOLIC ACID TABLET (FP) PO SCH (10:43)
[2020-08-14] MEDS: busPIRone HCL 10 MG TABLET (FP) PO SCH ×2 (10:45→22:33)
[2020-08-14] MEDS: NICOTINE 21 MG/24 HOURS TOPICAL PATCH TD SCH (10:45)
[2020-08-14] MEDS: SUVOREXANT 10 MG TABLET PO PRN (22:32)
[2020-08-14] MEDS: THIAMINE HCL 100 MG TABLET (FP) PO SCH (22:34)
[2020-08-15] MEDS: diazePAM 5 MG TABLET PO PRN ×3 (02:44→17:12)
[2020-08-15] MEDS: diazePAM 5 MG TABLET PO SCH ×3 (06:11→22:31)
[2020-08-15] MEDS ORDERED: methaDONE HCL 10 MG TABLET (FOR DETOX USE ONLY) PO ONE (10:00)
[2020-08-15] MEDS: PRENATAL VITAMINS W/ FOLIC ACID TABLET (FP) PO SCH (10:57)
[2020-08-15] MEDS: busPIRone HCL 10 MG TABLET (FP) PO SCH ×2 (10:58→22:31)
[2020-08-15] MEDS: NICOTINE 21 MG/24 HOURS TOPICAL PATCH TD SCH (10:58)
[2020-08-15] MEDS: SUVOREXANT 10 MG TABLET PO PRN (22:31)
[2020-08-15] MEDS: METHOCARBAMOL 500 MG TABLET PO PRN (22:31)
[2020-08-15] MEDS: THIAMINE HCL 100 MG TABLET (FP) PO SCH (22:32)
[2020-08-15] MEDS: hydrOXYzine PAMOATE 25 MG CAPSULE (FP) PO PRN (22:32)
[2020-08-16] MEDS: diazePAM 5 MG TABLET PO PRN ×2 (00:03→08:44)
[2020-08-16] MEDS: diazePAM 5 MG TABLET PO SCH ×2 (05:24→17:37)
[2020-08-16] MEDS ORDERED: methaDONE HCL 10 MG TABLET (FOR DETOX USE ONLY) ONE (09:00)
[2020-08-16] MEDS: busPIRone HCL 10 MG TABLET (FP) PO SCH ×2 (10:24→21:35)
[2020-08-16] MEDS: PRENATAL VITAMINS W/ FOLIC ACID TABLET (FP) PO SCH (10:25)
[2020-08-16] MEDS: NICOTINE 21 MG/24 HOURS TOPICAL PATCH TD SCH (10:26)
[2020-08-16] MEDS: hydrOXYzine PAMOATE 25 MG CAPSULE (FP) PO PRN ×2 (14:14→21:35)
[2020-08-16] MEDS: SUVOREXANT 10 MG TABLET PO PRN (21:35)
[2020-08-16] MEDS: THIAMINE HCL 100 MG TABLET (FP) PO SCH (21:36)
[2020-08-17] MEDS ORDERED: diazePAM 5 MG TABLET PO ONE (06:00)
[2020-08-17] MEDS ORDERED: methaDONE HCL 10 MG TABLET (FOR DETOX USE ONLY) PO ONE (10:00)
[2020-08-17] MEDS: METHOCARBAMOL 500 MG TABLET PO PRN ×2 (10:31→22:38)
[2020-08-17] MEDS: NICOTINE 21 MG/24 HOURS TOPICAL PATCH TD SCH (10:32)
[2020-08-17] MEDS: PRENATAL VITAMINS W/ FOLIC ACID TABLET (FP) PO SCH (10:32)
[2020-08-17] MEDS: busPIRone HCL 10 MG TABLET (FP) PO SCH ×2 (10:32→22:36)
[2020-08-17] MEDS: THIAMINE HCL 100 MG TABLET (FP) PO SCH (22:36)
[2020-08-18 09:59] VITALS: TEMP 97.1
[2020-08-18] MEDS: PRENATAL VITAMINS W/ FOLIC ACID TABLET (FP) PO SCH (10:45)
[2020-08-18] MEDS: NICOTINE 21 MG/24 HOURS TOPICAL PATCH TD SCH (10:45)
[2020-08-18] MEDS: busPIRone HCL 10 MG TABLET (FP) PO SCH (10:45)
[2020-08-18 14:13] VITALS: BP 108/70; PULSE 70
== END 2020-08-18 15:05 | disposition home or self-care (01) | DRG 773 ==
LOC: YASAS 08:00 → Y3N 09:36
PROVIDERS: ADMIT Allergy & Immunology; ATTEND Allergy & Immunology
PROC: HZ2ZZZZ Detoxification Services for Substance Abuse Treatment (ICD-10-PCS; principal; 2020-08-13)
DX: F10.230 Alcohol dependence with withdrawal, uncomplicated (principal); F11.20 Opioid dependence, uncomplicated; F17.210 Nicotine dependence, cigarettes, uncomplicated; F19.282 Other psychoactive substance dependence with psychoactive substance-induced sleep disorder; K21.9 Gastro-esophageal reflux disease without esophagitis; M54.5 Low back pain; G89.29 Other chronic pain; Z86.19 Personal history of other infectious and parasitic diseases
CPT/HCPCS: 36415; 80053; 84520; 85027; 86780; C9803; U0003; U0005

== ENCOUNTER 2020-09-20 08:45 | Inpatient (IN) | payer OTHER ==
[2020-09-20 10:08] VITALS: BMI 23.6
[2020-09-20] MEDS ORDERED: MAG HYDROX/AL HYDROX/SIMETH 30 ML UNIT-DOSE CUP PO PRN (14:03)
[2020-09-20] MEDS ORDERED: MENTHOL/PHENOL 1 EACH UD MM PRN (14:03)
[2020-09-20] MEDS ORDERED: ACETAMINOPHEN 325 MG TABLET (FP) PO PRN ×2 (14:03)
[2020-09-20] MEDS ORDERED: methaDONE HCL 10 MG TABLET (FOR DETOX USE ONLY) PO ONE (14:03)
[2020-09-20] MEDS ORDERED: MAGNESIUM CITRATE 300 ML BOTTLE PO PRN (14:03)
[2020-09-20] MEDS ORDERED: ONDANSETRON *ODT* 4 MG TABLET SL PRN (14:03)
[2020-09-20] MEDS ORDERED: NICOTINE 10 MG CARTRIDGE (INHALER) IH PRN (14:03)
[2020-09-20] MEDS ORDERED: BISMUTH SUBSALICYLATE 524 MG/30 ML PO PRN (14:03)
[2020-09-20] MEDS ORDERED: MAGNESIUM HYDROX 2400MG/30ML ORAL SUSPENSION 30 ML CUP PO PRN (14:03)
[2020-09-20] MEDS ORDERED: IBUPROFEN 400 MG TABLET (FP) PO PRN (14:03)
[2020-09-20] MEDS ORDERED: cloNIDine HCL 0.1 MG TABLET PO PRN (14:03)
[2020-09-20] MEDS ORDERED: clonazePAM 0.5 MG ODT TABLETS SL PRN (14:03)
[2020-09-20] MEDS ORDERED: TRIMETHOBENZAMIDE HCL 200MG/2ML INJ IM PRN (14:07)
[2020-09-20] MEDS ORDERED: methaDONE HCL 10 MG TABLET (FOR DETOX USE ONLY) ONE (16:17)
[2020-09-20] MEDS: diazePAM 5 MG TABLET PO SCH ×2 (17:00→22:52)
[2020-09-20] MEDS ORDERED: hydrOXYzine PAMOATE 25 MG CAPSULE (FP) PO SCH (18:00)
[2020-09-20] MEDS: diazePAM 5 MG TABLET PO PRN (21:26)
[2020-09-20] MEDS: THIAMINE HCL 100 MG TABLET (FP) PO SCH (22:42)
[2020-09-20] MEDS: MELATONIN 5 MG TABLETS PO SCH (22:42)
[2020-09-21] MEDS: diazePAM 5 MG TABLET PO PRN ×3 (02:46→21:15)
[2020-09-21] MEDS: diazePAM 5 MG TABLET PO SCH ×4 (05:41→22:31)
[2020-09-21] MEDS ORDERED: methaDONE HCL 10 MG TABLET (FOR DETOX USE ONLY) ONE (09:04)
[2020-09-21] MEDS: PRENATAL VITAMINS W/ FOLIC ACID TABLET (FP) PO SCH (10:12)
[2020-09-21 10:19] LABS: HEMOGLOBIN 14.4 GM/dL (11.7-16.9); MCH 31.7 pg (25.7-33.7); MCHC 35.1 g/dl (32.0-35.9); MEAN CELL VOLUME 90.2 fl (80-96); MEAN PLT VOLUME 7.2 fl (7.5-11.1); PLATELET COUNT 329 10^3/uL (134-434); RBC 4.55 M/mm3 (4.00-5.60); RDW 12.8 % (11.9-15.9); WHITE BLOOD COUNT 9.3 K/mm3 (4.0-10.0)
[2020-09-21 12:33] LABS: CALCIUM 9.2 mg/dL (8.5-10.1)
[2020-09-21 12:34] LABS: ALBUMIN 4.2 g/dl (3.4-5.0); BLOOD UREA NITROGEN 31.3 mg/dL (7-18)
[2020-09-21 12:38] LABS: BILIRUBIN,TOTAL 0.7 mg/dL (0.2-1)
[2020-09-21 12:39] LABS: TOT PROT 7.8 g/dl (6.4-8.2)
[2020-09-21 18:00] LABS: PH,URINE 8.5 (5.0-8.0); URINE APPEARANCE CLEAR; URINE BILIRUBIN NEGATIVE (NEGATIVE); URINE COLOR YELLOW; URINE GLUCOSE (UA) NEGATIVE (NEGATIVE); URINE KETONE NEGATIVE (NEGATIVE); URINE LEUK ESTERASE NEGATIVE (NEGATIVE); URINE NITRITE NEGATIVE (NEGATIVE); URINE PROTEIN TRACE (NEGATIVE)
[2020-09-21] MEDS: MELATONIN 5 MG TABLETS PO SCH (22:30)
[2020-09-21] MEDS: THIAMINE HCL 100 MG TABLET (FP) PO SCH (22:31)
[2020-09-22] MEDS: diazePAM 5 MG TABLET PO PRN ×3 (01:42→19:10)
[2020-09-22] MEDS: diazePAM 5 MG TABLET PO SCH ×3 (05:19→22:34)
[2020-09-22] MEDS ORDERED: methaDONE HCL 10 MG TABLET (FOR DETOX USE ONLY) PO ONE (10:00)
[2020-09-22] MEDS: PRENATAL VITAMINS W/ FOLIC ACID TABLET (FP) PO SCH (10:26)
[2020-09-22] MEDS: METHOCARBAMOL 500 MG TABLET PO PRN ×2 (10:27→22:35)
[2020-09-22] MEDS ORDERED: NICOTINE POLACRILEX 2 MG GUM BUC PRN (12:18)
[2020-09-22] MEDS: NICOTINE 21 MG/24 HOURS TOPICAL PATCH TD SCH (13:10)
[2020-09-22] MEDS: hydrOXYzine PAMOATE 25 MG CAPSULE (FP) PO PRN ×2 (13:11→22:35)
[2020-09-22] MEDS: THIAMINE HCL 100 MG TABLET (FP) PO SCH (22:35)
[2020-09-22] MEDS: MELATONIN 5 MG TABLETS PO SCH (22:35)
[2020-09-23] MEDS: diazePAM 5 MG TABLET PO PRN ×2 (03:00→10:14)
[2020-09-23] MEDS: diazePAM 5 MG TABLET PO SCH ×2 (05:46→18:04)
[2020-09-23] MEDS ORDERED: methaDONE HCL 10 MG TABLET (FOR DETOX USE ONLY) ONE (09:09)
[2020-09-23] MEDS: PRENATAL VITAMINS W/ FOLIC ACID TABLET (FP) PO SCH (10:11)
[2020-09-23] MEDS: NICOTINE 21 MG/24 HOURS TOPICAL PATCH TD SCH (10:11)
[2020-09-23] MEDS: METHOCARBAMOL 500 MG TABLET PO PRN (10:16)
[2020-09-23] MEDS: hydrOXYzine PAMOATE 25 MG CAPSULE (FP) PO PRN (16:41)
[2020-09-23] MEDS ORDERED: SUVOREXANT 10 MG TABLET PO ONE (22:18)
[2020-09-23] MEDS: MELATONIN 5 MG TABLETS PO SCH (22:51)
[2020-09-23] MEDS: THIAMINE HCL 100 MG TABLET (FP) PO SCH (22:51)
[2020-09-24] MEDS ORDERED: diazePAM 5 MG TABLET PO ONE ×2 (06:00→21:10)
[2020-09-24] MEDS ORDERED: methaDONE HCL 10 MG TABLET (FOR DETOX USE ONLY) PO ONE (10:00)
[2020-09-24] MEDS: NICOTINE 21 MG/24 HOURS TOPICAL PATCH TD SCH (10:49)
[2020-09-24] MEDS: PRENATAL VITAMINS W/ FOLIC ACID TABLET (FP) PO SCH (10:50)
[2020-09-24] MEDS: hydrOXYzine PAMOATE 25 MG CAPSULE (FP) PO PRN ×3 (10:51→22:41)
[2020-09-24] MEDS: METHOCARBAMOL 500 MG TABLET PO PRN (17:37)
[2020-09-24] MEDS: THIAMINE HCL 100 MG TABLET (FP) PO SCH (22:41)
[2020-09-24] MEDS: MELATONIN 5 MG TABLETS PO SCH (22:42)
[2020-09-25 06:07] VITALS: TEMP 96.9
[2020-09-25] MEDS ORDERED: methaDONE HCL 10 MG TABLET (FOR DETOX USE ONLY) PO ONE (08:15)
[2020-09-25] MEDS: PRENATAL VITAMINS W/ FOLIC ACID TABLET (FP) PO SCH (09:24)
[2020-09-25] MEDS: METHOCARBAMOL 500 MG TABLET PO PRN (09:25)
[2020-09-25] MEDS: NICOTINE 21 MG/24 HOURS TOPICAL PATCH TD SCH (09:27)
[2020-09-25 09:28] VITALS: BP 99/67; PULSE 100
== END 2020-09-25 11:47 | disposition other institution (70) | DRG 773 ==
LOC: YASAS 08:45 → Y3N 15:42
PROVIDERS: ADMIT Allergy & Immunology; ATTEND Allergy & Immunology
PROC: HZ2ZZZZ Detoxification Services for Substance Abuse Treatment (ICD-10-PCS; principal; 2020-09-20)
DX: F11.23 Opioid dependence with withdrawal (principal); F10.230 Alcohol dependence with withdrawal, uncomplicated; F13.20 Sedative, hypnotic or anxiolytic dependence, uncomplicated; F14.20 Cocaine dependence, uncomplicated; F17.210 Nicotine dependence, cigarettes, uncomplicated; F19.280 Other psychoactive substance dependence with psychoactive substance-induced anxiety disorder; F19.282 Other psychoactive substance dependence with psychoactive substance-induced sleep disorder; M54.5 Low back pain; G89.29 Other chronic pain; Z86.19 Personal history of other infectious and parasitic diseases; Z91.013 Allergy to seafood
CPT/HCPCS: 36415; 80053; 81003; 84520; 85027; 86780; C9803; Q0162; U0003; U0005

== ENCOUNTER 2020-09-25 12:00 | Inpatient (IN) | payer OTHER ==
[2020-09-25] MEDS ORDERED: MENTHOL/PHENOL 1 EACH UD MM PRN (12:30)
[2020-09-25] MEDS ORDERED: NICOTINE 10 MG CARTRIDGE (INHALER) IH PRN (12:30)
[2020-09-25] MEDS ORDERED: MAGNESIUM HYDROX 2400MG/30ML ORAL SUSPENSION 30 ML CUP PO PRN (12:30)
[2020-09-25] MEDS ORDERED: P-EPHED 60MG/TRIPROLIDI 2.5MG TABLET PO PRN (12:30)
[2020-09-25] MEDS ORDERED: guaiFENesin 200 MG/10 ML 10 ML UNIT-DOSE CUPS PO PRN (12:30)
[2020-09-25] MEDS ORDERED: MAG HYDROX/AL HYDROX/SIMETH 30 ML UNIT-DOSE CUP PO PRN (12:30)
[2020-09-25] MEDS ORDERED: MAGNESIUM CITRATE 300 ML BOTTLE PO PRN (12:30)
[2020-09-25] MEDS ORDERED: LOPERAMIDE HCL 2 MG CAPSULE PO PRN (12:30)
[2020-09-25] MEDS ORDERED: NICOTINE POLACRILEX 2 MG GUM BUC PRN (12:30)
[2020-09-25] MEDS: IBUPROFEN 400 MG TABLET (FP) PO PRN ×2 (15:35→21:31)
[2020-09-25] MEDS: hydrOXYzine PAMOATE 25 MG CAPSULE (FP) PO PRN (15:36)
[2020-09-25] MEDS: METHOCARBAMOL 500 MG TABLET PO PRN (19:53)
[2020-09-25] MEDS ORDERED: PT OWN MED DRAWER 7, Y5N ONE (21:30)
[2020-09-25] MEDS: busPIRone HCL 5 MG TABLET PO SCH (21:30)
[2020-09-25] MEDS: SUVOREXANT 10 MG TABLET PO PRN (21:30)
[2020-09-25] MEDS: THIAMINE HCL 100 MG TABLET (FP) PO SCH (21:31)
[2020-09-25] MEDS ORDERED: SUVOREXANT 10 MG TABLET PO PRN (22:00)
[2020-09-25] MEDS ORDERED: MELATONIN 5 MG TABLETS PO SCH (22:00)
[2020-09-26] MEDS: hydrOXYzine PAMOATE 25 MG CAPSULE (FP) PO PRN ×3 (06:25→18:31)
[2020-09-26] MEDS: IBUPROFEN 400 MG TABLET (FP) PO PRN ×2 (10:24→18:31)
[2020-09-26] MEDS: PRENATAL VITAMINS W/ FOLIC ACID TABLET (FP) PO SCH (10:24)
[2020-09-26] MEDS: busPIRone HCL 5 MG TABLET PO SCH ×2 (10:24→21:30)
[2020-09-26] MEDS: NICOTINE 7 MG/24 HOURS TOPICAL PATCH TD SCH (10:25)
[2020-09-26] MEDS: METHOCARBAMOL 500 MG TABLET PO PRN ×2 (13:20→21:28)
[2020-09-26] MEDS: ACETAMINOPHEN 325 MG TABLET (FP) PO PRN (13:20)
[2020-09-26] MEDS: SUVOREXANT 10 MG TABLET PO PRN (21:28)
[2020-09-26] MEDS: THIAMINE HCL 100 MG TABLET (FP) PO SCH (21:29)
[2020-09-27] MEDS: IBUPROFEN 400 MG TABLET (FP) PO PRN ×2 (06:31→19:21)
[2020-09-27] MEDS: hydrOXYzine PAMOATE 25 MG CAPSULE (FP) PO PRN ×2 (06:31→19:20)
[2020-09-27] MEDS: NICOTINE 7 MG/24 HOURS TOPICAL PATCH TD SCH (10:09)
[2020-09-27] MEDS: PRENATAL VITAMINS W/ FOLIC ACID TABLET (FP) PO SCH (10:10)
[2020-09-27] MEDS: busPIRone HCL 5 MG TABLET PO SCH ×2 (10:10→21:40)
[2020-09-27] MEDS: METHOCARBAMOL 500 MG TABLET PO PRN (13:09)
[2020-09-27] MEDS: ACETAMINOPHEN 325 MG TABLET (FP) PO PRN (13:09)
[2020-09-27] MEDS: THIAMINE HCL 100 MG TABLET (FP) PO SCH (21:37)
[2020-09-27] MEDS: SUVOREXANT 10 MG TABLET PO PRN (21:39)
[2020-09-28] MEDS: hydrOXYzine PAMOATE 25 MG CAPSULE (FP) PO PRN ×3 (06:41→18:27)
[2020-09-28] MEDS: METHOCARBAMOL 500 MG TABLET PO PRN ×3 (06:41→21:39)
[2020-09-28] MEDS: NICOTINE 7 MG/24 HOURS TOPICAL PATCH TD SCH (10:21)
[2020-09-28] MEDS: busPIRone HCL 5 MG TABLET PO SCH ×2 (10:21→21:39)
[2020-09-28] MEDS: PRENATAL VITAMINS W/ FOLIC ACID TABLET (FP) PO SCH (10:21)
[2020-09-28] MEDS: IBUPROFEN 400 MG TABLET (FP) PO PRN ×2 (10:22→18:27)
[2020-09-28] MEDS ORDERED: PT OWN MED DRAWER 7, Y5N ONE (20:20)
[2020-09-28] MEDS: SUVOREXANT 20 MG TABLET PO PRN (21:39)
[2020-09-28] MEDS: THIAMINE HCL 100 MG TABLET (FP) PO SCH (21:39)
[2020-09-29] MEDS: hydrOXYzine PAMOATE 25 MG CAPSULE (FP) PO PRN ×2 (05:59→17:48)
[2020-09-29] MEDS: IBUPROFEN 400 MG TABLET (FP) PO PRN ×2 (05:59→14:46)
[2020-09-29] MEDS: NICOTINE 7 MG/24 HOURS TOPICAL PATCH TD SCH (09:57)
[2020-09-29] MEDS: PRENATAL VITAMINS W/ FOLIC ACID TABLET (FP) PO SCH (09:57)
[2020-09-29] MEDS: busPIRone HCL 5 MG TABLET PO SCH ×2 (10:03→21:36)
[2020-09-29] MEDS: METHOCARBAMOL 500 MG TABLET PO PRN (17:48)
[2020-09-29] MEDS ORDERED: PT OWN MED DRAWER 7, Y5N ONE (19:12)
[2020-09-29] MEDS: THIAMINE HCL 100 MG TABLET (FP) PO SCH (21:36)
[2020-09-29] MEDS: SUVOREXANT 20 MG TABLET PO PRN (21:38)
[2020-09-30] MEDS: IBUPROFEN 400 MG TABLET (FP) PO PRN ×2 (06:16→13:08)
[2020-09-30] MEDS: hydrOXYzine PAMOATE 25 MG CAPSULE (FP) PO PRN ×3 (06:16→21:18)
[2020-09-30] MEDS: NICOTINE 7 MG/24 HOURS TOPICAL PATCH TD SCH (09:37)
[2020-09-30] MEDS: PRENATAL VITAMINS W/ FOLIC ACID TABLET (FP) PO SCH (09:37)
[2020-09-30] MEDS: METHOCARBAMOL 500 MG TABLET PO PRN ×2 (09:38→21:18)
[2020-09-30] MEDS: busPIRone HCL 5 MG TABLET PO SCH ×2 (09:38→21:15)
[2020-09-30] MEDS ORDERED: BUPRENORPHINE/NALOXONE 2 MG/0.5 MG FILM PACKET SL ONE (13:15)
[2020-09-30] MEDS ORDERED: BUPRENORPHINE/NALOXONE 2 MG/0.5 MG FILM PACKET SL SCH (18:00)
[2020-09-30] MEDS ORDERED: PT OWN MED DRAWER 7, Y5N ONE (19:42)
[2020-09-30] MEDS: THIAMINE HCL 100 MG TABLET (FP) PO SCH (21:15)
[2020-09-30] MEDS: SUVOREXANT 20 MG TABLET PO PRN (21:18)
[2020-10-01] MEDS ORDERED: BUPRENORPHINE/NALOXONE 2 MG/0.5 MG FILM PACKET SL ONE ×2 (09:54)
[2020-10-01] MEDS ORDERED: BUPRENORPHINE/NALOXONE 4 MG/1 MG FILM PACKET SL SCH (10:00)
[2020-10-01] MEDS: PRENATAL VITAMINS W/ FOLIC ACID TABLET (FP) PO SCH (10:05)
[2020-10-01] MEDS: busPIRone HCL 5 MG TABLET PO SCH ×2 (10:05→21:53)
[2020-10-01] MEDS: NICOTINE 7 MG/24 HOURS TOPICAL PATCH TD SCH (10:06)
[2020-10-01] MEDS: hydrOXYzine PAMOATE 25 MG CAPSULE (FP) PO PRN ×2 (12:04→21:14)
[2020-10-01] MEDS: ACETAMINOPHEN 325 MG TABLET (FP) PO PRN (12:04)
[2020-10-01] MEDS: BUPRENORPHINE/NALOXONE 4 MG/1 MG FILM PACKET SL SCH (18:19)
[2020-10-01] MEDS ORDERED: PT OWN MED DRAWER 7, Y5N ONE (20:02)
[2020-10-01] MEDS: SUVOREXANT 20 MG TABLET PO PRN (21:13)
[2020-10-01] MEDS: METHOCARBAMOL 500 MG TABLET PO PRN (21:13)
[2020-10-01] MEDS: THIAMINE HCL 100 MG TABLET (FP) PO SCH (21:53)
[2020-10-02] MEDS: BUPRENORPHINE/NALOXONE 4 MG/1 MG FILM PACKET SL SCH (10:08)
[2020-10-02] MEDS: PRENATAL VITAMINS W/ FOLIC ACID TABLET (FP) PO SCH (10:08)
[2020-10-02] MEDS: NICOTINE 7 MG/24 HOURS TOPICAL PATCH TD SCH (10:08)
[2020-10-02] MEDS: busPIRone HCL 5 MG TABLET PO SCH ×2 (10:08→21:52)
[2020-10-02] MEDS: hydrOXYzine PAMOATE 25 MG CAPSULE (FP) PO PRN ×2 (13:13→21:54)
[2020-10-02] MEDS: BUPRENORPHINE/NALOXONE 8 MG/2 MG FILM PACKET SL SCH (17:36)
[2020-10-02] MEDS: THIAMINE HCL 100 MG TABLET (FP) PO SCH (21:52)
[2020-10-02] MEDS: SUVOREXANT 20 MG TABLET PO PRN (21:54)
[2020-10-03] MEDS: BUPRENORPHINE/NALOXONE 8 MG/2 MG FILM PACKET SL SCH ×2 (09:59→17:20)
[2020-10-03] MEDS: PRENATAL VITAMINS W/ FOLIC ACID TABLET (FP) PO SCH (10:00)
[2020-10-03] MEDS: NICOTINE 7 MG/24 HOURS TOPICAL PATCH TD SCH (10:00)
[2020-10-03] MEDS: busPIRone HCL 5 MG TABLET PO SCH ×2 (10:05→21:23)
[2020-10-03] MEDS: ACETAMINOPHEN 325 MG TABLET (FP) PO PRN (16:32)
[2020-10-03] MEDS: hydrOXYzine PAMOATE 25 MG CAPSULE (FP) PO PRN (21:21)
[2020-10-03] MEDS: SUVOREXANT 20 MG TABLET PO PRN (21:22)
[2020-10-03] MEDS: THIAMINE HCL 100 MG TABLET (FP) PO SCH (21:23)
[2020-10-04] MEDS: busPIRone HCL 5 MG TABLET PO SCH ×2 (09:41→22:36)
[2020-10-04] MEDS: PRENATAL VITAMINS W/ FOLIC ACID TABLET (FP) PO SCH (09:41)
[2020-10-04] MEDS: BUPRENORPHINE/NALOXONE 8 MG/2 MG FILM PACKET SL SCH ×2 (09:41→17:45)
[2020-10-04] MEDS: NICOTINE 7 MG/24 HOURS TOPICAL PATCH TD SCH (09:41)
[2020-10-04] MEDS ORDERED: PT OWN MED DRAWER 7, Y5N ONE (19:22)
[2020-10-04] MEDS ORDERED: TRIMETHOBENZAMIDE HCL 200MG/2ML INJ IM ONE (21:03)
[2020-10-04] MEDS: SUVOREXANT 20 MG TABLET PO PRN (22:36)
[2020-10-04] MEDS: THIAMINE HCL 100 MG TABLET (FP) PO SCH (23:32)
[2020-10-05] MEDS: busPIRone HCL 5 MG TABLET PO SCH ×2 (09:34→21:15)
[2020-10-05] MEDS: BUPRENORPHINE/NALOXONE 8 MG/2 MG FILM PACKET SL SCH (09:34)
[2020-10-05] MEDS: NICOTINE 7 MG/24 HOURS TOPICAL PATCH TD SCH (09:34)
[2020-10-05] MEDS: PRENATAL VITAMINS W/ FOLIC ACID TABLET (FP) PO SCH (09:34)
[2020-10-05] MEDS: BUPRENORPHINE/NALOXONE 4 MG/1 MG FILM PACKET SL SCH (17:57)
[2020-10-05] MEDS: SUVOREXANT 20 MG TABLET PO PRN (21:14)
[2020-10-05] MEDS: THIAMINE HCL 100 MG TABLET (FP) PO SCH (21:15)
[2020-10-05] MEDS: hydrOXYzine PAMOATE 25 MG CAPSULE (FP) PO PRN (21:15)
[2020-10-06] MEDS: busPIRone HCL 5 MG TABLET PO SCH ×2 (09:46→21:24)
[2020-10-06] MEDS: PRENATAL VITAMINS W/ FOLIC ACID TABLET (FP) PO SCH (09:46)
[2020-10-06] MEDS: BUPRENORPHINE/NALOXONE 8 MG/2 MG FILM PACKET SL SCH (09:46)
[2020-10-06] MEDS: NICOTINE 7 MG/24 HOURS TOPICAL PATCH TD SCH (09:46)
[2020-10-06] MEDS: BUPRENORPHINE/NALOXONE 4 MG/1 MG FILM PACKET SL SCH (18:06)
[2020-10-06] MEDS: hydrOXYzine PAMOATE 25 MG CAPSULE (FP) PO PRN (21:23)
[2020-10-06] MEDS: THIAMINE HCL 100 MG TABLET (FP) PO SCH (21:23)
[2020-10-06] MEDS: SUVOREXANT 20 MG TABLET PO PRN (21:23)
[2020-10-07] MEDS: NICOTINE 7 MG/24 HOURS TOPICAL PATCH TD SCH (10:00)
[2020-10-07] MEDS: BUPRENORPHINE/NALOXONE 8 MG/2 MG FILM PACKET SL SCH (10:00)
[2020-10-07] MEDS: PRENATAL VITAMINS W/ FOLIC ACID TABLET (FP) PO SCH (10:00)
[2020-10-07] MEDS: busPIRone HCL 5 MG TABLET PO SCH ×2 (10:00→21:30)
[2020-10-07] MEDS: hydrOXYzine PAMOATE 25 MG CAPSULE (FP) PO PRN ×2 (10:03→21:27)
[2020-10-07] MEDS: ACETAMINOPHEN 325 MG TABLET (FP) PO PRN (13:23)
[2020-10-07] MEDS: BUPRENORPHINE/NALOXONE 4 MG/1 MG FILM PACKET SL SCH (17:59)
[2020-10-07] MEDS: SUVOREXANT 20 MG TABLET PO PRN (21:27)
[2020-10-07] MEDS: THIAMINE HCL 100 MG TABLET (FP) PO SCH (21:31)
[2020-10-08] MEDS: NICOTINE 7 MG/24 HOURS TOPICAL PATCH TD SCH (09:47)
[2020-10-08] MEDS: PRENATAL VITAMINS W/ FOLIC ACID TABLET (FP) PO SCH (09:47)
[2020-10-08] MEDS: busPIRone HCL 5 MG TABLET PO SCH ×2 (09:47→21:12)
[2020-10-08] MEDS: BUPRENORPHINE/NALOXONE 8 MG/2 MG FILM PACKET SL SCH (09:48)
[2020-10-08] MEDS: IBUPROFEN 400 MG TABLET (FP) PO PRN ×2 (13:30→21:14)
[2020-10-08] MEDS: hydrOXYzine PAMOATE 25 MG CAPSULE (FP) PO PRN ×2 (13:31→21:14)
[2020-10-08] MEDS: BUPRENORPHINE/NALOXONE 4 MG/1 MG FILM PACKET SL SCH (18:10)
[2020-10-08] MEDS ORDERED: PT OWN MED DRAWER 7, Y5N ONE (20:28)
[2020-10-08] MEDS: THIAMINE HCL 100 MG TABLET (FP) PO SCH (21:12)
[2020-10-08] MEDS: SUVOREXANT 20 MG TABLET PO PRN (21:16)
[2020-10-09 06:58] VITALS: BP 166/66; PULSE 67; TEMP 97.2
[2020-10-09] MEDS: BUPRENORPHINE/NALOXONE 8 MG/2 MG FILM PACKET SL SCH (09:04)
[2020-10-09] MEDS: PRENATAL VITAMINS W/ FOLIC ACID TABLET (FP) PO SCH (09:05)
[2020-10-09] MEDS: busPIRone HCL 5 MG TABLET PO SCH (09:05)
[2020-10-09] MEDS: NICOTINE 7 MG/24 HOURS TOPICAL PATCH TD SCH (09:06)
== END 2020-10-09 09:30 | disposition home or self-care (01) | DRG 772 ==
LOC: YASAS 12:00 → Y5N 12:02
PROVIDERS: ADMIT Allergy & Immunology; ATTEND Allergy & Immunology
PROC: HZ42ZZZ Group Counseling for Substance Abuse Treatment, Cognitive-Behavioral (ICD-10-PCS; principal; 2020-09-25)
DX: F11.20 Opioid dependence, uncomplicated (principal); F10.20 Alcohol dependence, uncomplicated; F14.20 Cocaine dependence, uncomplicated; F13.20 Sedative, hypnotic or anxiolytic dependence, uncomplicated; F17.210 Nicotine dependence, cigarettes, uncomplicated; F19.282 Other psychoactive substance dependence with psychoactive substance-induced sleep disorder; K21.9 Gastro-esophageal reflux disease without esophagitis; M54.5 Low back pain; G89.29 Other chronic pain; Z86.19 Personal history of other infectious and parasitic diseases; Z51.81 Encounter for therapeutic drug level monitoring; Z91.013 Allergy to seafood